=== PATIENT | female | born 1970 | race Caucasian/White ===

== ENCOUNTER 2020-11-02 14:36 | Emergency (ER) | payer OTHER, SELFPAY ==
[2020-11-02 15:18] VITALS: BP 138/83; PULSE 95; RESP 18; TEMP 37.1; O2SAT 95; BMI 40.3
[2020-11-02 15:44] LABS: Glucose Urine UA NEG (NEG); Leukocyte Esterase Urine NEG (NEG); Nitrite Urine NEG (NEG); Specific Gravity - Urine 1.025 (1.005-1.025); Urine Blood 3+ (NEG); Urine Ketones NEG (NEG); Urine Protein TRACE MG/DL (NEG-TRACE)
[2020-11-02 15:55] LABS: Appearance Urine HAZY; Color Urine YELLOW
[2020-11-02 16:14] LABS: MANUAL DIFF FLAG NO
[2020-11-02 16:19] LABS: Basophils Percent Auto 0.2 % (0-2); Eosinophils Absolute Auto 0.3 X10*3/uL (0.0-0.4); Hemoglobin 13.2 g/dl (12.0-16.0); Imm Gran Abs Auto 0.03 X10*3/uL (0.00-0.03); Imm Gran Pct Auto 0.3 % (0.0-0.4); Lymphocytes Absolute Auto 1.9 X10*3/uL (1.2-4.9); Lymphocytes Percent Auto 18.7 % (20-40); Mean Corpuscular HGB Conc 32.2 g/dl (31.0-35.0); Mean Corpuscular Hemoglobin 31.7 pg (27.0-33.0); Mean Corpuscular Volume 98.3 fL (80-98); Mean Platelet Volume 10.4 fL (9.4-12.3); Monocytes Absolute Auto 0.5 X10*3/uL (0.1-1.2); Monocytes Percent Auto 5.2 % (2-11); Neutrophils Absolute Auto 7.3 X10*3/uL (2.0-8.3); Neutrophils Percent Auto 72.6 % (45-73); Platelet Count 240 X10*3/uL (160-400); Red Blood Count 4.17 X10*6/uL (4.20-5.50); Red Cell Distribution Width 13.1 % (11.0-16.0)
[2020-11-02 16:40] LABS: Alanine Aminotransferase 18 U/L (0-31); Albumin Level 4.5 g/dL (3.5-5.0); Alkaline Phosphatase 91 U/L (39-117); Anion Gap 13 (12-20); Aspartate Amino Transferase 14 U/L (5-31); Bilirubin Total < 0.2 mg/dL (0.0-1.0); Blood Urea Nitrogen 15 mg/dL (9-16); Calcium 10.3 mg/dL (8.4-10.2); Carbon Dioxide 28 mmol/L (22-29); Chloride 105 mmol/L (96-108); Creatinine Clr Calc Pharmacy 132.6; Estimated Glomerular Filt Rate > 60; Glucose Random 98 mg/dL (60-115); Potassium 4.1 mmol/L (3.3-5.1); Sodium 142 mmol/L (135-145); Total Protein 7.5 g/dL (6.5-8.0)
[2020-11-02 16:51] LABS: Bacteria Urine 2+ /LPF; Squamous Epithelial Cell Urine 3+ /LPF; Uric Acid Crystals Urine 2+ /LPF
[2020-11-02 18:31] VITALS: BP 126/76; PULSE 92; RESP 17; TEMP 35.9; O2SAT 96
--- NOTE | 2020-11-02 19:03 | ED.FEMALEGU ---
HPI - Female Genitourinary General Chief complaint: Urogenital-Female Stated complaint: possible UTI Time Seen by Provider: 11/02/20 18:47 Source: patient Mode of arrival: ambulatory Limitations: no limitations History of Present Illness HPI Narrative: patient is a 50-year-old female with a past medical history of dm 2, endometrial cancer, kidney stones, multiple UTIs was presenting with mild low back pain and hematuria x2 days. She states she has had multiple urinary tract infections before and they feel exactly like this. She states she also has a history of kidney stones but this is not the same kind of pain, she also notes she typically would have fever nausea vomiting diarrhea with the and she does not have that right now. Related Data Previous Rx's Medication Instructions Recorded nitrofurantoin monohyd/m-cryst 100 mg PO Q12H 5 Days #10 cap 11/02/20 [Macrobid] Allergies Allergy/AdvReac Type Severity Reaction Status Date / Time No Known Allergies Allergy Verified 11/02/20 15:18 [facility] Past Medical History Medical History (Updated 11/02/20 @ 19:05 by Holli Zuluaga PA-C) Diabetes Endometrial cancer Liver function abnormality UTI (urinary tract infection) Surgical History (Updated 11/02/20 @ 15:22 by Yancy Funes RN) H/O: hysterectomy Social History Social History Advance Directives: No Advance Directives Information Provided: Yes Patient : No Physical Exam Vital Signs: Vital Signs: Last Vital Signs Temp 96.6 F L 11/02/20 18:31 Pulse 92 11/02/20 18:31 Resp 17 11/02/20 18:31 BP 126/76 11/02/20 18:31 Pulse Ox 96 11/02/20 18:31 Body Mass Index 40.3 MDM - Female Genitourinary Lab Data Result diagrams: 11/02/20 16:08 11/02/20 16:08 Labs: Lab Results 11/02/20 11/02/20 11/02/20 Range/Units 15:33 16:08 16:08 WBC 10.0 (4.8-10.8) X10*3/uL RBC 4.17 L (4.20-5.50) X10*6/uL Hgb 13.2 (12.0-16.0) g/dl Hct 41.0 (37-47) % MCV 98.3 H (80-98) fL MCH 31.7 (27.0-33.0) pg MCHC 32.2 (31.0-35.0) g/dl RDW 13.1 (11.0-16.0) % Plt Count 240 (160-400) X10*3/uL MPV 10.4 (9.4-12.3) fL Immature Gran % (Auto) 0.3 (0.0-0.4) % Neut % (Auto) 72.6 (45-73) % Lymph % (Auto) 18.7 L (20-40) % [place] % (Auto) 5.2 (2-11) % Eos % (Auto) 3.0 (0-4) % Baso % (Auto) 0.2 (0-2) % Lymph # (Auto) 1.9 (1.2-4.9) X10*3/uL [place] # (Auto) 0.5 (0.1-1.2) X10*3/uL Eos # (Auto) 0.3 (0.0-0.4) X10*3/uL Baso # (Auto) 0.0 (0.0-0.2) X10*3/uL Abs Immat Gran (auto) 0.03 (0.00-0.03) X10*3/uL Absolute Neuts (auto) 7.3 (2.0-8.3) X10*3/uL Absolute Nucleated RBC 0.000 (0.0-0.012) X10*3/uL Nucleated RBC % (auto) 0.0 (0.0-0.2) /100WBC Sodium 142 (135-145) mmol/L Potassium 4.1 (3.3-5.1) mmol/L Chloride 105 (96-108) mmol/L Carbon Dioxide 28 (22-29) mmol/L Anion Gap 13 (12-20) BUN 15 (9-16) mg/dL Creatinine 0.70 (0.5-1.4) mg/dL Estim Creat Clear Calc 132.6 Estimated GFR > 60 Random Glucose 98 (60-115) mg/dL Calcium 10.3 H (8.4-10.2) mg/dL Total Bilirubin < 0.2 (0.0-1.0) mg/dL AST 14 (5-31) U/L ALT 18 (0-31) U/L Alkaline Phosphatase 91 (39-117) U/L Total Protein 7.5 (6.5-8.0) g/dL Albumin 4.5 (3.5-5.0) g/dL Urine Color YELLOW Urine Appearance HAZY Urine pH 6.0 (5.0-8.0) Ur Specific [place] 1.025 (1.005-1.025) Urine Protein TRACE (NEG-TRACE) MG/DL Urine Glucose (UA) NEG (NEG) MG/DL Urine Ketones NEG (NEG) MG/DL Urine Blood 3+ H (NEG) Urine Nitrite NEG (NEG) Ur Leukocyte Esterase NEG (NEG) Urine RBC 15-29 H (0) /HPF Urine WBC 1-4 (0-4) /HPF Ur Squamous Epith Cells 3+ /LPF Uric Acid Crystals 2+ /LPF Urine Bacteria 2+ /LPF Discharge Plan Discharge Clinical Impression: Urinary tract infection Qualifiers: Urinary tract infection type: acute cystitis Hematuria presence: with hematuria Qualified Code(s): N30.01 - Acute cystitis with hematuria Patient Disposition: Home, Self-Care Instructions: Urinary Tract Infection in Women (ED) Additional Instructions: please be sure to drink lots of water, you may take ibuprofen for pain, I have given your 1st dose of your antibiotic tonight, you should fill the prescription 1st thing in the morning and start taking the medication then. If you develop a fever or worsening pain, please return to the emergency department as you will need to be ruled out for kidney stone. Prescriptions: New nitrofurantoin monohyd/m-cryst [Macrobid] 100 mg capsule 100 mg PO Q12H 5 Days Qty: 10 RF: 0
[2020-11-02] MEDS: Nitrofurantoin Monohyd/M-Cryst 100 MG CAPSULE PO (19:21)
== END 2020-11-02 19:27 | disposition home or self-care (01) ==
PROVIDERS: Emergency Provider Internal Medicine
DX: N30.01 Acute cystitis with hematuria (principal); E11.9 Type 2 diabetes mellitus without complications; Z87.440 Personal history of urinary (tract) infections
CPT/HCPCS: 36415; 80053; 81001; 85025; 99283; 99284

== ENCOUNTER 2020-12-11 18:33 | Emergency (ER) | payer OTHER, SELFPAY ==
--- NOTE | ~2020-12-11 | CT_ITS ---
EXAMINATION: CT ABDOMEN AND PELVIS WITHOUT CONTRAST CLINICAL INFORMATION: bilat flank pain, hematuria . COMPARISON: No pertinent prior studies are available for comparison. TECHNIQUE: Multidetector volumetric imaging was performed from the superior aspect of the liver through the pubic symphysis without contrast per renal stone protocol. Sagittal and coronal reformatted images were obtained on the technologist workstation. This CT examination was performed using dose optimization techniques as appropriate, variously including the following: *Automated exposure control *Adjustment of mA and/or kV according to patient size (this includes techniques or standardized protocols for targeted exams where dose is matched to indication/reason for exam; i.e. extremities or head) *Use of iterative reconstruction technique DLP: 1141 mGy-cm. FINDINGS: LUNG BASES: The visualized lung bases are unremarkable. LIVER, GALLBLADDER, BILIARY TREE: The non-contrast liver is normal in size, shape, and attenuation. No focal hepatic lesion or biliary ductal dilatation is present. The gallbladder is unremarkable with no evidence of radiopaque gallstones, gallbladder wall thickening, or obvious pericholecystic inflammatory changes. PANCREAS: Unremarkable. SPLEEN: Unremarkable. ADRENAL GLANDS: Unremarkable. KIDNEYS AND URETERS: The kidneys are normal in size, shape, and attenuation. No hydronephrosis, hydroureter, or perinephric stranding. Nonobstructing 5 mm calculi in the lower pole collecting system of the right kidney with additional tiny punctate calculi seen bilaterally. I do not appreciate any ureteric calculi although there are multiple phleboliths seen within the pelvis near the course the ureters BLADDER: Unremarkable. GASTROINTESTINAL TRACT: Scattered colonic diverticulosis but no evidence for diverticulitis. Normal-appearing appendix in the right lower quadrant. Visualized small bowel unremarkable. Stomach is decompressed and unremarkable. ABDOMINAL WALL: Tiny fat-containing periumbilical hernia LYMPHOVASCULAR STRUCTURES: Mild stranding to the mesenteric fat but no bulky mesenteric adenopathy. PELVIC VISCERA: Surgically absent OSSEUS STRUCTURES: Degenerative changes at L5/S1 CT/CT abdomen pelvis wo con IMPRESSION: Chronic appearing changes as described above. I do not appreciate any acute intra-abdominal process. Nonobstructing renal calculi noted.
[2020-12-11 20:56] VITALS: BP 158/86; PULSE 100; RESP 18; TEMP 37.2; O2SAT 95; BMI 40.3
[2020-12-11 21:41] LABS: Glucose Urine UA NEG (NEG); Leukocyte Esterase Urine NEG (NEG); Nitrite Urine NEG (NEG); Specific Gravity - Urine >= 1.030 (1.005-1.025); UACC Culture Trigger NO; Urine Blood 1+ (NEG); Urine Ketones NEG (NEG); Urine Protein NEG (NEG-TRACE)
[2020-12-11 21:42] LABS: Appearance Urine HAZY; Color Urine YELLOW
[2020-12-11 22:05] LABS: Bacteria Urine 1+ /LPF; Calcium Oxalate Crystals Urine TRACE /LPF; Mucus Urine 2+ /LPF; RBC Urine 0-2 /HPF (0); Squamous Epithelial Cell Urine 3+ /LPF; Uric Acid Crystals Urine 3+ /LPF; WBC Urine 0 /HPF (0-4)
--- NOTE | 2020-12-11 22:38 | ED_ITS ---
HPI - Female Genitourinary General Chief complaint: Urogenital-Female Stated complaint: possible bladder infection/uti Time Seen by Provider: 12/11/20 22:24 Source: patient Mode of arrival: ambulatory Limitations: no limitations History of Present Illness HPI Narrative: Patient comes emergency room complaining of multiple UTIs since October. Patient states that for last 3 days she has been having dysuria, hematuria, frequency. Patient states that initially she was treated for a UTI with nitrofurantoin, 2nd episode with Bactrim. Patient states that after the Bactrim she started feeling better, but her symptoms never quite resolved, and over last 2-3 days the symptoms worsen. Patient has mild bilateral back d iscomfort, no significant pain, no fever or chills. Patient concerned that she has been urinating more than usual especially at night. Related Data Previous Rx's Medication Instructions Recorded nitrofurantoin 100 mg PO Q12H 5 Days #10 cap 11/02/20 monohydrate/macrocrystals 100 mg capsule (Macrobid) phenazopyridine 100 mg tablet 100 mg PO TID #6 tab 12/12/20 Allergies Allergy/AdvReac Type Severity Reaction Status Date / Time No Known Allergies Allergy Verified 12/11/20 21:02 Review of Systems Review of Systems: Constitutional : No Weight loss, No Fever, No Chills, No Night Sweats, No Fatigue, No Malaise ENT/Mouth : No Hearing loss, No Ear Pain, No Nasal Congestion, No Sinus Pain, No Hoarseness, No sore throat, No Rhinorrhea, No Swallowing Difficulty Eyes: No Eye Pain, No Swelling, No Redness, No Foreign Body, No Discharge, No Vision Changes Cardiovascular : No Chest Pain, No SOB, No Dyspnea on Exertion, No Orthopnea, No Edema, No Palpitations Respiratory : No Cough, No Sputum, No Wheezing, No Smoke Exposure, No Dyspnea Gastrointestinal : No Nausea, No Vomiting, No Diarrhea, No Constipation, No abdominal Pain, No Hematochezia, No Melena Genitourinary : no irregular bleeding, complaining of dysuria, frequency, hematuria, no incontinence, complaining of increased frequency of urination especially at night Musculoskeletal : No joint pain, No Myalgias, No Joint Swelling Skin : No Skin Lesions, No rash Neuro : No Weakness, No Numbness, No Paresthesias, No Loss of Consciousness, No Dizziness, No Headache Psych : No Anxiety/Panic, No Depression, No SI/HI/AH/VH, No Social Issues, Heme/Lymph: No Bruising, No Bleeding,No Lymphadenopathy Endocrine : No Polyuria, No Polydipsia, No Temperature Intolerance [facility] Past Medical History Medical History Diabetes Endometrial cancer Liver function abnormality UTI (urinary tract infection) Surgical History H/O: hysterectomy Social History Social History Advance Directives: No Patient : No Physical Exam Vital Signs: Vital Signs: Last Vital Signs Temp 99.0 F 12/11/20 20:56 Pulse 100 12/11/20 20:56 Resp 18 12/11/20 20:56 BP 158/86 H 12/11/20 20:56 Pulse Ox 95 12/11/20 20:56 Body Mass Index 40.3 Const: Other: Appearance: Alert. Oriented X3. No acute distress. Eyes: Pupils equal, round and reactive to light. ENT: Pharynx normal. Neck: Normal inspection. Neck supple. No lymph nodes noted. No crepitus CVS: Normal heart rate and rhythm. Pulses normal. Normal S1 and S2 Respiratory: No respiratory distress. Breath sounds normal. No Wheezing. No rales Abdomen: Soft and nontender. No rigidity. No distention. Mild bilateral CVA tenderness Skin: Skin warm and dry. Normal skin color. Normal skin turgor. Extremities: No lower extremity edema. No Lacerations. No Rash Neuro: Oriented X 3. No motor deficit. No sensory deficit. Moving all extermities. No slurred speech. Course Course Course Narrative: I discussed the labs and CT with the patient, patient also states that she does not quite have dysuria, is mostly bladder spasms when she urinates. Patient CT scan does not show any ureterolithiasis, however there is trace calcium oxalate crystals in the urine, patient likely passed the stone. The urine is not infected. Patient will be going home with Pyridium, 1st dose given in the ER. Patient instructed to follow-up with PCP to get a urinalysis to be done early next week MDM - Female Genitourinary Lab Data Result diagrams: 12/11/20 23:20 12/11/20 23:20 Labs: Lab Results 12/11/20 12/11/20 12/11/20 Range/Units 21:11 23:20 23:20 WBC 9.9 (4.8-10.8) X10*3/uL RBC 4.19 L (4.20-5.50) X10*6/uL Hgb 13.4 (12.0-16.0) g/dl Hct 40.8 (37-47) % MCV 97.4 (80-98) fL MCH 32.0 (27.0-33.0) pg MCHC 32.8 (31.0-35.0) g/dl RDW 13.2 (11.0-16.0) % Plt Count 260 (160-400) X10*3/uL MPV 10.1 (9.4-12.3) fL Immature Gran % (Auto) 0.2 (0.0-0.4) % Neut % (Auto) 64.7 (45-73) % Lymph % (Auto) 26.6 (20-40) % [place] % (Auto) 5.4 (2-11) % Eos % (Auto) 2.9 (0-4) % Baso % (Auto) 0.2 (0-2) % Lymph # (Auto) 2.6 (1.2-4.9) X10*3/uL [place] # (Auto) 0.5 (0.1-1.2) X10*3/uL Eos # (Auto) 0.3 (0.0-0.4) X10*3/uL Baso # (Auto) 0.0 (0.0-0.2) X10*3/uL Abs Immat Gran (auto) 0.02 (0.00-0.03) X10*3/uL Absolute Neuts (auto) 6.4 (2.0-8.3) X10*3/uL Absolute Nucleated RBC 0.000 (0.0-0.012) X10*3/uL Nucleated RBC % (auto) 0.0 (0.0-0.2) /100WBC Sodium 142 (135-145) mmol/L Potassium 4.0 (3.3-5.1) mmol/L Chloride 107 (96-108) mmol/L Carbon Dioxide 23 (22-29) mmol/L Anion Gap 16 (12-20) BUN 15 (9-16) mg/dL Creatinine 0.77 (0.5-1.4) mg/dL Estim Creat Clear Calc 120.5 Estimated GFR > 60 Random Glucose 177 H D (60-115) mg/dL Calcium 9.8 (8.4-10.2) mg/dL Urine Color YELLOW Urine Appearance HAZY Urine pH 6.0 (5.0-8.0) Ur Specific [place] >= 1.030 H (1.005-1.025) Urine Protein NEG (NEG-TRACE) MG/DL Urine Glucose (UA) NEG (NEG) MG/DL Urine Ketones NEG (NEG) MG/DL Urine Blood 1+ H (NEG) Urine Nitrite NEG (NEG) Ur Leukocyte Esterase NEG (NEG) Urine RBC 0-2 (0) /HPF Urine WBC 0 (0-4) /HPF Ur Squamous Epith Cells 3+ /LPF Calcium Oxalate Crystal TRACE /LPF Uric Acid Crystals 3+ /LPF Urine Bacteria 1+ /LPF Urine Mucus 2+ /LPF Imaging Data CT scan - abdomen: Radiologist's impression: DLP: 1141 mGy-cm. FINDINGS: LUNG BASES: The visualized lung bases are unremarkable. LIVER, GALLBLADDER, BILIARY TREE: The non-contrast liver is normal in size, shape, and attenuation. No focal hepatic lesion or biliary ductal dilatation is present.? The gallbladder is unremarkable with no evidence of radiopaque gallstones, gallbladder wall thickening, or obvious pericholecystic inflammatory changes. PANCREAS: Unremarkable. SPLEEN: Unremarkable. ADRENAL GLANDS: Unremarkable. KIDNEYS AND URETERS: The kidneys are normal in size, shape, and attenuation. No hydronephrosis, hydroureter, or perinephric stranding. Nonobstructing 5 mm calculi in the lower pole collecting system of the right kidney with additional tiny punctate calculi seen bilaterally. I do not appreciate any ureteric calculi although there are multiple phleboliths seen within the pelvis near the course the ureters BLADDER: Unremarkable. GASTROINTESTINAL TRACT: Scattered colonic diverticulosis but no evidence for diverticulitis. Normal-appearing appendix in the right lower quadrant. Visualized small bowel unremarkable. Stomach is decompressed and unremarkable. ABDOMINAL WALL: Tiny fat-containing periumbilical hernia LYMPHOVASCULAR STRUCTURES: Mild stranding to the mesenteric fat but no bulky mesenteric adenopathy. PELVIC VISCERA: Surgically absent OSSEUS STRUCTURES: Degenerative changes at L5/S1 CT/CT abdomen pelvis wo con IMPRESSION: Chronic appearing changes as described above. I do not appreciate any acute intra-abdominal process. Nonobstructing renal calculi noted. Discharge Plan Discharge Clinical Impression: UTI symptoms Patient Disposition: Home, Self-Care Instructions: Kidney Stones (ED) Additional Instructions: Please follow-up with your primary care physician tomorrow. If you have any worsening or new symptoms, please return to the emergency room or call 911 Prescriptions: New phenazopyridine 100 mg tablet 100 mg PO TID Qty: 6 RF: 0 No Action nitrofurantoin monohyd/m-cryst [Macrobid] 100 mg capsule 100 mg PO Q12H 5 Days Qty: 10 RF: 0
[2020-12-11 23:25] LABS: Basophils Percent Auto 0.2 % (0-2); Eosinophils Absolute Auto 0.3 X10*3/uL (0.0-0.4); Eosinophils Percent Auto 2.9 % (0-4); Hematocrit 40.8 % (37-47); Hemoglobin 13.4 g/dl (12.0-16.0); Imm Gran Abs Auto 0.02 X10*3/uL (0.00-0.03); Imm Gran Pct Auto 0.2 % (0.0-0.4); Lymphocytes Absolute Auto 2.6 X10*3/uL (1.2-4.9); Lymphocytes Percent Auto 26.6 % (20-40); MANUAL DIFF FLAG NO; Mean Corpuscular HGB Conc 32.8 g/dl (31.0-35.0); Mean Corpuscular Volume 97.4 fL (80-98); Mean Platelet Volume 10.1 fL (9.4-12.3); Monocytes Absolute Auto 0.5 X10*3/uL (0.1-1.2); Monocytes Percent Auto 5.4 % (2-11); Neutrophils Absolute Auto 6.4 X10*3/uL (2.0-8.3); Neutrophils Percent Auto 64.7 % (45-73); Platelet Count 260 X10*3/uL (160-400); Red Blood Count 4.19 X10*6/uL (4.20-5.50); Red Cell Distribution Width 13.2 % (11.0-16.0); White Blood Count 9.9 X10*3/uL (4.8-10.8)
[2020-12-11 23:53] LABS: Anion Gap 16 (12-20); Blood Urea Nitrogen 15 mg/dL (9-16); Calcium 9.8 mg/dL (8.4-10.2); Carbon Dioxide 23 mmol/L (22-29); Chloride 107 mmol/L (96-108); Creatinine Clr Calc Pharmacy 120.5; Estimated Glomerular Filt Rate > 60; Glucose Random 177 mg/dL (60-115); Sodium 142 mmol/L (135-145)
[2020-12-12] VITALS: BP 155/95; PULSE 100; RESP 16; TEMP 36.7; O2SAT 98
== END 2020-12-12 00:32 | disposition home or self-care (01) ==
PROVIDERS: Emergency Provider Emergency Medicine
DX: R30.0 Dysuria (principal); R31.9 Hematuria, unspecified; R35.0 Frequency of micturition; Z87.440 Personal history of urinary (tract) infections
CPT/HCPCS: 36415; 74176; 80048; 81001; 85025; 99283; 99284

== ENCOUNTER 2020-12-30 15:11 | Outpatient (REF) | payer OTHER, SELFPAY ==
[2020-12-30 15:50] LABS: COVID-19 Test Negative (Negative); IDNOW Serial# 08D9AD1C
== END 2020-12-30 15:12 | disposition home or self-care (01) ==
LOC: HO.LAB 15:11
PROVIDERS: Visit Provider Internal Medicine
DX: Z20.822 Contact with and (suspected) exposure to COVID-19 (principal)
CPT/HCPCS: 36415; 87635; C9803

== ENCOUNTER 2021-05-20 11:33 | Outpatient (REF) | payer MEDICAID, SELFPAY ==
[2021-05-20 14:06] LABS: COVID-19 Test Positive (Negative); IDNOW Serial# 16C4AD1C
== END 2021-05-20 11:34 | disposition home or self-care (01) ==
LOC: HO.LAB 11:33
PROVIDERS: Visit Provider Internal Medicine
DX: Z20.822 Contact with and (suspected) exposure to COVID-19 (principal)
CPT/HCPCS: 87635; C9803

== ENCOUNTER 2021-06-24 12:38 | Outpatient (REF) | payer MEDICAID, SELFPAY ==
--- NOTE | ~2021-06-24 | MM_ITS ---
EXAMINATION: MM SCREENING DIGITAL BREAST TOMOSYNTHESIS, BILATERAL CLINICAL INFORMATION: Screening. Asymptomatic. Age 50. Prior history breast cancer, sister. The lifetime risk of breast cancer based on the Tyrer-Cuzick Model is 19%. COMPARISON: None. TECHNIQUE: Digital breast tomosynthesis is performed in both the craniocaudal and mediolateral oblique views along with computer-aided detection (CAD). Synthesized 2D images are generated from the tomosynthesis. FINDINGS: The breasts are almost entirely fatty (ACR BI-RADS breast composition Category a). There are no significant masses, abnormal calcifications, or other abnormalities. There are scattered bilateral benign small or large round and rim calcifications involving the anterior breasts. The axilla and skin contours are unremarkable. MM/MM tomosynthesis screening BI IMPRESSION: No mammographic evidence of malignancy. ASSESSMENT: BI-RADS 2: Benign RECOMMENDATION: Routine annual mammography screening. This patient's information was entered into a reminder system with a target due date for their next mammogram.
== END 2021-06-24 12:39 | disposition home or self-care (01) ==
LOC: HO.MAMMO 12:38
PROVIDERS: Visit Provider Nurse Practitioner Family
DX: Z12.31 Encounter for screening mammogram for malignant neoplasm of breast (principal)
CPT/HCPCS: 77063; 77067

== ENCOUNTER 2021-11-29 14:19 | Outpatient (REF) | payer MEDICAID, SELFPAY ==
--- NOTE | ~2021-11-29 | US_ITS ---
EXAMINATION: US RETROPERITONEAL LIMITED (RENAL ONLY) CLINICAL INFORMATION: Abdominal pain. History of urinary calculi. COMPARISON: CT abdomen and pelvis 12/11/2020. TECHNIQUE: Real-time imaging of the kidneys. FINDINGS: RIGHT KIDNEY: 11.4 x 5.1 x 6.0 cm (SAG x AP x TRV). The kidney is normal in size, contour, and echogenicity. Renal cortical thickness is normal. No calculi or focal parenchymal lesions. No hydronephrosis. LEFT KIDNEY: 12.2 x 6.3 x 5.1 cm (SAG x AP x TRV). The kidney is normal in size, contour, and echogenicity. Renal cortical thickness is normal. No focal parenchymal lesions or cysts. There are 2 echogenic stones measuring 0.7 x 0.5 to 0.6 cm in the lower pole and 0.6 x 0.3 x 0.3 cm in midpole. There is mild pelvic fullness but no focal caliectasis or hydronephrosis. US/US renal BI IMPRESSION: Nonobstructive echogenic 2 renal calculi in the left kidney. No caliectasis or hydronephrosis; however, there is mild pelvic fullness. The right kidney is unremarkable.
== END 2021-11-29 14:20 | disposition home or self-care (01) ==
LOC: HO.US 14:19
PROVIDERS: Visit Provider Emergency Medicine
DX: R10.9 Unspecified abdominal pain (principal)
CPT/HCPCS: 76775

== ENCOUNTER 2021-12-21 12:32 | Outpatient (REF) | payer MEDICAID, SELFPAY ==
--- NOTE | ~2021-12-21 | XR_ITS ---
EXAMINATION: XR HIP, RIGHT CLINICAL INFORMATION: Right hip pain. COMPARISON: CT pelvis 12/11/2020. TECHNIQUE: 2 views of the right hip. FINDINGS: No fracture, dislocation, destructive process. There is borderline narrowing superior medial hip joint. No subchondral sclerosis or erosive change or visible chondrocalcinosis. There is mild spurring at the superior lateral acetabulum. Soft tissue planes appear normal. Normal bony mineralization. There is mild osteitis pubis. Numerous calcified phleboliths pelvis. XR/XR hip RT min 2V IMPRESSION: - Borderline narrowing superior medial hip joint. - Osteitis pubis.
--- NOTE | ~2021-12-21 | XR_ITS ---
EXAMINATION: XR CHEST CLINICAL INFORMATION: Wheezing. COMPARISON: None TECHNIQUE: 2 views of the chest were obtained. FINDINGS: No hyperinflation, airspace consolidation, ground-glass opacity, or effusion. The costophrenic sulci are clear. Heart size normal. Vascularity normal. No bronchiectasis. Hilar and mediastinal contours normal. No visible acute bony abnormality. XR/XR chest 2V IMPRESSION: Unremarkable examination.
== END 2021-12-21 12:33 | disposition home or self-care (01) ==
LOC: HO.XRAY 12:32
PROVIDERS: PCP Nurse Practitioner Family; Visit Provider Nurse Practitioner Family
DX: R06.2 Wheezing (principal); M25.551 Pain in right hip
CPT/HCPCS: 71046; 73502

== ENCOUNTER 2022-02-01 10:32 | Outpatient (REF) | payer MEDICAID, SELFPAY ==
--- NOTE | ~2022-02-01 | US_ITS ---
EXAMINATION: US ABDOMEN COMPLETE CLINICAL INFORMATION: Hepatitis B. Hyperlipidemia renal ultrasound 11/29/2021. CT abdomen and pelvis 12/11/2020. COMPARISON: None TECHNIQUE: Real-time imaging of the abdominal viscera. FINDINGS: PANCREAS: The pancreatic head and body are unremarkable. The tail is obscured by gas. ABDOMINAL AORTA: The proximal, mid, and distal segments are normal in caliber. INFERIOR VENA CAVA: Visualized portions are normal. LIVER: The liver contour is normal. There is diffuse increased liver parenchymal echogenicity, consistent with hepatic steatosis. Borderline enlarged liver measuring 18.9 cm CC. No focal hepatic lesion. There is no intrahepatic biliary duct dilatation seen. GALLBLADDER: Normal. The gallbladder is physiologically distended without evidence of stones, sludge, polyps, wall thickening or pericholecystic fluid. COMMON BILE DUCT: Normal in caliber measuring 0.3 cm in diameter. RIGHT KIDNEY: Midpole 0.8 cm calculus. No hydronephrosis or focal parenchymal lesions. The kidney measures 12.7 cm in maximum dimension. LEFT KIDNEY: Mid pole 1.1 cm calculus . Upper pole 0.3 cm calculus. No hydronephrosis or focal parenchymal lesions. The kidney measures 11.4 cm in maximum dimension. SPLEEN: Normal. The spleen measures 11.0 cm in maximum dimension. FREE FLUID: None. US/US abdomen complete IMPRESSION: Nonobstructing bilateral renal calculi. Hepatic steatosis. No focal liver lesion.
== END 2022-02-01 10:33 | disposition home or self-care (01) ==
LOC: HO.US 10:32
PROVIDERS: Visit Provider Nurse Practitioner Family
DX: R79.89 Other specified abnormal findings of blood chemistry (principal); E78.5 Hyperlipidemia, unspecified; R76.8 Other specified abnormal immunological findings in serum
CPT/HCPCS: 76700

== ENCOUNTER → 2022-03-03 15:09 | Outpatient (BNVA) | payer MEDICAID, SELFPAY | PROVIDERS: PCP Nurse Practitioner Family; Visit Provider Urology | DX: N20.0 Calculus of kidney (principal); R10.9 Unspecified abdominal pain | CPT/HCPCS: 99202 ==

== ENCOUNTER 2022-03-15 14:36 | Outpatient (REF) | payer MEDICAID, SELFPAY ==
--- NOTE | ~2022-03-15 | CT_ITS ---
EXAMINATION: CT ABDOMEN AND PELVIS WITHOUT CONTRAST CLINICAL INFORMATION: Calculus of kidney. COMPARISON: Ultrasound abdomen 02/01/2022 TECHNIQUE: Multidetector volumetric imaging was performed from the superior aspect of the liver through the pubic symphysis. Sagittal and coronal reformatted images were obtained on the technologist's workstation. This CT examination was performed using dose optimization techniques as appropriate, variously including the following: *Automated exposure control *Adjustment of mA and/or kV according to patient size (this includes techniques or standardized protocols for targeted exams where dose is matched to indication/reason for exam; i.e. extremities or head) *Use of iterative reconstruction technique DLP: 1224 mGy-cm FINDINGS: LUNG BASES: The lung bases are clear. Heart size is normal. LIVER, GALLBLADDER, AND BILIARY TREE: The liver is normal in size, shape, and attenuation. No focal hepatic lesion or biliary ductal dilatation is present. The gallbladder is unremarkable with no evidence of radiopaque gallstones, gallbladder wall thickening, or obvious pericholecystic inflammatory changes. PANCREAS: Unremarkable. SPLEEN: Unremarkable. ADRENAL GLANDS: Unremarkable. KIDNEYS AND URETERS: The kidneys are normal in size, shape, and attenuation. No perinephric stranding. There is a 1.4 cm obstructive left pelvic/UPJ calculus with mild hydronephrosis. No additional radiopaque calculi are seen. There is no right-sided hydronephrosis. BLADDER: Unremarkable. GASTROINTESTINAL TRACT: There is scattered stool and gas seen throughout the colon without distention. There is nonspecific fat deposition in a short segment of the hepatic flexure on axial image 37/3, nonspecific. The appendix, ileocecal junction and small bowel loops are normal caliber. ABDOMINAL WALL: There is a small umbilical hernia containing intraperitoneal fat. LYMPH NODES: Normal. VASCULAR: Unremarkable. PELVIC VISCERA: Unremarkable. OSSEOUS STRUCTURES: There are degenerative disc changes with vacuum disc phenomenon at the L5-S1 disc level with ventral and posterior spondylosis. CT/CT abdomen pelvis wo IV con IMPRESSION: 1.4 cm partially obstructive stone at the left UPJ. A 1.1 cm calculus was seen in the midpole left kidney on recent ultrasound 02/03/2022. These calculi in the left kidney has increased in size since previous CT exam 12/11/2020. Degenerative disc changes at the L5-S1 disc level with ventral spondylosis. Fleischner guidelines were followed.
== END 2022-03-15 14:37 | disposition home or self-care (01) ==
LOC: HO.CT 14:36
PROVIDERS: Visit Provider Urology
DX: N20.0 Calculus of kidney (principal)
CPT/HCPCS: 74176

== ENCOUNTER → 2022-03-17 14:56 | Outpatient (BNVA) | payer MEDICAID, SELFPAY | PROVIDERS: PCP Nurse Practitioner Family; Visit Provider Urology | DX: N20.0 Calculus of kidney (principal); R10.9 Unspecified abdominal pain | CPT/HCPCS: 99212 ==

== ENCOUNTER 2022-03-23 08:20 | Day surgery (SDC) | payer MEDICAID, SELFPAY ==
--- NOTE | 2022-03-22 12:44 | P.CONAN_ITS ---
Documented by User: Jessie Saunders NP 03/22/22 12:44 HPI - Anesthesia Eval Consult details Narrative: 51yo F for Left ESWL PMFSH Active Problems Active Problems: All Active Problems (Updated 03/17/22 @ 15:35 by Maureen Watson MD) Kidney stone on left side (Acute) Flank pain (Acute) Bilateral kidney stones (Acute) Past Medical History Medical History CPAP (continuous positive airway pressure) dependence Diabetes Endometrial cancer Liver function abnormality UTI (urinary tract infection) Surgical History Surgical History H/O: hysterectomy Tubal ligation status Social History Social History Patient Tobacco Use Status: Current everyday Tobacco user Tobacco use type: Cigarette Cigarettes Per Day: 20 Years Smoked: 18 Smoked in Last 30 Days: Yes Use of substances other than those prescribed or required for medical reasons: No Are you DNR?: No Advance Directives: No Advance Directives Information Provided: Yes Meds Allergies Allergy/AdvReac Type Severity Reaction Status Date / Time No Known Allergies Allergy Verified 03/23/22 08:56 Home Medications Medication Instructions Recorded Confirmed Last Taken Type albuterol sulfate 90 mcg/actuation 2 puff inhalation Q4-6H PRN 03/23/22 03/23/22 Unknown History aerosol inhaler (ProAir HFA) wheezing atorvastatin 40 mg tablet 1 tab PO DAILY 03/23/22 03/23/22 Unknown History dulaglutide 0.75 mg/0.5 mL 0.75 mg subcut QWEEK 03/23/22 03/23/22 03/16/22 History subcutaneous pen injector (Trulicity) metformin 1,000 mg tablet 1 tab PO BID 03/23/22 03/23/22 03/22/22 10:00 History sertraline 100 mg tablet 0.5 tab PO DAILY 03/23/22 03/23/22 Unknown History Exam Exam Date and Time: March 22, 2022 1244 Assessment and Plan Assessment Anesthesia Assessment: Chart Reviewed Documented by User: Michael Forrest MD 03/23/22 09:23 [facility] [place] Past Medical History Medical History CPAP (continuous positive airway pressure) dependence Diabetes Endometrial cancer Liver function abnormality UTI (urinary tract infection) Family History Family history of problems with anesthesia: No Surgical History Surgical History H/O: hysterectomy Tubal ligation status History of Problems with Anesthesia: No Social History Social History (Reviewed 03/23/22 @ 09: by Michael Forrest MD) Patient Tobacco Use Status: Current everyday Tobacco user Tobacco use type: Cigarette Cigarettes Per Day: 20 Years Smoked: 18 Smoked in Last 30 Days: Yes Use of substances other than those prescribed or required for medical reasons: No Are you DNR?: No Advance Directives: No Advance Directives Information Provided: Yes Meds Allergies Allergy/AdvReac Type Severity Reaction Status Date / Time No Known Allergies Allergy Verified 03/23/22 08:56 Home Medications Medication Instructions Recorded Confirmed Last Taken Type albuterol sulfate 90 mcg/actuation 2 puff inhalation Q4-6H PRN 03/23/22 03/23/22 Unknown History aerosol inhaler (ProAir HFA) wheezing atorvastatin 40 mg tablet 1 tab PO DAILY 03/23/22 03/23/22 Unknown History dulaglutide 0.75 mg/0.5 mL 0.75 mg subcut QWEEK 03/23/22 03/23/22 03/16/22 History subcutaneous pen injector (Trulicity) metformin 1,000 mg tablet 1 tab PO BID 03/23/22 03/23/22 03/22/22 10:00 History sertraline 100 mg tablet 0.5 tab PO DAILY 03/23/22 03/23/22 Unknown History Exam Airway Mallampati Class: III TM Dist: >3cm Neck ROM: Full Loose/Missing/Broken Teeth: Yes (Very poor dentition, lower front tooth missing) Heart: [id number] Lungs: cta b/l Assessment and Plan Assessment Anesthesia Assessment: Anesthesia Plan Discussed Final Anesthetic Review Family History of Problems with Anesthesia: No History of Problems with Anesthesia: No NPO: Yes ASA Class: III Final Preanesthetic Review: No Changes in Pt Med Stat, Meds/Allgs Chart Reviewed, Consent Obtained/Reviewed and Anes Risks/Benef Reviewed Patient Risk: Intermediate Procedure Risk: Intermediate Assessment/Block/Sedation in SS: Assess/Block/Sedation-SS Anesthetic Plan Anesthetic Plan: MAC: and Agree w/ Assess. and Plan Disposition: Standard PACU
--- NOTE | ~2022-03-23 | XR_ITS ---
EXAMINATION: XR ABDOMEN KUB CLINICAL INDICATION: Pre-ESWL. COMPARISON: CT abdomen and pelvis dated 03/15/2022; abdominal ultrasound dated 02/01/2022. TECHNIQUE: 2 AP views of the abdomen and pelvis are submitted. FINDINGS: The bowel gas pattern is normal, with no evidence of ileus or obstruction. No unusual soft tissue calcifications are noted. There are multiple small pelvic phleboliths. The bones are unremarkable. XR/XR KUB IMPRESSION: Unremarkable examination.
[2022-03-23 09:06] VITALS: BMI 39.0
[2022-03-23 09:14] VITALS: BP 134/78; PULSE 82; RESP 16; TEMP 36.3; O2SAT 95
[2022-03-23 09:20] LABS: Glucose, Whole Blood 171 mg/dL (60-115)
[2022-03-23] MEDS: Lactated Ringers 1,000 ML 100 ML IVCONT (09:32)
--- NOTE | 2022-03-23 10:01 | MHC.SHP ---
Pre-Procedural Eval Section A Date of Service: 03/23/22 The patient is an INPATIENT: No Section B Chief Complaint: Calculus of kidney Allergies: Allergies Allergy/AdvReac Type Severity Reaction Status Date / Time No Known Allergies Allergy Verified 03/23/22 08:56 Plan Diagnosis/Plan: Unchanged I have reviewed the history and physical and performed a pertinent physical examination on my patient. No changes have occurred unless specified. Left ESWL. Discussed risks to include but not limited to, blood in the urine, bruising to the skin, kidney hematoma, possible need for another procedure if a stone fragment obstructs the ureter while passing, possible need to repeat procedure if stone is not completely fragmented.
--- NOTE | 2022-03-23 10:04 | W.PM.OPN ---
Operative Note Operative Note Date of Service: 03/23/22 Narrative: PreOperative Diagnosis:? ? Left Renal stone Post Operative Diagnosis:?Left? Renal stone Procedure:?Left? ESWL Surgeon:?Dr Maureen Watson Anesthesia:? MAC Indications for procedure: Grace is a 51 year old female with an 14 mm left renal pelvis stone. The patient understands ESWL may be a staged procedure and subsequent intervention may be required based on imaging after ESWL.? They also understand? there is a risk of bleeding to the kidney, infection, damage to adjacent organs, and stone migration following the procedure. Procedure: After informed consent was verified the patient was brought to the operating room and placed in a supine position.? Anesthesia was performed per protocol. Safety pause time-out was performed. Ancef 2 gm IV. Imaging was displayed in the room and laterality confirmed. ESWL was performed.?The stone was visualized with fluoroscopy.? Shockwave lithotripsy was performed, the first 300 shocks at 60 hertz.? A pause for 3 minutes.? A total of 2000 shocks to a maximum of power of 20 with a maximum rate of 120 hertz.? Some fragmentation of the stone was appreciated. The patient tolerated the procedure well and was transferred to the recovery area upon completion. Complications: None
[2022-03-23 10:45] VITALS: BP 124/85; PULSE 84; RESP 16; TEMP 36.6; O2SAT 95
[2022-03-23 11:00] VITALS: BP 108/62; PULSE 73; RESP 18; TEMP 36.4; O2SAT 96
== END 2022-03-23 11:57 ==
LOC: HO.SSS 08:20
PROVIDERS: Visit Provider Urology
PROC: (CPT 50590; principal; 2022-03-23 10:00)
DX: N20.0 Calculus of kidney (principal); Z87.440 Personal history of urinary (tract) infections; Z85.42 Personal history of malignant neoplasm of other parts of uterus; Z90.710 Acquired absence of both cervix and uterus; E11.9 Type 2 diabetes mellitus without complications; R94.5 Abnormal results of liver function studies; Z79.1 Long term (current) use of non-steroidal anti-inflammatories (NSAID); Z79.84 Long term (current) use of oral hypoglycemic drugs; Z79.899 Other long term (current) drug therapy; Z99.89 Dependence on other enabling machines and devices; F17.210 Nicotine dependence, cigarettes, uncomplicated
CPT/HCPCS: 50590; 74018; 82947; J0690; J2250; J3010

== ENCOUNTER → 2022-08-25 15:48 | Outpatient (BNVA) | payer MEDICAID, SELFPAY | PROVIDERS: PCP Registered Nurse; Visit Provider Urology ==

== ENCOUNTER 2022-09-28 12:35 | Outpatient (REF) | payer MEDICAID, SELFPAY ==
--- NOTE | ~2022-09-28 | US_ITS ---
EXAMINATION: US RETROPERITONEAL LIMITED (RENAL ONLY) CLINICAL INFORMATION: Left ureteral stone. COMPARISON: Previous CT and KUB March 2022 TECHNIQUE: Grayscale and color imaging of the kidneys FINDINGS: RIGHT KIDNEY: 10 x 5 x 5.7 cm (SAG x AP x TRV). The kidney is normal in size, contour, and echogenicity. Renal cortical thickness is normal. No calculi or focal parenchymal lesions. No hydronephrosis. LEFT KIDNEY: 12.6 x 5.7 x 6.4 cm (SAG x AP x TRV). The kidney is normal in size, contour, and echogenicity. Renal cortical thickness is normal. Moderate left hydronephrosis from a 1.7 x 1 x 1 cm UPJ stone. US/US renal BI IMPRESSION: Moderate left hydronephrosis from a 1.7 x 1 x 1 cm left UPJ stone.
== END 2022-09-28 12:36 | disposition home or self-care (01) ==
LOC: HO.US 12:35
PROVIDERS: PCP Registered Nurse; Visit Provider Urology
DX: N20.0 Calculus of kidney (principal); R10.9 Unspecified abdominal pain
CPT/HCPCS: 76775

== ENCOUNTER 2022-10-05 14:39 | Outpatient (REF) | payer MEDICAID, SELFPAY ==
--- NOTE | ~2022-10-05 | US_ITS ---
EXAMINATION: US PELVIS LIMITED (BLADDER) CLINICAL INFORMATION: Unspecified abdominal pain. COMPARISON: Ultrasound retroperitoneal limited (renal only) 09/28/2022. X-ray abdomen KUB 03/23/2022. CT abdomen and pelvis without contrast 03/15/2022. Ultrasound abdomen complete 02/01/2022. TECHNIQUE: Real-time imaging of the bladder. FINDINGS: BLADDER: Well distended and normal. Bilateral ureteral jets are demonstrated. Prevoid bladder volume is 259 mL. Postvoid bladder volume is 0.9 mL. US/US bladder IMPRESSION: Negative exam.
== END 2022-10-05 14:40 | disposition home or self-care (01) ==
LOC: HO.US 14:39
PROVIDERS: PCP Registered Nurse; Visit Provider Urology
DX: N20.0 Calculus of kidney (principal); R10.9 Unspecified abdominal pain
CPT/HCPCS: 76857

== ENCOUNTER 2023-01-13 14:20 | Emergency (ER) | payer MEDICAID, SELFPAY ==
[2023-01-13 14:32] VITALS: BP 138/92; PULSE 104; O2SAT 97
[2023-01-13 15:44] VITALS: BP 136/78; PULSE 111; RESP 20; TEMP 37.7; O2SAT 97; BMI 39.5
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
== END 2023-01-13 16:05 | disposition home or self-care (01) ==
LOC: HO.ED 15:59
PROVIDERS: Emergency Provider Emergency Medicine
DX: Z04.1 Encounter for examination and observation following transport accident (principal)
CPT/HCPCS: 99282

== ENCOUNTER 2023-05-24 09:45 | Outpatient (REF) | payer MEDICAID, SELFPAY ==
[2023-05-24 11:26] LABS: MANUAL DIFF FLAG NO
[2023-05-24 11:31] LABS: Basophils Percent Auto 0.3 % (0-2); Eosinophils Absolute Auto 0.3 X10*3/uL (0.0-0.4); Eosinophils Percent Auto 5.1 % (0-4); Hematocrit 40.1 % (37.0-47.0); Hemoglobin 12.9 g/dl (12.0-16.0); Imm Gran Abs Auto 0.02 X10*3/uL (0.00-0.03); Imm Gran Pct Auto 0.3 % (0.0-0.4); Lymphocytes Absolute Auto 1.4 X10*3/uL (1.2-4.9); Lymphocytes Percent Auto 22.2 % (20-40); Mean Corpuscular HGB Conc 32.2 g/dl (31.0-35.0); Mean Corpuscular Hemoglobin 32.3 pg (27.0-33.0); Mean Corpuscular Volume 100.3 fL (80.0-98.0); Monocytes Absolute Auto 0.4 X10*3/uL (0.1-1.2); Monocytes Percent Auto 6.6 % (2-11); Neutrophils Absolute Auto 4.1 x10*3/uL (2.0-8.3); Neutrophils Percent Auto 65.5 % (45-73); Platelet Count 221 X10*3/uL (160-400); Red Cell Distribution Width 12.6 % (11.0-16.0); White Blood Count 6.2 X10*3/uL (4.8-10.8)
[2023-05-24 11:35] LABS: Estimated Average Glucose 148 mg/dL; Hemoglobin A1c % 6.8 % (<6.0)
[2023-05-24 12:07] LABS: Alanine Aminotransferase 30 U/L (0-31); Albumin Level 4.2 g/dL (3.5-5.0); Alkaline Phosphatase 94 U/L (39-117); Anion Gap 13 (12-20); Aspartate Amino Transferase 20 U/L (5-31); Bilirubin Total 0.2 mg/dL (0.0-1.0); Blood Urea Nitrogen 10 mg/dL (9-16); Calcium 9.6 mg/dL (8.4-10.2); Carbon Dioxide 25 mmol/L (22-29); Chloride 105 mmol/L (96-108); Cholesterol 147 mg/dL (<200); Estimated Glomerular Filt Rate > 60; Glucose Random 172 mg/dL (60-115); HBS Num1 0.48 mIU/mL (0-7.99); HBc Num1 3.79 S/CO (0.00-0.79); HBsAGNum1 0.32 S/CO (0.00-0.99); HDL Cholesterol 28 mg/dL (>40); Hepatitis B Surface Antigen Negative (Negative); Iron 62 mcg/dL (30-160); LDL Cholesterol Calculated 81 mg/dL (<100); Percent Iron Saturation 22 % (15-50); Potassium 4.2 mmol/L (3.3-5.1); Sodium 139 mmol/L (135-145); Total Iron Binding Capacity 280 mcg/dL (228-428); Total Protein 7.5 g/dL (6.5-8.0); Triglycerides 190 mg/dL (<150); Unsaturated Iron Binding 218 ug/dL; ~Hepatitis B Surface Antibody NONREACTIVE (Nonreactive)
[2023-05-24 12:11] LABS: Ferritin 48 ng/mL (10-250); TSH reflex Free T4 2.07 uIU/mL (0.32-4.0)
[2023-05-24 12:14] LABS: Folate 9.5 ng/mL (> or = 4.0); Vitamin B12 321 pg/mL (200-900)
[2023-05-24 12:20] LABS: Creatinine Urine 180.32 mg/dL; Microalbum/Creatinine Ratio Ur 29.3 ug/mg cr (<30)
[2023-05-24 13:45] LABS: HBc Num2 3.86 S/CO; HBc Num3 3.89 S/CO; Hepatitis B Core Antibody Reactive (Nonreactive)
[2023-05-25 09:09] LABS: Hepatitis B Core Antibody IgM NON-REACTIVE (NON-REACTIVE)
[2023-05-25 13:13] LABS: Alpha Fetoprotein 1.9 ng/mL
== END 2023-05-24 09:46 | disposition home or self-care (01) ==
LOC: HO.HHCL 09:45
PROVIDERS: Visit Provider Registered Nurse
DX: Z00.00 Encounter for general adult medical examination without abnormal findings (principal); R53.83 Other fatigue; D50.9 Iron deficiency anemia, unspecified; E11.9 Type 2 diabetes mellitus without complications; B18.0 Chronic viral hepatitis B with delta-agent
CPT/HCPCS: 36415; 80053; 80061; 82043; 82105; 82306; 82570; 82607; 82728; 82746; 83036; 83540; 83735; 84443; 85025; 86704; 86705; 86706; 87340

== ENCOUNTER 2023-06-13 09:28 | Outpatient (REF) | payer MEDICAID, SELFPAY ==
--- NOTE | ~2023-06-13 | US_ITS ---
EXAMINATION: US ABDOMEN LIMITED CLINICAL INFORMATION: Chronic hepatitis B. COMPARISON: Renal ultrasound 09/28/2022. X-ray abdomen KUB 03/23/2022. CT abdomen and pelvis 03/15/2022. Ultrasound abdomen complete 02/01/2022. TECHNIQUE: Real-time imaging of the right upper quadrant abdominal viscera. FINDINGS: PANCREAS: Normal. LIVER: There is hepatomegaly, with a longitudinal span of 21.2 cm. The liver contour is normal. There is diffuse increased liver parenchymal echogenicity common with pericholecystic sparing. No focal hepatic lesion. There is no intrahepatic biliary duct dilatation seen. GALLBLADDER: Normal. The gallbladder is physiologically distended without evidence of stones, sludge, polyps, wall thickening or pericholecystic fluid. COMMON BILE DUCT: Normal in caliber measuring 0.5 cm in diameter. RIGHT KIDNEY: Normal. No hydronephrosis. No renal calculi or focal parenchymal lesions. The kidney measures 12.2 cm in maximum dimension. FREE FLUID: None. US/US abdomen limited IMPRESSION: 1. There is hepatomegaly. 2. There is generalized increase in hepatic echotexture, consistent with fatty infiltration or hepatocellular disease. Please correlate clinically. No focal hepatic mass or intrahepatic biliary dilatation is seen.
== END 2023-06-13 09:29 | disposition home or self-care (01) ==
LOC: HO.US 09:28
PROVIDERS: PCP Registered Nurse; Visit Provider Registered Nurse
DX: B18.0 Chronic viral hepatitis B with delta-agent (principal)
CPT/HCPCS: 76705

== ENCOUNTER → 2023-07-14 19:00 | Outpatient (BNV) | payer MEDICAID, SELFPAY | PROVIDERS: PCP Registered Nurse; Visit Provider Psychiatry & Neurology Neurology | DX: G47.33 Obstructive sleep apnea (adult) (pediatric) (principal) | CPT/HCPCS: 95810 ==

== ENCOUNTER → 2023-07-14 20:30 | Outpatient (REF) | payer MEDICAID, SELFPAY | LOC: HO.SL 20:30 | PROVIDERS: PCP Registered Nurse; Visit Provider Registered Nurse | DX: G47.33 Obstructive sleep apnea (adult) (pediatric) (principal); R53.83 Other fatigue | CPT/HCPCS: 95810 ==

== ENCOUNTER 2024-03-27 09:29 | Outpatient (REF) | payer MEDICAID, SELFPAY ==
--- NOTE | ~2024-03-27 | XR_ITS ---
EXAMINATION: XR HIP, RIGHT XR HIP, LEFT CLINICAL INFORMATION: Bilateral hip and groin pain. COMPARISON: CT abdomen/pelvis dated 03/15/2022. TECHNIQUE: AP and frog-leg lateral views of the right and left hip. FINDINGS: Right hip: No acute fracture or dislocation. Mild right hip joint space narrowing with small marginal osteophytes. No osseous erosion. No evidence of femoral head avascular necrosis. Phleboliths within the pelvis. Left hip: No acute fracture or dislocation. Mild left hip joint space narrowing with small marginal osteophytes. No osseous erosion. No evidence of femoral head avascular necrosis. Phleboliths within the pelvis. XR/XR hip LT min 2V IMPRESSION: RIGHT HIP: Mild osteoarthritis. LEFT HIP: Mild osteoarthritis. Electronically signed by: Neel Cantu MD 03/27/2024 11:22 AM [facility]
--- NOTE | ~2024-03-27 | XR_ITS ---
EXAMINATION: XR HIP, RIGHT XR HIP, LEFT CLINICAL INFORMATION: Bilateral hip and groin pain. COMPARISON: CT abdomen/pelvis dated 03/15/2022. TECHNIQUE: AP and frog-leg lateral views of the right and left hip. FINDINGS: Right hip: No acute fracture or dislocation. Mild right hip joint space narrowing with small marginal osteophytes. No osseous erosion. No evidence of femoral head avascular necrosis. Phleboliths within the pelvis. Left hip: No acute fracture or dislocation. Mild left hip joint space narrowing with small marginal osteophytes. No osseous erosion. No evidence of femoral head avascular necrosis. Phleboliths within the pelvis. XR/XR hip RT min 2V IMPRESSION: RIGHT HIP: Mild osteoarthritis. LEFT HIP: Mild osteoarthritis. Electronically signed by: Neel Cantu MD 03/27/2024 11:22 AM [facility]
[2024-03-27 11:58] LABS: Alanine Aminotransferase 29 U/L (0-31); Albumin Level 4.4 g/dL (3.5-5.0); Alkaline Phosphatase 91 U/L (39-117); Aspartate Amino Transferase 22 U/L (5-31); Bilirubin Direct 0.1 mg/dL (0.0-0.5); Bilirubin Total 0.3 mg/dL (0.0-1.0); Total Protein 7.5 g/dL (6.5-8.0)
== END 2024-03-27 09:30 | disposition home or self-care (01) ==
LOC: HO.HHCL 09:29
PROVIDERS: Visit Provider Registered Nurse
DX: M25.551 Pain in right hip (principal); M25.552 Pain in left hip; K76.0 Fatty (change of) liver, not elsewhere classified
CPT/HCPCS: 36415; 73502; 80076

== ENCOUNTER 2024-04-19 13:42 | Outpatient (REF) | payer MEDICAID, SELFPAY | END 2024-04-19 13:43 | disposition home or self-care (01) | LOC: HO.HOSX 13:42 | PROVIDERS: PCP Registered Nurse; Visit Provider Physician Assistant | DX: M25.569 Pain in unspecified knee (principal) | CPT/HCPCS: 72170; 99212 ==

== ENCOUNTER 2024-04-19 13:42 | Outpatient (AMB) | payer MEDICAID, SELFPAY ==
--- NOTE | 2024-04-19 13:54 | A.OFFVIS_ITS ---
Intake Visit Reasons: New Pt - B/L hip pain Intake Note: Grace is a 53 year old female who presents today as a new patient for a evaluation of her bilateral hip pain. Pt denies any previous surgeries,injections, or treatment to her hips. Patient reports ongoing pain since 2017 but has gotten worse within the past 6 months. She mentions that both hips hurt just as much. Patient states that her pain radiates from her hips to her groin. Allergies No Known Allergies Allergy (Verified 04/19/24 13:55) HPI HPI New Pt - B/L hip pain: Details: 53-year-old female who presents in the office today, as a new patient, for an evaluation of bilateral hip pain. The patient was seen by DEIDRA Badillo, on 02/28/24 for acute on chronic bilateral hip pain radiating to the groin. She has pain more significant on the right side than the left; however, her left side is also bothersome. The patient worsens with change in positions. She was recommended to continue symptomatic management. X-rays of the bilateral hips were ordered. She was referred to our [facility] for further evaluation and treatment. While in the office today, the patient reports persistent bilateral hip pain since 2017. The pain has been getting worse for the past 6 months. The pain radiates from her hips to her groin area. She mentions similar pain in both the hips. The patient has a medical history of diabetes mellitus. [facility] Medical History CPAP (continuous positive airway pressure) dependence Diabetes Endometrial cancer Liver function abnormality UTI (urinary tract infection) Surgical History H/O: hysterectomy Tubal ligation status Social History Patient Tobacco Use Status: Current everyday Tobacco user Tobacco use type: Cigarette Cigarettes Per Day: 20 Years Smoked: 18 Review of Systems Const All systems reviewed & are unremarkable except as noted in HPI and below Physical Exam Const General: cooperative and no acute distress Orientation/consciousness: patient oriented x3 Resp Effort & Inspection: normal respiratory effort and able to speak in complete sentences Cardio Peripheral pulses: Peripheral pulses 2+ throughout Skin General skin exam: no rashes or lesions noted Neuro General: patient oriented x3 Extrem Other: Left hip: Normal to inspection. No ecchymosis, erythema, or edema. Full hip ROM in all planes. No pain with internal and external rotation. No tenderness to palpation over the greater trochanteric bursa. 4/5 strength with resisted hip flexion, knee extension, abduction, and abduction. Able to perform straight leg raise. NVI. Right hip: Normal to inspection. No ecchymosis, erythema, or edema. Full hip ROM in all planes. No pain with internal and external rotation. No tenderness to palpation over the greater trochanteric bursa. 4/5 strength with resisted hip flexion, knee extension, abduction, and abduction. Positive straight leg raise with pain from the low back radiating to the lateral aspect of the hip. NVI. Assessment & Plan Assessment & Plan (1) Lumbar radiculopathy: Code(s): M54.16 - Radiculopathy, lumbar region Category: Medical (2) Bilateral primary osteoarthritis of hip: Code(s): M16.0 - Bilateral primary osteoarthritis of hip Category: Medical Plan Ms. Willoughby is a 53-year-old female who presents in the office today, as a new patient, for an evaluation of bilateral hip pain. The patient was seen by DEIDRA Badillo, on 02/28/24 for acute on chronic bilateral hip pain radiating to the groin. She has pain more significant on the right side than the left; however, her left side is also bothersome. The patient worsens with change in positions. She was recommended to continue symptomatic management. X-rays of the bilateral hips were ordered. She was referred to our [facility] for further evaluation and treatment. While in the office today, the patient reports persistent bilateral hip pain since 2017. The pain has been getting worse for the past 6 months. The pain radiates from her hips to her groin area. She mentions similar pain in both the hips. The patient has a medical history of diabetes mellitus. We briefly discuss the role of cortisone injection into the bilateral hips. However, I am concerned that there could be some overlying lower back pathology. She is in agreement and would like to have a lower back work up before proceeding with any cortisone injection in the bilateral hips. Shoulder her lower back work up be negative, then I am happy to order the bilateral hip cortisone injection. She will make an appointment with Dr. Meza for further evaluation and treatment at this time. Follow-up will be pending her lower back exam findings, or sooner if needed. X-rays of the bilateral hips, which were obtained while in the office today and were reviewed by me, Jaqueline Krishnamurthy PA-C, revealed: Mild osteoarthritis. X-rays of the bilateral hip, obtained on 03/27/24, revealed: Mild osteoarthritis. Orders: Orders XR pelvis 1-2V 04/19/24 M25.559 - Pain in unspecified hip Patient Instructions: Scribed by Briana Kim, hospitalist medical director, for Jaqueline Krishnamurthy PA-C on 04/19/24 at 2:20 pm EST. Coding Level of Care Code New Pt Level 4 (15258) Diagnoses Lumbar radiculopathy M54.16 Bilateral primary osteoarthritis of hip M16.0
== END 2024-04-19 14:16 | disposition home or self-care (01) ==
PROVIDERS: PCP Registered Nurse; Visit Provider Physician Assistant
DX: M54.16 Radiculopathy, lumbar region (principal); M16.0 Bilateral primary osteoarthritis of hip
CPT/HCPCS: 99204

== ENCOUNTER 2024-06-14 09:40 | Outpatient (AMB) | payer MEDICAID, SELFPAY ==
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
--- OUTSIDE RECORDS SUMMARY | 2024-06-14 10:27 | XMS_ITS | Clinical Summary ---
Author Organization [employer] Address [address] [place] [address] [address] [place] [address] Care Team Providers Care Sound Effects Technician Name Role Phone Beverly Valerio DEIDRA Primary Care Provider [phone] Allergies No known active allergies Medications acetaminophen (Tylenol 8 Hour) 650 MG ER tablet PLEASE SEE ATTACHED FOR DETAILED DIRECTIONS 2 Active ProAir HFA 108 (90 Base) MCG/ACT inhaler TAKE 2 PUFFS BY MOUTH EVERY 4 TO 6 HOURS NEEDED 2 Active D3-1000 25 MCG (1000 UT) capsule Take 50 mcg by mouth in the morning. 2 Active ibuprofen 600 MG tablet Take 1 tablet by mouth every 8 (eight) hours if needed. 2 Active FREESTYLE LITE test stripIndication s:Type 2 diabetes mellitus without complication, without long-term current use of insulin ([facility]) Use to test blood sugar 1-2 times daily 100 each 12 4 07/12/19 25 Active Alcohol Swabs 70 % padsIndications :Type 2 diabetes mellitus without complication, without long-term current use of insulin ([facility]) Use to test blood sugar 1-2 times daily 100 each 4 Active FreeStyle lancets 1 each by Other route 2 times daily. Use to test blood sugar 1-2 times daily 100 each 11 4 Active atorvastatin (Lipitor) 40 MG tablet TAKE 1 TABLET BY MOUTH EVERY DAY AT BEDTIME FOR CHOLESTEROL 90 tablet 3 4 Active metFORMIN (Glucophage) 1000 MG tablet TAKE 1 TABLET BY MOUTH TWICE A DAY WITH BREAKFAST AND DINNER 180 tablet 3 4 Active dulaglutide (Trulicity) 0.75 MG/0.5ML solution pen-injectorInd ications:Type 2 diabetes mellitus without complication, without long-term current use of insulin (CMS/HCC) Inject 0.75 mg under the skin 1 (one) time per week. 2 mL 11 4 Active Active Problems Problem Noted Date Diagnosed Date Dental calculus 07/18/2023 Periodontal disease 07/18/2023 Bleeding gums 07/18/2023 Localized gingival recession, minimal 07/18/2023 NAFLD (nonalcoholic fatty liver disease) 024 Overview (03/07/2024): Abd US completed Jun 2023 c/w fatty liver History of Hep B core antibody positive Reviewed lifestyle interventions including routine physical activity, diet rich in fruits, vegetables, and healthy fats. Limited/no alcohol use. Plan to repeat labs/US Q6 months Lab Results Component Value Date AST 20 05/24/2023 ALT 30 05/24/2023 TOTPROTEIN 7.5 05/24/2023 ALB 4.2 05/24/2023 ALP 94 05/24/2023 TOTALBILIRUB 0.2 05/24/2023 Menopause 08/12/2022 Assessment & Plan (08/12/2022 6:23 PM EDT): -Secondary to hysterectomy for endometrial cancer -Currently using lifestyle interventions, interested in speaking with CNM about additional options (possibly more natural options) -Cautious to consider use of HRT given hx endometrial CA Malignant neoplasm of endometrium 08/09/2022 Overview (08/09/2022): Low Risk Stage 1A, grade 1 or 2 endometriod treated with hysterectomy Jun 2018 established with [facility] obstetrics gynecology physician/onc 2020 Recommendation for screening was q 6 months for 1st year, then yearly, can be montored by shade hanger or obstetrics gynecology physician onc beginning at 24 months pap test not indicated insufficient data to support Ca125, radiographic imaging CT or PET +/- Ca125 if recurrence expected Assessment & Plan (08/12/2022 6:32 PM EDT): Olegario Willoughby to call [facility] MAT MACHINE OPERATOR/Onc to see appt date for next follow up Routine health maintenance 08/09/2022 Overview (03/07/2024): Colonoscopy: referred to GI 08/09/22, repeat referral 02/28/24 Mammogram: 06/29 BIRADS-2 repeat yearly Pap: not indicated, monitored by oncologist at [facility] for endometrial cancer surveillance Dental: [facility] Dental S/P laparotomy 06/18/2018 History of hepatitis B 02/28/2017 Overview (07/12/2023): 02/2017 she started Hep B series 07/2020: Hepatitis Delta AB positive with elevated haptoglobin without fibrosis; referred to ID August 2020: ID consult by Dr. Cleveland. Hx abnormal Hep B/D serology. Plan for repeat lab work including Hep B Surface Ag, Ab, Hepatitis BE Ag and Ab, Hep B core Ab, Hep B & D quantitative PCR test. Recommendation for [id number] liver ultrasound screening for HCC. Labs from [facility] 10/21/21: Hep B core ab (+), Hep B surface Ab (-), Hep B virus (-), Hep D ab (-) Per ID: Rec Abd u/s screen Q6m for HCC (last completed Jun 2023) May 2023: Hep B core ab (+), Hep B surface Ab (-), Hep B virus antigen (-) Assessment & Plan (08/12/2022 6:31 PM EDT): Last abdominal ultrasound Jan 2022 IMPRESSION: Nonobstructing bilateral renal calculi. Hepatic steatosis. No focal liver lesion. Defer imaging today, order at follow up appt Agoraphobia with panic disorder 05/13/2016 Overview (08/09/2022): May 2016 Pt wojciech at [facility] Clinician Kelly Sheridan [phone] Last Assessment & Plan: Followed by provider. Overview: May 2016 Pt narcisod at [facility] Clinician Kelly Sheridan [phone] Last Assessment & Plan: Followed by provider. Class 3 severe obesity due t o excess calories without serious comorbidity with body mass index (BMI) of 45.0 to 49.9 in adult 06/14/2015 Overview (08/09/2022): 07/03/2018: Starting to work on weight loss--spotting resolved and feels well enough to start exercising. Thinks she can do it on her own and is motivated enough to and will defer bariatric surgery for now. 06/06/18: Initiated discussion on bariatric surgery post-op to decrease risk of recurrence. Strongly encouraged consideration of bariatric procedure once healed from [facility]. 04/17/2018: Class 3 obesity patient's strongest risk factor for new diagnosis of endometrial cancer. Will need to be counseled at next visit (deferred due to discussion of new diagnosis of cancer) that weight loss will greatly decrease her surgical risk (although anticipate limited weight loss over next 1-2 months prior to surgery) as well as risk of progression/recurrence of cancer. Would strongly recommend consideration of bariatric surgery. Last Assessment & Plan: Wt Readings from Last 5 Encounters: 04/24/18 281 lb (127.5 kg) 04/16/18 277 lb (125.6 kg) 04/06/18 279 lb (126.6 kg) 02/06/18 278 lb (126.1 kg) 01/23/18 285 lb (129.3 kg) Last BMI 04/24/2018 04/16/2018 04/06/2018 BODY MASS INDEX 46.76 kg/m2 46.1 kg/m2 46.43 kg/m2 Some recent data might be hidden Continuing with weight loss efforts Low carb dieting and walking as tolerated Will consider making appt for consultation with Dr. Silvana Cuellar for weight management. Overview: 06/06/18: Initiated discussion on bariatric surgery post-op to decrease risk of recurrence. Strongly encouraged consideration of bariatric procedure once healed from [facility]. 04/17/2018: Class 3 obesity patient's strongest risk factor for new diagnosis of endometrial cancer. Will need to be counseled at next visit (deferred due to discussion of new diagnosis of cancer) that weight loss will greatly decrease her surgical risk (although anticipate limited weight loss over next 1-2 months prior to surgery) as well as risk of progression/recurrence of cancer. Would strongly recommend consideration of bariatric surgery. Last Assessment & Plan: Formatting of this note may be different from the original. Wt Readings from Last 5 Encounters: 04/24/18 281 lb (127.5 kg) 04/16/18 277 lb (125.6 kg) 04/06/18 279 lb (126.6 kg) 02/06/18 278 lb (126.1 kg) 01/23/18 285 lb (129.3 kg) Last BMI 04/24/2018 04/16/2018 04/06/2018 BODY MASS INDEX 46.76 kg/m2 46.1 kg/m2 46.43 kg/m2 Some recent data might be hidden Continuing with weight loss efforts Low carb dieting and walking as tolerated Will consider making appt for consultation with Dr. Silvana Cuellar for weight management. Tobacco use 12/07/2014 Overview (06/07/2023): -Decreased from 1pack/day to 0.5 pack/day as of 06/07/23 -Continues w/o smoking cessation pharmacotherapy per pt choice Assessment & Plan (05/18/2023 8:47 AM EST): -Currently smoking 20 cigg/day. Hx of quitting in past. Declines interest in pharmacotherapy, will decrease on own -Challenges: continues to smoke cigg Anemia, iron deficiency 11/30/2014 Overview (05/18/2023): -Hx iron infusion in 2019, Hx of heavy menses -Previous referrals to GI -Per previous records: 04/16/2018: Seen in MAT MACHINE OPERATOR office for new diagnosis of FIGO G1 endometrial CA. Patient with severe anemia, last Hct 29 on 01/23/18. Has two appointments for iron infusions at [facility] for 05/15/18 and 05/25/18. + [facility] referred to GI 07/2015 Assessment & Plan (05/18/2023 8:52 AM EST): Check labs, no current pica or pallor. Encourage to establish with GI. ED/urgent care precautions Type 2 diabetes mellitus wit hout complication, without long-term current use of insulin 08/13/2013 Overview (03/07/2024): -Continues with metformin 1000mg BID -Continue Trulicity 0.75mg subcutaneous weekly -Continue with lifestyle interventions Lab Results Component Value Date HGBA1C 7.9 (A) 02/28/2024 -A1c goal < 7%, above goal -Monofilament wnl: 12/06/21 -Referred to [facility] Eye care 08/09/22 for TY Assessment & Plan (03/07/2024 5:10 PM EDT): -Plan to focus on nutrition and physical activity. If not sufficient, plan for med adjustment if needed. Herpes simplex virus (HSV) infection 08/13/2013 Mixed hyperlipidemia 08/13/2013 Overview (08/09/2022): 12/2013 LDL<100 Lab Results Component Value Date TRIGLYC 149 12/28/2015 CHOL 183 12/28/2015 HDL 41 12/28/2015 LDL 112 12/28/2015 NONHDL 142.0 12/28/2015 the 10 year ASCVD risk is 6.2% while on simva 10 Started simva 20 02/25/16 Lab Results Component Value Date TRIGLYC 143 02/27/2017 CHOL 165 02/27/2017 HDL 36 (L) 02/27/2017 LDL 100 02/27/2017 NONHDL 129 02/27/2017 oon marc 20 10 year risk is 7.4% Last Assessment & Plan: The 10-year ASCVD risk score (Ellysatish DILLON Jr., et al., 2013) is: 6.2% Continue with weight loss efforts Will recheck in 3-6 mo Overview: Formatting of this note may be different from the original. 12/2013 LDL<100 Lab Results Component Value Date TRIGLYC 149 12/28/2015 CHOL 183 12/28/2015 HDL 41 12/28/2015 LDL 112 12/28/2015 NONHDL 142.0 12/28/2015 the 10 year ASCVD risk is 6.2% while on simva 10 Started simva 20 02/25/16 Lab Results Component Value Date TRIGLYC 143 02/27/2017 CHOL 165 02/27/2017 HDL 36 (L) 02/27/2017 LDL 100 02/27/2017 NONHDL 129 02/27/2017 oon marc 20 10 year risk is 7.4% Last Assessment & Plan: The 10-year ASCVD risk score (Elly DILLON Jr., et al., 2013) is: 6.2% Continue with weight loss efforts Will recheck in 3-6 mo PTSD (post-traumatic stress disorder) 08/16/2012 Overview (08/09/2022): Overview: Bipolar II disorder Last Assessment & Plan: Followed by provider. Bipolar II disorder Last Assessment & Plan: Followed by provider. Obstructive sleep apnea of adult 02/23/2007 Overview (03/10/2024): Continues on CPAP nightly July 2023: sleep titration report. Severe sleep apnea. AHI 35/hr and oxygen horacio was 82%. Recommend CPAP 9 cm water with Medium N20 mask. Assessment & Plan (02/28/2024 7:32 AM EDT): -Reports has been using > 10 years, but no titration study within the last 5 years. Referral for sleep titration 05/18/23 given increased daytime drowsiness. Reports scheduled Jun 2023. F/up after study to review results. Assessment & Plan (06/07/2023 6:11 PM EST): -Reports has been using > 10 years, but no titration study within the last 5 years. Referral for sleep titration 05/18/23 given increased daytime drowsiness. Reports scheduled Jun 2023. F/up after study to review results. Assessment & Plan (05/18/2023 8:45 AM EST): -Reports has bene using > 10 years, but no titration study within the last 5 years. Referral for sleep titration 05/18/23 given increased daytime drowsiness Resolved Problems Problem Noted Date Diagnosed Date Resolved Date Adenocarcinoma of endometrium 02/06/2018 08/09/2022 Overview (08/09/2022): 08/01/2018: Cuff check great. Moving to [place] tomorrow, will do some research and contact patient with my recommendation for a MAT MACHINE OPERATOR ONC. Reviewed Dr. Hadley's recs with patient and CT. 07/03/2018: Doing excellently at post-op visit. Tolerating regular diet, normal bowel movements, voiding freely, pain well-controlled. Saw Dr. Hadley and myranda removed--is scheduled for CT scan on 07/09/18 with further plan poss RT, however patient is likely deciding against RT--was counseled RT will decrease risk of recurrence from 7% to 4% and 7% is an acceptable risk to her. Otherwise, has not smoked since surgery and is starting to work on weight loss--spotting resolved and feels well enough to start exercising. Thinks she can do it on her own and is motivated enough to and will defer bariatric surgery for now. 06/18/18: Dx-LSC converted to ex-lap/CASH/BSO for R uterine vessel hemorrhage--QBL 2300 cc, received 2u PRBCs intra-op. Excellent post-op course, d/c'ed home POD#2 with no issues. 06/11/18: S/p IV iron. 06/08/18: Hct 25 06/07/2018: Patient counseled on ERAS and handout given and reviewed with patient. Discussed what to expect post-operatively in terms of healing and expectation that she should be able to go home the day of surgery but may stay one night in case of complications or sub-optimal pain control (counseled that she will not remain pain-free, but we will do our best to control her pain with the ERAS protocol). Counseled on what to expect with sexual function and activity both short and long-term postoperatively. Discussed possible need for adjuvant therapy (usually radiation, rarely chemo but still possible) depending on pathology findings post-op. Patient planning to move to [place], [place] in the spring and counseled if needs adjuvant therapy prior to her move will need to go to [place] for that and see a MAT MACHINE OPERATOR oncologist--if no need for adjuvant therapy I can continue to monitor her here and she can take her records with her to [place]. Initiated discussion on bariatric surgery post-op to decrease risk of recurrence. Has decreased smoking but unable to quit as she has been going through a legal mccauley with a new landlord and her and roommate are still smoking. All questions answered. Patient expresses understanding. 04/17/2018: Patient seen for new diagnosis of FIGO G1 endometrial adenoCA. Diagnosis given to patient and patient counseled extensively--emotional support and reassurance provided. Patient counseled that primary therapy is TLH/BSO/sential LN biopsy/cysto--plan for OR on 06/18/17 with MAT MACHINE OPERATOR ONC Christen Hadley from [facility] at . Patient counseled on natural history of G1 endometrial CA, if surgical specimen with no invasion, will not need chemoRT post-op, however will have to await final surgical staging to understand prognosis and need for adjuvant therapy. Patient reassured that G1 has a high chance of not being metastatic upon diagnosis and being cured with surgery only. All questions answered. Patient expresses understanding. Surgical consents signed and packet done. Did not address weight loss and obesity at this visit due to sensitive nature of new diagnosis and my first time meeting patient, but will strongly primary counselor patient at next visit about her biggest risk factor for endometrial CA (obesity) and offer referral for bariatric surgery. US results reviewed--c/w known endometrial CA. 04/11/2018: EMB result shows Endometrial adenocarcinoma endometriod type, FIGO grade 1/3 04/06/18: Pt reports menses for 7-14 days every month and extremely heavy w/ large clots and soaking 8 12 hour pads per day and soaking clothes. High risk of endometrial cancer due to weight and h/o years w/o menses>Endometrial biopsy done and repeat US ordered. To see COUNTER CUTTER in 1 month for f/u and discuss options including ablation and hysterectomy. Pt declined a Mirena IUD today, though may be open to it next time. Last Assessment & Plan: S/p hysterecomty 06/18/18 Healing well feeling great states some tenderness to mons pubis area however other than that feeling well Energy and mood much improved. States has one f/u janett w/ Dr. Hyde prior to moving to [place] where she will transfer care Overview: [ ] to OR on 06/18/18. 06/11/18: S/p IV iron. 06/08/18: Hct 25 06/07/2018: Patient counseled on ERAS and handout given and reviewed with patient. Discussed what to expect post-operatively in terms of healing and expectation that she should be able to go home the day of surgery but may stay one night in case of complications or sub-optimal pain control (counseled that she will not remain pain-free, but we will do our best to control her pain with the ERAS protocol). Counseled on what to expect with sexual function and activity both short and long-term postoperatively. Discussed possible need for adjuvant therapy (usually radiation, rarely chemo but still possible) depending on pathology findings post-op. Patient planning to move to [place], [place] in the spring and counseled if needs adjuvant therapy prior to her move will need to go to [place] for that and see a MAT MACHINE OPERATOR oncologist--if no need for adjuvant therapy I can continue to monitor her here and she can take her records with her to [place]. Initiated discussion on bariatric surgery post-op to decrease risk of recurrence. Has decreased smoking but unable to quit as she has been going through a legal mccauley with a new landlord and her and roommate are still smoking. All questions answered. Patient expresses understanding. 04/17/2018: Patient seen for new diagnosis of FIGO G1 endometrial adenoCA. Diagnosis given to patient and patient counseled extensively--emotional support and reassurance provided. Patient counseled that primary therapy is TLH/BSO/sential LN biopsy/cysto--plan for OR on 06/18/17 with MAT MACHINE OPERATOR ONC Christen Hadley from [facility] at . Patient counseled on natural history of G1 endometrial CA, if surgical specimen with no invasion, will not need chemoRT post-op, however will have to await final surgical staging to understand prognosis and need for adjuvant therapy. Patient reassured that G1 has a high chance of not being metastatic upon diagnosis and being cured with surgery only. All questions answered. Patient expresses understanding. Surgical consents signed and packet done. Did not address weight loss and obesity at this visit due to sensitive nature of new diagnosis and my first time meeting patient, but will strongly primary counselor patient at next visit about her biggest risk factor for endometrial CA (obesity) and offer referral for bariatric surgery. US results reviewed--c/w known endometrial CA. 04/11/2018: EMB result shows Endometrial adenocarcinoma endometriod type, FIGO grade 1/3 04/06/18: Pt reports menses for 7-14 days every month and extremely heavy w/ large clots and soaking 8 12 hour pads per day and soaking clothes. High risk of endometrial cancer due to weight and h/o years w/o menses>Endometrial biopsy done and repeat US ordered. To see COUNTER CUTTER in 1 month for f/u and discuss options including ablation and hysterectomy. Pt declined a Mirena IUD today, though may be open to it next time. Last Assessment & Plan: Sx set for June Will continue with weight loss efforts and quitting smoking Had long discussion with her about complications associated with this States she has already started back on her regimen and quitting smoking as well Encounters Date Type Department Care Team Description 04/19/2024 Orders Only [facility] External Provider, [facility] 04/10/2024 Telephone [facility] [employer] [address] [place] [id number] Beverly Valerio FNP from Last 3 Months Immunizations Name Administration Dates Next Due Hep B, adult 01/23/2018,09/29/2017,03/01/2017 Influenza, IIV3, injectable 03/01/2017, 4 Pneumococcal Polysaccharide PPSV23 03/01/2017 Tdap 07/23/2012 Family History Medical History Relation Name Comments Diabetes Brother Diabetes Father Diabetes Mother Graves' disease Sister Relation Name Status Comments Brother Father Mother Sister Social History Tobacco Use Types Packs/Day Years Used Date Smoking Tobacco: Every Day Cigarettes Smokeless Tobacco: Never Tobacco Cessation:Ready to Q uit: Not Asked; Counseling Given: Not Answered Alcohol Use Standard Drinks/Week Comments Never 0 (1 standard drink = 0.6 oz pur e alcohol) Depression Answer Date Recorded Patient Health Questionnaire-9 Score 3 06/07/2023 Patient Health Questionnaire-9 Score 3 06/07/2023 Last PHQ-9: Questionnaire Data Not on file 0 06/07/2023 Housing Stability Answer Date Recorded What is your housing situation today? I have brenda orozco 02/28/[address] you li ve. Do you have problems with any of the following? None of the above 02/28/2024 Food Insecurity Answer Date Recorded Within the past 12 months, y ou worried that your food would run out before you got money to buy more: Never True 02/28/2024 Within the past 12 months,th e food you bought just didn't last and you didn't have enough money to get more: Never True Transportation Answer Date Recorded In the past 12 months, has l ack of transportation kept you from medical appts, meetings, work or from getting things needed for daily living? Yes, it has kept me from medical appointments or getting medications.;Yes, it has kept me from non-medical meetings, work, or getting things that I need 02/28/2024 Utilities Answer Date Recorded In the past 12 months, has t he electric, gas, oil or water company threatened to shut off services in your home? No 02/28/2024 Depression Answer Date Recorded Patient Health Questionnaire-2 Score 1 06/07/2023 Internet Access Answer Date Recorded Internet Access Q1 Yes 02/28/2024 Internet Access Q2 Not on file 02/28/2024 Comments Unknown Sex and Gender Information Value Date Recorded Sex Assigned at Female 03/07/2022 10:39 AM EDT Legal Sex Female 10:39 AM EDT Gender Identity Female 03/07/2022 10:39 AM EDT Sexual Orientation Choose not to disclose 2021 10:39 AM EDT Last Filed Vital Signs Vital Sign Reading Time Taken Comments Blood Pressure 129/80 02/28/2024 12:19 PM EDT Pulse 80 02/28/2024 12:19 PM EDT Temperature 37.2 ??C (98.9 ??F) 02/28/2024 12:19 PM E DT Respiratory Rate 22 02/28/2024 12:19 PM EDT Oxygen Saturation 97% 02/28/2024 12:19 PM EDT Inhaled Oxygen Concentration - - Weight 119 kg (262 lb 2 oz) 02/28/2024 12:19 PM EDT Height 172.7 cm (5' 8 ) 02/28/2024 12:19 PM EDT Body Mass Index 39.86 02/28/2024 12:19 PM EDT Plan of Treatment Health Maintenance Due Date Last Done Comments CT Colonography 1971 Colonoscopy 1971 Colorectal Cancer Screening 1971 FIT DNA/Cologuard 1971 FIT 1971 FOBT 1971 Sigmoidoscopy 1971 Diabetes: Foot Exam 11/02/1981 Alcohol/Substance Use Screening 1983 Family Planning (PISQ) 11/02/1986 Hepatitis A Vaccines (1 of 2 - Risk 2-dose series) 11/02/1990 Pneumococcal Vaccine: 50+ Years (2 of 2 - PCV) 03/01/2018 03/01/2017 Zoster Vaccines (1 of 2) 11/02/2021 DTaP/Tdap/Td Vaccines (2 - Td or Tdap) 07/23/2022 07/23/2012 Mammogram 06/24/2023 06/24/2021, 05/16/2018 Dental Oral Exam 12/05/2023 06/05/2023 Dental Prophylaxis 01/19/2024 07/18/2023 Diabetes: Urine Protein Screening 05/24/2024 05/24/2023, 04/05/2021 Lipid Panel 05/24/2024 05/24/2023, 0810/2021, 03/31/2021 Diabetes: Hemoglobin A1C 05/30/2024 024, 05/24/2023, 05/17/2023, Additional history exists Dental X-Ray: Bitewings 06/06/2024 06/05/2023 Depression Screening 06/07/2024 06/07/2023, 06/07/19 24 Influenza Vaccine (#1) 2024 03/01/2017, 2013 Postponed from 01/07/2024 (Patient Refused) Eye Exam 01/03/2025 01/03/2023, 12/07, 01/03/2023, Additional history exists SDOH Screening 02/27/2025 02/28/2024 Tobacco Screening 02/27/2025 02/28/2024 COVID-19 Vaccine ( season) 2025 Postponed from 01/07/2024 (Patient Refused) Dental X-Ray: Full Mouth 06/06/2026 06/05/2023 RSV Patients and Patients Aged 60 years or older (1 - 1-dose 75+ series) 11/02/2046 Hepatitis B Vaccines Completed 01/23/2018, 09/29/2017, 03/01/2017 HIV Screening Completed 03/31/2021 Hepatitis C Screening Completed 03/31/2021 HIB Vaccines Aged Out No longer eligi ble based on patient's age to complete this topic HPV Vaccines Aged Out No longer eligi ble based on patient's age to complete this topic IPV Vaccines Aged Out No longer eligi ble based on patient's age to complete this topic Meningococcal Vaccine Aged Out No lan yuan eligible based on patient's age to complete this topic RSV under 20 months Aged Out No longe r eligible based on patient's age to complete this topic Rotavirus Vaccines Aged Out No longer eligible based on patient's age to complete this topic Procedures Procedure Name Priority Date/Time Associated Diagnosis Comments XR PELVIS 1-2 VIEWS Routine 04/19/2024 1 :47 PM EST XR HIP 2 OR 3 VIEWS LEFT Routine 03/27/2024 9:41 AM EST Bilateral hip pain XR HIP 2 OR 3 VIEWS RIGHT Routine 03/27/2024 9:41 AM EST Bilateral hip pain HEPATIC FUNCTION PANEL Routine 9:30 AM EST Type 2 diabetes mellitus without complication, without long-term current use of insulin ([facility]/HCC) POCT GLYCATED HEMOGLOBIN, TOTAL Routine 02/28/2024 12:50 PM EDT Type 2 diabetes mellitus without complication, without long-term current use of insulin ([facility]/HCC) PROPHYLAXIS - ADULT Routine 07/18/2023 1 1:00 AM EDT Dental calculus Periodontal disease Bleeding gums DIAGNOSTIC - DIAGNOSTIC IMAGING - INTRAORAL - COMPREHENSIVE SERIES OF RADIOGRAPHIC IMAGES Routine 06/05/2023 2:30 PM EST COMPREHENSIVE ORAL EVALUATION - NEW OR ESTABLISHED PATIENT Routine 06/05/2023 2:30 PM EST ALBUMIN, RANDOM URINE W/CREATININE Routine 05/24/2023 9:53 AM EST Controlled type 2 diabetes mellitus without complication, without long-term current use of insulin (CMS/HCC) Healthcare maintenance LIPID PANEL, STANDARD Routine 05/24/2023 9:49 AM EST Healthcare maintenance MAMMOGRAM GENERIC Routine 06/24/2021 1:1 5 PM EST ZZZ HISTORICAL HEPATITIS C AB W/REFL TO HCV RNA, QN, PCR Routine 03/31/2021 10:03 AM EST HIV 1/2 ANTIGEN/ANTIBODY, FOURTH GENERATION W/RFL Routine 03/31/2021 10:03 AM EST from Last 3 Months or Most Recently Relevant to Health Maintenance Results * XR Pelvis 1-2 Views (04/19/2024 1:47 PM EST) Anatomical Region Laterality Modality Body, Pelvis Radiographic Brittaney ging 04/19/2024 1:47 PM EST Narrative 06/06/2024 9:12 AM EST ? [facility] ? [address] ?[place] [address] ?XRay Report ? Signed ? Patient: Grace Willoughby ?MR#: [id number] ? : 1970 ?Acct:[id number] ? Age/Sex: 53 / F ?ADM Date: 04/19/24 ? Loc: HO.HOSX ? Attending Dr: Jaqueline Krishnamurthy PA-C ? Ordering Physician: Jaqueline Krishnamurthy PA-C ?? Date of Service: 04/19/24 ?? Procedure(s): XR pelvis 1-2V ?? Accession Number(s): [id number] ? cc: Jaqueline Krishnamurthy PA-C; Phalen,Beverly MANAGER OF PROGRAM ? EXAMINATION: ?? XR PELVIS ? CLINICAL INFORMATION: ?? Pain in unspecified hip M25.559. ? COMPARISON: ?? Right and left hip radiographs dated 03/27/2024. ? TECHNIQUE: ?? AP view of the pelvis. ? FINDINGS: ?? No acute fracture or dislocation. Mild bilateral hip joint space ?? narrowing with small marginal osteophytes, unchanged. Mild degenerative ?? change at the symphysis pubis. No concerning lytic or blastic osseous ?? lesion. No evidence of femoral head avascular necrosis. Phleboliths ?? within the pelvis. ? XR/XR pelvis 1-2V ?? IMPRESSION: ?? Mild bilateral hip osteoarthritis, unchanged. ? Electronically signed by: ??Neel Cantu MD ??06/06/2024 09:09 AM EST ?? RP ? Dictated By: ?Neel Cantu MD ? Signed By: ?<Electronically signed by Neel Cantu MD in OV> ?06/06/24 0909 ? DD/ 1347 ? TD/TT: 04/19/24 1350 ? Barrel Washer: SR ? Procedure Note Maurizio, Image - 06/06/2024 [facility] [address] [place] [address] Drive [address] [place] [address] XRay Report Signed Patient: Grace WilloughbyMR#: [id number] : 1970Acct:[id number] Age/Sex: 53 / FADM Date: 04/19/24 Loc: HO.HOSX Attending Dr: Jaqueline Krishnamurthy PA-C Ordering Physician: Jaqueline Krishnamurthy PA-C Date of Service: 04/19/24 Procedure(s): XR pelvis 1-2V Accession Number(s): [id number] cc: Jaqueline Krishnamurthy PA-C; Beverly Valerio EXAMINATION: XR PELVIS CLINICAL INFORMATION: Pain in unspecified hip M25.559. COMPARISON: Right and left hip radiographs dated 03/27/2024. TECHNIQUE: AP view of the pelvis. FINDINGS: No acute fracture or dislocation. Mild bilateral hip joint space narrowing with small marginal osteophytes, unchanged. Mild degenerative change at the symphysis pubis. No concerning lytic or blastic osseous lesion. No evidence of femoral head avascular necrosis. Phleboliths within the pelvis. XR/XR pelvis 1-2V IMPRESSION: Mild bilateral hip osteoarthritis, unchanged. Electronically signed by: Neel Cantu MD 06/06/2024 09:09 AM EST Dictated By: Neel Cantu MD Signed By: <Electronically signed by Neel Cantu MD in OV> 06/06/24 0909 DD/ 1347 TD/TT: 04/19/24 1350 Barrel Washer: [facility] External Provider IMG XR PROCEDURES Edited Result - Final * XR Hip 2 or 3 Views Right (03/27/2024 9:41 AM EST) Anatomical Region Laterality Modality Lower Extremities, Hip Right Radiograp hic Imaging 03/27/2024 9:41 AM EST Narrative 03/27/2024 11:25 AM EST ? [facility] ?[address] ?[place] [address] ?XRay Report ? Signed ? Patient: Willoughby,Grace ?MR#: [id number] ? : 1970 ?Acct:[id number] ? Age/Sex: 53 / F ?ADM Date: 03/27/24 ? Loc: HO.HHCL ? Attending Dr: Beverly GAY ? Ordering Physician: Beverly Valerio ?? Date of Service: 03/27/24 ?? Procedure(s): XR hip RT min 2V ?? Accession Number(s): [id number] ? cc: Beverly Valerio MANAGER OF PROGRAM ? EXAMINATION: ?? XR HIP, RIGHT ?? XR HIP, LEFT ? CLINICAL INFORMATION: ?? Bilateral hip and groin pain. ? COMPARISON: ?? CT abdomen/pelvis dated 03/15/2022. ? TECHNIQUE: ?? AP and frog-leg lateral views of the right and left hip. ? FINDINGS: ?? Right hip: No acute fracture or dislocation. Mild right hip joint space ?? narrowing with small marginal osteophytes. No osseous erosion. No ?? evidence of femoral head avascular necrosis. Phleboliths within the ?? pelvis. ? Left hip: No acute fracture or dislocation. Mild left hip joint space ?? narrowing with small marginal osteophytes. No osseous erosion. No ?? evidence of femoral head avascular necrosis. Phleboliths within the ?? pelvis. ? XR/XR hip RT min 2V ?? IMPRESSION: ?? RIGHT HIP: ?? Mild osteoarthritis. ? LEFT HIP: ?? Mild osteoarthritis. ? Electronically signed by: ??Neel Cantu MD ??03/27/2024 11:22 AM EST ?? RP ? Dictated By: ?Neel Cantu MD ? Signed By: ?<Electronically signed by Neel Cantu MD in OV> ?03/27/242 ? DD/ ? TD/TT: 03/27/24 0958 ? Barrel Washer: SR ? Procedure Note Donotlashandainterpreter, Image - 03/27/[address] [address] XRay Report Signed Patient: Grace WilloughbyMR#: [id number] : 1970Acct:[id number] Age/Sex: 53 / FADM Date: 03/27/24 Loc: HO[facility] Attending Dr: Beverly Valerio MANAGER OF PROGRAM Ordering Physician: Beverly Valerio Date of Service: 03/27/24 Procedure(s): XR hip RT min 2V Accession Number(s): [id number] cc: Beverly Valerio EXAMINATION: XR HIP, RIGHT XR HIP, LEFT CLINICAL INFORMATION: Bilateral hip and groin pain. COMPARISON: CT abdomen/pelvis dated 03/15/2022. TECHNIQUE: AP and frog-leg lateral views of the right and left hip. FINDINGS: Right hip: No acute fracture or dislocation. Mild right hip joint space narrowing with small marginal osteophytes. No osseous erosion. No evidence of femoral head avascular necrosis. Phleboliths within the pelvis. Left hip: No acute fracture or dislocation. Mild left hip joint space narrowing with small marginal osteophytes. No osseous erosion. No evidence of femoral head avascular necrosis. Phleboliths within the pelvis. XR/XR hip RT min 2V IMPRESSION: RIGHT HIP: Mild osteoarthritis. LEFT HIP: Mild osteoarthritis. Electronically signed by: Neel Cantu MD 03/27/2024 11:22 AM EST Dictated By: Neel Cantu MD Signed By: <Electronically signed by Neel Cantu MD in OV> 03/27/24 1122 DD/ 0 TD/TT: 03/27/2458 Barrel Washer: SR us Beverly Valerio MANAGER OF PROGRAM IMG XR PROCEDURES Final Result * XR Hip 2 or 3 Views Left (03/27/2024 9:41 AM EST) Anatomical Region Laterality Modality Lower Extremities, Hip Left Radiograp hic Imaging 03/27/2024 9:41 AM EST Narrative 03/27/2024 11:25 AM EST ? [facility] ?[address] ?[place], [place] [address] ?XRay Report ? Signed ? Patient: Grace Willoughby ?MR#: [id number] ? : 1970 ?Acct:[id number] ? Age/Sex: 53 / F ?ADM Date: 03/27/24 ? Loc: HO.HHCL ? Attending Dr: Beverly GAY ? Ordering Physician: Beverly Valerio ?? Date of Service: 03/27/24 ?? Procedure(s): XR hip LT min 2V ?? Accession Number(s): [id number] ? cc: Beverly Valerio ? EXAMINATION: ?? XR HIP, RIGHT ?? XR HIP, LEFT ? CLINICAL INFORMATION: ?? Bilateral hip and groin pain. ? COMPARISON: ?? CT abdomen/pelvis dated 03/15/2022. ? TECHNIQUE: ?? AP and frog-leg lateral views of the right and left hip. ? FINDINGS: ?? Right hip: No acute fracture or dislocation. Mild right hip joint space ?? narrowing with small marginal osteophytes. No osseous erosion. No ?? evidence of femoral head avascular necrosis. Phleboliths within the ?? pelvis. ? Left hip: No acute fracture or dislocation. Mild left hip joint space ?? narrowing with small marginal osteophytes. No osseous erosion. No ?? evidence of femoral head avascular necrosis. Phleboliths within the ?? pelvis. ? XR/XR hip LT min 2V ?? IMPRESSION: ?? RIGHT HIP: ?? Mild osteoarthritis. ? LEFT HIP: ?? Mild osteoarthritis. ? Electronically signed by: ??Neel Cantu MD ??03/27/2024 11:22 AM EST ?? RP ? Dictated By: ?Neel Cantu MD ? Signed By: ?<Electronically signed by Neel Cantu MD in OV> ?03/27/24 1122 ? DD/ 0941 ? TD/TT: 03/27/24 0958 ? Barrel Washer: SR ? Procedure Note Maurizio, Image - 03/27/[address] [address] XRay Report Signed Patient: Grace WilloughbyMR#: [id number] : 1970Acct:[id number] Age/Sex: 53 / FADM Date: 03/27/24 Loc: HO.HHCL Attending Dr: Beverly GAY Ordering Physician: Beverly Valerio Date of Service: 03/27/24 Procedure(s): XR hip LT min 2V Accession Number(s): [id number] cc: Beverly Valerio EXAMINATION: XR HIP, RIGHT XR HIP, LEFT CLINICAL INFORMATION: Bilateral hip and groin pain. COMPARISON: CT abdomen/pelvis dated 03/15/2022. TECHNIQUE: AP and frog-leg lateral views of the right and left hip. FINDINGS: Right hip: No acute fracture or dislocation. Mild right hip joint space narrowing with small marginal osteophytes. No osseous erosion. No evidence of femoral head avascular necrosis. Phleboliths within the pelvis. Left hip: No acute fracture or dislocation. Mild left hip joint space narrowing with small marginal osteophytes. No osseous erosion. No evidence of femoral head avascular necrosis. Phleboliths within the pelvis. XR/XR hip LT min 2V IMPRESSION: RIGHT HIP: Mild osteoarthritis. LEFT HIP: Mild osteoarthritis. Electronically signed by: Neel Cantu MD 03/27/2024 11:22 AM EST Dictated By: Neel Cantu MD Signed By: <Electronically signed by Neel Cantu MD in OV> 03/27/24 1122 DD/ TD/TT: 03/27/24957 Barrel Washer: Beverly GAY IMG XR PROCEDURES Final Result * Hepatic Function Panel (03/27/2024 9:30 AM EST) Bilirubin, Total 0.3 0.0 - 1.0 mg/dL [facility] Bilirubin, Direct 0.1 0.0 - 0.5 mg/dL [facility] Aspartate Amino Transferase 22 5 - 31 U/L [facility] Alanine Aminotransferase 29 0 - 31 U/L [facility] Total Protein 7.5 6.5 - 8.0 g/dL [facility] Albumin Level 4.4 3.5 - 5.0 g/dL [facility] Alkaline Phosphatase 91 39 - 117 U/L [facility] Blood Venous blood specimen / Unknown 03/27/2024 9:30 AM EST 03/27/2024 11:22 AM EST [facility] [employer] [facility] BLOOD ORDERABLES Final Res ult Performing Organization Address City/State/[facility] Co de Phone Number [facility] [address] [place] [phone] * (ABNORMAL) POCT HGB A1C (02/28/2024 12:50 PM EDT) Pathologist [facility] Hemoglobin A1C 7.9(A) 4.0 - 6.0 % QC Media Lot # [id number] Lot# Expiration Date [id number] Blood 02/28/2024 12:5 0 PM EDT [employer] [facility] POINT OF CARE TEST ENTER/EDIT ORDERABLES Final Result * (ABNORMAL) Albumin, Random Urine W/Creatinine (05/24/2023 9:53 AM EST) Pathologist [facility] Creatinine, Urine 180.32 mg/dL [facility] Microalbumin Urine 53.0 mg/L [facility] Microalbum Creatinine Ratio Ur 29.3(H) <30 ug/mg cr [facility] Comment:Albumin/Creatinine R atio Reference Ranges: Normal: < 30 ug/mg creatinine Microalbuminuria: 30 - 300 ug/mg creatinineClinical Albuminuria: > 300 ug/mg creatinine Urine 05/24/2023 9:53 AM EST 05/24/2023 11:25 AM EST Beverly Valerio [facility] URINE ORDERABLES Final Res ult Performing Organization Address [facility] Co de Phone Number [facility] [address] [place] [address] [phone] * (ABNORMAL) Lipid Panel, Standard (05/24/2023 9:49 AM EST) Triglycerides 190(H) <150 mg/dL [facility] Comment:Desirable Triglyceri de: less than 150 mg/dLBorderline High Triglyceride 150-199 mg/dLHigh Triglyceride: 200-499 mg/dLVery High Triglyceride: greater than or equal to 5OO mg/dL Cholesterol 147 <200 mg/dL [facility] Comment:Desirable Cholestero l: less than 200 mg/dLBorderline High Cholesterol: 200-239 mg/dLHigh Cholesterol: greater than 239 mg/dL LDL Cholesterol Calculated 81 <100 mg/dL [facility] Comment:Desirable LDL: less than 100 mg/dLNear Optimal/Above Optimal LDL: 110- 129 mg/dLBorderline High LDL: 130-159 mg/dLHigh LDL: 160-189 mg/dLVery High LDL: greater than or equal to 190 mg/dL HDL Cholesterol 28(L) >40 mg/dL [facility] Comment:Desirable HDL: great er than 40 mg/dL Note: This HDL assay may give artificially low results in patients with liver disease. Blood Venous blood specimen / Unknown 05/24/2023 9:49 AM EST 05/24/2023 11:20 AM EST Beverly Valerio MANAGER OF PROGRAM LAB BLOOD ORDERABLES Final Res ult Performing Organization Address [facility]/ZIP Co de Phone Number [facility] [address] [place] [address] [phone] * Mammography Report 1 (06/24/2021 1:15 PM EST) Anatomical Region Laterality Modality Breast Bilateral Mammography 06/24/2021 1:15 PM EST Narrative 06/25/2021 2:11 PM EST Refer to the Notes tab for result details [facility] Procedure: Mammography Report 1 Procedure Note Provider, MD Zhen - 07/31/2022 Refer to the Notes tab for result details [facility] Procedure: Mammography Report 1 Kim Phillipssch MANAGER OF PROGRAM IMG BI PROCEDURES Final Result * HEPATITIS C AB W/REFL TO HCV RNA, QN, PCR (03/31/2021 10:03 AM EST) HEPATITIS C ANTIBODY NON-REACT DAT NON-REACT DAT [facility] INDEX 0.01 <1.00 [facility] Comment: ?? HCV antibody was non-reactive. There is no laboratory ?? evidence of HCV infection. ?? In most cases, no further action is required. However, if recent HCV exposure is suspected, a test for HCV RNA (test code 85651) is suggested. ?? For additional information please refer to http://education.Impliant.Zarfo/faq/OST25w8 (This link is being provided for informational/ educational purposes only.) ?? 03/31/2021 10:0 3 AM EST Kim Shayan [facility] HISTORICAL/NON ORDERABLE LABS Final Result [facility] [address] * HIV 1/2 ANTIGEN/ANTIBODY,FOURTH GENERATION W/RFL (03/31/2021 10:03 AM EST) HIV-1/2 ANTIGEN AND ANTIBODIES, 4TH GENERATION W/ REFLEX NON-REACT DAT NON-REACT DAT [facility] Comment: HIV-1 antigen and HIV-1/HIV-2 antibodies were not detected. There is no laboratory evidence of HIV infection. ?? PLEASE NOTE: This information has been disclosed to you from records whose confidentiality may be protected by state law. ??If your state requires such protection, then the state law prohibits you from making any further disclosure of the information without the specific written consent of the person to whom it pertains, or as otherwise permitted by law. A general authorization for the release of medical or other information is NOT sufficient for this purpose. ? For additional information please refer to http://HydroBuilder.com.[employer]/faq/UTZ748 (This link is being provided for informational/ educational purposes only.) ? The performance of this assay has not been clinically validated in patients less than 2 years old. ?? 03/31/2021 10:0 3 AM EST us Kim Downey [facility] BLOOD ORDERABLES Final Res ult [facility] [address] from Last 3 Months or Most Recently Relevant to Health Maintenance Insurance [facility] C3 [facility]AL[facility] MEDICAID STAND ADULT * Guarantor: Grace Willoughby Account Type Relation to Patient Date of Phone Billing Address Personal/Family Self [address] [phone] Care Teams Sound Effects Technician Relationship Specialty Start Date End Date Beverly Valerio FNP [address] [place] [address] PCP - General Family Medicine 12/31/21
--- OUTSIDE RECORDS SUMMARY | 2024-06-14 10:27 | XMS_ITS | Clinical Summary ---
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 12/16/2018 Pap + HPV 12/16/2018 12/16/2013 Depression Monitoring 03/16/2019 12/14/2018 Tobacco Screening 12/15/2019 12/14/2018 Breast Cancer Screening (Mammogram) 05/23/2020 05/23/2018, 05/16/2018 Diabetes HbA1c 10/10/2020 07/10/2020, 12/06/2019, 02/15/2019, Additional history exists Annual Preventive Care Visit 07/09/2021 07/09/2020, 04/24/2018 Diabetes Foot Exam 07/09/2021 07/09/2020, 0 07/09/2020, 12/31/2015 Hypertension Screening (#1) 07/09/2021 Tobacco Cessation Counseling (#1) 07/09/2021 019 Lipid Screening 07/10/2021 07/10/2020, 01/06, 02/27/2017, Additional history exists Serum Creatinine 07/10/2021 07/10/2020, 06/2019, 10/29/2018, Additional history exists Imm-Zoster, Recombinant (1 of 2) 11/02/2021 Imm-DTaP/Tdap/Td (2 - Td or Tdap) 07/23/2022 013 Lbb-LOCGP-14 () 01/07/2024 Imm-Influenza (#1) 2024 03/01/2017, 02/03/2014 Alcohol and Drug Screen 05/08/2024 07/10/19, 12/14/2018, 05/30/2018, Additional history exists HIV Screening Completed 06/24/2009 Hepatitis C Screening Completed 07/10/2020 Cervical Ablation/Cold-Knife Conization Discontinued Cervical Cryotherapy Discontinued Colposcopy Discontinued Endometrial Biopsy Discontinued Excision/Leep Discontinued HPV Genotyping Discontinued Vaginal Pap Discontinued Vulvoscopy Discontinued Goals Goal Patient Goal Type Associated Problems Recent Progress Patient-Stated? Author Increased mood stabilization Diet PTSD (post-traumatic stress disorder) Not on track( 015 5:55 PM PDT) No Brigido Leyva [facility] Note: Pt will practice CBT daily Pt will exercise 3x/week Procedures Procedure Name Priority Date/Time Associated Diagnosis Comments COMPREHENSIVE METABOLIC PANEL Routine 07/10/2020 9:45 AM EST Controlled type 2 diabetes mellitus without complication, without long-term current use of insulin ([facility]) Encounter for general adult medical examination without abnormal findings HEPATITIS C ANTIBODY Routine 07/10/2020 9:45 AM EST Screening for viral disease LIPID PANEL Routine 07/10/2020 9:45 AM EST Controlled type 2 diabetes mellitus without complication, without long-term current use of insulin ([facility]) Class 3 severe obesity due to excess calories without serious comorbidity with body mass index (BMI) of 45.0 to 49.9 in adult ([facility]) Encounter for general adult medical examination without abnormal findings HEMOGLOBIN GLYCOSYLATED A1C Routine 07/10/2020 9:45 AM EST Controlled type 2 diabetes mellitus without complication, without long-term current use of insulin ([facility]) Class 3 severe obesity due to excess calories without serious comorbidity with body mass index (BMI) of 45.0 to 49.9 in adult ([facility]) Encounter for general adult medical examination without abnormal findings SCREENING MAMMOGRAPHY BI 2-VIEW BREAST INC CAD Routine 05/23/2018 11:33 AM EST Screening for malignant neoplasm of breast FECAL GLOBIN BY IMMUNOCHEMISTRY (FIT) Routine 06/29/2015 2:09 PM EST Diabetes mellitus type 2, controlled from Last 3 Months or Most Recently Relevant to Health Maintenance Results * HEPATITIS C ANTIBODY (07/10/2020 9:45 AM EST) Pathologist [facility] HEPATITIS C VIRUS SCREEN NEGATIVE NEGATIVE [facility] Blood Blood / Unknown 07/10/2020 9 :45 AM EST 07/10/2020 10:03 AM EST Narrative [facility] - 07/10/2020 12:55 PM EST [employer], [place] [address] Motivational Speaker - Esperanza Stauffer MD PT ID [id number] ORD# [id number] [facility] - [place] [address], * (ABNORMAL) HEMOGLOBIN, GLYCOSYLATED (A1C) (07/10/2020 9:45 AM EST) GLYCATED HEMOGLOBIN A1C 6.6(H) <6.5 % [facility] ESTIMATED AVERAGE GLUCOSE 143 mg/dL [facility] Blood Blood / Unknown 07/10/2020 9 :45 AM EST 07/10/2020 10:03 AM EST Narrative [facility] - 07/10/2020 2:09 PM EST Timothy Foley, a member of [address] [address] Motivational Speaker - Esperanza Stauffer MD PT ID [id number] ORD# [id number] [facility] - BLOOD DRAW Final Result Performing Organization Address City/[facility]/ZIP Co de Phone Number [address] [address], [place] [phone] * (ABNORMAL) LIPID PANEL (07/10/2020 9:45 AM EST) CHOLESTEROL 193 0 - 200 mg/dL [facility] TRIGLYCERIDES 322(H) 0 - 150 mg/dL [facility] HDL CHOLESTEROL 34(L) >40 mg/dL [facility] LDL CALCULATED 95 0 - 100 mg/dL [facility] TC-HDLC RATIO 5.7(H) 0 - 4.4 mg/dL [facility] Blood Blood / Unknown 07/10/2020 9 :45 AM EST 07/10/2020 10:03 AM EST Narrative [facility] - 07/10/2020 12:07 PM EST [employer], a member of [address] [address] Motivational Speaker - Esperanza Stauffer MD PT ID [id number] ORD# [id number] [facility] - BLOOD DRAW Edited Result - Final [address] [address], [place] [phone] * (ABNORMAL) COMPRE METAB PANEL (07/10/2020 9:45 AM EST) GLUCOSE 145(H) 70 - 100 mg/dL [facility] Comment:Reference range appl icable to fasting specimens only BUN 15 5 - 25 mg/dL [facility] CREAT 0.72 0.5 - 1.1 mg/dL [facility] GLOMERULAR FILTRATION RATE > 60 [facility] Comment: If patient is -Martiniquais, multiply result by 1.21 Chronic Kidney Disease: < 60 ml/min/1.73 square meters Kidney Failure: < 15 ml/min/1.73 square meters SODIUM 137 135 - 145 mEq/L [facility] POTASSIUM 4.2 3.5 - 5.5 mmol/L [facility] CHLORIDE 106 96 - 110 mmol/L [facility] CO2 25 21 - 32 mmol/L [facility] ANION GAP 6 3 - 11 [facility] CALCIUM 9.5 8.5 - 10.5 mg/dL [facility] TOTAL PROTEIN 7.9 6.0 - 8.0 G/dL [facility] ALBUMIN 4.1 3.2 - 5.0 G/dL [facility] BILI, TOTAL 0.3 0.0 - 1.4 mg/dL [facility] SGOT 10 10 - 42 U/L [facility] SGPT 26 10 - 60 U/L [facility] ALK PHOS 119 42 - 121 U/L [facility] Blood Blood / Unknown 07/10/2020 9 :45 AM EST 07/10/2020 10:03 AM EST Narrative [facility] - 07/10/2020 12:07 PM EST [employer], [place] [address] Motivational Speaker - Esperanza Stauffer MD PT ID [id number] ORD# [id number] [facility] - B[place] [address], * SCREENING MAMMOGRAPHY BI 2-VIEW BREAST INC CAD (05/23/2018 11:33 AM EST) Impressions Evelia Lowe - 05/23/2018 11:33 AM EST Mammogram Screening (Bilateral)05/17/2018 [facility] Result Impression No mammographic evidence of malignancy. Provided risk calculations demonstrate an elevated lifetime risk of breast cancer, therefore recommend considering MRI screening. BI-RADS CATEGORY:?2 - Benign finding. RECOMMENDATION:?Routine annual screening LETTER:?Normal A reminder letter will automatically be generated and sent to the patient with the target date for her next screening mammogram. BREAST CANCER RISK ASSESSMENT SUMMARY Risk Assessment results are provided by [employer]. Your patient completed a breast cancer risk assessment survey as part of her breast health screening.?Based on the information she provided, her calculated risk of developing breast cancer is at a higher than average lifetime risk and/or hereditary predisposition to cancer.? High risk patients, especially those with dense breasts, will benefit from additional clinical management and annual Breast MRI.? Estimated Breast Cancer Risk Calculations: Risk BRCA1/2 Mutation: 2.6% Lifetime Breast Cancer Risk: 20.1% *ACS Guidelines:?Patients at high risk will have a >= 10% risk of BRCA mutation and/or >= 20% lifetime risk of breast cancer *This analysis is only as accurate as the data entered or provided by the patient. Date of the Survey Calculations: May?2018 12:51PM Result Narrative REPORT:? SITE READ:?2 CLINICAL INDICATION: Screening . COMPARISON:?Prior imaging could not be obtained for direct comparison. TECHNIQUE: Digital craniocaudal and mediolateral oblique views were obtained of both breasts. Computer assisted detection was used in the interpretation of this examination. BREAST COMPOSITION: There are scattered fibroglandular densities. FINDINGS: There are no abnormal masses, suspicious microcalcifications or architectural distortion in either breast. There are benign calcifications bilaterally. There is no significant change compared to previous examinations. Other Result Information Interface, Rad Results In - 05/17/2018 11:53 AM EST REPORT: ? SITE READ: ??2 CLINICAL INDICATION: Screening . COMPARISON: ??Prior imaging could not be obtained for direct comparison. TECHNIQUE: Digital craniocaudal and mediolateral oblique views were obtained of both breasts. Computer assisted detection was used in the interpretation of this examination. BREAST COMPOSITION: There are scattered fibroglandular densities. FINDINGS: There are no abnormal masses, suspicious microcalcifications or architectural distortion in either breast. There are benign calcifications bilaterally. There is no significant change compared to previous examinations. IMPRESSION: No mammographic evidence of malignancy. Provided risk calculations demonstrate an elevated lifetime risk of breast cancer, therefore recommend considering MRI screening. BI-RADS CATEGORY: ??2 - Benign finding. RECOMMENDATION: ??Routine annual screening LETTER: ??Normal A reminder letter will automatically be generated and sent to the patient with the target date for her next screening mammogram. BREAST CANCER RISK ASSESSMENT SUMMARY Risk Assessment results are provided by [employer]. Your patient completed a breast cancer risk assessment survey as part of her breast health screening. ??Based on the information she provided, her calculated risk of developing breast cancer is at a higher than average lifetime risk and/or hereditary predisposition to cancer. ?? High risk patients, especially those with dense breasts, will benefit from additional clinical management and annual Breast MRI. ?? Estimated Breast Cancer Risk Calculations: Risk BRCA1/2 Mutation: 2.6% Lifetime Breast Cancer Risk: 20.1% *ACS Guidelines: ??Patients at high risk will have a >= 10% risk of BRCA mutation and/or >= 20% lifetime risk of breast cancer *This analysis is only as accurate as the data entered or provided by the patient. Date of the Survey Calculations: May ??2018 12:51PM Rah Jorgensen [facility] IM MAMMO Final Result * (ABNORMAL) FECAL GLOBIN BY IMMUNOCHEMISTRY (FIT) (06/29/2015 2:09 PM EST) FECAL HGB IMM 1 DATE - [facility] Comment: COLLECTION DATE NOT GIVEN. TEST RESULTS SHOULD BE INTERPRETED WITH CAUTION. LABELLED DAY 1 FECAL HGB IMM 1 RSLT POS(A) NEG [facility] FECAL HGB IMM 2 DATE - [facility] Comment: COLLECTION DATE NOT GIVEN. TEST RESULTS SHOULD BE INTERPRETED WITH CAUTION. LABELLED DAY 2 FECAL HGB IMM 2 RSLT NEG NEG [facility] FECAL HGB IMM 3 DATE - [facility] Comment: COLLECTION DATE NOT GIVEN. TEST RESULTS SHOULD BE INTERPRETED WITH CAUTION. LABELLED DAY 3 FECAL HBG IMM 3 RSLT NEG NEG [facility] Stool specimen (specimen) Stool specimen / Unknown 06/29/2015 2:09 PM EST us Serenity Monaco MD LAB - NO BLOOD DRAW Final Resu lt [facility] [address] [place] [address], [place] [phone] from Last 3 Months or Most Recently Relevant to Health Maintenance Insurance [place] MEDICAID DENTAL [facility] SAFETY NET DENTAL [facility] [employer] DENTAL [address] ACO
--- OUTSIDE RECORDS SUMMARY | 2024-06-14 10:27 | XMS_ITS | Encounter Summary ---
Author Organization [employer] Address [address] [facility] 7 [place] [address] Care Team Providers Care Supervisor Audit Clerks Name Role Phone Beverly Valerio Primary Care Provider [phone] Reason for Visit * Reason Onset Date Comments Med Refill 10/30/2023 Encounter Details Date Type Department Care Team ([facility] Contact Info) Description 10/30/2023 Telephone [facility] MED & PEDS [address] [place] [address] Beverly Valerio FNP [address] [place] [address] Med Refill Social History Tobacco Use Types Packs/Day Years Used Date Smoking Tobacco: Every Day Cigarettes Smokeless Tobacco: Never Alcohol Use Standard Drinks/Week Comments Never 0 (1 standard drink = 0.6 oz pur e alcohol) Depression Answer Date Recorded Patient Health Questionnaire-9 Score 3 06/07/2023 Patient Health Questionnaire-9 Score 3 06/07/2023 Last PHQ-9: Questionnaire Data Not on file 0 06/07/2023 Housing Stability Answer Date Recorded What is your housing situation today? I have brendasara orozco 02/28/[address] you li ve. Do you have problems with any of the following? None of the above 02/28/2023 Food Insecurity Answer Date Recorded Within the past 12 months, y ou worried that your food would run out before you got money to buy more: Never True 02/28/2023 Within the past 12 months,th e food you bought just didn't last and you didn't have enough money to get more: Never True Transportation Answer Date Recorded In the past 12 months, has l ack of transportation kept you from medical appts, meetings, work or from getting things needed for daily living? No 02/28/2023 Utilities Answer Date Recorded In the past 12 months, has t he electric, gas, oil or water company threatened to shut off services in your home? No 02/28/2023 Depression Answer Date Recorded Patient Health Questionnaire-2 Score 1 06/07/2023 Comments Unknown Sex and Gender Information Value Date Recorded Sex Assigned at Female 03/07/2022 10:39 AM EDT Legal Sex Female 10:39 AM EDT Gender Identity Female 03/07/2022 10:39 AM EDT Sexual Orientation Choose not to disclose 2021 10:39 AM EDT documented as of this encounter Miscellaneous Notes * Telephone Encounter - Rhina Heredia LPN - 10/30/2023 1:05 PM EDT Medication pended to PCP. * Telephone Encounter - Maria A Gamboa - 10/30/2023 12:17 PM EDT TC from pt requesting medication refill. Medications needing refill : metFORMIN (Glucophage) 1000 MG tablet To be sent to: [facility]/pharmacy #[id number] documented in this encounter Plan of Treatment Not on file documented as of this encounter Visit Diagnoses Not on filedocumented in this encounter Additional Health Concerns Assessment Noted Time PHQ-9 Depression Total Score: 3 06/07/19 24 6:20 PM EST documented as of this encounter Care Teams Supervisor Audit Clerks Relationship Specialty Start Date End Date Beverly Valerio FNP [address] [place] [address] PCP - General Family Medicine 12/31/21 documented as of this encounter
--- OUTSIDE RECORDS SUMMARY | 2024-06-14 10:27 | XMS_ITS | Encounter Summary ---
Author Organization [employer] Address [address] [facility] 7[address] [place] [address] Care Team Providers Care Evp Head Of [employer] Experience Strategy Name Role Phone Beverly Valerio DEIDRA Primary Care Provider Encounter Details Date Type Department Care Team ( st Contact Info) Description 04/19/2024 Orders Only [facility] External Provider, [facility] Social History Tobacco Use Types Packs/Day Years [...] housing situation today? I have brendasara orozco 02/28/[address] you [...] AM EDT documented as of this encounter Plan of Treatment Not on file documented as of this encounter Procedures Procedure Name Priority Date/Time Associated Diagnosis Comments XR PELVIS 1-2 VIEWS Routine 04/19/2024 1 :47 PM EST documented in this encounter Results * XR Pelvis 1-2 Views (04/19/2024 1:47 PM EST) Anatomical Region Laterality Modality Body, Pelvis Radiographic Brittaney ging 04/19/2024 1:4 7 PM EST Narrative 06/06/2024 9:12 AM EST ? [facility] ? [address] ?[place] [address] ?XRay Report ? Signed ? Patient: Willoughby,Grace ?MR#: [id number] ? : 1970 ?Acct:[id number] ? Age/Sex: 53 / F ?ADM Date: 04/19/24 ? Loc: HO.HOSX ? Attending Dr: Jaqueline Krishnamurthy PA-C ? Ordering Physician: Jaqueline Krishnamurthy PA-C ?? Date of Service: 04/19/24 ?? Procedure(s): XR pelvis 1-2V ?? Accession Number(s): [id number] ? cc: Jaqueline Krishnamurthy-C; Beverly Valerio CUSTOMER RETENTION REPRESENTATIVE ? EXAMINATION: ?? XR PELVIS ? CLINICAL [...] DD/ 1347 ? TD/TT: 04/19/24 1350 ? Director Of Respiratory Therapy: SR ? Procedure Note Donkevin, Image - 06/06/2024 [facility] [address] [place] [address] [address] [place] [address] XRay Report Signed Patient: Grace WilloughbyMR#: [id number] : 1970Acct:[id number] Age/Sex: 53 / FADM Date: 04/19/24 Loc: [facility] Attending Dr: Jaqueline Krishnamurthy PA-C Ordering Physician: Jaqueline Krishnamurthy PA-C Date of Service: 04/19/24 Procedure(s): XR pelvis 1-2V Accession Number(s): [id number] cc: Jaqueline Krishnamurthy PA-C; Beverly Valerio EXAMINATION: [...] 06/06/24 0909 DD/ 1347 TD/TT: 04/19/24 1350 Director Of Respiratory Therapy: SR [facility] External Provider IMG XR PROCEDURES Edited Result - Final documented in this encounter Visit Diagnoses Not on filedocumented in this encounter Additional Health Concerns Assessment Noted Time PHQ-9 Depression Total Score: 3 06/07/19 24 6:20 PM EST documented as of this encounter Care Teams Evp Head [employer] Experience Strategy Relationship Specialty Start Date End Date Beverly Valerio FNP [address] [place] [address] PCP - General Family Medicine 12/31/21 documented as of this encounter
--- OUTSIDE RECORDS SUMMARY | 2024-06-14 10:27 | XMS_ITS | Encounter Summary ---
Author Organization [employer] Address [address] [facility] 7 [place] [address] Care Team Providers Care Machine Maintenance Supervisor Name Role Phone Beverly Valerio Primary Care Provider [phone] Reason for Visit * Reason Onset Date Comments Med Refill 12/18/2023 Encounter Details Date Type Department Care Team ([facility] st Contact Info) Description 12/18/2023 Refill [facility] & PEDS [address] [place] [address] Beverly Valerio FNP [address] [place] [address] Social History Tobacco Use Types Packs/Day Years [...] housing situation today? I have brenda orozco 02/28/[address] you [...] documented as of this encounter Care Teams Machine Maintenance Supervisor Relationship Specialty Start Date End Date Beverly Valerio FNP [address] [place] [address] PCP - General Family Medicine 12/31/21 documented as of this encounter
== END 2024-06-14 10:58 | disposition home or self-care (01) ==
PROVIDERS: PCP Registered Nurse; Visit Provider Physical Medicine & Rehabilitation
DX: M54.50 Low back pain, unspecified (principal); M16.0 Bilateral primary osteoarthritis of hip; N21.1 Calculus in urethra; Z87.442 Personal history of urinary calculi
CPT/HCPCS: 99203

== ENCOUNTER 2024-06-14 09:40 | Outpatient (REF) | payer MEDICAID, SELFPAY ==
--- NOTE | ~2024-06-14 | XR_ITS ---
EXAMINATION: XR LUMBAR SPINE 2-3 VIEWS HISTORY: M54.9 - Dorsalgia, unspecified COMPARISON: There are no prior studies for comparison. FINDINGS: AP, lateral, and coned down views of the lumbar spine are submitted. Osseous mineralization is normal. Five nonrib-bearing lumbar vertebral bodies are identified, maintaining normal height without evidence of fracture or spondylolisthesis. There is mild leftward curvature. There is moderate degenerative disc disease at the L5-S1 level, with disc space narrowing and osteophyte formation. Milder changes are noted at the remaining levels. There is osteoarthritis of the lower lumbar facet joints. The visualized paraspinal soft tissues are unremarkable. XR/XR lumbar spine 2-3V IMPRESSION: Mild leftward curvature. Degenerative disc disease as described. Electronically signed by: Juan Monroe MD 06/14/2024 10:47 AM KELL
--- OUTSIDE RECORDS SUMMARY | 2024-06-14 10:54 | XMS_ITS | Encounter Summary ---
Author Organization [employer] Address [address] [place] [address] Care Team Providers Care Tooth Inspector Name Role Phone Beverly Valerio DEIDRA Primary Care Provider [phone] Encounter Details Date Type Department Care Team ( st Contact Info) Description 06/14/2024 Orders Only [facility] External Provider, [facility] Social History Tobacco Use Types Packs/Day Years [...] Name Priority Date/Time Associated Diagnosis Comments XR LUMBAR SPINE 2-3 VIEWS Routine 06/14/2024 10:10 AM EST documented in this encounter Results * XR Lumbar Spine 2-3 Views (06/14/2024 10:10 AM EST) Anatomical Region Laterality Modality Spine, L-spine Radiographic Brittaney ging 06/14/2024 10:1 0 AM EST Narrative 06/14/2024 10:50 AM EST ? [facility] ? [address] ?[place] [address] ?XRay Report ? Signed ? Patient: Willoughby,Grace ?MR#: [id number] ? : 1970 ?Acct:[id number] ? Age/Sex: 53 / F ?ADM Date: 06/14/24 ? Loc: HO.HOSX ? Attending : Madison Hernandez MD ? Ordering Physician: Madison Meza ?? Date of Service: 06/14/24 ?? Procedure(s): XR lumbar spine 2-3V ?? Accession Number(s): [id number] ? cc: Beverly Valerio; Madison Meza ? EXAMINATION: ??XR LUMBAR SPINE 2-3 VIEWS ? HISTORY: M54.9 - Dorsalgia, unspecified ? COMPARISON: There are no prior studies for comparison. ? FINDINGS: ??AP, lateral, and coned down views of the lumbar spine are ?? submitted. ??Osseous mineralization is normal. ??Five nonrib-bearing ?? lumbar vertebral bodies are identified, maintaining normal height ?? without evidence of fracture or spondylolisthesis. There is mild ?? leftward curvature. ??There is moderate degenerative disc disease at the ?? L5-S1 level, with disc space narrowing and osteophyte formation. Milder ?? changes are noted at the remaining levels. ??There is osteoarthritis of ?? the lower lumbar facet joints. ??The visualized paraspinal soft tissues ?? are unremarkable. ? XR/XR lumbar spine 2-3V ?? IMPRESSION: ?? Mild leftward curvature. Degenerative disc disease as described. ? Electronically signed by: ??Juan Monroe MD ??06/14/2024 10:47 AM EST ? Dictated By: ?Juan Monroe MD ? Signed By: ?<Electronically signed by Juan oMnroe MD in OV> ?06/14/247 ? DD/ 1010 ? TD/TT: 06/14/24 1015 ? Eyeletter: ? Procedure Note Aicha Steven - 06/14/2024 [facility] [address] [place] [address] [address] [place] [address] XRay Report Signed Patient: Preet Willoughby#: [id number] : 1970Acct:[id number] Age/Sex: 53 / FADM Date: 06/14/24 Loc: HO.HOSX Attending Dr: Madison Hernandez MD Ordering Physician: Madison Meza Date of Service: 06/14/24 Procedure(s): XR lumbar spine 2-3V Accession Number(s): [id number] cc: Beverly Valerio; Madison Meza EXAMINATION: XR LUMBAR SPINE 2-3 VIEWS HISTORY: M54.9 - Dorsalgia, unspecified COMPARISON: There are no prior studies for comparison. FINDINGS: AP, lateral, and coned down views of the lumbar spine are submitted. Osseous mineralization is normal. Five nonrib-bearing lumbar vertebral bodies are identified, maintaining normal height without evidence of fracture or spondylolisthesis. There is mild leftward curvature. There is moderate degenerative disc disease at the L5-S1 level, with disc space narrowing and osteophyte formation. Milder changes are noted at the remaining levels. There is osteoarthritis of the lower lumbar facet joints. The visualized paraspinal soft tissues are unremarkable. XR/XR lumbar spine 2-3V IMPRESSION: Mild leftward curvature. Degenerative disc disease as described. Electronically signed by: Juan Monroe MD 06/14/2024 10:47 AM EST RP Dictated By: Juan Monroe MD Signed By: <Electronically signed by Juan Monroe MD in OV> 06/14/24 1047 DD/ 1010 TD/TT: 06/14/24 1015 Eyeletter: [facility] External Provider IMG XR PROCEDURES Final Result documented in this encounter Visit Diagnoses Not on filedocumented in this encounter Additional Health Concerns Assessment Noted Time PHQ-9 Depression Total Score: 3 06/07/19 24 6:20 PM EST documented as of this encounter Care Teams Tooth Inspector Relationship Specialty Start Date End Date Beverly Valerio FNP [address] [place] [address] PCP - General Family Medicine 12/31/21 documented as of this encounter
--- OUTSIDE RECORDS SUMMARY | 2024-06-14 10:54 | XMS_ITS | Encounter Summary ---
Author Organization [employer] Address [address] [facility] 7 [place] [address] Care Team Providers Care Senior Partner Name Role Phone Beverly Valerio Primary Care Provider [phone] Reason for Visit * Reason Onset Date Comments Med Refill 12/18/2023 Encounter Details Date Type Department Care Team ([facility] st Contact Info) Description 12/18/[address] [facility] MED & PEDS [address] [place] [address] Beverly Valerio FNP [address] [place] [address] Social History Tobacco Use Types Packs/Day Years [...] documented as of this encounter Care Teams Senior Partner Relationship Specialty Start Date End Date Beverly Valerio FNP [address] [place] [address] PCP - General Family Medicine 12/31/21 documented as of this encounter
--- OUTSIDE RECORDS SUMMARY | 2024-06-14 10:54 | XMS_ITS | Encounter Summary ---
Author Organization [employer] Address [address] [facility] 7 [place] [address] Care Team Providers Care Hydrogenation Still Operator Name Role Phone Beverly Valerio Primary Care Provider [phone] Reason for Visit * Reason Onset Date Comments Med Refill 10/30/2023 Encounter Details Date Type Department Care Team ([facility] Contact Info) Description 10/30/2023 Telephone [facility] MED [facility] PED[facility] [address] [place] [address] Beverly Valerio FNP [address] [place] [address] Med Refill Social History Tobacco Use Types [...] 1000 MG tablet To be sent to: [facility]/pharmacy #[id number] documented in this encounter Plan of Treatment Not on file documented as of this encounter Visit Diagnoses Not on filedocumented in this encounter Additional Health Concerns Assessment Noted Time PHQ-9 Depression Total Score: 3 06/07/19 24 6:20 PM EST documented as of this encounter Care Teams Hydrogenation Still Operator Relationship Specialty Start Date End Date Beverly Valerio FNP [address] [place] [address] PCP - General Family Medicine 12/31/21 documented as of this encounter
--- OUTSIDE RECORDS SUMMARY | 2024-06-14 10:54 | XMS_ITS | Clinical Summary ---
Author Organization [facility] Address [address] [place] [address] Care Team Providers Care Senior Clinical Research Associate Name Role Phone Unavailable Primary Care Provider [...] complication, without long-term current use of insulin ([facility]) Use to clean skin BID PRN DXE11.9 100 Each 11 1 Active sertraline (ZOLOFT) 100 mg tablet Take 150 mg by mouth once daily 1 Active lancets (FREESTYLE LANCETS) 28 gaugeIndications:T ype 2 diabetes mellitus without complication, without long-term current use of insulin ([facility]) Use to check BG BID PRN DX E11.9 Freestyle Lite 100 Each 11 1 Active blood sugar diagnostic stripsIndications: Type 2 diabetes mellitus without complication, without long-term current use of insulin ([facility]) Use to check BG BID PRN DX [...] complication, without long-term current use of insulin ([facility]) TAKE 1 TABLET BY MOUTH TWICE A DAY WITH FOOD 180 Tablet 2 Active Active Problems Problem Noted Date Diagnosed Date Vitamin D deficiency 07/12/2020 H/O total hysterectomy 10/29/2018 Adenocarcinoma of endometrium ([facility]) 02/07/20 18 Overview (08/01/2018): 08/01/2018: Cuff check great. Moving to [place] tomorrow, will do some research and contact patient with my recommendation for a INBOUND SALES REPRESENTATIVE ONC. Reviewed Dr. Hadley's recs with patient [...] findings post-op. Patient planning to move to [place], [place] in the spring and counseled if needs adjuvant therapy prior to her move will need to go to [place] for that and see a INBOUND SALES REPRESENTATIVE oncologist--if no need for adjuvant therapy I can continue to monitor her here and she can take her records with her to [place]. Initiated discussion on bariatric surgery post-op to [...] LN biopsy/cysto--plan for OR on 06/18/17 with INBOUND SALES REPRESENTATIVE ONC Christen Hadley from [facility] at . Patient counseled on natural history [...] first time meeting patient, but will strongly chemical dependency counselor patient at next visit about her [...] done and repeat US ordered. To see PROCESS EXCELLENCE MANAGER in 1 month for f/u and discuss options including ablation and hysterectomy. Pt declined a Mirena IUD today, though may be open to it next time. Assessment & Plan (07/23/2018 7:34 PM EDT): S/p hysterecomty 06/18/18 Healing well feeling great states some tenderness to mons pubis area however other than that feeling well Energy and mood much improved. [facility] has one f/u janett w/ Dr. Hyde prior to moving to [place] where she will transfer care Assessment & [...] Overview (05/13/2016): May 2016 Pt wojciech at [facility] Clinician Kelly Sheridan [phone] Assessment & Plan (05/06/2018 8:28 PM EST): [...] (BMI) of 45.0 to 49.9 in adult ([facility]) 06/14/2015 Overview (07/03/2018): 07/03/2018: Starting to work on weight loss--spotting resolved and feels well enough to start exercising. Thinks she can do it on her own and is motivated enough to and will defer bariatric surgery for now. 06/06/18: Initiated discussion on bariatric surgery post-op to decrease risk of recurrence. Strongly encouraged consideration of bariatric procedure once healed from [facility]. 04/17/2018: Class 3 obesity patient's strongest [...] there is a complication. 04/16/2018: Seen in INBOUND SALES REPRESENTATIVE office for new diagnosis of FIGO G1 endometrial CA. Patient with severe anemia, last Hct 29 on 01/23/18. Has two appointments for iron infusions at [facility] for 05/15/18 and 05/25/18. Prefers in the [...] complication, without long-term current use of insulin ([facility]) 08/13/2013 Overview (07/03/2018): 07/03/2018: Taking metformin bid, unsure about dose as her most recent Rx states once/day--counseled that most recent telephone note from PCP states bid dosing and metformin is usually dosed bid--states will contact PCP via [email or web address] today to confirm. 06/07/2018: Saw PCP for [...] EDT): Labs pending ... Bipolar II disorder ([facility]) 04/29/2013 Overview (04/11/2018): Overview: Bipolar II disorder [...] episode of recurren t major depressive disorder ([facility]) 02/23/2007 Assessment & Plan (05/06/2018 8:27 PM [...] (2 - Td or Tdap) 07/23/2022 013 [id number] () 01/07/2024 Imm-Influenza (#1) 2024 03/01/2017, 02/03/2014 [...] 015 5:55 PM PDT) No Brigido Leyva [facility] Note: Pt will practice CBT daily Pt will exercise 3x/week Procedures Procedure Name Priority Date/Time Associated Diagnosis Comments COMPREHENSIVE METABOLIC PANEL Routine 07/10/2020 9:45 AM EST Controlled type 2 diabetes mellitus without complication, without long-term current use of insulin ([facility]) Encounter for general adult medical examination without abnormal findings HEPATITIS C ANTIBODY Routine 07/10/2020 9:45 AM EST Screening for viral disease LIPID PANEL Routine 07/10/2020 9:45 AM EST Controlled type 2 diabetes mellitus without complication, without long-term current use of insulin ([facility]) Class 3 severe obesity due to excess calories without serious comorbidity with body mass index (BMI) of 45.0 to 49.9 in adult ([facility]) Encounter for general adult medical examination without abnormal findings HEMOGLOBIN GLYCOSYLATED A1C Routine 07/10/2020 9:45 AM EST Controlled type 2 diabetes mellitus without complication, without long-term current use of insulin ([facility]) Class 3 severe obesity due to excess calories without serious comorbidity with body mass index (BMI) of 45.0 to 49.9 in adult ([facility]) Encounter for general adult medical examination without abnormal findings SCREENING MAMMOGRAPHY BI 2-VIEW BREAST INC CAD Routine 05/23/2018 11:33 AM EST Screening for malignant neoplasm of breast FECAL GLOBIN BY IMMUNOCHEMISTRY (FIT) Routine 06/29/2015 2:09 PM EST Diabetes mellitus type 2, controlled from Last 3 Months or Most Recently Relevant to Health Maintenance Results * HEPATITIS C ANTIBODY (07/10/2020 9:45 AM EST) Pathologist [facility] HEPATITIS C VIRUS SCREEN NEGATIVE NEGATIVE [facility] Blood Blood / Unknown 07/10/2020 9 :45 AM EST 07/10/2020 10:03 AM EST Narrative [facility] - 07/10/2020 12:55 PM EST [employer], [place] [address] Planogrammer - Esperanza Stauffer MD PT ID [id number] ORD# [id number] [facility] - BLOOD [place] [address], * (ABNORMAL) HEMOGLOBIN, GLYCOSYLATED (A1C) (07/10/2020 9:45 AM EST) GLYCATED HEMOGLOBIN A1C 6.6(H) <6.5 % [facility] ESTIMATED AVERAGE GLUCOSE 143 mg/dL [facility] Blood Blood / Unknown 07/10/2020 9 :45 AM EST 07/10/2020 10:03 AM EST Narrative [facility] - 07/10/2020 2:09 PM EST Timothy Foley, a member of [address] [address] Planogrammer - Esperanza Stauffer MD PT ID [id number] ORD# [id number] [facility] - BLOOD DRAW Final Result Performing Organization Address City/[facility]/ZIP Co de Phone Number [address] [address], [place] [phone] * (ABNORMAL) LIPID PANEL (07/10/2020 9:45 AM EST) CHOLESTEROL 193 0 - 200 mg/dL [facility] TRIGLYCERIDES 322(H) 0 - 150 mg/dL [facility] HDL CHOLESTEROL 34(L) >40 mg/dL [facility] LDL CALCULATED 95 0 - 100 mg/dL [facility] TC-HDLC RATIO 5.7(H) 0 - 4.4 mg/dL [facility] Blood Blood / Unknown 07/10/2020 9 :45 AM EST 07/10/2020 10:03 AM EST Narrative [facility] - 07/10/2020 12:07 PM EST [employer], a member of [address] [address] Planogrammer - Esperanza Stauffer MD PT ID [id number] ORD# [id number] [facility] - BLOOD DRAW Edited Result - Final [address] [address], [place] [phone] * (ABNORMAL) COMPRE METAB PANEL (07/10/2020 9:45 AM EST) GLUCOSE 145(H) 70 - 100 mg/dL [facility] Comment:Reference range appl icable to fasting specimens only BUN 15 5 - 25 mg/dL [facility] CREAT 0.72 0.5 - 1.1 mg/dL [facility] GLOMERULAR FILTRATION RATE > 60 [facility] Comment: If patient is -Tristanian, multiply result by 1.21 Chronic Kidney Disease: < 60 ml/min/1.73 square meters Kidney Failure: < 15 ml/min/1.73 square meters SODIUM 137 135 - 145 mEq/L [facility] POTASSIUM 4.2 3.5 - 5.5 mmol/L [facility] CHLORIDE 106 96 - 110 mmol/L [facility] CO2 25 21 - 32 mmol/L [facility] ANION GAP 6 3 - 11 [facility] CALCIUM 9.5 8.5 - 10.5 mg/dL [facility] TOTAL PROTEIN 7.9 6.0 - 8.0 G/dL [facility] ALBUMIN 4.1 3.2 - 5.0 G/dL [facility] BILI, TOTAL 0.3 0.0 - 1.4 mg/dL [facility] SGOT 10 10 - 42 U/L [facility] SGPT 26 10 - 60 U/L [facility] ALK PHOS 119 42 - 121 U/L [facility] Blood Blood / Unknown 07/10/2020 9 :45 AM EST 07/10/2020 10:03 AM EST Narrative [facility] - 07/10/2020 12:07 PM EST [employer] [address] Planogrammer - Esperanza Stauffer MD PT ID [id number] ORD# [id number] [facility] - BLOOD [place] [address], * SCREENING MAMMOGRAPHY BI 2-VIEW BREAST INC CAD (05/23/2018 11:33 AM EST) Impressions Evelia Lowe - 05/23/2018 11:33 AM EST Mammogram Screening (Bilateral)05/17/2018 [facility] Result Impression No mammographic evidence of malignancy. [...] SUMMARY Risk Assessment results are provided by [employer]. Your patient completed a breast cancer risk [...] SUMMARY Risk Assessment results are provided by [employer]. Your patient completed a breast cancer risk [...] Survey Calculations: May ??2018 12:51PM Rah Jorgensen [facility] IM MAMMO Final Result * (ABNORMAL) FECAL GLOBIN BY IMMUNOCHEMISTRY (FIT) (06/29/2015 2:09 PM EST) FECAL HGB IMM 1 DATE - [facility] Comment: COLLECTION DATE NOT GIVEN. TEST RESULTS SHOULD BE INTERPRETED WITH CAUTION. LABELLED DAY 1 FECAL HGB IMM 1 RSLT POS(A) NEG [facility] FECAL HGB IMM 2 DATE - [facility] Comment: COLLECTION DATE NOT GIVEN. TEST RESULTS SHOULD BE INTERPRETED WITH CAUTION. LABELLED DAY 2 FECAL HGB IMM 2 RSLT NEG NEG [facility] FECAL HGB IMM 3 DATE - [facility] Comment: COLLECTION DATE NOT GIVEN. TEST RESULTS SHOULD BE INTERPRETED WITH CAUTION. LABELLED DAY 3 FECAL HBG IMM 3 RSLT NEG NEG [facility] Stool specimen (specimen) Stool specimen / Unknown 06/29/2015 2:09 PM EST us Serenity Monaco MD LAB - NO BLOOD DRAW Final Resu lt [facility] [address] [place] [address], [place] [phone] from Last 3 Months or Most Recently Relevant to Health Maintenance Insurance [place] MEDICAID DENTAL [facility] SAFETY NET DENTAL [employer] [facility] DENTAL [address] ACO
--- OUTSIDE RECORDS SUMMARY | 2024-06-14 10:54 | XMS_ITS | Encounter Summary ---
Author Organization [employer] Address [address] [facility] [facility] [address] [place] [address] Care Team Providers Care Motor Vehicle Assembly Supervisor Name Role Phone Beverly Valerio DEIDRA Primary Care Provider [phone] Encounter Details Date Type Department Care Team ( st Contact Info) Description 04/19/2024 Orders Only [facility] External Provider, [facility] Social History Tobacco Use Types Packs/Day [...] [address] ?[place] [address] ?XRay Report ? Signed ? Patient: Willoughby,Grace ?MR#: [id number] ? : 1970 ?Acct:[id number] ? Age/Sex: 53 / F ?ADM Date: 04/19/24 ? Loc: HO.HOSX ? Attending Dr: Jaqueline Krishnamurthy PA-C ? Ordering Physician: Jaqueline Krishnamurthy PA-C ?? Date of Service: 04/19/24 ?? Procedure(s): XR pelvis 1-2V ?? Accession Number(s): [id number] ? cc: Jaqueline Krishnamurthy-C; Beverly Valerio SUPERVISOR [employer] ? EXAMINATION: ?? XR PELVIS ? CLINICAL [...] DD/ 1347 ? TD/TT: 04/19/24 1350 ? Coke Loader: SR ? Procedure Note Donkvein, Image - 06/06/2024 [facility] [address] [place] [address] [address] [place] [address] XRay Report Signed Patient: Grace WilloughbyMR#: [id number] : 1970Acct:[id number] Age/Sex: 53 / FADM Date: 04/19/24 Loc: [facility] Attending Dr: Jaqueline Krishnamurthy PA-C Ordering Physician: Jaqueline Krishnamurthy PA-C Date of Service: 04/19/24 Procedure(s): XR pelvis 1-2V Accession Number(s): [id number] cc: Jaqueline Krishnamurthy PA-C; eBverly Valerio EXAMINATION: XR PELVIS CLINICAL INFORMATION: Pain [...] 06/06/24 0909 DD/ 1347 TD/TT: 04/19/24 1350 Coke Loader: SR [facility] External Provider IMG XR PROCEDURES Edited Result - Final documented in this encounter Visit Diagnoses Not on filedocumented in this encounter Additional Health Concerns Assessment Noted Time PHQ-9 Depression Total Score: 3 06/07/19 24 6:20 PM EST documented as of this encounter Care Teams Motor Vehicle Assembly Supervisor Relationship Specialty Start Date End Date Beverly Valerio FNP [address] [place] [address] PCP - General Family Medicine 12/31/21 documented as of this encounter
--- OUTSIDE RECORDS SUMMARY | 2024-06-14 10:54 | XMS_ITS | Clinical Summary ---
Author Organization [employer] Address [address] [place] [address] 7[address] [place] [address] Care Team Providers Care Home Health Aide Caregiver Name Role Phone Beverly Valerio DEIDRA Primary Care Provider [phone] Allergies No known active allergies Medications acetaminophen [...] complication, without long-term current use of insulin ([facility]) Use to test blood sugar 1-2 times daily 100 each 12 4 07/12/19 25 Active Alcohol Swabs 70 % padsIndications :Type 2 diabetes mellitus without complication, without long-term current use of insulin ([facility]) Use to test blood sugar 1-2 times [...] with hysterectomy Jun 2018 established with [facility] antique collector/onc 2020 Recommendation for screening was q 6 months for 1st year, then yearly, can be montored by retail service representative or antique collector onc beginning at 24 months pap test not indicated insufficient data to support Ca125, radiographic imaging CT or PET +/- Ca125 if recurrence expected Assessment & Plan (08/12/2022 6:32 PM EDT): Olegario Willoughby to call [facility] UNDERWRITING MANAGER/Onc to see appt date for next follow up Routine health maintenance 08/09/2022 Overview (03/07/2024): Colonoscopy: referred to GI 08/09/22, repeat referral 02/28/24 Mammogram: 06/29 BIRADS-2 repeat yearly Pap: not indicated, monitored by oncologist at [facility] for endometrial cancer surveillance Dental: [facility] Dental S/P laparotomy 06/18/2018 History of [...] & D quantitative PCR test. Recommendation for R7otuei liver ultrasound screening for HCC. Labs from [facility] 10/21/21: Hep B core ab (+), [...] Overview (08/09/2022): May 2016 Pt wojciech at [facility] Clinician Kelly Sheridan [phone] Last Assessment & Plan: Followed by provider. Overview: May 2016 Pt narcisod at [facility] Clinician Kelly Sheridan [phone] Last Assessment & Plan: Followed by provider. [...] consideration of bariatric procedure once healed from [facility]. 04/17/2018: Class 3 obesity patient's strongest risk [...] consideration of bariatric procedure once healed from [facility]. 04/17/2018: Class 3 obesity patient's strongest risk [...] GI -Per previous records: 04/16/2018: Seen in UNDERWRITING MANAGER office for new diagnosis of FIGO G1 endometrial CA. Patient with severe anemia, last Hct 29 on 01/23/18. Has two appointments for iron infusions at [facility] for 05/15/18 and 05/25/18. + [facility] referred to GI 07/2015 Assessment & Plan [...] above goal -Monofilament wnl: 12/06/21 -Referred to [facility] Eye care 08/09/22 for TY Assessment [...] (08/09/2022): 08/01/2018: Cuff check great. Moving to [place] tomorrow, will do some research and contact patient with my recommendation for a UNDERWRITING MANAGER ONC. Reviewed Dr. Hadley's recs with patient [...] findings post-op. Patient planning to move to [place], [place] in the spring and counseled if needs adjuvant therapy prior to her move will need to go to [place] for that and see a UNDERWRITING MANAGER oncologist--if no need for adjuvant therapy I can continue to monitor her here and she can take her records with her to [place]. Initiated discussion on bariatric surgery post-op to [...] LN biopsy/cysto--plan for OR on 06/18/17 with UNDERWRITING MANAGER ONC Christen Hadley from [facility] at . Patient counseled [...] first time meeting patient, but will strongly family counselor patient at next visit about her [...] done and repeat US ordered. To see JIVE DEVELOPER in 1 month for f/u and discuss [...] w/ Dr. Hyde prior to moving to [place] where she will transfer care Overview: [ [...] findings post-op. Patient planning to move to [place], [place] in the spring and counseled if needs adjuvant therapy prior to her move will need to go to [place] for that and see a UNDERWRITING MANAGER oncologist--if no need for adjuvant therapy I can continue to monitor her here and she can take her records with her to [place]. Initiated discussion on bariatric surgery post-op to [...] LN biopsy/cysto--plan for OR on 06/18/17 with UNDERWRITING MANAGER ONC Christen Hadley from [facility] at . Patient counseled [...] first time meeting patient, but will strongly family counselor patient at next visit about her [...] done and repeat US ordered. To see JIVE DEVELOPER in 1 month for f/u and discuss [...] Encounters Date Type Department Care Team Description 06/14/2024 Orders Only [facility] External Provider, [facility] 04/19/2024 Orders Only [facility] External Provider, [facility] 04/10/2024 Telephone [place] [employer] [address] [place] [phone] Beverly Valerio FNP from Last 3 [...] 2-3 VIEWS Routine 06/14/2024 10:10 AM EST XR PELVIS 1-2 VIEWS Routine 04/19/2024 1 :47 PM EST XR HIP 2 OR 3 VIEWS LEFT Routine 03/27/2024 9:41 AM EST Bilateral hip pain XR HIP 2 OR 3 VIEWS RIGHT Routine 03/27/2024 9:41 AM EST Bilateral hip pain HEPATIC FUNCTION PANEL Routine 9:30 AM EST Type 2 diabetes mellitus without complication, without long-term current use of insulin (CMS/HCC) POCT GLYCATED HEMOGLOBIN, TOTAL Routine 02/28/2024 12:50 PM EDT Type 2 diabetes mellitus without complication, without long-term current use of insulin (CMS/HCC) PROPHYLAXIS - ADULT Routine 07/18/2023 1 1:00 [...] complication, without long-term current use of insulin ([facility]) Healthcare maintenance LIPID PANEL, STANDARD Routine 05/24/2023 9:49 AM EST Healthcare maintenance MAMMOGRAM GENERIC Routine 06/24/2021 1:1 5 PM EST ZZZ HISTORICAL HEPATITIS C AB W/REFL TO HCV RNA, QN, PCR Routine 03/31/2021 10:03 AM EST HIV 1/2 ANTIGEN/ANTIBODY, FOURTH GENERATION W/RFL Routine 03/31/2021 10:03 AM EST from Last 3 Months or Most Recently Relevant to Health Maintenance Results * XR Lumbar Spine 2-3 Views (06/14/2024 10:10 AM EST) Anatomical Region Laterality Modality Spine, L-spine Radiographic Brittaney ging 06/14/2024 10:1 0 AM EST Narrative 06/14/2024 10:50 AM EST ? [facility] ? [address] ?[place] [address] ?XRay Report ? Signed ? Patient: Willoughby,Grace ?MR#: [id number] ? : 1970 ?Acct:[id number] ? Age/Sex: 53 / F ?ADM Date: 06/14/24 ? Loc: HO.HOSX ? Attending Dr: Madison Hernandez MD ? Ordering Physician: Madison Meza ?? Date of Service: 06/14/24 ?? Procedure(s): XR lumbar spine 2-3V ?? Accession Number(s): [id number] ? cc: Beverly Valerio; Madison Meza ? [...] ? Signed By: ?<Electronically signed by Juan Monroe MD in OV> ?06/14/24 1047 ? DD/ 1010 ? TD/TT: 06/14/24 1015 ? Size Worker: ? Procedure Note Maurizio, Aicha - 06/14/2024 [facility] [address] [place] [address] [address] [place] [address] XRay Report Signed Patient: Preet Willoughby#: [id number] : 1970Acct:[id number] Age/Sex: 53 / FADM Date: 06/14/24 Loc: HO.HOSX Attending Dr: Madison Hernandez MD Ordering Physician: Madison Meza Date of Service: 06/14/24 Procedure(s): XR lumbar spine 2-3V Accession Number(s): [id number] cc: Beverly Valerio; Madison Meza EXAMINATION: XR [...] 06/14/24 1047 DD/ 1010 TD/TT: 06/14/24 1015 Size Worker: [facility] External Provider IMG XR PROCEDURES Final Result * XR Pelvis 1-2 Views (04/19/2024 1:47 PM EST) Anatomical Region Laterality Modality Body, Pelvis Radiographic Brittaney ging 04/19/2024 1:47 PM EST Narrative 06/06/2024 9:12 AM EST ? [facility] ? [address] ?[place] [address] ?XRay Report ? Signed ? Patient: Grace Willoughby ?MR#: [id number] ? : 1970 ?Acct:[id number] ? Age/Sex: 53 / F ?ADM Date: 04/19/24 ? Loc: HO.HOSX ? Attending Dr: Jaqueline Krishnamurthy PA-C ? Ordering Physician: Jaqueline Krishnamurthy PA-C ?? Date of Service: 04/19/24 ?? Procedure(s): XR pelvis 1-2V ?? Accession Number(s): [id number] ? cc: Jaqueline Krishnamurthy PA-C; Beverly Valerio ? EXAMINATION: ?? XR PELVIS ? CLINICAL [...] DD/ 1347 ? TD/TT: 04/19/24 1350 ? Size Worker: SR ? Procedure Note Donpraveenter, Image - 06/06/2024 [facility] [address] [place] [address] [address] [place] [address] XRay Report Signed Patient: Grace WilloughbyMR#: [id number] : 1970Acct:[id number] Age/Sex: 53 / FADM Date: 04/19/24 Loc: HO.HOSX Attending Dr: Jaqueline Krishnamurthy PA-C Ordering Physician: Jaqueline Krishnamurthy PA-C Date of Service: 04/19/24 Procedure(s): XR pelvis 1-2V Accession Number(s): [id number] cc: Jaqueline Krishnamurthy PA-C; Beverly Valerio PBX SUPERVISOR EXAMINATION: XR PELVIS CLINICAL INFORMATION: Pain in [...] 06/06/24 0909 DD/ 1347 TD/TT: 04/19/24 1350 Size Worker: [facility] External Provider IMG XR PROCEDURES Edited Result - Final * XR Hip 2 or 3 Views Right (03/27/2024 9:41 AM EST) Anatomical Region Laterality Modality Lower Extremities, Hip Right Radiograp hic Imaging 03/27/2024 9:41 AM EST Narrative 03/27/2024 11:25 AM EST ? [facility] ?[address] ?[place] [address] ?XRay Report ? Signed ? Patient: Willoughby,Grace ?MR#: [id number] ? : 1970 ?Acct:[id number] ? Age/Sex: 53 / F ?ADM Date: 03/27/24 ? Loc: HO.HHCL ? Attending Dr: Beverly GAY ? Ordering Physician: Beverly Valerio ?? Date of Service: 03/27/24 ?? Procedure(s): XR hip RT min 2V ?? Accession Number(s): [id number] ? cc: Beverly Valerio ? EXAMINATION: ?? [...] DD/ 0941 ? TD/TT: 03/27/24 0958 ? Size Worker: SR ? Procedure Note Donotuseinterpreter, Image - 03/27/[address] [address] XRay Report Signed Patient: Grace WilloughbyMR#: [id number] : 1970Acct:[id number] Age/Sex: 53 / FADM Date: 03/27/24 Loc: HO.HHCL Attending Dr: Beverly GAY Ordering Physician: Beverly Valerio Date of Service: 03/27/24 Procedure(s): XR hip RT min 2V Accession Number(s): [id number] cc: Beverly Valerio EXAMINATION: XR HIP, RIGHT [...] Cantu MD in OV> 03/27/24 1122 DD/ 0941 TD/TT: 03/27/24 0958 Size Worker: SR us Beverly Valerio PBX SUPERVISOR IMG XR PROCEDURES Final Result * XR Hip 2 or 3 Views Left (03/27/2024 9:41 AM EST) Anatomical Region Laterality Modality Lower Extremities, Hip Left Radiograp hic Imaging 03/27/2024 9:41 AM EST Narrative 03/27/2024 11:25 AM EST ? [facility] ?[address] ?[place] [address] ?XRay Report ? Signed ? Patient: Fartun,Grace ?MR#: [id number] ? : 1970 ?Acct:[id number] ? Age/Sex: 53 / F ?ADM Date: 03/27/24 ? Loc: HO.HHCL ? Attending Dr: Beverly GAY ? Ordering Physician: Beverly Valerio ?? Date of Service: 03/27/24 ?? Procedure(s): XR hip LT min 2V ?? Accession Number(s): [id number] ? cc: Beverly Valerio ? EXAMINATION: ?? [...] DD/ 0941 ? TD/TT: 03/27/24 0958 ? Size Worker: SR ? Procedure Note Maurizio, Image - 03/27/[address] [address] XRay Report Signed Patient: Grace WilloughbyMR#: [id number] : 1970Acct:[id number] Age/Sex: 53 / FADM Date: 03/27/24 Loc: HO.HHCL Attending Dr: Beverly GAY Ordering Physician: Beverly Valerio Date of Service: 03/27/24 Procedure(s): XR hip LT min 2V Accession Number(s): [id number] cc: Beverly Valerio EXAMINATION: XR HIP, RIGHT [...] in OV> 03/27/24 1122 DD/ TD/TT: 03/27/24957 Size Worker: Beverly GAY IMG XR PROCEDURES Final Result * Hepatic Function Panel (03/27/2024 9:30 AM EST) Bilirubin, Total 0.3 0.0 - 1.0 mg/dL [facility] Bilirubin, Direct 0.1 0.0 - 0.5 mg/dL [facility] Aspartate Amino Transferase 22 5 - 31 U/L [facility] Alanine Aminotransferase 29 0 - 31 U/L [facility] Total Protein 7.5 6.5 - 8.0 g/dL [facility] Albumin Level 4.4 3.5 - 5.0 g/dL [facility] Alkaline Phosphatase 91 39 - 117 U/L [facility] Blood Venous blood specimen / Unknown 03/27/2024 9:30 AM EST 03/27/2024 11:22 AM EST Beverly Snoobegenny [facility] BLOOD ORDERABLES Final Res ult Performing Organization Address City/State/[facility] Co de Phone Number [facility] [address] [place] [phone] * (ABNORMAL) POCT HGB A1C (02/28/2024 12:50 PM EDT) Pathologist [facility] Hemoglobin A1C 7.9(A) 4.0 - 6.0 % QC Media Lot # [id number] Lot# Expiration Date ,645,175 Blood 02/28/2024 12:5 0 PM EDT [facility] POINT OF CARE TEST ENTER/EDIT ORDERABLES Final Result * (ABNORMAL) Albumin, Random Urine W/Creatinine (05/24/2023 9:53 AM EST) Creatinine, Urine 180.32 mg/dL [facility] Microalbumin Urine 53.0 mg/L [facility] Microalbum Creatinine Ratio Ur 29.3(H) <30 ug/mg cr [facility] Comment:Albumin/Creatinine R atio Reference Ranges: Normal: < 30 ug/mg creatinine Microalbuminuria: 30 - 300 ug/mg creatinineClinical Albuminuria: > 300 ug/mg creatinine Urine 05/24/2023 9:53 AM EST 05/24/2023 11:25 AM EST Beverly Valerio [facility] URINE ORDERABLES Final Res ult Performing Organization Address [facility] de Phone Number [facility] [address] [place] [address] [phone] * (ABNORMAL) Lipid Panel, Standard (05/24/2023 9:49 AM EST) Triglycerides 190(H) <150 mg/dL [facility] Comment:Desirable Triglyceri de: less than 150 mg/dLBorderline High Triglyceride 150-199 mg/dLHigh Triglyceride: 200-499 mg/dLVery High Triglyceride: greater than or equal to 5OO mg/dL Cholesterol 147 <200 mg/dL [facility] Comment:Desirable Cholestero l: less than 200 mg/dLBorderline High Cholesterol: 200-239 mg/dLHigh Cholesterol: greater than 239 mg/dL LDL Cholesterol Calculated 81 <100 mg/dL [facility] Comment:Desirable LDL: less than 100 mg/dLNear Optimal/Above Optimal LDL: 110- 129 mg/dLBorderline High LDL: 130-159 mg/dLHigh LDL: 160-189 mg/dLVery High LDL: greater than or equal to 190 mg/dL HDL Cholesterol 28(L) >40 mg/dL [facility] Comment:Desirable HDL: great er than 40 mg/dL Note: This HDL assay may give artificially low results in patients with liver disease. Blood Venous blood specimen / Unknown 05/24/2023 9:49 AM EST 05/24/2023 11:20 AM EST Beverly Valerio [facility] BLOOD ORDERABLES Final Res ult Performing Organization Address [facility] Co de Phone Number [facility] [address] [place] [address] [phone] * Mammography Report 1 (06/24/2021 1:15 PM EST) Anatomical Region Laterality Modality Breast Bilateral Mammography 06/24/2021 1:15 PM EST Narrative 06/25/2021 2:11 PM EST Refer to the Notes tab for result details [facility] Procedure: Mammography Report 1 Procedure Note ProviderZhen MD - 07/31/2022 Refer to the Notes tab for result details [facility] Procedure: Mammography Report 1 Kim Phillipssch PBX SUPERVISOR IMG BI PROCEDURES Final Result * HEPATITIS C AB W/REFL TO HCV RNA, QN, PCR (03/31/2021 10:03 AM EST) HEPATITIS C ANTIBODY NON-REACT DAT NON-REACT DAT [facility] INDEX 0.01 <1.00 [facility] Comment: ?? HCV antibody was non-reactive. There is no laboratory ?? evidence of HCV infection. ?? In most cases, no further action is required. However, if recent HCV exposure is suspected, a test for HCV RNA (test code 35044) is suggested. ?? For additional information please refer to http://education.[employer]/faq/NWH74j4 (This link is being provided for informational/ educational purposes only.) ?? 03/31/2021 10:0 3 AM EST Kim MANCERAP HISTORICAL/NON ORDERABLE LABS Final Result Performing Organization Address City/State/[facility] Co de Phone Number [facility] [address] * HIV 1/2 ANTIGEN/ANTIBODY,FOURTH GENERATION W/RFL (03/31/2021 10:03 AM EST) HIV-1/2 ANTIGEN AND ANTIBODIES, 4TH GENERATION W/ REFLEX NON-REACT DAT NON-REACT DAT [facility] Comment: HIV-1 antigen and HIV-1/HIV-2 [...] ? For additional information please refer to http://education.[employer]/faq/IUN058 (This link is being provided for informational/ educational purposes only.) ? The performance of this assay has not been clinically validated in patients less than 2 years old. ?? 03/31/2021 10:0 3 AM EST us Kim Downey [facility] BLOOD ORDERABLES Final Res ult [facility] [place] [address], from Last 3 Months or Most Recently Relevant to Health Maintenance Insurance [facility] C3 DENTAL-[facility] MEDICAID STAND ADULT Care Teams Home Health Aide Caregiver Relationship Specialty Start Date End Date Beverly Valerio FNP [address] [place] [address] PCP - General Family Medicine 12/31/21
== END 2024-06-14 09:41 | disposition home or self-care (01) ==
LOC: HO.HOSX 09:40
PROVIDERS: PCP Registered Nurse; Visit Provider Physical Medicine & Rehabilitation
DX: M54.50 Low back pain, unspecified (principal); M16.0 Bilateral primary osteoarthritis of hip; Z87.442 Personal history of urinary calculi
CPT/HCPCS: 72100; 99202

== ENCOUNTER 2024-10-09 14:07 | Outpatient (AMB) | payer MEDICAID, SELFPAY ==
--- OUTSIDE RECORDS SUMMARY | 2024-10-09 14:09 | XMS_ITS | Clinical Summary ---
Author Organization [facility] Address [address] [place] [address] Care Team Providers Care Bakery Demonstrator Name Role Phone Unavailable Primary Care Provider [...] complication, without long-term current use of insulin ([facility]) Use to clean skin BID PRN DXE11.9 100 Each 11 1 Active sertraline (ZOLOFT) 100 mg tablet Take 150 mg by mouth once daily 1 Active lancets (FREESTYLE LANCETS) 28 gaugeIndications:T ype 2 diabetes mellitus without complication, without long-term current use of insulin ([facility]) Use to check BG BID PRN DX E11.9 Freestyle Lite 100 Each 11 1 Active blood sugar diagnostic stripsIndications: Type 2 diabetes mellitus without complication, without long-term current use of insulin ([facility]) Use to check BG BID PRN [...] (08/01/2018): 08/01/2018: Cuff check great. Moving to [place] tomorrow, will do some research and contact patient with my recommendation for a RFID ANALYST ONC. Reviewed Dr. Hadley's recs with patient [...] findings post-op. Patient planning to move to [place], [place] in the spring and counseled if needs adjuvant therapy prior to her move will need to go to [place] for that and see a RFID ANALYST oncologist--if no need for adjuvant therapy I can continue to monitor her here and she can take her records with her to [place]. Initiated discussion on bariatric surgery post-op to [...] LN biopsy/cysto--plan for OR on 06/18/17 with RFID ANALYST ONC Christen Hadley from [facility] at . Patient counseled on natural history [...] first time meeting patient, but will strongly personal counselor patient at next visit about her [...] done and repeat US ordered. To see INNOVATION ANALYST in 1 month for f/u and discuss options including ablation and hysterectomy. Pt declined a Mirena IUD today, though may be open to it next time. Assessment & Plan (07/23/2018 7:34 PM EDT): S/p hysterecomty 06/18/18 Healing well feeling great states some tenderness to mons pubis area however other than that feeling well Energy and mood much improved. [facility] has one f/u janett w/ Dr. Hyde prior to moving to [place] where she will transfer care Assessment & [...] Overview (05/13/2016): May 2016 Pt wojciech at [facility] Clinician Kelly Sheridan [phone] Assessment & Plan (05/06/2018 8:28 PM EST): [...] 45.0 to 49.9 in adult 06/14/2015 Overview (07/03/2018): 07/03/2018: Starting to work on weight loss--spotting resolved and feels well enough to start exercising. Thinks she can do it on her own and is motivated enough to and will defer bariatric surgery for now. 06/06/18: Initiated discussion on bariatric surgery post-op to decrease risk of recurrence. Strongly encouraged consideration of bariatric procedure once healed from [facility]. 04/17/2018: Class 3 obesity [...] there is a complication. 04/16/2018: Seen in RFID ANALYST office for new diagnosis of FIGO G1 endometrial CA. Patient with severe anemia, last Hct 29 on 01/23/18. Has two appointments for iron infusions at [facility] for 05/15/18 and 05/25/18. Prefers in the [...] complication, without long-term current use of insulin ([facility]) 08/13/2013 Overview (07/03/2018): 07/03/2018: Taking metformin bid, unsure about dose as her most recent Rx states once/day--counseled that most recent telephone note from PCP states bid dosing and metformin is usually dosed bid--states will contact PCP via [employer] today to confirm. 06/07/2018: Saw PCP for [...] EDT): Labs pending ... Bipolar II disorder ([facility]) 04/29/2013 Overview (04/11/2018): Overview: Bipolar II [...] major depressive disorder ([facility]) 02/23/2007 Assessment & Plan (05/06/2018 8:27 [...] control and has less sleep issues Immunizations Immunization Administration Dates Next Due Hep B, Adult/Adol (ENERGIX/RECOMBIVAX) 8,09/29/2017,03/01/2017 INFLUENZA, SEASONAL, INJECTABLE 03/01/2017,02/03 PNEUMOCOCCAL POLYSACCHARIDE PPV23 (Pneumovax 23) 03/01/2017 TDAP 07/23/2012 Family History Medical History Relation Name Comments Cancer Mother Cancer -cervica l?Relationship: Mother- in her 80s form old age Cancer Sister Cancer -breast?Relationship: Sister- in her 60s from sepsis, comploicate diabetes Relation Name Status Comments Father Mother Sister Social History Tobacco Use Types Packs/Day Years Used Date Smoking Tobacco: Every Day Cigarettes 0.5 22.4 Started: 2002 Smokeless Tobacco: Never Tobacco Cessation:Ready [...] Health Maintenance Due Date Last Done Comments Anxiety Screening 1971 Dental Examination 1971 HPV Screening 1971 Imm-Hepatitis A (1 of 2 - Ri sk 2-dose series) 11/02/1990 Pap Smear 11/02/1992 CT Colonography 11/02/2016 Colonoscopy 11/02/2016 Colorectal Cancer Screening 11/02/2016 FIT/gFOBT 11/02/2016 06/29/2015 Fecal DNA 11/02/2016 Flexible Sigmoidoscopy 11/02/2016 Imm-Pneumococcal (2 of 2 - PCV) 03/01/2018 7 Retinopathy Screening 06/08/2018 06/08/2017 Urine Albumin Creatinine Rat io Screening 09/29/2018 09/29/2017, 08/01/2016, 04/09/2015, Additional history exists Cervical Cancer Screening 12/16/2018 Pap + HPV 12/16/2018 12/16/2013 Depression Monitoring 03/16/2019 12/14/2018 Tobacco Screening 12/15/2019 12/14/2018 Breast Cancer Screening (Mammogram) 05/23/2020 05/23/2018, 05/16/2018 Diabetes HbA1c 10/10/2020 07/10/2020, 12/0 06/2019, 02/15/2019, Additional history exists Annual Wellness (Adult): Indicated (All Coverage) 07/09/2021 07/09/2020, 04/24/2018 Diabetes Foot Exam 07/09/2021 07/09/2020, 0 07/09/2020, 12/31/2015 Hypertension Screening (#1) 07/09/2021 Tobacco Cessation Counseling (#1) 07/09/2021 019 Lipid Screening 07/10/2021 07/10/2020, 01/06, 02/27/2017, Additional history exists Serum Creatinine 07/10/2021 07/10/2020, 06/2019, 10/29/2018, Additional history exists Imm-Zoster, Recombinant (1 of 2) 11/02/2021 Imm-DTaP/Tdap/Td (2 - Td or Tdap) 07/23/2022 013 [id number] ( season) 2024 Alcohol and Drug Screen 05/08/2024 07/10/19, 12/14/2018, 05/30/2018, Additional history exists Imm-Influenza (Season Ended) 2025 03/01/2017, 02/03/2014 HIV Screening Completed 06/24/2009 Hepatitis C Screening Completed 07/10/2020 Cervical Ablation/Cold-Knife Conization Discontinued Cervical Cryotherapy Discontinued Colposcopy Discontinued Endometrial Biopsy Discontinued Excision/Leep Discontinued HPV Genotyping Discontinued Vaginal Pap Discontinued Vulvoscopy Discontinued Goals Goal Patient Goal Type Associated Problems Recent Progress Patient-Stated? Author Increased mood stabilization Diet PTSD (post-traumatic stress disorder) Not on track( 015 5:55 PM PDT) No Brigido Leyva [facility] Note: Pt will practice CBT daily Pt will exercise 3x/week Procedures Procedure Name Priority Date/Time Associated Diagnosis Comments COMPREHENSIVE METABOLIC PANEL Routine 07/10/2020 9:45 AM EST Controlled type 2 diabetes mellitus without complication, without long-term current use of insulin ([facility]) Encounter for general adult medical examination without abnormal findings HEPATITIS C ANTIBODY Routine 07/10/2020 9:45 AM EST Screening for viral disease LIPID PANEL Routine 07/10/2020 9:45 AM EST Controlled type 2 diabetes mellitus without complication, without long-term current use of insulin ([facility]) Class 3 severe obesity due to excess calories without serious comorbidity with body mass index (BMI) of 45.0 to 49.9 in adult ([facility]) Encounter for general adult medical examination without abnormal findings HEMOGLOBIN GLYCOSYLATED A1C Routine 07/10/2020 9:45 AM EST Controlled type 2 diabetes mellitus without complication, without long-term current use of insulin ([facility]) Class 3 severe obesity due to excess calories without serious comorbidity with body mass index (BMI) of 45.0 to 49.9 in adult ([facility]) Encounter for general adult medical examination [...] Department HEPATITIS C VIRUS SCREEN NEGATIVE NEGATIVE [facility] Blood Blood / Unknown 07/10/2020 9 :45 AM EST 07/10/2020 10:03 AM EST Narrative [facility] - 07/10/2020 12:55 PM EST Apprion, a member of [address] [address] Manager Fraud - Esperanza Stauffer MD PT ID [id number] ORD# [id number] Dona [facility] - BLOOD DRAW Final Result [address] [address], * (ABNORMAL) HEMOGLOBIN, GLYCOSYLATED (A1C) (07/10/2020 9:45 AM EST) GLYCATED HEMOGLOBIN A1C 6.6(H) <6.5 % [facility] EST[facility] AVERAGE GLUCOSE 143 mg/dL [facility] Blood Blood / Unknown 07/10/2020 9 :45 AM EST 07/10/2020 10:03 AM EST Narrative [facility] - 07/10/2020 2:09 PM EST Apprion, a member of [address] [address] Manager Fraud - Esperanza Stauffer MD PT ID [id number] ORD# [id number] Dona GAY [facility] - BLOOD DRAW Final Result Performing Organization Address City/[facility]/ZIP Co de Phone Number [address] [address], [place] [phone] * (ABNORMAL) LIPID PANEL (07/10/2020 9:45 AM EST) CHOLESTEROL 193 0 - 200 mg/dL [facility] TRIGLYCERIDES 322(H) 0 - 150 mg/dL [facility] HDL CHOLESTEROL 34(L) >40 mg/dL [facility] LDL CALCULATED 95 0 - 100 mg/dL [facility] TC-HDLC RATIO 5.7(H) 0 - 4.4 mg/dL [facility] Blood Blood / Unknown 07/10/2020 9 :45 AM EST 07/10/2020 10:03 AM EST Narrative [facility] - 07/10/2020 12:07 PM EST Apprion, a member of [address] [address] Manager Fraud - Esperanza Stauffer MD PT ID [id number] ORD# [id number] Dona GAY [facility] - BLOOD DRAW Edited Result - Final [address] [address], [place] [phone] * (ABNORMAL) COMPRE METAB PANEL (07/10/2020 9:45 AM EST) GLUCOSE 145(H) 70 - 100 mg/dL [facility] Comment:Reference range appl icable to fasting specimens only BUN 15 5 - 25 mg/dL [facility] CREAT 0.72 0.5 - 1.1 mg/dL [facility] GLOMERULAR FILTRATION RATE > 60 [facility] Comment: If patient is -[place], multiply result by 1.21 Chronic Kidney Disease: < 60 ml/min/1.73 square meters Kidney Failure: < 15 ml/min/1.73 square meters SODIUM 137 135 - 145 mEq/L [facility] POTASSIUM 4.2 3.5 - 5.5 mmol/L [facility] CHLORIDE 106 96 - 110 mmol/L [facility] CO2 25 21 - 32 mmol/L [facility] ANION GAP 6 3 - 11 [facility] CALCIUM 9.5 8.5 - 10.5 mg/dL [facility] TOTAL PROTEIN 7.9 6.0 - 8.0 G/dL [facility] ALBUMIN 4.1 3.2 - 5.0 G/dL [facility] BILI, TOTAL 0.3 0.0 - 1.4 mg/dL [facility] SGOT 10 10 - 42 U/L [facility] SGPT 26 10 - 60 U/L [facility] ALK PHOS 119 42 - 121 U/L [facility] Blood Blood / Unknown 07/10/2020 9 :45 AM EST 07/10/2020 10:03 AM EST Narrative [facility] - 07/10/2020 12:07 PM EST Apprion, [place] [address] Manager Fraud - Esperanza Stauffer MD PT ID [id number] ORD# [id number] Dona GAY [facility] - BLOOD DRAW Final Result [address] [place] [address], * Mammogram Screening (05/23/2018 11:33 AM EST) Impressions Evelia Lowe - 05/23/2018 11:33 AM EST Mammogram Screening (Bilateral)05/17/2018 Critical access hospital Result Impression No mammographic evidence of malignancy. [...] SUMMARY Risk Assessment results are provided by [employer]. Your patient completed a breast cancer risk [...] SUMMARY Risk Assessment results are provided by [employer]. Your patient completed a breast cancer risk [...] the Survey Calculations: May ??2018 12:51PM [facility] Final Result * (ABNORMAL) FECAL GLOBIN BY IMMUNOCHEMISTRY (FIT) (06/29/2015 2:09 PM EST) FECAL HGB IMM 1 DATE - [facility] Comment: COLLECTION DATE NOT GIVEN. TEST RESULTS SHOULD BE INTERPRETED WITH CAUTION. LABELLED DAY 1 FECAL HGB IMM 1 RSLT POS(A) NEG [facility] FECAL HGB IMM 2 DATE - [facility] Comment: COLLECTION DATE NOT GIVEN. TEST RESULTS SHOULD BE INTERPRETED WITH CAUTION. LABELLED DAY 2 FECAL HGB IMM 2 RSLT NEG NEG [facility] FECAL HGB IMM 3 DATE - [facility] Comment: COLLECTION DATE NOT GIVEN. TEST RESULTS SHOULD BE INTERPRETED WITH CAUTION. LABELLED DAY 3 FECAL HBG IMM 3 RSLT NEG NEG [facility] Stool specimen (specimen) Stool specimen / Unknown 06/29/2015 2:09 PM EST Serenity Monaco MD LAB BODY FLUIDS AND STOOLS AMB ULATORY Final Result Performing Organization Address City/State/[facility] Co de Phone Number [facility] [address] [place] [address], from Last 3 Months or Most Recently Relevant to Health Maintenance Insurance [place] MEDICA[place] DENTAL [facility] SAFETY NET DENTAL [facility] [employer] DENTAL [address] ACO
--- NOTE | 2024-10-09 14:52 | A.OFFVIS_ITS ---
Intake Visit Reasons: history of kidney stones Intake Note: Patient presents today for kidney stones * has not been seen since 2022, Renal US 09-28-22 Urology medications: none Blood thinners: none Film Crew Member Required: No Accompanied by: Unknown Allergies No Known Allergies Allergy (Verified 10/09/24 14:56) Medication List - Last Reconciled 10/09/24 by Maureen Watson MD atorvastatin 1 tab PO DAILY dulaglutide (Trulicity) 0.75 mg subcut QWEEK ibuprofen 600 mg PO Q8H PRN metformin 1 tab PO BID sertraline 0.5 tabs PO DAILY HPI Comments Details: 10/09/24-- 08/25/2022-- Grace is a 51-year-old female who presents to the office post op left ESWL. The patient underwent left ESWL on 03/23/22 for left renal stone. States having intermittent left sided flank pain. Denies gross hematuria. Denies dysuria. Denies fever. It was discussed with the patient that post the procedure there might be residual stone fragments. CTAP results--03/15/22--Suggestive of 1.4 cm partially obstructive stone at the left UPJ. A 1.1 cm calculus was seen in the midpole left kidney on recent ultrasound 02/03/2022 these calculi in the left kidney has increased in size since previous CT exam 12/11/2020. Plan: Renal US was ordered. Follow-up in 2 weeks. [facility] Medical History CPAP (continuous positive airway pressure) dependence Liver function abnormality Endometrial cancer UTI (urinary tract infection) Diabetes Surgical History Tubal ligation status H/O: hysterectomy Social History Patient Tobacco Use Status: Current everyday Tobacco user Tobacco use type: Cigarette Cigarettes Per Day: 20 Years Smoked: 18 Review of Systems Const All systems reviewed & are unremarkable except as noted in HPI and below Reports no additional complaints Eyes Reports no additional complaints ENT Reports no additional complaints Card Reports no additional complaints Resp Reports no additional complaints GI Reports no additional complaints Reports as per HPI Musc Reports no additional complaints Skin/Breast Reports system reviewed and no additional complaints, except as documented Neuro Reports no additional complaints Psych Reports no additional complaints Endo Reports no additional complaints Stef/Lymph Reports no additional complaints Aller/Immun Reports no additional complaints Results AMB Urinalysis, Automated UA Leukoctes 0 Shilpa/uL Last Edit by Claudio Mayen, [facility] on 10/09/24 16:37 UA Nitrite Last Edit by Claudio Mayen, [facility] on 10/09/24 16:37 UA Urobilinogen 3.5 mg/dL Last Edit by Claudio Mayen, [facility] on 10/09/24 16:37 UA Protein 1.0 mg/dL Last Edit by Claudio Mayen, [facility] on 10/09/24 16:37 UA pH 6.0 Last Edit by Claudio Mayen, [facility] on 10/09/24 16:37 UA Blood 200 Ramon/uL Last Edit by Claudio Mayen, [facility] on 10/09/24 16:37 UA Specific [place] 1.015 Last Edit by Claudio Mayen, [facility] on 10/09/24 16:37 UA Ketone Last Edit by Claudio Mayen, [facility] on 10/09/24 16:37 UA Bilirubin 0 mg/dL Last Edit by Claudio Mayen, [facility] on 10/09/24 16:37 UA Glucose 0 mg/dL Last Edit by Claudio Mayen, [facility] on 10/09/24 16:37 Results Reviewed Results Reviewed: Date of Service: 03/15/22 EXAMINATION: CT ABDOMEN AND PELVIS WITHOUT CONTRAST? CLINICAL INFORMATION: Calculus of kidney.? COMPARISON: Ultrasound abdomen 02/01/2022 TECHNIQUE: Multidetector volumetric imaging was performed from the superior aspect of the liver through the pubic symphysis. Sagittal and coronal reformatted images were obtained on the technologist's workstation.? This CT examination was performed using dose optimization techniques as appropriate, variously including the following: *Automated exposure control *Adjustment of mA and/or kV according to patient size (this includes techniques or standardized protocols for targeted exams where dose is matched to indication/reason for exam; i.e. extremities or head) *Use of iterative reconstruction technique DLP: 1224 mGy-cm FINDINGS: LUNG BASES: The lung bases are clear. Heart size is normal.? LIVER, GALLBLADDER, AND BILIARY TREE: The liver is normal in size, shape, and attenuation. No focal hepatic lesion or biliary ductal dilatation is present. The gallbladder is unremarkable with no evidence of radiopaque gallstones, gallbladder wall thickening, or obvious pericholecystic inflammatory changes.? PANCREAS: Unremarkable.? SPLEEN: Unremarkable.? ADRENAL GLANDS: Unremarkable.? KIDNEYS AND URETERS: The kidneys are normal in size, shape, and attenuation. No perinephric stranding. There is a 1.4 cm obstructive left pelvic/UPJ calculus with mild hydronephrosis. No additional radiopaque calculi are seen. There is no right-sided hydronephrosis. BLADDER: Unremarkable.? GASTROINTESTINAL TRACT: There is scattered stool and gas seen throughout the colon without distention. There is nonspecific fat deposition in a short segment of the hepatic flexure on axial image 37/3, nonspecific. The appendix, ileocecal junction and small bowel loops are normal caliber.? ABDOMINAL WALL: There is a small umbilical hernia containing intraperitoneal fat.? LYMPH NODES: Normal. VASCULAR: Unremarkable. PELVIC VISCERA: Unremarkable. OSSEOUS STRUCTURES: There are degenerative disc changes with vacuum disc phenomenon at the L5-S1 disc level with ventral and posterior spondylosis.? IMPRESSION: 1.4 cm partially obstructive stone at the left UPJ. A 1.1 cm calculus was seen in the midpole left kidney on recent ultrasound 02/03/2022. These calculi in the left kidney has increased in size since previous CT exam 12/11/2020. ? Degenerative disc changes at the L5-S1 disc level with ventral spondylosis. ? Assessment & Plan Assessment & Plan Orders: Orders AMB Urinalysis Automated Today Z13.9 - Encounter for screening, unspecified Urine Cytology Today R10.9 - Unspecified abdominal pain Coding
== END 2024-10-09 15:47 | disposition home or self-care (01) ==
LOC: HO.HUSH 14:07
PROVIDERS: PCP Registered Nurse; Visit Provider Urology
DX: Z13.9 Encounter for screening, unspecified (principal)

== ENCOUNTER 2024-10-09 14:07 | Outpatient (REF) | payer MEDICAID, SELFPAY ==
[2024-10-09 16:49] LABS: Urine Cytology See Pathology rpt
== END 2024-10-09 14:08 | disposition home or self-care (01) ==
LOC: HO.LNP 14:07
PROVIDERS: PCP Registered Nurse; Visit Provider Urology
DX: R10.9 Unspecified abdominal pain (principal)
CPT/HCPCS: 81003; 88112

== ENCOUNTER 2024-11-15 12:45 | Outpatient (REF) | payer MEDICAID, SELFPAY ==
--- NOTE | ~2024-11-15 | US_ITS ---
CLINICAL HISTORY: N20.0 - Calculus of kidney US retroperitoneum with color Doppler Comparison: US/SR - US ABDOMEN LIMITED - 06/13/23 09:44 EST US/ID/SR - US BLADDER - 10/05/22 14:42 EDT US/ID/SR - US RENAL BI - 09/28/22 12:46 EDT Findings: Right kidney normal size and echotexture, 12.3 cm length. No hydronephrosis. Normal color flow. No nephrolithiasis. No renal masses. Left kidney normal size and echotexture, 14.1 cm in length. Moderate hydronephrosis. Normal color flow. A total of 3 calculi in the left renal pelvis measuring 9 x 6 x 10 mm, 12 x 7 x 10 mm and 15 x 11 x 11 mm largest near the left UPJ. Urinary bladder is unremarkable. Prevoid volume 171.3 mL. Postvoid volume 8.7 mL. Ureteral jets are visualized bilaterally Impression: 1. Moderate hydronephrosis on the left with 3 calculi in the left renal pelvis largest near the left UPJ. There has been progression of disease when compared to 09/28/2022 ultrasound 2. Bilateral ureteral jets were visualized in the urinary bladder which excludes complete obstructive uropathy This document has been electronically signed by: Evans Tipton MD on 11/16/2024 15:35:51
--- OUTSIDE RECORDS SUMMARY | 2024-11-15 12:48 | XMS_ITS | Clinical Summary ---
Author Organization [facility] Address [address] [place] [address] Care Team Providers Care Financial Project Manager Name Role Phone Unavailable Primary Care Provider [...] complication, without long-term current use of insulin ([facility]) Use to clean skin BID PRN DXE11.9 100 Each 11 1 Active sertraline (ZOLOFT) 100 mg tablet Take 150 mg by mouth once daily 1 Active lancets (FREESTYLE LANCETS) 28 gaugeIndications:T ype 2 diabetes mellitus without complication, without long-term current use of insulin ([facility]) Use to check BG BID PRN DX E11.9 Freestyle Lite 100 Each 11 1 Active blood sugar diagnostic stripsIndications: Type 2 diabetes mellitus without complication, without long-term current use of insulin ([facility]) Use to check BG BID PRN DX [...] complication, without long-term current use of insulin ([facility]) Take 1 Tablet by mouth once daily dxe11.9 90 Tablet 1 Active metFORMIN (GLUCOPHAGE) 1,000 mg tabletIndications: Type 2 diabetes mellitus without complication, without long-term current use of insulin ([facility]) TAKE 1 TABLET BY MOUTH TWICE A DAY WITH FOOD 180 Tablet 2 Active Active Problems Problem Noted Date Diagnosed Date Vitamin D deficiency 07/12/2020 H/O total hysterectomy 10/29/2018 Adenocarcinoma of endometrium ([facility]) Overview (08/01/2018): 08/01/2018: Cuff check great. Moving to [place] tomorrow, will do some research and contact patient with my recommendation for a HARM REDUCTION WORKER ONC. Reviewed Dr. Hadley's recs with patient [...] findings post-op. Patient planning to move to [place], [place] in the spring and counseled if needs adjuvant therapy prior to her move will need to go to [place] for that and see a HARM REDUCTION WORKER oncologist--if no need for adjuvant therapy I can continue to monitor her here and she can take her records with her to [place]. Initiated discussion on bariatric surgery post-op to [...] LN biopsy/cysto--plan for OR on 06/18/17 with HARM REDUCTION WORKER ONC Christen Hadley from [facility] at . Patient counseled on natural history [...] first time meeting patient, but will strongly securities counselor patient at next visit about her [...] done and repeat US ordered. To see ACCOUNTING MACHINE OPERATOR in 1 month for f/u and discuss options including ablation and hysterectomy. Pt declined a Mirena IUD today, though may be open to it next time. Assessment & Plan (07/23/2018 7:34 PM EDT): S/p hysterecomty 06/18/18 Healing well feeling great states some tenderness to mons pubis area however other than that feeling well Energy and mood much improved. [facility] has one f/u janett w/ Dr. Hyde prior to moving to [place] where she will transfer care Assessment & [...] Overview (05/13/2016): May 2016 Pt wojciech at [facility] Clinician Kelly Sheridan [phone] Assessment & Plan (05/06/2018 8:28 PM EST): [...] (BMI) of 45.0 to 49.9 in adult (CMS & HHS-HCC) 06/14/2015 Overview (07/03/2018): 07/03/2018: Starting to work on weight loss--spotting resolved and feels well enough to start exercising. Thinks she can do it on her own and is motivated enough to and will defer bariatric surgery for now. 06/06/18: Initiated discussion on bariatric surgery post-op to decrease risk of recurrence. Strongly encouraged consideration of bariatric procedure once healed from [facility]. 04/17/2018: Class 3 obesity patient's strongest risk [...] there is a complication. 04/16/2018: Seen in HARM REDUCTION WORKER office for new diagnosis of FIGO G1 endometrial CA. Patient with severe anemia, last Hct 29 on 01/23/18. Has two appointments for iron infusions at [facility] for 05/15/18 and 05/25/18. Prefers in [...] complication, without long-term current use of insulin ([facility]) 08/13/2013 Overview (07/03/2018): 07/03/2018: Taking metformin bid, unsure about dose as her most recent Rx states once/day--counseled that most recent telephone note from PCP states bid dosing and metformin is usually dosed bid--states will contact PCP via [employer] today to confirm. 06/07/2018: Saw PCP for [...] Has not yet made appointment appt with ophnorio. She is afraid of dilation. Plans to [...] to improve. Body mass index is 46.93 kg/m . Wt Readings from Last 5 Encounters: 07/23/18 [...] DM Follow-up Body mass index is 46.76 kg/m . Wt Readings from Last 5 Encounters: 04/24/18 [...] DM Follow-up Body mass index is 47.43 kg/m . Wt Readings from Last 5 Encounters: 01/23/18 [...] EDT): Labs pending ... Bipolar II disorder ([facility]) 04/29/2013 Overview (04/11/2018): Overview: Bipolar II disorder [...] episode of recurren t major depressive disorder ([facility]) 02/23/2007 Assessment & Plan (05/06/2018 8:27 PM [...] Administration Dates Next Due Hep B, Adult/Adol ([id number]/RECOMBIVAX-ADULT) 01/23/2018,09/29/2017,03/01/2017 INFLUENZA, SEASONAL, INJECTABLE 03/01/2017,02/03 PNEUMOCOCCAL POLYSACCHARIDE PPV23 (Pneumovax 23) 03/01/2017 TDAP 07/23/2012 Family History Medical History Relation Name Comments Cancer Mother Cancer -cervica l Relationship: Mother- in her 80s form old age Cancer Sister Cancer -breast Relationship: Sister- in her 60s from sepsis, comploicate diabetes Relation Name Status Comments Father Mother Sister Social History Tobacco Use Types Packs/Day Years Used Date Smoking Tobacco: Every Day Cigarettes 0.5 22.5 Started: 2002 Smokeless Tobacco: Never Tobacco Cessation:Ready [...] 84 07/09/2020 2:22 PM EST Temperature 37.1 C (98.7 F) 07/09/2020 2:22 PM EST Respiratory Rate 16 07/09/2020 2:22 PM EST [...] Fecal DNA 11/02/2016 Flexible Sigmoidoscopy 11/02/2016 Imm-Pneumococcal 50+ (2 of 2 - PCV) 03/01/2018 03/01/2017 Retinopathy Screening 06/08/2018 06/08/2017 Urine Albumin Creatinine Rat io Screening 09/29/2018 09/29/2017, 08/01/2016, 04/09/2015, Additional history exists Cervical Cancer Screening 12/16/2018 Pap + HPV 12/16/2018 12/16/2013 Depression Monitoring 03/16/2019 12/14/2018 Tobacco Screening 12/15/2019 12/14/2018 Breast Cancer Screening (Mammogram) 05/23/2020 05/23/2018, 05/16/2018 Hemoglobin A1c 10/10/2020 07/10/2020, 12/0 06/2019, 02/15/2019, Additional history [...] (2 - Td or Tdap) 07/23/2022 013 [id number] ( season) 2024 Alcohol and Drug Screen 05/08/2024 07/10/19, 12/14/2018, 05/30/2018, Additional history exists Imm-Influenza (#1) 2025 03/01/2017, 02/03/2014 HIV Screening Completed 06/24/2009 Hepatitis C Screening Completed 07/10/2020 Cervical Ablation/Cold-Knife Conization Discontinued Cervical Cryotherapy Discontinued Colposcopy Discontinued Endometrial Biopsy Discontinued Excision/Leep Discontinued HPV Genotyping Discontinued Vaginal Pap Discontinued Vulvoscopy Discontinued Goals Goal Patient Goal Type Associated Problems Recent Progress Patient-Stated? Author Increased mood stabilization Diet PTSD (post-traumatic stress disorder) Not on track( 015 5:55 PM PDT) Brigido Burns LM Note: Pt will practice CBT daily Pt will exercise 3x/week Procedures Procedure Name Priority Date/Time Associated Diagnosis Comments COMPREHENSIVE METABOLIC PANEL Routine 07/10/2020 9:45 AM EST Controlled type 2 diabetes mellitus without complication, without long-term current use of insulin ([facility]) Encounter for general adult medical examination without abnormal findings HEPATITIS C ANTIBODY Routine 07/10/2020 9:45 AM EST Screening for viral disease LIPID PANEL Routine 07/10/2020 9:45 AM EST Controlled type 2 diabetes mellitus without complication, without long-term current use of insulin ([facility]) Class 3 severe obesity due to excess calories without serious comorbidity with body mass index (BMI) of 45.0 to 49.9 in adult ([facility]) Encounter for general adult medical examination without abnormal findings HEMOGLOBIN GLYCOSYLATED A1C Routine 07/10/2020 9:45 AM EST Controlled type 2 diabetes mellitus without complication, without long-term current use of insulin ([facility]) Class 3 severe obesity due to excess calories without serious comorbidity with body mass index (BMI) of 45.0 to 49.9 in adult ([facility]) Encounter for general adult medical examination [...] C ANTIBODY (07/10/2020 9:45 AM EST) Pathologist [facility] HEPATITIS C VIRUS SCREEN NEGATIVE NEGATIVE [facility] Blood Blood / Unknown 07/10/2020 9 :45 AM EST 07/10/2020 10:03 AM EST Narrative [facility] - 07/10/2020 12:55 PM EST [place] [address] Ed Case Manager - Esperanza Stauffer MD PT ID [id number] ORD# [id number] Dona [facility] - BLOOD DRAW Final Result [address] [address], * (ABNORMAL) HEMOGLOBIN, GLYCOSYLATED (A1C) (07/10/2020 9:45 AM EST) GLYCATED HEMOGLOBIN A1C 6.6(H) <6.5 % [facility] ESTIMATED AVERAGE GLUCOSE 143 mg/dL [facility] Blood Blood / Unknown 07/10/2020 9 :45 AM EST 07/10/2020 10:03 AM EST Kalee [facility] - 07/10/2020 2:09 PM EST PWA, a member of [address] [address] Ed Case Manager - Esperanza Stauffer MD PT ID [id number] ORD# [id number] Dona [facility] - BLOOD DRAW Final Result Performing Organization Address City/[facility]/ZIP Co de Phone Number [address] [address], [place] [phone] * (ABNORMAL) LIPID PANEL (07/10/2020 9:45 AM EST) CHOLESTEROL 193 0 - 200 mg/dL [facility] TRIGLYCERIDES 322(H) 0 - 150 mg/dL [facility] HDL CHOLESTEROL 34(L) >40 mg/dL [facility] LDL CALCULATED 95 0 - 100 mg/dL [facility] TC-HDLC RATIO 5.7(H) 0 - 4.4 mg/dL [facility] Blood Blood / Unknown 07/10/2020 9 :45 AM EST 07/10/2020 10:03 AM EST Narrative [facility] - 07/10/2020 12:07 PM EST PWA, a member of [address] [address] Ed Case Manager - Esperanza Stauffer MD PT ID [id number] ORD# [id number] [facility] - BLOOD DRAW Edited Result - Final [address] [address], [place] [phone] * (ABNORMAL) COMPRE METAB PANEL (07/10/2020 9:45 AM EST) GLUCOSE 145(H) 70 - 100 mg/dL [facility] Comment:Reference range appl icable to fasting specimens only BUN 15 5 - 25 mg/dL [facility] CREAT 0.72 0.5 - 1.1 mg/dL [facility] GLOMERULAR FILTRATION RATE > 60 [facility] Comment: If patient is -[place], multiply result by 1.21 Chronic Kidney Disease: < 60 ml/min/1.73 square meters Kidney Failure: < 15 ml/min/1.73 square meters SODIUM 137 135 - 145 mEq/L [facility] POTASSIUM 4.2 3.5 - 5.5 mmol/L [facility] CHLORIDE 106 96 - 110 mmol/L [facility] CO2 25 21 - 32 mmol/L [facility] ANION GAP 6 3 - 11 [facility] CALCIUM 9.5 8.5 - 10.5 mg/dL [facility] TOTAL PROTEIN 7.9 6.0 - 8.0 G/dL [facility] ALBUMIN 4.1 3.2 - 5.0 G/dL [facility] BILI, TOTAL 0.3 0.0 - 1.4 mg/dL [facility] SGOT 10 10 - 42 U/L [facility] SGPT 26 10 - 60 U/L [facility] ALK PHOS 119 42 - 121 U/L [facility] Blood Blood / Unknown 07/10/2020 9 :45 AM EST 07/10/2020 10:03 AM EST Narrative [facility] - 07/10/2020 12:07 PM EST [place] [address] Ed Case Manager - Esperanza Stauffer MD PT ID [id number] ORD# [id number] [facility] - BLOOD DRAW Final Result [facility] [address] [address], * Mammogram Screening (05/23/2018 11:33 AM EST) Impressions Evelia Lowe - 05/23/2018 11:33 AM EST Mammogram Screening (Bilateral)05/17/2018 [facility] Result Impression No mammographic evidence of malignancy. Provided risk calculations demonstrate an elevated lifetime risk of breast cancer, therefore recommend considering MRI screening. BI-RADS CATEGORY: 2 - Benign finding. RECOMMENDATION: Routine annual screening LETTER: Normal A reminder letter will automatically be generated and sent to the patient with the target date for her next screening mammogram. BREAST CANCER RISK ASSESSMENT SUMMARY Risk Assessment results are provided by [facility]. Your patient completed a breast cancer risk assessment survey as part of her breast health screening. Based on the information she provided, her calculated risk of developing breast cancer is at a higher than average lifetime risk and/or hereditary predisposition to cancer. High risk patients, especially those with dense breasts, will benefit from additional clinical management and annual Breast MRI. Estimated Breast Cancer Risk Calculations: Risk BRCA1/2 Mutation: 2.6% Lifetime Breast Cancer Risk: 20.1% *ACS Guidelines: Patients at high risk will have a >= 10% risk of BRCA mutation and/or >= 20% lifetime risk of breast cancer *This analysis is only as accurate as the data entered or provided by the patient. Date of the Survey Calculations: May 16 2018 12:51PM Result Narrative REPORT: SITE READ: 2 CLINICAL INDICATION: Screening . COMPARISON: Prior imaging could not be obtained for direct [...] In - 05/17/2018 11:53 AM EST REPORT: SITE READ: 2 CLINICAL INDICATION: Screening . COMPARISON: Prior imaging could not be obtained for direct [...] therefore recommend considering MRI screening. BI-RADS CATEGORY: 2 - Benign finding. RECOMMENDATION: Routine annual screening LETTER: Normal A reminder letter will automatically be generated and sent to the patient with the target date for her next screening mammogram. BREAST CANCER RISK ASSESSMENT SUMMARY Risk Assessment results are provided by [facility]. Your patient completed a breast cancer risk assessment survey as part of her breast health screening. Based on the information she provided, her calculated risk of developing breast cancer is at a higher than average lifetime risk and/or hereditary predisposition to cancer. High risk patients, especially those with dense breasts, will benefit from additional clinical management and annual Breast MRI. Estimated Breast Cancer Risk Calculations: Risk BRCA1/2 Mutation: 2.6% Lifetime Breast Cancer Risk: 20.1% *ACS Guidelines: Patients at high risk will have a >= 10% risk of BRCA mutation and/or >= 20% lifetime risk of breast cancer *This analysis is only as accurate as the data entered or provided by the patient. Date of the Survey Calculations: May 16 2018 12:51PM Rah Jorgensen [facility] MAMMO Final Result * (ABNORMAL) FECAL GLOBIN BY IMMUNOCHEMISTRY (FIT) (06/29/2015 2:09 PM EST) FECAL HGB IMM 1 DATE - [facility] Comment: COLLECTION DATE NOT GIVEN. TEST RESULTS SHOULD BE INTERPRETED WITH CAUTION. LABELLED DAY 1 FECAL HGB IMM 1 RSLT POS(A) NEG [facility] FECAL HGB IMM 2 [facility] Comment: COLLECTION DATE NOT GIVEN. TEST RESULTS SHOULD BE INTERPRETED WITH CAUTION. LABELLED DAY 2 FECAL HGB IMM 2 RSLT NEG NEG [facility] FECAL HGB IMM 3 DATE [facility] Comment: COLLECTION DATE NOT GIVEN. TEST RESULTS SHOULD BE INTERPRETED WITH CAUTION. LABELLED DAY 3 FECAL HBG IMM 3 RSLT NEG NEG [facility] Stool specimen (specimen) Stool specimen / Unknown 06/29/2015 2:09 PM EST us Serenity Monaco MD LAB BODY FLUIDS AND STOOLS AMB ULATORY Final Result [facility] [address] [place] [address], from Last 3 Months or Most Recently Relevant to Health Maintenance [place] DENT[place] [facility] SAFETY NET DENTAL [facility] [address] ACO
--- OUTSIDE RECORDS SUMMARY | 2024-11-15 12:48 | XMS_ITS | Encounter Summary ---
Author Organization [employer] Address [address] [place] [address] [address] [place] [address] Care Team Providers Care House Wirer Helper Name Role Phone Beverly Valerio Primary Care Provider [phone] Reason for Visit * Reason Onset Date Comments Med Refill 12/18/2023 Encounter Details Date Type Department Care Team ([facility] st Contact Info) Description 12/18/2023 Refill [facility] [address] [place] [address] Beverly Valerio FNP [address] [place] [address] Social History Tobacco Use Types Packs/Day Years [...] documented as of this encounter Care Teams House Wirer Helper Relationship Specialty Start Date End Date Beverly Valerio FNP [address] [place] [id number] PCP - General Family Medicine 12/31/21 documented as of this encounter
== END 2024-11-15 12:46 | disposition home or self-care (01) ==
LOC: HO.US 12:45
PROVIDERS: PCP Registered Nurse; Visit Provider Urology
DX: N20.0 Calculus of kidney (principal)
CPT/HCPCS: 76770

== ENCOUNTER → 2024-11-15 12:47 | Outpatient (BNV) | payer MEDICAID, SELFPAY | PROVIDERS: PCP Registered Nurse; Visit Provider Radiology Diagnostic Radiology | DX: N13.2 Hydronephrosis with renal and ureteral calculous obstruction (principal) | CPT/HCPCS: 76770 ==

== ENCOUNTER 2024-11-22 07:34 | Outpatient (AMB) | payer MEDICAID, SELFPAY ==
--- NOTE | 2024-11-22 07:34 | A.OFFVIS_ITS ---
Intake Visit Reasons: review results Intake Note: Patient presents today for telehealth for results Urology medications: none Blood thinners: none President And Ceo Required: No Accompanied by: Self / Same As Patient Allergies No Known Allergies Allergy (Verified 11/22/24 07:35) Medication List - Last Reconciled 11/22/24 by Maureen Watson MD atorvastatin 1 tab PO DAILY dulaglutide (Trulicity) 0.75 mg subcut QWEEK ibuprofen 600 mg PO Q8H PRN metformin 1 tab PO BID sertraline 0.5 tabs PO DAILY HPI Comments Details: 11/22/24 History of Present Illness - The patient is a 54-year-old female presenting with nephrolithiasis in the left kidney. Telehealth visit. - Left flank pain is intermittent - The renal ultrasound 11/16/2024 revealed multiple stones in the left kidney, with one stone at the UPJ causing hydronephrosis. There is bilateral ureteral jets seen which is consistent with not a complete obstruction. - The patient has a history of shockwave lithotripsy for stone management. Results: Moderate hydronephrosis. Normal color flow. A total of 3 calculi in the left renal pelvis measuring 9 x 6 x 10 mm, 12 x 7 x 10 mm and 15 x 11 x 11 mm largest near the left UPJ. Bilateral ureteral jets were visualized in the urinary bladder which excludes complete obstructive uropathy Plan-cystoscopy left ureteroscopy laser lithotripsy left ureteral stent 10/09/24--The patient is a 53-year-old female presenting with nephrolithiasis. She has a confirmed history of kidney stones treated previously with extracorporeal shock wave lithotripsy. Recent imaging has indicated the recurrence of kidney stones prompting further medical evaluation. The patient?s current urine test revealed significant hematuria and proteinuria. Her medical history includes type 2 diabetes mellitus managed with Trulicity and metformin. The patient has concern about the potential role of metformin in contributing to her kidney stone development. In response to dietary recommendations, the patient has started increasing her intake of citrate by consuming lemon water to inhibit further stone formation. The patient does not report new or additional urinary symptoms aside from those associated with her kidney stones. Diagnostic measures planned include a 24-hour urine collection and an ultrasound to assess current kidney function and to evaluate for any stone-related complications. 08/25/2022-- Grace is a 51-year-old female who presents to the office post op left ESWL. The patient underwent left ESWL on 03/23/22 for left renal stone. States having intermittent left sided flank pain. Denies gross hematuria. Denies dysuria. Denies fever. It was discussed with the patient that post the procedure there might be residual stone fragments. CTAP results--03/15/22--Suggestive of 1.4 cm partially obstructive stone at the left UPJ. A 1.1 cm calculus was seen in the midpole left kidney on recent ultrasound 02/03/2022 these calculi in the left kidney has increased in size since previous CT exam 12/11/2020. Plan: Renal US was ordered. Follow-up in 2 weeks. [facility] Medical History CPAP (continuous positive airway pressure) dependence Liver function abnormality Endometrial cancer UTI (urinary tract infection) Diabetes Surgical History Tubal ligation status H/O: hysterectomy Social History Patient Tobacco Use Status: Current everyday Tobacco user Tobacco use type: Cigarette Cigarettes Per Day: 20 Years Smoked: 18 Review of Systems Const All systems reviewed & are unremarkable except as noted in HPI and below Reports no additional complaints Eyes Reports no additional complaints ENT Reports no additional complaints Card Reports no additional complaints Resp Reports no additional complaints GI Reports no additional complaints Reports as per HPI Musc Reports no additional complaints Skin/Breast Reports system reviewed and no additional complaints, except as documented Neuro Reports no additional complaints Psych Reports no additional complaints Endo Reports no additional complaints Stef/Lymph Reports no additional complaints Aller/Immun Reports no additional complaints Telehealth Telehealth Telehealth Platform: [facility] Location of provider rendering services: practice address Location of patient: address on file Patient Identification confirmed using: Name, : Yes Telehealth method: video Patient verbally consented to treatment: Yes Patient verbally consented to billing insurance company: Yes Patient informed of any privacy concerns related to visit: Yes Results Reviewed Results Reviewed: D/TT: 11/16/2405/01/1551 CLINICAL HISTORY: N20.0 - Calculus of kidney US retroperitoneum with color Doppler Comparison: US/SR - US ABDOMEN LIMITED - 2/6/24 09:44 EST US/VT/SR - US BLADDER - 10/05/22 14:42 EDT US/VT/SR - US RENAL BI - 09/28/22 12:46 EDT Findings: Right kidney normal size and echotexture, 12.3 cm length. No hydronephrosis. Normal color flow. No nephrolithiasis. No renal masses. Left kidney normal size and echotexture, 14.1 cm in length. Moderate hydronephrosis. Normal color flow. A total of 3 calculi in the left renal pelvis measuring 9 x 6 x 10 mm, 12 x 7 x 10 mm and 15 x 11 x 11 mm largest near the left UPJ. Urinary bladder is unremarkable. Prevoid volume 171.3 mL. Postvoid volume 8.7 mL. Ureteral jets are visualized bilaterally Impression: 1. Moderate hydronephrosis on the left with 3 calculi in the left renal pelvis largest near the left UPJ. There has been progression of disease when compared to 09/28/2022 ultrasound 2. Bilateral ureteral jets were visualized in the urinary bladder which excludes complete obstructive uropathy Date of Service: 03/15/22 EXAMINATION: CT ABDOMEN AND PELVIS WITHOUT CONTRAST? CLINICAL INFORMATION: Calculus of kidney.? COMPARISON: Ultrasound abdomen 02/01/2022 TECHNIQUE: Multidetector volumetric imaging was performed from the superior aspect of the liver through the pubic symphysis. Sagittal and coronal reformatted images were obtained on the technologist's workstation.? This CT examination was performed using dose optimization techniques as appropriate, variously including the following: *Automated exposure control *Adjustment of mA and/or kV according to patient size (this includes techniques or standardized protocols for targeted exams where dose is matched to indication/reason for exam; i.e. extremities or head) *Use of iterative reconstruction technique DLP: 1224 mGy-cm FINDINGS: LUNG BASES: The lung bases are clear. Heart size is normal.? LIVER, GALLBLADDER, AND BILIARY TREE: The liver is normal in size, shape, and attenuation. No focal hepatic lesion or biliary ductal dilatation is present. The gallbladder is unremarkable with no evidence of radiopaque gallstones, gallbladder wall thickening, or obvious pericholecystic inflammatory changes.? PANCREAS: Unremarkable.? SPLEEN: Unremarkable.? ADRENAL GLANDS: Unremarkable.? KIDNEYS AND URETERS: The kidneys are normal in size, shape, and attenuation. No perinephric stranding. There is a 1.4 cm obstructive left pelvic/UPJ calculus with mild hydronephrosis. No additional radiopaque calculi are seen. There is no right-sided hydronephrosis. BLADDER: Unremarkable.? GASTROINTESTINAL TRACT: There is scattered stool and gas seen throughout the colon without distention. There is nonspecific fat deposition in a short segment of the hepatic flexure on axial image 37/3, nonspecific. The appendix, ileocecal junction and small bowel loops are normal caliber.? ABDOMINAL WALL: There is a small umbilical hernia containing intraperitoneal fat.? LYMPH NODES: Normal. VASCULAR: Unremarkable. PELVIC VISCERA: Unremarkable. OSSEOUS STRUCTURES: There are degenerative disc changes with vacuum disc phenomenon at the L5-S1 disc level with ventral and posterior spondylosis.? IMPRESSION: 1.4 cm partially obstructive stone at the left UPJ. A 1.1 cm calculus was seen in the midpole left kidney on recent ultrasound 02/03/2022. These calculi in the left kidney has increased in size since previous CT exam 12/11/2020. ? Degenerative disc changes at the L5-S1 disc level with ventral spondylosis. ? Assessment & Plan Assessment & Plan (1) Kidney stone on left side: Code(s): N20.0 - Calculus of kidney Category: Medical (2) Left flank pain: Code(s): R10.9 - Unspecified abdominal pain Category: Medical (3) Hydronephrosis: Code(s): N13.30 - Unspecified hydronephrosis Category: Medical Plan Plan-cystoscopy left ureteroscopy laser lithotripsy left ureteral stent Scribe Plan - Not visible on output: Patient was informed and verbally consented to the use of an ambient scribe for clinic note documentation during this visit. Coding Level of Care Code Tele Est Pt Level 4 (65720) Complex EM visit Add On G2211 Diagnoses Kidney stone on left side N20.0 Left flank pain R10.9 Hydronephrosis N13.30
--- OUTSIDE RECORDS SUMMARY | 2024-11-22 07:35 | XMS_ITS | Clinical Summary ---
Author Organization [facility] Address [address] [place] [address] Care Team Providers Care Quality Control Head Name Role Phone Unavailable Primary Care Provider [...] complication, without long-term current use of insulin ([facility]) Use to clean skin BID PRN DXE11.9 100 Each 11 1 Active sertraline (ZOLOFT) 100 mg tablet Take 150 mg by mouth once daily 1 Active lancets (FREESTYLE LANCETS) 28 gaugeIndications:T ype 2 diabetes mellitus without complication, without long-term current use of insulin ([facility]) Use to check BG BID PRN DX E11.9 Freestyle Lite 100 Each 11 1 Active blood sugar diagnostic stripsIndications: Type 2 diabetes mellitus without complication, without long-term current use of insulin ([facility]) Use to check BG BID PRN [...] complication, without long-term current use of insulin ([facility]) Take 1 Tablet by mouth once daily dxe11.9 90 Tablet 1 Active metFORMIN (GLUCOPHAGE) 1,000 mg tabletIndications: Type 2 diabetes mellitus without complication, without long-term current use of insulin ([facility]) TAKE 1 TABLET BY MOUTH TWICE A DAY WITH FOOD 180 Tablet 2 Active Active Problems Problem Noted Date Diagnosed Date Vitamin D deficiency 07/12/2020 H/O total hysterectomy 10/29/2018 Adenocarcinoma of endometrium ([facility]) Overview (08/01/2018): 08/01/2018: Cuff check great. Moving to [place] tomorrow, will do some research and contact patient with my recommendation for a INCIN[employer]ATOR [employer] GENERAL SUPERVISOR ONC. Reviewed Dr. Hadley's recs with patient [...] findings post-op. Patient planning to move to [place], [place] in the spring and counseled if needs adjuvant therapy prior to her move will need to go to [place] for that and see a INCINERATOR PLANT GENERAL SUPERVISOR oncologist--if no need for adjuvant therapy I can continue to monitor her here and she can take her records with her to [place]. Initiated discussion on bariatric surgery post-op to [...] LN biopsy/cysto--plan for OR on 06/18/17 with INC[employer]ATOR [employer] GENER[employer] SUPERVISOR ONC Christen Hadley from [facility] at . Patient counseled on natural history [...] first time meeting patient, but will strongly counselor at law patient at next visit about her biggest [...] done and repeat US ordered. To see CUFFING MACHINE OPERATOR in 1 month for f/u and discuss options including ablation and hysterectomy. Pt declined a Mirena IUD today, though may be open to it next time. Assessment & Plan (07/23/2018 7:34 PM EDT): S/p hysterecomty 06/18/18 Healing well feeling great states some tenderness to mons pubis area however other than that feeling well Energy and mood much improved. [facility] has one f/u janett w/ Dr. Hyde prior to moving to [place] where she will transfer care Assessment & [...] Overview (05/13/2016): May 2016 Pt wojciech at [facility] Clinician Kelly Sheridan [phone] Assessment & Plan (05/06/2018 8:28 PM EST): [...] consideration of bariatric procedure once healed from [facility]. 04/17/2018: Class 3 obesity patient's strongest [...] there is a complication. 04/16/2018: Seen in INC[employer]ATOR [employer] GENERAL SUPERVISOR office for new diagnosis of FIGO G1 endometrial CA. Patient with severe anemia, last Hct 29 on 01/23/18. Has two appointments for iron infusions at [facility] for 05/15/18 and 05/25/18. Prefers [...] complication, without long-term current use of insulin ([facility]) 08/13/2013 Overview (07/03/2018): 07/03/2018: Taking metformin bid, unsure about dose as her most recent Rx states once/day--counseled that most recent telephone note from PCP states bid dosing and metformin is usually dosed bid--states will contact PCP via [employer] today to confirm. 06/07/2018: Saw PCP for [...] EDT): Labs pending ... Bipolar II disorder ([facility]) 04/29/2013 Overview (04/11/2018): Overview: Bipolar II [...] episode of recurren t major depressive disorder ([facility]) 02/23/2007 Assessment & Plan (05/06/2018 8:27 PM [...] Administration Dates Next Due Hep B, Adult/Adol (RPAVYOO-O-VLIJC/RECOMBIVAX-ADULT) 01/23/2018,09/29/2017,03/01/2017 INFLUENZA, SEASONAL, INJECTABLE 03/01/2017,02/03 PNEUMOCOCCAL POLYSACCHARIDE [...] (2 - Td or Tdap) 07/23/2022 013 [id number] ( season) 2024 Alcohol and Drug Screen [...] complication, without long-term current use of insulin ([facility]) Encounter for general adult medical examination without abnormal findings HEPATITIS C ANTIBODY Routine 07/10/2020 9:45 AM EST Screening for viral disease LIPID PANEL Routine 07/10/2020 9:45 AM EST Controlled type 2 diabetes mellitus without complication, without long-term current use of insulin ([facility]) Class 3 severe obesity due to excess calories without serious comorbidity with body mass index (BMI) of 45.0 to 49.9 in adult ([facility]) Encounter for general adult medical examination without abnormal findings HEMOGLOBIN GLYCOSYLATED A1C Routine 07/10/2020 9:45 AM EST Controlled type 2 diabetes mellitus without complication, without long-term current use of insulin ([facility]) Class 3 severe obesity due to excess calories without serious comorbidity with body mass index (BMI) of 45.0 to 49.9 in adult ([facility]) Encounter for general adult medical examination without abnormal findings SCREENING MAMMOGRAPHY BI 2-VIEW BREAST INC CAD Routine 05/23/2018 11:33 AM EST Screening for malignant neoplasm of breast FECAL GLOBIN BY IMMUNOCHEMISTRY (FIT) Routine 06/29/2015 2:09 PM EST Diabetes mellitus type 2, controlled from Last 3 Months or Most Recently Relevant to Health Maintenance Results * HEPATITIS C ANTIBODY (07/10/2020 9:45 AM EST) Pathologist [facility] HEPATITIS C VIRUS SCREEN NEGATIVE NEGATIVE [facility] Blood Blood / Unknown 07/10/2020 9 :45 AM EST 07/10/2020 10:03 AM EST [facility]ative [facility] - 07/10/2020 12:55 PM EST [employer] [place] [address] Nailing Machine Operator Automatic - Esperanza Stauffer MD PT ID [id number] ORD# [id number] [facility] - BLOOD DRAW Final Result [address] [address], * (ABNORMAL) HEMOGLOBIN, GLYCOSYLATED (A1C) (07/10/2020 9:45 AM EST) GLYCATED HEMOGLOBIN A1C 6.6(H) <6.5 % [facility] ESTIMATED AVERAGE GLUCOSE 143 mg/dL [facility] Blood Blood / Unknown 07/10/2020 9 :45 AM EST 07/10/2020 10:03 AM EST Kalee [facility] - 07/10/2020 2:09 PM EST [employer] a member of [address] [address] Nailing Machine Operator Automatic - Esperanza Stauffer MD PT ID [id number] ORD# [id number] [facility] - BLOOD DRAW Final Result Performing Organization Address City/[facility]/ZIP Co de Phone Number [address] [address], [place] [phone] * (ABNORMAL) LIPID PANEL (07/10/2020 9:45 AM EST) CHOLESTEROL 193 0 - 200 mg/dL [facility] TRIGLYCERIDES 322(H) 0 - 150 mg/dL [facility] HDL CHOLESTEROL 34(L) >40 mg/dL [facility] LDL CALCULATED 95 0 - 100 mg/dL [facility] TC-HDLC RATIO 5.7(H) 0 - 4.4 mg/dL [facility] Blood Blood / Unknown 07/10/2020 9 :45 AM EST 07/10/2020 10:03 AM EST Narrative [facility] - 07/10/2020 12:07 PM EST [employer] a member of [address] [address] Nailing Machine Operator Automatic - Esperanza Stauffer MD PT ID [id number] ORD# [id number] [facility] - BLOOD DRAW Edited Result - Final [address] [address], [place] [phone] * (ABNORMAL) COMPRE METAB PANEL (07/10/2020 9:45 AM EST) GLUCOSE 145(H) 70 - 100 mg/dL [facility] Comment:Reference range appl icable to fasting specimens only BUN 15 5 - 25 mg/dL [facility] CREAT 0.72 0.5 - 1.1 mg/dL [facility] GLOMERULAR FILTRATION RATE > [address] [facility] Comment: If patient is -Tuval[place], multiply result by 1.21 Chronic Kidney Disease: < 60 ml/min/1.73 square meters Kidney Failure: < 15 ml/min/1.73 square meters SODIUM 137 135 - 145 mEq/L [facility] POTASSIUM 4.2 3.5 - 5.5 mmol/L [facility] CHLORIDE 106 96 - 110 mmol/L [facility] CO2 25 21 - 32 mmol/L [facility] ANION GAP 6 3 - [address] [facility] CALCIUM 9.5 8.5 - 10.5 mg/dL [facility] TOTAL PROTEIN 7.9 6.0 - 8.0 G/dL [facility] ALBUMIN 4.1 3.2 - 5.0 G/dL [facility] BILI, TOTAL 0.3 0.0 - 1.4 mg/dL [facility] SGOT 10 10 - 42 U/L [facility] SGPT 26 10 - 60 U/L [facility] ALK PHOS 119 42 - 121 U/L [facility] Blood Blood / Unknown 07/10/2020 9 :45 AM EST 07/10/2020 10:03 AM EST Narrative [facility] - 07/10/2020 12:07 PM EST [employer] [place] [address] Nailing Machine Operator Automatic - Esperanza Stauffer MD PT ID [id number] ORD# [id number] Don[facility] - BLOOD DRAW Final Result [facility] [address] [address], * Mammogram Screening (05/23/2018 11:33 AM EST) Impressions Evelia Lowe - 05/23/2018 11:33 AM EST Mammogram Screening (Bilateral)05/17/2018 [facility] Result Impression No mammographic [...] SUMMARY Risk Assessment results are provided by [facility]. Your patient completed a breast cancer risk [...] SUMMARY Risk Assessment results are provided by [facility]. Your patient completed a breast cancer risk [...] Calculations: May 16 2018 12:51PM Rah Jorgensen [facility] MAMMO Final Result * (ABNORMAL) FECAL GLOBIN BY IMMUNOCHEMISTRY (FIT) (06/29/2015 2:09 PM EST) FECAL HGB IMM 1 DATE - [facility] Comment: COLLECTION DATE NOT GIVEN. TEST RESULTS SHOULD BE INTERPRETED WITH CAUTION. LABELLED DAY 1 FECAL HGB IMM 1 RSLT POS(A) NEG [facility] FECAL HGB IMM 2 [facility] Comment: COLLECTION DATE NOT GIVEN. TEST RESULTS SHOULD BE INTERPRETED WITH CAUTION. LABELLED DAY 2 FECAL HGB IMM 2 RSLT NEG NEG [facility] FECAL HGB IMM 3 DATE [facility] Comment: COLLECTION DATE NOT GIVEN. TEST RESULTS SHOULD BE INTERPRETED WITH CAUTION. LABELLED DAY 3 FECAL HBG IMM 3 RSLT NEG NEG [facility] Stool specimen (specimen) Stool specimen / Unknown 06/29/2015 2:09 PM EST us Serenity Monaco MD LAB BODY FLUIDS AND STOOLS AMB ULATORY Final Result [facility] [address] [place] [address], from Last 3 Months or Most Recently Relevant to Health Maintenance Insurance [place] MEDICAID DENTAL [facility] SAFETY NET DENTAL [facility] [address] ACO
== END 2024-11-22 09:42 | disposition home or self-care (01) ==
PROVIDERS: PCP Registered Nurse; Visit Provider Urology
DX: N20.0 Calculus of kidney (principal); R10.9 Unspecified abdominal pain; N13.30 Unspecified hydronephrosis
CPT/HCPCS: 99214

== ENCOUNTER 2024-12-04 14:18 | Outpatient (REF) | payer MEDICAID, SELFPAY ==
--- NOTE | 2024-12-04 14:26 | ECG_ITS ---
Test Reason : pre op Blood Pressure : */* mmHG Vent. Rate : 104 BPM Atrial Rate : 104 BPM P-R Int : 154 ms QRS Dur : 80 ms QT Int : 324 ms P-R-T Axes : 58 45 59 degrees QTcB Int : 426 ms Sinus tachycardia Nonspecific ST and T wave abnormality Abnormal ECG No previous ECGs available Referred By: Maureen Watson Electronically Signed By: TOYA IRAHETA MD
[2024-12-04 15:03] LABS: Hematocrit 39.8 % (37.0-47.0); Hemoglobin 13.2 g/dl (12.0-16.0); Mean Corpuscular HGB Conc 33.2 g/dl (31.0-35.0); Mean Corpuscular Hemoglobin 32.0 pg (27.0-33.0); Mean Corpuscular Volume 96.4 fL (80.0-98.0); NRBC Abs Auto 0.000 X10*3/uL (0.0-0.012); NRBC Pct Auto 0.0 /100WBC (0.0-0.2); Platelet Count 238 X10*3/uL (160-400); Red Blood Count 4.13 X10*6/uL (4.20-5.50); White Blood Count 8.6 X10*3/uL (4.8-10.8)
--- OUTSIDE RECORDS SUMMARY | 2024-12-04 15:04 | XMS_ITS | Encounter Summary ---
Author Organization [employer] Address [address] [place] [address] [address] [place] [address] Care Team Providers Care Enterprise Integration Architect Name Role Phone Beverly Valerio Primary Care Provider [phone] Reason for Visit * Reason Onset Date Comments Med Refill 12/18/2023 Encounter Details Date Type Department Care Team ([facility] st Contact Info) Description 12/18/2023 Refill [facility] [address] [place] [address] Beverly Valerio FNP [address] [place] [address] Social History Tobacco Use Types Packs/Day Years [...] documented as of this encounter Care Teams Enterprise Integration Architect Relationship Specialty Start Date End Date Beverly Valerio FNP [address] [place] [id number] PCP - General Family Medicine 12/31/21 documented as of this encounter
--- OUTSIDE RECORDS SUMMARY | 2024-12-04 15:04 | XMS_ITS | Clinical Summary ---
Author Organization [facility] Address [address] [place] [address] Care Team Providers Care Supervisor [employer] Name Role Phone Unavailable Primary Care Provider [...] complication, without long-term current use of insulin ([facility]) Use to clean skin BID PRN DXE11.9 100 Each 11 1 Active sertraline (ZOLOFT) 100 mg tablet Take 150 mg by mouth once daily 1 Active lancets (FREESTYLE LANCETS) 28 gaugeIndications:T ype 2 diabetes mellitus without complication, without long-term current use of insulin ([facility]) Use to check BG BID PRN DX E11.9 Freestyle Lite 100 Each 11 1 Active blood sugar diagnostic stripsIndications: Type 2 diabetes mellitus without complication, without long-term current use of insulin ([facility]) Use to check BG BID PRN DX [...] complication, without long-term current use of insulin ([facility]) Take 1 Tablet by mouth once daily dxe11.9 90 Tablet 1 Active metFORMIN (GLUCOPHAGE) 1,000 mg tabletIndications: Type 2 diabetes mellitus without complication, without long-term current use of insulin ([facility]) TAKE 1 TABLET BY MOUTH TWICE A DAY WITH FOOD 180 Tablet 2 Active Active Problems Problem Noted Date Diagnosed Date Vitamin D deficiency 07/12/2020 H/O total hysterectomy 10/29/2018 Adenocarcinoma of endometrium ([facility]) Overview (08/01/2018): 08/01/2018: Cuff check great. Moving to [place] tomorrow, will do some research and contact patient with my recommendation for a [facility]NAGER [facility]ITICAL CARE ONC. Reviewed Dr. Hadley's recs with patient [...] findings post-op. Patient planning to move to [place], [place] in the spring and counseled if needs adjuvant therapy prior to her move will need to go to [place] for that and see a MANAGER CRITICAL CARE oncologist--if no need for adjuvant therapy I can continue to monitor her here and she can take her records with her to [place]. Initiated discussion on bariatric surgery post-op to [...] LN biopsy/cysto--plan for OR on 06/18/17 with MANAGER CRITICAL CARE ONC Christen Hadley from [facility] at . Patient counseled on natural history [...] first time meeting patient, but will strongly associate professor of counseling patient at next visit about her biggest [...] done and repeat US ordered. To see CLOTHES MODEL in 1 month for f/u and discuss options including ablation and hysterectomy. Pt declined a Mirena IUD today, though may be open to it next time. Assessment & Plan (07/23/2018 7:34 PM EDT): S/p hysterecomty 06/18/18 Healing well feeling great states some tenderness to mons pubis area however other than that feeling well Energy and mood much improved. [facility] has one f/u janett w/ Dr. Hyde prior to moving to [place] where she will transfer care Assessment & [...] Overview (05/13/2016): May [address] [facility] Clinician Kelly Sheridan [phone] Assessment & Plan (05/06/2018 8:28 PM EST): [...] consideration of bariatric procedure once healed from [facility]. 04/17/2018: Class 3 obesity patient's [...] there is a complication. 04/16/2018: Seen in [facility] office for new diagnosis of FIGO G1 endometrial CA. Patient with severe anemia, last Hct 29 on 01/23/18. Has two appointments for iron infusions at [facility] for 05/15/18 and 05/25/18. Prefers [...] complication, without long-term current use of insulin ([facility]) 08/13/2013 Overview (07/03/2018): 07/03/2018: Taking metformin bid, unsure about dose as her most recent Rx states once/day--counseled that most recent telephone note from PCP states bid dosing and metformin is usually dosed bid--states will contact PCP via [employer] today to confirm. 06/07/2018: Saw PCP for [...] EDT): Labs pending ... Bipolar II disorder ([facility]) 04/29/2013 Overview (04/11/2018): Overview: Bipolar II disorder [...] episode of recurren t major depressive disorder ([facility]) 02/23/2007 Assessment & Plan (05/06/2018 8:27 [...] Administration Dates Next Due Hep B, Adult/Adol (YSWNIOE-X-ZSJGG/RECOMBIVAX-ADULT) 01/23/2018,09/29/2017,03/01/2017 INFLUENZA, SEASONAL, INJECTABLE 03/01/2017,02/03 PNEUMOCOCCAL POLYSACCHARIDE [...] Date Smoking Tobacco: Every Day Cigarettes 0.5 22.6 Started: 2002 Smokeless Tobacco: Never Tobacco Cessation:Ready [...] 0 12/27/2018 Safety and Environment Answer Date Azk rded Safety 0 07/09/2020 Utilities Answer Date [...] (2 - Td or Tdap) 07/23/2022 013 [id number] ( season) 2024 Alcohol and Drug Screen [...] complication, without long-term current use of insulin ([facility]) Encounter for general adult medical examination without abnormal findings HEPATITIS C ANTIBODY Routine 07/10/2020 9:45 AM EST Screening for viral disease LIPID PANEL Routine 07/10/2020 9:45 AM EST Controlled type 2 diabetes mellitus without complication, without long-term current use of insulin ([facility]) Class 3 severe obesity due to excess calories without serious comorbidity with body mass index (BMI) of 45.0 to 49.9 in adult ([facility]) Encounter for general adult medical examination without abnormal findings HEMOGLOBIN GLYCOSYLATED A1C Routine 07/10/2020 9:45 AM EST Controlled type 2 diabetes mellitus without complication, without long-term current use of insulin ([facility]) Class 3 severe obesity due to excess calories without serious comorbidity with body mass index (BMI) of 45.0 to 49.9 in adult ([facility]) Encounter for general adult medical examination [...] [place] HEPATITIS C VIRUS SCREEN NEGATIVE NEGATIVE [facility] Blood Blood / Unknown 07/10/2020 9 :45 AM EST 07/10/2020 10:03 AM EST N[facility]ative [facility] 07[facility]10/2020 12:55 PM EST [employer], [place] [address] Roller Die Cutting Machine Operator - Esperanza Stauffer MD PT ID [id number] ORD# [id number] Dona [facility] - BLOOD DRAW Final Result [address] [address], * (ABNORMAL) HEMOGLOBIN, GLYCOSYLATED (A1C) (07/10/2020 9:45 AM EST) GLYCATED HEMOGLOBIN A1C 6.6(H) <6.5 % [facility] ESTIMATED AVERAGE GLUCOSE 143 mg/dL [facility] Blood Blood / Unknown 07/10/2020 9 :45 AM EST 07/10/2020 10:03 AM EST Kalee [facility] - 07/10/2020 2:09 PM EST [employer], a member of [address] [address] Roller Die Cutting Machine Operator - Esperanza Stauffer MD PT ID [id number] ORD# [id number] Dona [facility] - BLOOD DRAW Final Result Performing Organization Address City/[facility]/ZIP Co de Phone Number [address] [address], [place] [phone] * (ABNORMAL) LIPID PANEL (07/10/2020 9:45 AM EST) CHOLESTEROL 193 0 - 200 mg/dL [facility] TRIGLYCERIDES 322(H) 0 - 150 mg/dL [facility] HDL CHOLESTEROL 34(L) >40 mg/dL [facility] LDL CALCULATED 95 0 - 100 mg/dL [facility] TC-HDLC RATIO 5.7(H) 0 - 4.4 mg/dL [facility] Blood Blood / Unknown 07/10/2020 9 :45 AM EST 07/10/2020 10:03 AM EST Narrative [facility] - 07/10/2020 12:07 PM EST [employer], a member of [address] [address] Roller Die Cutting Machine Operator - Esperanza Stauffer MD PT ID [id number] ORD# [id number] [facility] - BLOOD DRAW Edited Result - Final [address] [address], [place] [phone] * (ABNORMAL) COMPRE METAB PANEL (07/10/2020 9:45 AM EST) GLUCOSE 145(H) 70 - 100 mg/dL [facility] Comment:Reference range appl icable to fasting specimens only BUN 15 5 - 25 mg/dL [facility] CREAT 0.72 0.5 - 1.1 mg/dL [facility] GLOMERULAR FILTRATION RATE > 60 [facility] Comment: If patient is -Austrian, multiply result by 1.21 Chronic Kidney Disease: < 60 ml/min/1.73 square meters Kidney Failure: < 15 ml/min/1.73 square meters SODIUM 137 135 - 145 mEq/L [facility] POTASSIUM 4.2 3.5 - 5.5 mmol/L [facility] CHLORIDE 106 96 - 110 mmol/L [facility] CO2 25 21 - 32 mmol/L [facility] ANION GAP 6 3 - 11 [facility] CALCIUM 9.5 8.5 - 10.5 mg/dL [facility] TOTAL PROTEIN 7.9 6.0 - 8.0 G/dL [facility] ALBUMIN 4.1 3.2 - 5.0 G/dL [facility] BILI, TOTAL 0.3 0.0 - 1.4 mg/dL [facility] SGOT 10 10 - 42 U/L [facility] SGPT 26 10 - 60 U/L [facility] ALK PHOS 119 42 - 121 U/L [facility] Blood Blood / Unknown 07/10/2020 9 :45 AM EST 07/10/2020 10:03 AM EST Narrative [facility] - 07/10/2020 12:07 PM EST [employer], [place] [address] Roller Die Cutting Machine Operator - Esperanza Stauffer MD PT ID [id number] ORD# [id number] Dona [facility] - BLOOD DRAW Final Result [facility] [address] [address], * Mammogram Screening (05/23/2018 11:33 AM EST) Impressions Evelia Lowe - 05/23/2018 11:33 AM EST Mammogram Screening (Bilateral)05/17/2018 [facility] Result Impression No mammographic evidence of malignancy. [...] SUMMARY Risk Assessment results are provided by [facility]. Your patient completed a breast cancer risk [...] SUMMARY Risk Assessment results are provided by [facility]. Your patient completed a breast cancer risk [...] Calculations: May 16 2018 12:51PM Rah Jorgensen [facility] MAMMO Final Result * (ABNORMAL) FECAL GLOBIN BY IMMUNOCHEMISTRY (FIT) (06/29/2015 2:09 PM EST) FECAL HGB IMM 1 DATE - [facility] Comment: COLLECTION DATE NOT GIVEN. TEST RESULTS SHOULD BE INTERPRETED WITH CAUTION. LABELLED DAY 1 FECAL HGB IMM 1 RSLT POS(A) NEG [facility] FECAL HGB IMM 2 [facility] Comment: COLLECTION DATE NOT GIVEN. TEST RESULTS SHOULD BE INTERPRETED WITH CAUTION. LABELLED DAY 2 FECAL HGB IMM 2 RSLT NEG NEG [facility] FECAL HGB IMM 3 DATE [facility] Comment: COLLECTION DATE NOT GIVEN. TEST RESULTS SHOULD BE INTERPRETED WITH CAUTION. LABELLED DAY 3 FECAL HBG IMM 3 RSLT NEG NEG [facility] Stool specimen (specimen) Stool specimen / Unknown 06/29/2015 2:09 PM EST us Serenity Monaco MD LAB BODY FLUIDS AND STOOLS AMB ULATORY Final Result [facility] [address] [place] [address], from Last 3 Months or Most Recently Relevant to Health Maintenance Insurance [place] MEDICAID D[facility] S[facility]ETY NET [facility] D[facility] [address] ACO
[2024-12-04 15:08] LABS: Hemoglobin A1C 164.5354 umol/L; Total Hemoglobin (HGBA1C) 3445.1139 umol/L
[2024-12-04 15:50] LABS: Anion Gap 16 (12-20); Blood Urea Nitrogen 25 mg/dL (9-16); Calcium 9.8 mg/dL (8.4-10.2); Carbon Dioxide 25 mmol/L (22-29); Chloride 108 mmol/L (96-108); Estimated Glomerular Filt Rate 56; Potassium 4.1 mmol/L (3.3-5.1); Sodium 145 mmol/L (135-145)
[2024-12-04 17:25] LABS: Alanine Aminotransferase 24 U/L (0-31); Albumin Level 4.9 g/dL (3.5-5.0); Alkaline Phosphatase 91 U/L (39-117); Aspartate Amino Transferase 19 U/L (5-31); Total Protein 7.9 g/dL (6.5-8.0)
== END 2024-12-04 14:19 | disposition home or self-care (01) ==
LOC: HO.LAB 14:18
PROVIDERS: Absent Provider Urology; PCP Registered Nurse; Referring Provider Nurse Practitioner Family; Visit Provider Registered Nurse
DX: Z12.11 Encounter for screening for malignant neoplasm of colon (principal); N13.2 Hydronephrosis with renal and ureteral calculous obstruction; E11.9 Type 2 diabetes mellitus without complications; K59.1 Functional diarrhea; R10.13 Epigastric pain
CPT/HCPCS: 36415; 80048; 80076; 83036; 85027; 86140; 86364; 93005; 99212

== ENCOUNTER → 2024-12-04 14:26 | Outpatient (BNV) | payer MEDICAID, SELFPAY | PROVIDERS: Absent Provider Urology; PCP Registered Nurse; Visit Provider Internal Medicine Cardiovascular Disease | DX: R00.0 Tachycardia, unspecified (principal) | CPT/HCPCS: 93010 ==

== ENCOUNTER 2024-12-04 15:33 | Outpatient (AMB) | payer MEDICAID, SELFPAY ==
--- NOTE | 2024-12-04 15:47 | MHC.OFFVIS ---
Vital Signs 12/04/24 15:51 Height 5 ft 8 in Weight 245 lb BMI 37.2 BP 127/69 Blood Pressure Location Lt brachial Position Sitting Pulse 104 H Pulse Oximetry (%) 97 Oxygen Delivery Method Room Air Intake Visit Reasons: colo screening Intake Note: Patient new consult for 1st pre Colonoscopy screening. Patient cc: dialy diarrhea and denies any other GI issues. Antisubmarine Weapons Officer Required: No Accompanied by: Self / Same As Patient Allergies No Known Allergies Allergy (Verified 12/04/24 15:47) HPI HPI colo screening: Details: Patient is a 54-year-old female with PMH of diabetes, kidney stones, multiple UTIs and history of endometrial cancer. Referred by PCP for pre colonoscopy screening. She reports chronic diarrhea persisting since mid-2018. Stools are frequently watery, occasionally resembling squiggles , without visible blood. Symptoms are episodic and unprovoked, sometimes occurring suddenly with an urgency to defecate. Associated bloating is intermittent, and lower abdominal pain occurs pre-defecation, followed by relief. The patient denies nausea, vomiting, GERD symptoms, or unintentional weight loss. The patient has not undergone extensive prior evaluations for diarrhea except for a stool test several years ago. The patient expresses reluctance to start treatment until further investigation excludes other etiologies. Gastrointestinal symptoms are not currently life-altering. Additionally, the patient reports an intermittent sensation of difficulty swallowing or food getting stuck . Family history reveals siblings with irritable bowel syndrome (IBS) and a niece with Crohn's disease. She attributes weight loss from 260 lbs (2022) to 245 lbs to dietary changes and an adjustment in Trulicity dosage. History includes previously treated cancer, ongoing evaluation for kidney stones with a planned lithotripsy, and reported epigastric discomfort. - family hx as documented [facility] Medical History (Updated 12/04/24 @ 16:31 by Nolvia Harris CNP) Epigastric pain Diarrhea Colon cancer screening CPAP (continuous positive airway pressure) dependence Liver function abnormality Endometrial cancer UTI (urinary tract infection) Diabetes Surgical History Tubal ligation status H/O: hysterectomy Social History Patient Tobacco Use Status: Current everyday Tobacco user Tobacco use type: Cigarette Cigarettes Per Day: 20 Years Smoked: 18 Review of Systems Const Reports as per HPI ENT Reports as per HPI Card Reports as per HPI Resp Reports as per HPI GI Reports as per [facility] Reports as per HPI Physical Exam Vital Signs: Last Vital Signs Pulse 104 H 12/04/24 15:51 BP 127/69 12/04/24 15:51 Pulse Ox 97 12/04/24 15:51 Oxygen Delivery Method Room Air 12/04/24 15:51 BMI result Body Mass Index 37.2 Const General: healthy appearing, no acute distress and well developed Nutritional Appearance: average body habitus Orientation/consciousness: patient oriented x3 HEENT Head: Yes normal to inspection, Yes normocephalic and Yes atraumatic Face and sinus: Yes normal facial exam Eyes General: appearance normal, both eyes and all related structures Neck Neck: Yes normal visual inspection Resp Effort & Inspection: normal respiratory effort, able to speak in complete sentences, no tracheal deviation and symmetric chest movement Auscultation: clear to auscultation bilaterally Cardio Jugular venous distension: no JVD Rate: regular rate Rhythm: regular rhythm Heart sounds: S1 normal heart sound present, S2 normal heart sound present, no gallops and no murmurs GI Inspection: Yes normal to inspection, No distended, Yes obesity and Yes striae Palpation (GI): Soft to palpation, not firm, nontender and No hepatosplenomegaly present Auscultation: normal bowel sounds Neuro General: patient oriented x3 Gait exam (Neuro): Normal gait present Psych Appearance: grossly normal Mental Status: mental status grossly normal Speech and movement: Normal speech and movement present Affect: normal affect Attitude: cooperative Thought process: Normal thought process present Thought content: Normal thought content present Insight: Good insight present (Psych) Judgement: Good judgement present (Psych) Assessment & Plan Assessment & Plan (1) Colon cancer screening: Code(s): Z12.11 - Encounter for screening for malignant neoplasm of colon Category: Medical Plan: Due for index screening colonoscopy. Symptomatic with chronic diarrhea Medications: -prescriptions for laxative tablets and MiraLax sent to pharmacy; instructions for Gatorade purchase and clear liquid diet given. - understands diabetes medications will need to be held days prior to procedure. Nurse to review med holds per protocol.. Patient educated on scheduling process, procedure preparation, including avoiding certain foods and ensuring clear liquid intake Advised on necessity for ride post-procedure due to sedation. Advised encouraged (2) Diarrhea: Code(s): R19.7 - Diarrhea, unspecified Category: Medical Qualifiers: Diarrhea type: functional diarrhea Qualified Code(s): K59.1 - Functional diarrhea Plan: Persistent diarrhea since 2019 with urgent bowel movements, watery stools, and relevant family history. Differential includes IBS-D, celiac disease, inflammatory bowel disease (IBD), microscopic colitis, and/or other malabsorptive etiologies. Additional Testing: -Stool studies for inflammatory markers -Celiac disease screening (tTG-IgA,). -Inflammatory markers (CRP). -Thyroid-stimulating hormone (TSH) rechecked in routine labs due to chronic diarrhea association with thyroid disorders. Medication Management: consider Imodium PRN and probiotics per patient?s preference. Lifestyle Recommendations: Maintain hydration (e.g., water, oral rehydration solutions) and a high-fiber diet. Continue to avoid introducing new treatments until diagnostic workup is complete. Follow-Up: patient opted to reassess after colonoscopy unless earlier follow-up required for significant findings. (3) Epigastric pain: Code(s): R10.13 - Epigastric pain Category: Medical Plan: Recurrent sensation of food sticking and epigastric pain. Differential includes GERD, structural abnormalities (hiatal hernia), motility disorders, or gallbladder pathology. Additional Testing: -Abdominal ultrasound for gallbladder evaluation. -Upper endoscopy (EGD) scheduled concurrently with the colonoscopy. -consider barium swallow study if initial workup unyielding Education on GERD prevention : -Advised against heavy meals; encouraged small, frequent meals instead of large ones. - Instructed to remain upright for 2?3 hours after eating. - Advised to avoid late-night meals, spicy foods, caffeine, alcohol, known dietary triggers, and tight-fitting clothing. - Emphasis placed on gradual implementation of lifestyle changes to improve adherence and symptom control. Plan Follow-up after endoscopy or sooner as needed Time: I spent a total of 30 minutes on the date of encounter which includes: Preparing to see the patient (reviewed previous documentation, test results and medical history) Performing a medically appropriate exam and/or evaluation Ordering medications, tests, and procedures Documenting clinical information in the health record Orders: Orders Calprotectin, Fecal 12/04/24 R19.7 - Diarrhea, unspecified Transglutaminase IgA 12/04/24 R19.7 - Diarrhea, unspecified Fecal Fat Qualitative 12/04/24 R19.7 - Diarrhea, unspecified Liver Panel 12/04/24 R10.13 - Epigastric pain US abdomen complete 12/04/24 R10.13 - Epigastric pain C Reactive Protein 12/04/24 R19.7 - Diarrhea, unspecified Medications: New bisacodyl (Dulcolax (bisacodyl)) Take four tablets pre colonoscopy instructions 20 mg (4 x 5 mg) PO ONCE 4 tabs 0RF 1 day polyethylene glycol 3350 (Miralax) per colonoscopy prep instructions 238 grams PO ONCE 238 grams 0RF Coding Level of Care Code New Pt New Pt Level 3 (21094) Patient Type New Diagnoses Colon cancer screening Z12.11 Functional diarrhea K59.1 Diarrhea type: functional diarrhea Epigastric pain R10.13
[2024-12-04 15:51] VITALS: BP 127/69; PULSE 104; O2SAT 97; BMI 37.2
== END 2024-12-04 16:34 | disposition home or self-care (01) ==
LOC: HO.HGI 15:34
PROVIDERS: PCP Registered Nurse; Visit Provider Nurse Practitioner Family
DX: Z01.818 Encounter for other preprocedural examination (principal); Z12.11 Encounter for screening for malignant neoplasm of colon; K59.1 Functional diarrhea; R10.13 Epigastric pain
CPT/HCPCS: 99203

== ENCOUNTER 2024-12-11 15:20 | Outpatient (AMB) | payer MEDICAID, SELFPAY ==
--- NOTE | 2024-12-11 15:26 | HO.NEPHOV ---
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 On Trulicity and metformin left ureteral stone: planned for lithotripsy yesterday but had to reschedule it due to social issues. she has renal stones for the 3 years Did a litholink last week, results pending. [facility] Medical History (Updated 12/06/24 @ 12:36 by Kendra Coyle RN) Epigastric pain Diarrhea Colon cancer screening CPAP (continuous positive airway pressure) dependence Liver function abnormality Endometrial cancer UTI (urinary tract infection) Diabetes Surgical History Hx of lithotripsy Tubal ligation status H/O: hysterectomy Social History Patient Tobacco Use Status: Current everyday Tobacco user Tobacco use type: Cigarette Cigarettes Per Day: 20 Years Smoked: 18 Review of Systems Const Details: Const : no body aches, no chills, no excessive sweating and no fatigue Eyes: no blurry vision and no change in vision ENT: no bleeding gums and no change in voice, no dizziness Card: no chest pain, no shortness of breath, no orthopnea Resp: no cough, no excessive phlegm production, no SOB GI: no abdominal pain and no nausea, no vomiting : no hematuria, no flank pain, urinary frequency Musc: no abnormal gait, no bone pain Neuro: no abnormal movements, no weakness, no dizziness, no abnormal gait and no behavioral changes Psych: no behavioral changes and no change in appetite Endo: no change in body appearance, no cold intolerance, no excessive sweating and no fatigue Physical Exam General: pleasant lady, comfortable, sitting on the chair Nutritional Appearance: well nourished and overweight Eyes: normal position, no icterus Neck: No lymphadenopathy, no thyromegaly Resp: bilateral air entry equal, no added sounds present Cardio: normal S1, S2 heard, no murmur heard, no edema GI: soft, nontender, no guarding, no hepatosplenomegaly : bladder normal to inspection, bladder normal to palpation, no renal angle tenderness Skin: no rashes or lesions noted and elasticity normal Neuro: oriented to person, oriented to place, oriented to time and moves all extremities Results Reviewed Nephrology Results: Hgb, (12.0-16.0) 13.2 g/dl 12/04/24 WBC, (4.8-10.8) 8.6 X10*3/uL 12/04/24 Plt Count, (160-400) 238 X10*3/uL 12/04/24 Sodium, (135-145) 145 mmol/L 12/04/24 Potassium, (3.3-5.1) 4.1 mmol/L 12/04/24 Chloride, (96-108) 108 mmol/L 12/04/24 Carbon Dioxide, (22-29) 25 mmol/L 12/04/24 BUN, (9-16) 25 mg/dL H 12/04/24 Creatinine, (0.5-1.4) 1.03 mg/dL 12/04/24 Calcium, (8.4-10.2) 9.8 mg/dL 12/04/24 Renal US 09/28/22 Assessment & Plan Assessment & Plan (1) Kidney stone on left side: Code(s): N20.0 - Calculus of kidney Category: Medical (2) Lower back pain: Code(s): M54.50 - Low back pain, unspecified Category: Medical (3) Hydronephrosis: Code(s): N13.30 - Unspecified hydronephrosis Category: Medical Plan Kidney stones: - not sure stone type, pending Litholink results which was done last week - will get urine pH, serum calcium, urine calcium - will get PTH Vitamin-D level: - will review the results to see if she needs to be on any medications. - advised the patient for fluid intake at least 3 L per day, more so in summer - low-sodium diet, increased dairy products with the meals, increased mcgrath and citrous intake (without added sugar) - decrease animal protein, avoid sugar sweetened sodas, fruit punch, grapefruit and large volume cranberry juice Acute kidney injury: - possibly secondary to renal calculi, ultrasound of the kidneys on 11/16/2024 showed moderate left hydronephrosis with 3 calculi, has bilateral jets in the bladder no obstructive uropathy. Also might be possibly secondary to NSAIDs use - no family history of CKD, no history of renal stones in the past, NSAID use. - creatinine 1.03 , GFR 56 - urine microalbumin creatinine ratio: 29.3 in May 2023. - Renal ultrasound showed right kidney 12.1 left kidney 14.3cms. - avoid nephrotoxic medications not limited to NSAIDs, contrast etc. - advised her to lose weight, she said she did loose some weight she is on Trulicity; her is on Maunjaro and has lost significant weight. They both are working towards a healthy diet cut down on red meat and eating more vegetables now. She stopped eating chips and is working on cutting down sodas. This note is constructed using voice recognition software. While every effort has been made to ensure accuracy architect errors may have been included. Total time spent in the clinic is about 40 minutes, 10 minutes on chart review, review of data, 20 minutes on encounter, physical examination, counseling, answering all the questions, 10 minutes on documentation. Orders: Orders Vitamin D 25-OH Total Today M54.50 - Low back pain, unspecified, N13.30 - Unspecified hydronephrosis, N20.0 - Calculus of kidney Uric Acid Today M54.50 - Low back pain, unspecified, N13.30 - Unspecified hydronephrosis, N20.0 - Calculus of kidney Vitamin D 25-OH (D2 and D3) Today M54.50 - Low back pain, unspecified, N13.30 - Unspecified hydronephrosis, N20.0 - Calculus of kidney Basic Metabolic Panel Today M54.50 - Low back pain, unspecified, N13.30 - Unspecified hydronephrosis, N20.0 - Calculus of kidney UA and rflx microscopic Today M54.50 - Low back pain, unspecified, N13.30 - Unspecified hydronephrosis, N20.0 - Calculus of kidney Microalbumin, Random (w Creat) Today M54.50 - Low back pain, unspecified, N13.30 - Unspecified hydronephrosis, N20.0 - Calculus of kidney Total Protein Urine Random Today M54.50 - Low back pain, unspecified, N13.30 - Unspecified hydronephrosis, N20.0 - Calculus of kidney Parathyroid Hormone Intact Today M54.50 - Low back pain, unspecified, N13.30 - Unspecified hydronephrosis, N20.0 - Calculus of kidney Phosphorus Today M54.50 - Low back pain, unspecified, N13.30 - Unspecified hydronephrosis, N20.0 - Calculus of kidney Coding Level of Care Code New Pt Level 5 (48407) Diagnoses Kidney stone on left side N20.0 Lower back pain M54.50 Hydronephrosis N13.30
[2024-12-11 15:27] VITALS: BP 112/70; PULSE 86; O2SAT 96; BMI 37.5
--- OUTSIDE RECORDS SUMMARY | 2024-12-11 15:50 | XMS_ITS | Encounter Summary ---
Author Organization [employer] Address [address] [place] [address] [address] [place] [address] Care Team Providers Care Marketing Communications Coordinator Name Role Phone Beverly Valerio Primary Care Provider [phone] Reason for Visit * Reason Onset Date Comments Med Refill 12/18/2023 Encounter Details Date Type Department Care Team ([facility] st Contact Info) Description 12/18/2023 Refill [facility] [address] [place] [address] Beverly Valerio FNP [address] [place] [address] Social History Tobacco Use Types Packs/Day Years [...] documented as of this encounter Care Teams Marketing Communications Coordinator Relationship Specialty Start Date End Date Beverly Valerio FNP [address] [place] [id number] PCP - General Family Medicine 12/31/21 documented as of this encounter
--- OUTSIDE RECORDS SUMMARY | 2024-12-11 15:50 | XMS_ITS | Clinical Summary ---
Author Organization [facility] Address [address] [place] [address] Care Team Providers Care Log Loader Name Role Phone Unavailable Primary Care Provider [...] complication, without long-term current use of insulin ([facility]) Use to clean skin BID PRN DXE11.9 100 Each 11 1 Active sertraline (ZOLOFT) 100 mg tablet Take 150 mg by mouth once daily 1 Active lancets (FREESTYLE LANCETS) 28 gaugeIndications:T ype 2 diabetes mellitus without complication, without long-term current use of insulin ([facility]) Use to check BG BID PRN DX E11.9 Freestyle Lite 100 Each 11 1 Active blood sugar diagnostic stripsIndications: Type 2 diabetes mellitus without complication, without long-term current use of insulin ([facility]) Use to check BG BID PRN DX [...] complication, without long-term current use of insulin ([facility]) Take 1 Tablet by mouth once daily dxe11.9 90 Tablet 1 Active metFORMIN (GLUCOPHAGE) 1,000 mg tabletIndications: Type 2 diabetes mellitus without complication, without long-term current use of insulin ([facility]) TAKE 1 TABLET BY MOUTH TWICE A DAY WITH FOOD 180 Tablet 2 Active Active Problems Problem Noted Date Diagnosed Date Vitamin D deficiency 07/12/2020 H/O total hysterectomy 10/29/2018 Adenocarcinoma of endometrium ([facility]) Overview (08/01/2018): 08/01/2018: Cuff check great. Moving to [place] tomorrow, will do some research and contact patient with my recommendation for a NETWORK CONTROL SUPERVISOR ONC. Reviewed Dr. Hadley's recs with [...] findings post-op. Patient planning to move to [place], [place] in the spring and counseled if needs adjuvant therapy prior to her move will need to go to [place] for that and see a NETWORK CONTROL SUPERVISOR oncologist--if no need for adjuvant therapy I can continue to monitor her here and she can take her records with her to [place]. Initiated discussion on bariatric surgery post-op to [...] LN biopsy/cysto--plan for OR on 06/18/17 with NETWORK CONTROL SUPERVISOR ONC Christen Hadley from [facility] at . Patient [...] first time meeting patient, but will strongly student support counselor patient at next visit about her [...] done and repeat US ordered. To see DIRECTOR OF AGRICULTURE in 1 month for f/u and discuss options including ablation and hysterectomy. Pt declined a Mirena IUD today, though may be open to it next time. Assessment & Plan (07/23/2018 7:34 PM EDT): S/p hysterecomty 06/18/18 Healing well feeling great states some tenderness to mons pubis area however other than that feeling well Energy and mood much improved. [facility] has one f/u janett w/ Dr. Hyde prior to moving to [place] where she will transfer care Assessment & [...] Overview (05/13/2016): May 2016 Pt wojciech at [facility] Clinician Kelly Sheridan [phone] Assessment & Plan (05/06/2018 8:28 PM EST): [...] consideration of bariatric procedure once healed from [facility]. 04/17/2018: Class 3 obesity patient's strongest [...] there is a complication. 04/16/2018: Seen in NETWORK CONTROL SUPERVISOR office for new diagnosis of FIGO G1 endometrial CA. Patient with severe anemia, last Hct 29 on 01/23/18. Has two appointments for iron infusions at [facility] for 05/15/18 and 05/25/18. Prefers [...] complication, without long-term current use of insulin ([facility]) 08/13/2013 Overview (07/03/2018): 07/03/2018: Taking metformin bid, unsure about dose as her most recent Rx states once/day--counseled that most recent telephone note from PCP states bid dosing and metformin is usually dosed bid--states will contact PCP via [employer] today to confirm. 06/07/2018: Saw PCP for [...] EDT): Labs pending ... Bipolar II disorder ([facility]) 04/29/2013 Overview (04/11/2018): Overview: Bipolar II disorder [...] episode of recurren t major depressive disorder ([facility]) 02/23/2007 Assessment & Plan (05/06/2018 8:27 [...] Administration Dates Next Due Hep B, Adult/Adol ([facility]) 01/23/2018,09/29/2017,03/01/2017 INFLUENZA, SEASONAL, INJECTABLE 03/01/2017,02/03 PNEUMOCOCCAL POLYSACCHARIDE [...] (2 - Td or Tdap) 07/23/2022 013 [id number] ( season) 2024 Alcohol and Drug Screen [...] complication, without long-term current use of insulin ([facility]) Encounter for general adult medical examination without abnormal findings HEPATITIS C ANTIBODY Routine 07/10/2020 9:45 AM EST Screening for viral disease LIPID PANEL Routine 07/10/2020 9:45 AM EST Controlled type 2 diabetes mellitus without complication, without long-term current use of insulin ([facility]) Class 3 severe obesity due to excess calories without serious comorbidity with body mass index (BMI) of 45.0 to 49.9 in adult ([facility]) Encounter for general adult medical examination without abnormal findings HEMOGLOBIN GLYCOSYLATED A1C Routine 07/10/2020 9:45 AM EST Controlled type 2 diabetes mellitus without complication, without long-term current use of insulin ([facility]) Class 3 severe obesity due to excess calories without serious comorbidity with body mass index (BMI) of 45.0 to 49.9 in adult ([facility]) Encounter for general adult medical [...] Foundation HEPATITIS C VIRUS SCREEN NEGATIVE NEGATIVE [facility] Blood Blood / Unknown 07/10/2020 9 :45 AM EST 07/10/2020 10:03 AM EST Narrative [facility] - 07/10/2020 12:55 PM EST [employer], [place] [address] Livery Car Driver - Esperanza Stauffer MD PT ID [id number] ORD# [id number] Dona [facility] - BLOOD DRAW Final Result [address] [address], * (ABNORMAL) HEMOGLOBIN, GLYCOSYLATED (A1C) (07/10/2020 9:45 AM EST) GLYCATED HEMOGLOBIN A1C 6.6(H) <6.5 % [facility] ESTIMATED AVERAGE GLUCOSE 143 mg/dL [facility] Blood Blood / Unknown 07/10/2020 9 :45 AM EST 07/10/2020 10:03 AM EST Kalee [facility] - 07/10/2020 2:09 PM EST [employer], a member of [address] [address] Livery Car Driver - Esperanza Stauffer MD PT ID [id number] ORD# [id number] Dona [facility] - BLOOD DRAW Final Result Performing Organization Address City/[facility]/ZIP Co de Phone Number [address] [address], [place] [phone] * (ABNORMAL) LIPID PANEL (07/10/2020 9:45 AM EST) CHOLESTEROL 193 0 - 200 mg/dL [facility] TRIGLYCERIDES 322(H) 0 - 150 mg/dL [facility] HDL CHOLESTEROL 34(L) >40 mg/dL [facility] LDL CALCULATED 95 0 - 100 mg/dL [facility] TC-HDLC RATIO 5.7(H) 0 - 4.4 mg/dL [facility] Blood Blood / Unknown 07/10/2020 9 :45 AM EST 07/10/2020 10:03 AM EST Narrative [facility] - 07/10/2020 12:07 PM EST [employer], a member of [address] [address] Livery Car Driver - Esperanza Stauffer MD PT ID [id number] ORD# [id number] Don[facility] - BLOOD DRAW Edited Result - Final [address] [address], [place] [phone] * (ABNORMAL) COMPRE METAB PANEL (07/10/2020 9:45 AM EST) GLUCOSE 145(H) 70 - 100 mg/dL [facility] Comment:Reference range appl icable to fasting specimens only BUN 15 5 - 25 mg/dL [facility] CREAT 0.72 0.5 - 1.1 mg/dL [facility] GLOMERULAR FILTRATION RATE > 60 [facility] Comment: If patient is -Latvian, multiply result by 1.21 Chronic Kidney Disease: < 60 ml/min/1.73 square meters Kidney Failure: < 15 ml/min/1.73 square meters SODIUM 137 135 - 145 mEq/L [facility] POTASSIUM 4.2 3.5 - 5.5 mmol/L [facility] CHLORIDE 106 96 - 110 mmol/L [facility] CO2 25 21 - 32 mmol/L [facility] ANION GAP 6 3 - 11 [facility] CALCIUM 9.5 8.5 - 10.5 mg/dL [facility] TOTAL PROTEIN 7.9 6.0 - 8.0 G/dL [facility] ALBUMIN 4.1 3.2 - 5.0 G/dL [facility] BILI, TOTAL 0.3 0.0 - 1.4 mg/dL [facility] SGOT 10 10 - 42 U/L [facility] SGPT 26 10 - 60 U/L [facility] ALK PHOS 119 42 - 121 U/L [facility] Blood Blood / Unknown 07/10/2020 9 :45 AM EST 07/10/2020 10:03 AM EST Narrative [facility] - 07/10/2020 12:07 PM EST [employer] [address] Livery Car Driver - Esperanza Stauffer MD PT ID [id number] ORD# [id number] Don[facility] - BLOOD DRAW Final Result [facility] [address] [address], * Mammogram Screening (05/23/2018 11:33 AM EST) Impressions Evelia Lowe - 05/23/2018 11:33 AM EST Mammogram Screening (Bilateral)05/17/2018 [facility] Result Impression No mammographic evidence of malignancy. [...] SUMMARY Risk Assessment results are provided by [employer]. Your patient completed a breast cancer risk [...] SUMMARY Risk Assessment results are provided by [employer]. Your patient completed a breast cancer risk [...] Calculations: May 16 2018 12:51PM Rah Jorgensen [facility] MAMMO Final Result * (ABNORMAL) FECAL GLOBIN BY IMMUNOCHEMISTRY (FIT) (06/29/2015 2:09 PM EST) FECAL HGB IMM 1 DATE - [facility] Comment: COLLECTION DATE NOT GIVEN. TEST RESULTS SHOULD BE INTERPRETED WITH CAUTION. LABELLED DAY 1 FECAL HGB IMM 1 RSLT POS(A) NEG [facility] FECAL HGB IMM 2 [facility] Comment: COLLECTION DATE NOT GIVEN. TEST RESULTS SHOULD BE INTERPRETED WITH CAUTION. LABELLED DAY 2 FECAL HGB IMM 2 RSLT NEG NEG [facility] FECAL HGB IMM 3 DATE [facility] Comment: COLLECTION DATE NOT GIVEN. TEST RESULTS SHOULD BE INTERPRETED WITH CAUTION. LABELLED DAY 3 FECAL HBG IMM 3 RSLT NEG NEG [facility] Stool specimen (specimen) Stool specimen / Unknown 06/29/2015 2:09 PM EST us Serenity Monaco MD LAB BODY FLUIDS AND STOOLS AMB ULATORY Final Result [facility] [address] [place] [address], from Last 3 Months or Most Recently Relevant to Health Maintenance Insurance [place] MEDICAID DENTAL [facility] SAFETY NET DENTAL [facility] [address] ACO
== END 2024-12-11 15:55 | disposition home or self-care (01) ==
LOC: HO.HKA 15:21
PROVIDERS: PCP Registered Nurse; Referring Provider Urology; Visit Provider Internal Medicine Critical Care Medicine
DX: N20.0 Calculus of kidney (principal); M54.50 Low back pain, unspecified; N13.30 Unspecified hydronephrosis
CPT/HCPCS: 99205

== ENCOUNTER 2024-12-11 15:20 | Outpatient (REF) | payer MEDICAID, SELFPAY ==
[2024-12-11 17:44] LABS: Appearance Urine Clear; Glucose Urine UA Negative (Negative); PH 5.5 (5.0-9.0); Specific Gravity - Urine 1.020 (1.005-1.025); UMIC TRIGGER UA YES
[2024-12-11 17:52] LABS: Parathyroid Hormone Intact 59.1 pg/mL (8.7-77.1)
[2024-12-11 18:00] LABS: Anion Gap 15 (12-20); Blood Urea Nitrogen 22 mg/dL (9-16); Calcium 9.8 mg/dL (8.4-10.2); Carbon Dioxide 26 mmol/L (22-29); Chloride 107 mmol/L (96-108); Estimated Glomerular Filt Rate > 60; Potassium 3.9 mmol/L (3.3-5.1); Sodium 144 mmol/L (135-145)
[2024-12-11 18:21] LABS: Uric Acid 6.6 mg/dL (2.4-5.7)
[2024-12-11 18:58] LABS: Microalbum/Creatinine Ratio Ur 177.6 ug/mg cr (<30); Total Protein Urine Random 39 mg/dL (<12)
[2024-12-11 20:27] LABS: Other Crystals Urine Present
[2024-12-15 13:19] LABS: Vitamin D 25-OH, D2 <4 ng/mL; Vitamin D 25-OH, D3 21 ng/mL; Vitamin D 25-OH, Total 21 ng/mL (30-100)
== END 2024-12-11 15:21 | disposition home or self-care (01) ==
LOC: HO.LAB 15:20
PROVIDERS: PCP Registered Nurse; Referring Provider Urology; Visit Provider Internal Medicine Critical Care Medicine
DX: N20.0 Calculus of kidney (principal); M54.50 Low back pain, unspecified; N13.30 Unspecified hydronephrosis
CPT/HCPCS: 36415; 80048; 81001; 82043; 82306; 82570; 83970; 84100; 84156; 84550; 99202

== ENCOUNTER 2025-01-07 10:03 | Day surgery (SDC) | payer MEDICAID, SELFPAY ==
[2024-12-06 12:35] VITALS: BMI 37.2
--- NOTE | 2024-12-09 09:33 | HO.ANESPROP2 ---
Documented by User: Jessie Saunders NP 12/20/24 12:17 HPI - Anesthesia Eval Consult details Narrative: 54yo F for Cystoscopy, Ureteroroscopy, Retro, Laser with stent placement, 01/07/25 Anesthesia Pre-Procedure Meds Is the patient on any of the following meds?: GLP1/DPP4 PMFSH Active Problems Active Problems: All Active Problems Hydronephrosis (Acute) Degenerative joint disease of both hips (Acute) Lower back pain (Acute) History of kidney stones (Acute) Urethral stone (Acute) Bilateral primary osteoarthritis of hip (Acute) Lumbar radiculopathy (Acute) Left flank pain (Acute) Kidney stone on left side (Acute) Flank pain (Acute) Bilateral kidney stones (Acute) Epigastric pain (Acute) Diarrhea (Acute) Colon cancer screening (Acute) Past Medical History Medical History (Updated 12/06/24 @ 12:36 by Kendra Coyle RN) Epigastric pain Diarrhea Colon cancer screening CPAP (continuous positive airway pressure) dependence Liver function abnormality Endometrial cancer UTI (urinary tract infection) Diabetes Family History Family history of problems with anesthesia: No Surgical History Surgical History Hx of lithotripsy Tubal ligation status H/O: hysterectomy History of Problems with Anesthesia: No Social History Social History Patient Tobacco Use Status: Current everyday Tobacco user Tobacco use type: Cigarette Cigarettes Per Day: 20 Years Smoked: 18 Meds Allergies Allergy/AdvReac Type Severity Reaction Status Date / Time No Known Allergies Allergy Verified 12/11/24 15:27 Home Medications ?Medication ?Instructions ?Recorded ?Confirmed ?Last Taken ?Type atorvastatin 40 mg tablet 1 tab PO DAILY 03/23/22 12/06/24 Unknown History metformin 1,000 mg tablet 1 tab PO BID 03/23/22 12/06/24 03/22/22 10:00 History sertraline 100 mg tablet 0.5 tab PO DAILY 03/23/22 12/06/24 Unknown History dulaglutide 1.5 mg/0.5 mL 1.5 mg subcut QWEEK 12/11/24 01/07/25 12/20/24 [facility] Exam Height,Weight and Vital Signs: Height 5 ft 8 in Weight 111.13 kg Pertinent Lab Results Pertinent Lab Results: Laboratory Tests 12/04/24 14:32 WBC 8.6 Hgb 13.2 Hct 39.8 Plt Count 238 Sodium 145 Potassium 4.1 Chloride 108 Carbon Dioxide 25 BUN 25 H Creatinine 1.03 Assessment and Plan Assessment Anesthesia Assessment: Chart Reviewed Final Anesthetic Review Family History of Problems with Anesthesia: No History of Problems with Anesthesia: No Documented by User: Tyrone Agudelo MD 01/07/25 15:54 [facility] Past Medical History Medical History (Updated 12/06/24 @ 12:36 by Kendra Coyle RN) Epigastric pain Diarrhea Colon cancer screening CPAP (continuous positive airway pressure) dependence Liver function abnormality Endometrial cancer UTI (urinary tract infection) Diabetes Surgical History Surgical History Hx of lithotripsy Tubal ligation status H/O: hysterectomy Social History Social History Patient Tobacco Use Status: Current everyday Tobacco user Tobacco use type: Cigarette Cigarettes Per Day: 20 Years Smoked: 18 Meds Allergies Allergy/AdvReac Type Severity Reaction Status Date / Time No Known Allergies Allergy Verified 12/11/24 15:27 Home Medications ?Medication ?Instructions ?Recorded ?Confirmed ?Last Taken ?Type atorvastatin 40 mg tablet 1 tab PO DAILY 03/23/22 12/06/24 Unknown History metformin 1,000 mg tablet 1 tab PO BID 03/23/22 12/06/24 03/22/22 10:00 History sertraline 100 mg tablet 0.5 tab PO DAILY 03/23/22 12/06/24 Unknown History dulaglutide 1.5 mg/0.5 mL 1.5 mg subcut QWEEK 12/11/24 01/07/25 12/20/24 History subcutaneous pen injector (Trulicity) Exam Airway Mallampati Class: II TM Dist: >3cm Neck ROM: Full Assessment and Plan Assessment Anesthesia Assessment: Anesthesia Plan Discussed Final Anesthetic Review NPO: Yes ASA Class: III Final Preanesthetic Review: No Changes in Pt Med Stat, Meds/Allgs Chart Reviewed, Consent Obtained/Reviewed and Anes Risks/Benef Reviewed Patient Risk: Intermediate Procedure Risk: Low Anesthetic Plan Anesthetic Plan: GA Disposition: Standard PACU
[2025-01-07] VITALS (7 sets, daily range): BP systolic 114–145; BP diastolic 65–86; PULSE 61–87; RESP 16–18; TEMP 36.1–36.2; O2SAT 94–96; BMI 36.8
--- NOTE | ~2025-01-07 | FL_ITS ---
EXAMINATION: XR FLUOROSCOPY WITH IMAGES CLINICAL INFORMATION: Left retrograde ureteroscopy with stent placement. COMPARISON: None available. TECHNIQUE: Fluoroscopy provided to: Dr. Odin Palacio Fluoroscopy time: 20.9 seconds Dose: 8.98 mGy Images: 5 FINDINGS: 5 fluoroscopic spot images taken during retrograde left ureteroscopy and stent placement. Please refer to the full operative report for details. FL/FL guidance in OR IMPRESSION: Fluoroscopic guidance. Electronically signed by: Matti Bradford MD 01/08/2025 08:17 AM EDT
[2025-01-07] MEDS: Lactated Ringers 1,000 ML 100 ML IVCONT (10:26)
[2025-01-07 10:31] LABS: Glucose, Whole Blood 156 mg/dL (60-115)
--- NOTE | 2025-01-07 10:48 | MHC.SHP ---
Pre-Procedural Eval Section A - 24 Hr Update-Section A only Date of Service: 01/07/25 The patient is an INPATIENT: No The patient has been examined within 24 hours of the surgical procedure. The History & Physical has been completed within 30 days and I have reviewed it.: Yes Section B - Complete if H&P > 30 days Chief Complaint: Calculus of kidney,Unspecified hydronephrosis Allergies: Allergies Allergy/AdvReac Type Severity Reaction Status Date / Time No Known Allergies Allergy Verified 12/11/24 15:27 Plan Diagnosis/Plan: Unchanged I have reviewed the history and physical and performed a pertinent physical examination on my patient. No changes have occurred unless specified. Plan for Cystoscopy, left ureteroscopy, laser lithotripsy, ureteral stent. Risks discussed included but not limited to, possible need to repeat procedure if stone is not completely fragmented, Irritative voiding symptoms, bladder spasms, urgency, blood in urine. Time Spent With Patient Time: Total time managing care of this patient today ____ minutes.
--- NOTE | 2025-01-07 10:48 | W.PM.OPN ---
Operative Note Operative Note Date of Service: 01/07/25 Narrative: PreOperative Diagnosis:?? Left hydronephrosis, left UPJ stone, renal calculi Post Operative Diagnosis:?? Left hydronephrosis, left UPJ stone Procedure: - Cystoscopy, left retrograde, left ureteroscopy stent insertion, 6 Italian by 22-32 cm Surgeon:?Dr Maureen Watson Anesthesia:? General Disposable flexible ureteroscope used. Procedure: After informed consent was verified the patient was brought to the operating placed on the OR table in supine position.? General Anesthesia was administered per protocol.? The patient was placed in lithotomy position, prepped and draped in the usual sterile fashion.? Safety pause time-out and side of surgery confirmed.? Antibiotics confirmed. 2% lidocaine jelly 10 mL was passed transurethrally. A 22 Italian cystoscope was inserted transurethrally, both ureteric orifices were in normal position. An open-ended ureteral catheter was passed into the ureteral orifice and a retrograde examination was performed. There was dilatation of the renal pelvis and calices. A guidewire was passed through the ureteral catheter into the kidney. The balloon dilator size 12 fr x 4 cm was passed over the guide-wire the balloon was inflated to 8 mmHg and the intramural ureter was dilated for 40 seconds. The balloon was deflated and removed. After removing the balloon dilator a 2nd guidewire was then passed into the kidney to use as a safety. The cystoscope was removed, leaving both guidewires in place. One guidewire was used as the safety and was attached to the draping. The semi rigid ureteroscope was passed over one of the guidewires to the level of the proximal ureter. The stone was not visualized, thus the flexible, disposable ureteroscope was used, placed over one guidewire. There was a large stone abutting the UPJ and renal pelvis, angling of the laser was not able to effectively fragment the stone. The ureteroscope was removed and a ureteral stent was placed. A?6 Italian by 22-32 cm stent was placed into the ureter and renal pelvis under a combination of fluoroscopy and direct visualization. The bladder was emptied.? The rigid cystoscope was removed. ? The patient tolerated the procedure well and was brought to the recovery room in stable condition. The patient will require another procedure for stone fragmentation. Complications: None Drains: Ureteral stent as dictated above
== END 2025-01-07 13:11 | disposition home or self-care (01) ==
PROVIDERS: PCP Registered Nurse; Visit Provider Urology
PROC: (CPT 52351; principal; 2025-01-07 15:00)
DX: N13.2 Hydronephrosis with renal and ureteral calculous obstruction (principal); E11.9 Type 2 diabetes mellitus without complications; G47.33 Obstructive sleep apnea (adult) (pediatric); Z79.85 Long-term (current) use of injectable non-insulin antidiabetic drugs; Z79.1 Long term (current) use of non-steroidal anti-inflammatories (NSAID); Z79.84 Long term (current) use of oral hypoglycemic drugs; Z79.899 Other long term (current) drug therapy; Z99.89 Dependence on other enabling machines and devices; Z98.890 Other specified postprocedural states; F17.210 Nicotine dependence, cigarettes, uncomplicated
CPT/HCPCS: 52351; 52332; 82947; 87086; C1726; C1758; C1769; C2617; J0690; J1885; J2003; J2405; J2704; J3010; Q9967

== ENCOUNTER → 2025-01-07 10:03 | Outpatient (BNV) | payer MEDICAID, SELFPAY | PROVIDERS: PCP Registered Nurse; Visit Provider Urology | DX: N20.0 Calculus of kidney (principal) | CPT/HCPCS: 52332; 74420 ==

== ENCOUNTER 2025-01-08 08:38 | Day surgery (SDC) | payer MEDICAID, SELFPAY ==
--- OUTSIDE RECORDS SUMMARY | 2025-01-07 15:33 | XMS_ITS | Clinical Summary ---
Author Organization [facility] Address [address] [place] [address] Care Team Providers Care Brim Presser Name Role Phone Unavailable Primary Care Provider [...] complication, without long-term current use of insulin ([facility]) Use to clean skin BID PRN DXE11.9 100 Each 11 1 Active sertraline (ZOLOFT) 100 mg tablet Take 150 mg by mouth once daily 1 Active lancets (FREESTYLE LANCETS) 28 gaugeIndications:T ype 2 diabetes mellitus without complication, without long-term current use of insulin ([facility]) Use to check BG BID PRN DX E11.9 Freestyle Lite 100 Each 11 1 Active blood sugar diagnostic stripsIndications: Type 2 diabetes mellitus without complication, without long-term current use of insulin ([facility]) Use to check BG BID PRN [...] complication, without long-term current use of insulin ([facility]) Take 1 Tablet by mouth once daily dxe11.9 90 Tablet 1 Active metFORMIN (GLUCOPHAGE) 1,000 mg tabletIndications: Type 2 diabetes mellitus without complication, without long-term current use of insulin ([facility]) TAKE 1 TABLET BY MOUTH TWICE A DAY WITH FOOD 180 Tablet 2 Active Active Problems Problem Noted Date Diagnosed Date Vitamin D deficiency 07/12/2020 H/O total hysterectomy 10/29/2018 Adenocarcinoma of endometrium ([facility]) Overview (08/01/2018): 08/01/2018: Cuff check great. Moving to [place] tomorrow, will do some research and contact patient with my recommendation for a [facility] ON[facility]. Reviewed Dr. Hadley's recs with patient [...] findings post-op. Patient planning to move to [place], [place] in the spring and counseled if needs adjuvant therapy prior to her move will need to go to [place] for that and see a [facility] oncologist--if no need for adjuvant therapy I can continue to monitor her here and she can take her records with her to [place]. Initiated discussion on bariatric surgery post-op to [...] LN biopsy/cysto--plan for OR on 06/18/17 with [facility] Christen Hadley from [facility] at . Patient [...] first time meeting patient, but will strongly cancer genetic counselor patient at next visit about her [...] done and repeat US ordered. To see [employer] in 1 month for f/u and discuss options including ablation and hysterectomy. Pt declined a Mirena IUD today, though may be open to it next time. Assessment & Plan (07/23/2018 7:34 PM EDT): S/p hysterecomty 06/18/18 Healing well feeling great states some tenderness to mons pubis area however other than that feeling well Energy and mood much improved. [facility] has one f/u janett w/ Dr. Hyde prior to moving to [place] where she will transfer care Assessment & [...] Overview (05/13/2016): May 2016 Pt wojciech at [facility] Clinician Kelly Sheridan [phone] Assessment & Plan (05/06/2018 8:28 PM EST): [...] consideration of bariatric procedure once healed from [facility]. 04/17/2018: Class 3 obesity patient's strongest [...] there is a complication. 04/16/2018: Seen in [facility] office for new diagnosis of FIGO G1 endometrial CA. Patient with severe anemia, last Hct 29 on 01/23/18. Has two appointments for iron infusions at [facility] for 05/15/18 and 05/25/18. Prefers in [...] complication, without long-term current use of insulin ([facility]) 08/13/2013 Overview (07/03/2018): 07/03/2018: Taking metformin bid, unsure about dose as her most recent Rx states once/day--counseled that most recent telephone note from PCP states bid dosing and metformin is usually dosed bid--states will contact PCP via [employer] today to confirm. 06/07/2018: Saw PCP for [...] EDT): Labs pending ... Bipolar II disorder ([facility]) 04/29/2013 Overview (04/11/2018): Overview: Bipolar II [...] episode of recurren t major depressive disorder ([facility]) 02/23/2007 Assessment & Plan (05/06/2018 8:27 PM [...] Administration Dates Next Due Hep B, Adult/Adol ([id number]/RECOMBIVAX-ADULT) 01/23/2018,09/29/2017,03/01/2017 INFLUENZA, SEASONAL, INJECTABLE 03/01/2017,02/03 PNEUMOCOCCAL POLYSACCHARIDE [...] Date Smoking Tobacco: Every Day Cigarettes 0.5 22.7 Started: 2002 Smokeless Tobacco: Never Tobacco Cessation:Ready [...] (2 - Td or Tdap) 07/23/2022 013 [id number] ( season) 2024 Alcohol and Drug Screen [...] complication, without long-term current use of insulin ([facility]) Encounter for general adult medical examination without abnormal findings HEPATITIS C ANTIBODY Routine 07/10/2020 9:45 AM EST Screening for viral disease LIPID PANEL Routine 07/10/2020 9:45 AM EST Controlled type 2 diabetes mellitus without complication, without long-term current use of insulin ([facility]) Class 3 severe obesity due to excess calories without serious comorbidity with body mass index (BMI) of 45.0 to 49.9 in adult ([facility]) Encounter for general adult medical examination without abnormal findings HEMOGLOBIN GLYCOSYLATED A1C Routine 07/10/2020 9:45 AM EST Controlled type 2 diabetes mellitus without complication, without long-term current use of insulin ([facility]) Class 3 severe obesity due to excess calories without serious comorbidity with body mass index (BMI) of 45.0 to 49.9 in adult ([facility]) Encounter for general adult medical [...] C ANTIBODY (07/10/2020 9:45 AM EST) Pathologist [facility] HEPATITIS C VIRUS SCREEN NEGATIVE NEGATIVE [facility] Blood Blood / Unknown 07/10/2020 9 :45 AM EST 07/10/2020 10:03 AM EST Narrative [facility] 07/10/2020 12:55 PM EST [facility], [place] [address] [employer] Records Clerk - Esperanza Stauffer MD PT ID [id number] ORD# [id number] Dona [facility] - BLOOD DRAW Final Result [address] [address], * (ABNORMAL) HEMOGLOBIN, GLYCOSYLATED (A1C) (07/10/2020 9:45 AM EST) GLYCATED HEMOGLOBIN A1C 6.6(H) <6.5 % [facility] ESTIMATED AVERAGE GLUCOSE 143 mg/dL [facility] Blood Blood / Unknown 07/10/2020 9 :45 AM EST 07/10/2020 10:03 AM EST [facility] - 07/10/2020 2:09 PM EST [facility], a member of [address] [address] [employer] Records Clerk - Esperanza Stauffer MD PT ID [id number] ORD# [id number] Dona GAY [facility] - BLOOD DRAW Final Result Performing Organization Address City/[facility]/ZIP Co de Phone Number [address] [address], [place] [phone] * (ABNORMAL) LIPID PANEL (07/10/2020 9:45 AM EST) CHOLESTEROL 193 0 - 200 mg/dL [facility] TRIGLYCERIDES 322(H) 0 - 150 mg/dL [facility] HDL CHOLESTEROL 34(L) >40 mg/dL [facility] LDL CALCULATED 95 0 - 100 mg/dL [facility] TC-HDLC RATIO 5.7(H) 0 - 4.4 mg/dL [facility] Blood Blood / Unknown 07/10/2020 9 :45 AM EST 07/10/2020 10:03 AM EST Narrative [facility] - 07/10/2020 12:07 PM EST [facility], a member of [address] [address] [employer] Records Clerk - Esperanza Stauffer MD PT ID [id number] ORD# [id number] Dona [facility] - BLOOD DRAW Edited Result - Final [address] [address], [place] [phone] * (ABNORMAL) COMPRE METAB PANEL (07/10/2020 9:45 AM EST) GLUCOSE 145(H) 70 - 100 mg/dL [facility] Comment:Reference range appl icable to fasting specimens only BUN 15 5 - 25 mg/dL [facility] CREAT 0.72 0.5 - 1.1 mg/dL [facility] GLOMERULAR FILTRATION RATE > 60 [facility] Comment: If patient is -Berm[place], multiply result by 1.21 Chronic Kidney Disease: < 60 ml/min/1.73 square meters Kidney Failure: < 15 ml/min/1.73 square meters SODIUM 137 135 - 145 mEq/L [facility] POTASSIUM 4.2 3.5 - 5.5 mmol/L [facility] CHLORIDE 106 96 - 110 mmol/L [facility] CO2 25 21 - 32 mmol/L [facility] ANION GAP 6 3 - 11 [facility] CALCIUM 9.5 8.5 - 10.5 mg/dL [facility] TOTAL PROTEIN 7.9 6.0 - 8.0 G/dL [facility] ALBUMIN 4.1 3.2 - 5.0 G/dL [facility] BILI, TOTAL 0.3 0.0 - 1.4 mg/dL [facility] SGOT 10 10 - 42 U/L [facility] SGPT 26 10 - 60 U/L [facility] ALK PHOS 119 42 - 121 U/L [facility] Blood Blood / Unknown 07/10/2020 9 :45 AM EST 07/10/2020 10:03 AM EST Narrative [facility] - 07/10/2020 12:07 PM EST [facility], [place] [address] [employer] Records Clerk - Esperanza Stauffer MD PT ID [id number] ORD# [id number] Dona [facility] - BLOOD DRAW Final Result [facility] [address] [address], * Mammogram Screening (05/23/2018 11:33 AM EST) Impressions Evelia Lowe - 05/23/2018 11:33 AM EST Mammogram Screening (Bilateral)05/17/2018 [facility] Result Impression No mammographic evidence of malignancy. [...] SUMMARY Risk Assessment results are provided by [facility]. Your patient completed a breast cancer risk [...] SUMMARY Risk Assessment results are provided by [facility]. Your patient completed a breast cancer risk [...] May 16 2018 12:51PM Rah Jorgensen [facility] MAMMO Final Result * (ABNORMAL) FECAL GLOBIN BY IMMUNOCHEMISTRY (FIT) (06/29/2015 2:09 PM EST) FECAL HGB IMM 1 DATE - [facility] Comment: COLLECTION DATE NOT GIVEN. TEST RESULTS SHOULD BE INTERPRETED WITH CAUTION. LABELLED DAY 1 FECAL HGB IMM 1 RSLT POS(A) NEG [facility] FECAL HGB IMM 2 [facility] Comment: COLLECTION DATE NOT GIVEN. TEST RESULTS SHOULD BE INTERPRETED WITH CAUTION. LABELLED DAY 2 FECAL HGB IMM 2 RSLT NEG NEG [facility] FECAL HGB IMM 3 DATE [facility] Comment: COLLECTION DATE NOT GIVEN. TEST RESULTS SHOULD BE INTERPRETED WITH CAUTION. LABELLED DAY 3 FECAL HBG IMM 3 RSLT NEG NEG [facility] Stool specimen (specimen) Stool specimen / Unknown 06/29/2015 2:09 PM EST us Serenity Monaco MD LAB BODY FLUIDS AND STOOLS AMB ULATORY Final Result [facility] [address] [place] [address], from Last 3 Months or Most Recently Relevant to Health Maintenance Insurance [place] MEDICAID DENTAL [facility] SAFETY NET DENTAL [facility] [address] ACO
[2025-01-07 15:49] VITALS: BMI 37.7
--- NOTE | ~2025-01-08 | XR_ITS ---
EXAMINATION: XR ABDOMEN KUB CLINICAL INDICATION: left renal stone possible stent removal COMPARISON: January 07, 2025 and March 23, 2022 TECHNIQUE: AP view of the abdomen. FINDINGS: Double-J catheter is present in the left side extending from the region of the kidney to the bladder. No definite stone is seen. Multiple calcifications in the pelvis are consistent with phleboliths. Bowel gas pattern is within normal limits. XR/XR KUB IMPRESSION: Left-sided double-J catheter extending between the kidney and bladder. Electronically signed by: Alfredo Ho MD 01/08/2025 09:50 AM EDT
[2025-01-08 08:54] VITALS: BP 122/81; PULSE 82; RESP 20; TEMP 36.9; O2SAT 95; BMI 37.2
[2025-01-08 09:13] LABS: Glucose, Whole Blood 162 mg/dL (60-115)
[2025-01-08] MEDS: Lactated Ringers 500 ML 999 ML IV (09:29)
--- NOTE | 2025-01-08 10:27 | PC.NURSE ---
pt receievd one liter fluid in preop
--- NOTE | 2025-01-08 10:50 | HO.ANESPROP2 ---
HPI - Anesthesia Eval Anesthesia Pre-Procedure Meds If yes to any meds - educate patient: Pt education - increased risk of aspiration and/or euvolemic DKA (stopped trulicity 2 weeks ago) [facility] Active Problems Active Problems: All Active Problems (Updated 12/06/24 @ 12:36 by Kendra Coyle RN) Hydronephrosis (Acute) Degenerative joint disease of both hips (Acute) Lower back pain (Acute) History of kidney stones (Acute) Urethral stone (Acute) Bilateral primary osteoarthritis of hip (Acute) Lumbar radiculopathy (Acute) Left flank pain (Acute) Kidney stone on left side (Acute) Flank pain (Acute) Bilateral kidney stones (Acute) Epigastric pain (Acute) Diarrhea (Acute) Colon cancer screening (Acute) Past Medical History Medical History Epigastric pain Diarrhea Colon cancer screening CPAP (continuous positive airway pressure) dependence Liver function abnormality Endometrial cancer UTI (urinary tract infection) Diabetes Functional capacity: independent ambulation Family History Family history of problems with anesthesia: No Surgical History Surgical History Hx of lithotripsy Tubal ligation status H/O: hysterectomy History of Problems with Anesthesia: Yes Social History Social History Patient Tobacco Use Status: Current everyday Tobacco user Tobacco use type: Cigarette Cigarettes Per Day: 20 Years Smoked: 18 Have you been hit, kicked, punched, or otherwise hurt by someone within the past year? If so, by whom?: No Are you DNR?: No Advance Directives: No Advance Directives Information Provided: Yes Meds Allergies Allergy/AdvReac Type Severity Reaction Status Date / Time No Known Allergies Allergy Verified 12/11/24 15:27 Home Medications ?Medication ?Instructions ?Recorded ?Confirmed ?Last Taken ?Type atorvastatin 40 mg tablet 1 tab PO DAILY 03/23/22 01/08/25 Unknown History metformin 1,000 mg tablet 1 tab PO BID 03/23/22 01/08/25 03/22/22 10:00 History sertraline 100 mg tablet 0.5 tab PO DAILY 03/23/22 01/08/25 Unknown History dulaglutide 1.5 mg/0.5 mL 1.5 mg subcut QWEEK 12/11/24 01/08/25 12/25/24 History subcutaneous pen injector (Trulicity) Exam Exam Date and Time: 01/08/2025 Height,Weight and Vital Signs: Height 5 ft 8 in Weight 110.9 kg Last Vital Signs Temp 98.5 F 01/08/25 08:54 Pulse 82 01/08/25 08:54 Resp 20 01/08/25 08:54 BP 122/81 01/08/25 08:54 Pulse Ox 95 01/08/25 08:54 O2 Del Method Room Air 01/08/25 08:54 Pertinent Lab Results Pertinent Lab Results: Laboratory Tests 01/08/25 09:09 POC Glucose 162 H Airway Mallampati Class: II TM Dist: >3cm Neck ROM: Full Loose/Missing/Broken Teeth: Yes (some missing teeth lower incissors) Heart: rrr Lungs: cta Other: normal Assessment and Plan Assessment Anesthesia Assessment: Anesthesia Plan Discussed and Chart Reviewed Final Anesthetic Review Family History of Problems with Anesthesia: No History of Problems with Anesthesia: Yes NPO: Yes ASA Class: II Final Preanesthetic Review: No Changes in Pt Med Stat, Meds/Allgs Chart Reviewed, Consent Obtained/Reviewed and Anes Risks/Benef Reviewed Patient Risk: Low Procedure Risk: Low Anesthetic Plan Anesthetic Plan: MAC: Disposition: Standard PACU and Inp. Admit - IMC
--- NOTE | 2025-01-08 10:52 | P.HPSUR_ITS ---
Pre-Procedural Eval Section A - 24 Hr Update-Section A only Date of Service: 01/08/25 The patient is an INPATIENT: No The patient has been examined within 24 hours of the surgical procedure. The History & Physical has been completed within 30 days and I have reviewed it.: Yes Section B - Complete if H&P > 30 days Chief Complaint: Calculus of kidney, Left, s/p ureteral stent Allergies: Allergies Allergy/AdvReac Type Severity Reaction Status Date / Time No Known Allergies Allergy Verified 12/11/24 15:27 Plan Diagnosis/Plan: Unchanged I have reviewed the history and physical and performed a pertinent physical examination on my patient. No changes have occurred unless specified. Left ESWL. Discussed risks to include but not limited to, blood in the urine, bruising to the skin, kidney hematoma, possible need for another procedure if a stone fragment obstructs the ureter while passing, possible need to repeat p rocedure if stone is not completely fragmented. Time Spent With Patient Time: Total time managing care of this patient today ____ minutes.
--- NOTE | 2025-01-08 11:09 | P.OP_ITS ---
Operative Note Operative Note Date of Service: 01/07/25 Narrative: PreOperative Diagnosis:?? Left Hydronephrosis, Left Ureteral stone, obstructive uropathy Post Operative Diagnosis:?? Left Hydronephrosis, Left UPJ stone, obstructive uropathy Procedure: - Cystoscopy, left retrograde, ureteroscopy stent insertion Surgeon:?Dr Maureen Watson Anesthesia:? General Procedure: After informed consent was verified the patient was brought to the operating placed on the OR table in supine position.? General Anesthesia was administered per protocol.? The patient was placed in lithotomy position, prepped and draped in the usual sterile fashion.? Safety pause time-out and side of surgery confirmed.? Antibiotics confirmed. 2% lidocaine jelly 10 mL was passed transurethrally. A 22 Macedonian cystoscope was inserted transurethrally. The bladder was visualized.? Both ureteric orifices were in normal position. An open-ended ureteral catheter was passed into the left ureteral orifice and a retrograde examination was performed. There was a filling defect in the UPJ and dilatation of the renal pelvis and calices. A guidewire was passed through the ureteral catheter into the kidney. The balloon dilator size 12 fr x 4 cm was passed over the guide-wire the balloon was inflated to 8 mmHg and the intramural ureter was dilated for 40 seconds. The balloon was deflated and removed. After removing the balloon dilator a 2nd guidewire was then passed into the kidney to use as a safety. The cystoscope was removed, leaving both guidewires in place. One guidewire was used as the safety and was attached to the draping. The ureteroscope was passed over one of the guidewires to the level of the UPJ, and due to the positioning of the stone, decision to place a stent to relieve the hydronephrosis. The ureteroscope was removed. The cystoscope was passed over the safety guidewire. The?ureteral stent was placed into the ureter and renal pelvis under a combination of fluoroscopy and direct visualization. The bladder was emptied.? The rigid cystoscope was removed. ? The patient tolerated the procedure well and was brought to the recovery room in stable condition. Complications: None Drains: Left Ureteral stent
[2025-01-08 11:40] VITALS: BP 101/65; PULSE 66; RESP 19; TEMP 36.3; O2SAT 93
[2025-01-08 11:55] VITALS: BP 111/57; PULSE 70; RESP 19; TEMP 36.1; O2SAT 96
== END 2025-01-08 12:21 | disposition home or self-care (01) ==
PROVIDERS: PCP Registered Nurse; Visit Provider Urology
PROC: (CPT 50590; principal; 2025-01-08 11:30)
DX: N13.2 Hydronephrosis with renal and ureteral calculous obstruction (principal); Z96.0 Presence of urogenital implants; R10.13 Epigastric pain; Z87.442 Personal history of urinary calculi; Z87.440 Personal history of urinary (tract) infections; E11.9 Type 2 diabetes mellitus without complications; R94.5 Abnormal results of liver function studies; G47.33 Obstructive sleep apnea (adult) (pediatric); Z79.84 Long term (current) use of oral hypoglycemic drugs; Z79.85 Long-term (current) use of injectable non-insulin antidiabetic drugs; Z79.899 Other long term (current) drug therapy; Z99.89 Dependence on other enabling machines and devices; Z85.42 Personal history of malignant neoplasm of other parts of uterus; Z90.710 Acquired absence of both cervix and uterus; F17.210 Nicotine dependence, cigarettes, uncomplicated
CPT/HCPCS: 52332; 74018; 82947; J0131; J0690; J1100; J1938; J2250; J2405; J2704; J3010

== ENCOUNTER → 2025-01-08 08:38 | Outpatient (BNV) | payer MEDICAID, SELFPAY | PROVIDERS: PCP Registered Nurse; Visit Provider Urology | DX: N13.0 Hydronephrosis with ureteropelvic junction obstruction (principal) | CPT/HCPCS: 52332; 74420 ==

== ENCOUNTER → 2025-01-08 09:45 | Outpatient (BNV) | payer MEDICAID, SELFPAY | PROVIDERS: PCP Registered Nurse; Visit Provider Radiology Diagnostic Radiology | DX: N20.0 Calculus of kidney (principal); Z96.0 Presence of urogenital implants | CPT/HCPCS: 74018 ==

== ENCOUNTER 2025-01-31 09:14 | Outpatient (AMB) | payer MEDICAID, SELFPAY ==
--- NOTE | 2025-01-31 09:34 | A.OFFVIS_ITS ---
Intake Visit Reasons: Stent removal Intake Note: Patient presents today for a follow up-no stent removal Urology medications: none Blood thinners: none Insecticide Sprayer Required: No Accompanied by: Self / Same As Patient Allergies No Known Allergies Allergy (Verified 01/31/25 09:35) HPI Comments Details: 01/31/2025--Grace is status post left ureteroscopy left ureteral stent placement on 01/07/2025 with follow-up left ESWL on 01/08/2025. The patient is here for follow-up. She states she has been doing well she denies any significant burning with urination. I have discussed that we need to get a KUB prior to stent removal and I will send her urine for surveillance urine culture. Follow- up for cysto stent removal next week pending KUB results. [facility] Medical History Epigastric pain Diarrhea Colon cancer screening CPAP (continuous positive airway pressure) dependence Liver function abnormality Endometrial cancer UTI (urinary tract infection) Diabetes Surgical History Hx of lithotripsy Tubal ligation status H/O: hysterectomy Social History Patient Tobacco Use Status: Current everyday Tobacco user Tobacco use type: Cigarette Cigarettes Per Day: 20 Years Smoked: 18 Review of Systems Const All systems reviewed & are unremarkable except as noted in HPI and below Reports no additional complaints Eyes Reports no additional complaints ENT Reports no additional complaints Card Reports no additional complaints Resp Reports no additional complaints GI Reports no additional complaints Reports as per HPI Musc Reports no additional complaints Skin/Breast Reports system reviewed and no additional complaints, except as documented Neuro Reports no additional complaints Psych Reports no additional complaints Endo Reports no additional complaints Stef/Lymph Reports no additional complaints Aller/Immun Reports no additional complaints Results Reviewed Results Reviewed: D/TT: 11/16/2405/01/1551 CLINICAL HISTORY: N20.0 - Calculus of kidney US retroperitoneum with color Doppler Comparison: US/SR - US ABDOMEN LIMITED - 06/13/23 09:44 EST US/HI/SR - US BLADDER - 10/05/22 14:42 EDT US/HI/SR - US RENAL BI - 09/28/22 12:46 EDT Findings: Right kidney normal size and echotexture, 12.3 cm length. No hydronephrosis. Normal color flow. No nephrolithiasis. No renal masses. Left kidney normal size and echotexture, 14.1 cm in length. Moderate hydronephrosis. Normal color flow. A total of 3 calculi in the left renal pelvis measuring 9 x 6 x 10 mm, 12 x 7 x 10 mm and 15 x 11 x 11 mm largest near the left UPJ. Urinary bladder is unremarkable. Prevoid volume 171.3 mL. Postvoid volume 8.7 mL. Ureteral jets are visualized bilaterally Impression: 1. Moderate hydronephrosis on the left with 3 calculi in the left renal pelvis largest near the left UPJ. There has been progression of disease when compared to 09/28/2022 ultrasound 2. Bilateral ureteral jets were visualized in the urinary bladder which excludes complete obstructive uropathy Date of Service: 03/15/22 EXAMINATION: CT ABDOMEN AND PELVIS WITHOUT CONTRAST? CLINICAL INFORMATION: Calculus of kidney.? COMPARISON: Ultrasound abdomen 02/01/2022 TECHNIQUE: Multidetector volumetric imaging was performed from the superior aspect of the liver through the pubic symphysis. Sagittal and coronal reformatted images were obtained on the technologist's workstation.? This CT examination was performed using dose optimization techniques as appropriate, variously including the following: *Automated exposure control *Adjustment of mA and/or kV according to patient size (this includes techniques or standardized protocols for targeted exams where dose is matched to indication/reason for exam; i.e. extremities or head) *Use of iterative reconstruction technique DLP: 1224 mGy-cm FINDINGS: LUNG BASES: The lung bases are clear. Heart size is normal.? LIVER, GALLBLADDER, AND BILIARY TREE: The liver is normal in size, shape, and attenuation. No focal hepatic lesion or biliary ductal dilatation is present. The gallbladder is unremarkable with no evidence of radiopaque gallstones, gallbladder wall thickening, or obvious pericholecystic inflammatory changes.? PANCREAS: Unremarkable.? SPLEEN: Unremarkable.? ADRENAL GLANDS: Unremarkable.? KIDNEYS AND URETERS: The kidneys are normal in size, shape, and attenuation. No perinephric stranding. There is a 1.4 cm obstructive left pelvic/UPJ calculus with mild hydronephrosis. No additional radiopaque calculi are seen. There is no right-sided hydronephrosis. BLADDER: Unremarkable.? GASTROINTESTINAL TRACT: There is scattered stool and gas seen throughout the colon without distention. There is nonspecific fat deposition in a short segment of the hepatic flexure on axial image 37/3, nonspecific. The appendix, ileocecal junction and small bowel loops are normal caliber.? ABDOMINAL WALL: There is a small umbilical hernia containing intraperitoneal fat.? LYMPH NODES: Normal. VASCULAR: Unremarkable. PELVIC VISCERA: Unremarkable. OSSEOUS STRUCTURES: There are degenerative disc changes with vacuum disc phenomenon at the L5-S1 disc level with ventral and posterior spondylosis.? IMPRESSION: 1.4 cm partially obstructive stone at the left UPJ. A 1.1 cm calculus was seen in the midpole left kidney on recent ultrasound 02/03/2022. These calculi in the left kidney has increased in size since previous CT exam 12/11/2020. ? Degenerative disc changes at the L5-S1 disc level with ventral spondylosis. ? Assessment & Plan Assessment & Plan (1) Kidney stone on left side: Code(s): N20.0 - Calculus of kidney Category: Medical (2) Ureteral stent present: Code(s): Z96.0 - Presence of urogenital implants Category: Medical Plan I will send her urine for surveillance urine culture. Follow-up for cysto stent removal next week pending KUB results. Orders: Orders XR KUB Today N20.0 - Calculus of kidney, Z96.0 - Presence of urogenital implants Patient Instructions: The patient had an opportunity to ask questions regarding treatment plan. The patient expressed understanding and agreement with the above treatment plan. The patient is aware they should contact our office by phone for worsening of their current condition or the appearance of new symptoms. Compliance is encouraged with any medications and followup testing that is ordered. It is a privilege to be allowed the opportunity to participate in the urologic care of your patient. If you have any questions or concerns regarding treatment for the above conditions please do not hesitate to contact me. The office telephone contact is [phone]. This note is constructed in part using voice recognition software. While every effort has been made to ensure accuracy photograph retoucher errors may have been included. Yours sincerely, Maureen Watson MD Coding Level of Care Code Global (50574) Diagnoses Kidney stone on left side N20.0 Ureteral stent present Z96.0
--- OUTSIDE RECORDS SUMMARY | 2025-01-31 10:01 | XMS_ITS | Clinical Summary ---
Author Organization [facility] Address [address] [place] [address] Care Team Providers Care Senior Test Analyst Name Role Phone Unavailable Primary Care Provider [...] complication, without long-term current use of insulin ([facility]) Use to clean skin BID PRN DXE11.9 100 Each 11 1 Active sertraline (ZOLOFT) 100 mg tablet Take 150 mg by mouth once daily 1 Active lancets (FREESTYLE LANCETS) 28 gaugeIndications:T ype 2 diabetes mellitus without complication, without long-term current use of insulin ([facility]) Use to check BG BID PRN DX E11.9 Freestyle Lite 100 Each 11 1 Active blood sugar diagnostic stripsIndications: Type 2 diabetes mellitus without complication, without long-term current use of insulin ([facility]) Use to check BG BID [...] complication, without long-term current use of insulin ([facility]) Take 1 Tablet by mouth once daily dxe11.9 90 Tablet 1 Active metFORMIN (GLUCOPHAGE) 1,000 mg tabletIndications: Type 2 diabetes mellitus without complication, without long-term current use of insulin ([facility]) TAKE 1 TABLET BY MOUTH TWICE A DAY WITH FOOD 180 Tablet 2 Active Active Problems Problem Noted Date Diagnosed Date Vitamin D deficiency 07/12/2020 H/O total hysterectomy 10/29/2018 Adenocarcinoma of endometrium ([facility]) Overview (08/01/2018): 08/01/2018: Cuff check great. Moving to [place] tomorrow, will do some research and contact patient with my recommendation for a TEMPORARY HELP AGENCY REFERRAL CLERK ONC. Reviewed Dr. Hadley's recs with patient [...] findings post-op. Patient planning to move to [place], [place] in the spring and counseled if needs adjuvant therapy prior to her move will need to go to [place] for that and see a TEMPORARY HELP AGENCY REFERRAL CLERK oncologist--if no need for adjuvant therapy I can continue to monitor her here and she can take her records with her to [place]. Initiated discussion on bariatric surgery post-op to [...] LN biopsy/cysto--plan for OR on 06/18/17 with TEMPORARY HELP AGENCY REFERRAL CLERK ONC Christen Hadley from [facility] [...] first time meeting patient, but will strongly recreation counselor patient at next visit about her [...] done and repeat US ordered. To see RODDING MACHINE TENDER in 1 month for f/u and discuss options including ablation and hysterectomy. Pt declined a Mirena IUD today, though may be open to it next time. Assessment & Plan (07/23/2018 7:34 PM EDT): S/p hysterecomty 06/18/18 Healing well feeling great states some tenderness to mons pubis area however other than that feeling well Energy and mood much improved. [facility] has one f/u janett w/ Dr. Hyde prior to moving to [place] where she will transfer care Assessment & [...] Overview (05/13/2016): May 2016 Pt wojciech at [facility] Clinician Kelly Sheridan [phone] Assessment & Plan (05/06/2018 8:28 PM EST): [...] consideration of bariatric procedure once healed from [facility]. 04/17/2018: Class 3 obesity patient's strongest risk [...] there is a complication. 04/16/2018: Seen in TEMPORARY HELP AGENCY REFERRAL CLERK office for new diagnosis of FIGO G1 endometrial CA. Patient with severe anemia, last Hct 29 on 01/23/18. Has two appointments for iron infusions at [facility] for 05/15/18 and 05/25/18. Prefers in the [...] complication, without long-term current use of insulin ([facility]) 08/13/2013 Overview (07/03/2018): 07/03/2018: Taking metformin bid, unsure about dose as her most recent Rx states once/day--counseled that most recent telephone note from PCP states bid dosing and metformin is usually dosed bid--states will contact PCP via [employer] today to confirm. 06/07/2018: Saw PCP for [...] EDT): Labs pending ... Bipolar II disorder ([facility]) 04/29/2013 Overview (04/11/2018): Overview: Bipolar [...] episode of recurren t major depressive disorder ([facility]) 02/23/2007 Assessment & Plan (05/06/2018 8:27 [...] Administration Dates Next Due Hep B, Adult/Adol (HBVBASF-B-SNZOG/RECOMBIVAX-ADULT) 01/23/2018,09/29/2017,03/01/2017 INFLUENZA, SEASONAL, INJECTABLE 03/01/2017,02/03 PNEUMOCOCCAL POLYSACCHARIDE [...] (2 - Td or Tdap) 07/23/2022 013 Alcohol and Drug Screen 05/08/2024 07/10/19, 12/14/2018, 05/30/2018, Additional history exists [id number] () 01/06/2025 Imm-Influenza (#1) 2025 03/01/2017, 02/03/2014 HIV Screening [...] 015 5:55 PM PDT) No Brigido Leyva LM Note: Pt will practice CBT daily Pt will exercise 3x/week Procedures Procedure Name Priority Date/Time Associated Diagnosis Comments COMPREHENSIVE METABOLIC PANEL Routine 07/10/2020 9:45 AM EST Controlled type 2 diabetes mellitus without complication, without long-term current use of insulin ([facility]) Encounter for general adult medical examination without abnormal findings HEPATITIS C ANTIBODY Routine 07/10/2020 9:45 AM EST Screening for viral disease LIPID PANEL Routine 07/10/2020 9:45 AM EST Controlled type 2 diabetes mellitus without complication, without long-term current use of insulin ([facility]) Class 3 severe obesity due to excess calories without serious comorbidity with body mass index (BMI) of 45.0 to 49.9 in adult ([facility]) Encounter for general adult medical examination without abnormal findings HEMOGLOBIN GLYCOSYLATED A1C Routine 07/10/2020 9:45 AM EST Controlled type 2 diabetes mellitus without complication, without long-term current use of insulin ([facility]) Class 3 severe obesity due to excess calories without serious comorbidity with body mass index (BMI) of 45.0 to 49.9 in adult ([facility]) Encounter for general adult medical examination [...] C ANTIBODY (07/10/2020 9:45 AM EST) Pathologist [facility] HEPATITIS C VIRUS SCREEN NEGATIVE NEGATIVE [facility] Blood Blood / Unknown 07/10/2020 9 :45 AM EST 07/10/2020 10:03 AM EST [facility] 07/10/2020 12:55 PM EST [employer], [place] [address] Plastics And Composites Inspector - Esperanza Stauffer MD PT ID [id number] ORD# [id number] Dona [facility] - BLOOD DRAW Final Result [address] [address], * (ABNORMAL) HEMOGLOBIN, GLYCOSYLATED (A1C) (07/10/2020 9:45 AM EST) GLYCATED HEMOGLOBIN A1C 6.6(H) <6.5 % [facility] ESTIMATED AVERAGE GLUCOSE 143 mg/dL [facility] Blood Blood / Unknown 07/10/2020 9 :45 AM EST 07/10/2020 10:03 AM EST Kalee [facility] - 07/10/2020 2:09 PM EST [employer], a member of [address] [address] Plastics And Composites Inspector - Esperanaz Stauffer MD PT ID [id number] ORD# [id number] Dona [facility] - BLOOD DRAW Final Result Performing Organization Address City/[facility]/ZIP Co de Phone Number [address] [address], [place] [phone] * (ABNORMAL) LIPID PANEL (07/10/2020 9:45 AM [...] AM EST 07/10/2020 10:03 AM EST Narrative [facility] - 07/10/2020 12:07 PM EST [employer], a member of [address] [address] [employer] And Com[employer] Inspector - Esperanza Stauffer MD PT ID [id number] ORD# [id number] Don[facility] - BLOOD DRAW Edited Result - Final [address] [address], [place] [phone] * (ABNORMAL) COMPRE METAB PANEL (07/10/2020 9:45 AM EST) GLUCOSE 145(H) 70 - 100 mg/dL [facility] Comment:Reference range appl icable to fasting specimens only BUN 15 5 - 25 mg/dL [facility] CREAT 0.72 0.5 - 1.1 mg/dL [facility] GLOMERULAR FILTRATION RATE > 60 [facility] Comment: If patient is -[place], multiply result by 1.21 Chronic Kidney Disease: < 60 ml/min/1.73 square meters Kidney Failure: < 15 ml/min/1.73 square meters SODIUM 137 135 - 145 mEq/L [facility] POTASSIUM 4.2 3.5 - 5.5 mmol/L [facility] CHLORIDE 106 96 - 110 mmol/L [facility] CO2 25 21 - 32 mmol/L [facility] ANION GAP 6 3 - 11 [facility] CALCIUM 9.5 8.5 - 10.5 mg/dL [facility] TOTAL PROTEIN 7.9 6.0 - 8.0 G/dL [facility] ALBUMIN 4.1 3.2 - 5.0 G/dL [facility] BILI, TOTAL 0.3 0.0 - 1.4 mg/dL [facility] SGOT 10 10 - 42 U/L [facility] SGPT 26 10 - 60 U/L [facility] ALK PHOS 119 42 - 121 U/L [facility] Blood Blood / Unknown 07/10/2020 9 :45 AM EST 07/10/2020 10:03 AM EST Narrative [facility] - 07/10/2020 12:07 PM EST [employer], [place] [address] Plastics And Composites Inspector - Esperanza Stauffer MD PT ID [id number] ORD# [id number] Don[facility] - BLOOD DRAW Final Result [facility] [address] [address], * Mammogram Screening (05/23/2018 11:33 AM EST) Impressions Evelia Lowe - 05/23/2018 11:33 AM EST Mammogram Screening (Bilateral)05/17/2018 [facility] Result Impression No mammographic evidence of malignancy. [...] SUMMARY Risk Assessment results are provided by Treater. Your patient completed a breast cancer risk [...] SUMMARY Risk Assessment results are provided by Treater. Your patient completed a breast cancer risk [...] Calculations: May 16 2018 12:51PM Rah Jorgensen [facility] MAMMO Final Result * (ABNORMAL) FECAL GLOBIN BY IMMUNOCHEMISTRY (FIT) (06/29/2015 2:09 PM EST) FECAL HGB IMM 1 DATE - [facility] Comment: COLLECTION DATE NOT GIVEN. TEST RESULTS SHOULD BE INTERPRETED WITH CAUTION. LABELLED DAY 1 FECAL HGB IMM 1 RSLT POS(A) NEG [facility] FECAL HGB IMM [address] [facility] Comment: COLLECTION DATE NOT GIVEN. TEST RESULTS SHOULD BE INTERPRETED WITH CAUTION. LABELLED DAY 2 FECAL HGB IMM 2 RSLT NEG NEG [facility] FECAL HGB IMM 3 DATE [facility] Comment: COLLECTION DATE NOT GIVEN. TEST RESULTS SHOULD BE INTERPRETED WITH CAUTION. LABELLED DAY 3 FECAL HBG IMM 3 RSLT NEG NEG [facility] Stool specimen (specimen) Stool specimen / Unknown 06/29/2015 2:09 PM EST us Serenity Monaco MD LAB BODY FLUIDS AND STOOLS AMB ULATORY Final Result [facility] [address] [place] [address], from Last 3 Months or Most Recently Relevant to Health Maintenance Insurance [place]ICA[place] D[facility]AL [facility]Y NET DENTAL [facility] [address] A[place]
== END 2025-01-31 09:53 | disposition home or self-care (01) ==
LOC: HO.HUSH 09:15
PROVIDERS: PCP Registered Nurse; Visit Provider Urology
DX: N20.0 Calculus of kidney (principal); Z96.0 Presence of urogenital implants
CPT/HCPCS: 99024

== ENCOUNTER 2025-01-31 09:14 | Outpatient (REF) | payer MEDICAID, SELFPAY ==
--- OUTSIDE RECORDS SUMMARY | 2025-01-31 13:52 | XMS_ITS | Encounter Summary ---
Author Organization [employer] Address [address] [place] [address] Care Team Providers Care Stopper Maker Helper Name Role Phone Beverly Valerio Primary Care Provider [phone] Encounter Details Date Type Department Care Team ([facility] Contact Info) Description 12/11/2024 Results Follow-Up [facility]S [address] [place], [place] [id number] Beverly Valerio FNP [address] [place] [address] Hemoglobin A1c Social History Tobacco Use Types Packs/Day Years [...] documented as of this encounter Care Teams Stopper Maker Helper Relationship Specialty Start Date End Date Beverly Valerio FNP [address] [place] [address] PCP - General Family Medicine 12/31/21 documented as of this encounter
--- OUTSIDE RECORDS SUMMARY | 2025-01-31 13:52 | XMS_ITS | Encounter Summary ---
Author Organization [employer] Address [address] [place] [address] [address] [place] [address] Care Team Providers Care Emergency Detail Driver Name Role Phone Beverly Valerio Primary Care Provider [phone] Reason for Visit * Reason Onset Date Comments Med Refill 10/30/2023 Encounter Details Date Type Department Care Team ([facility] Contact Info) Description 10/30/2023 Telephone [facility] MED & PEDS [address] [place] [address] Beverly Valerio FNP [address] [place] [address] Med Refill Social History Tobacco Use Types [...] enough money to get more: Never True 10/ Transportation Answer Date Recorded In the past [...] 1000 MG tablet To be sent to: [facility]/pharmacy #[id number] documented in this encounter Plan of Treatment Not on file documented as of this encounter Visit Diagnoses Not on filedocumented in this encounter Additional Health Concerns Assessment Noted Time PHQ-9 Depression Total Score: 3 06/07/19 24 6:20 PM EST documented as of this encounter Care Teams Emergency Detail Driver Relationship Specialty Start Date End Date Beverly Valerio FNP [address] [place] [address] PCP - General Family Medicine 12/31/21 documented as of this encounter
--- OUTSIDE RECORDS SUMMARY | 2025-01-31 13:52 | XMS_ITS | Clinical Summary ---
Author Organization [facility] [employer] Address [address] [place] [address] 7[address] [place] [address] Care Team Providers Care Baggage And Mail Agent Name Role Phone Beverly Valerio DEIDRA Primary Care Provider [phone] Allergies No known active allergies Medications acetaminophen (Tylenol 8 Hour) 650 MG ER tablet PLEASE SEE ATTACHED FOR DETAILED DIRECTIONS 12/07/19 22 Active ProAir HFA 108 (90 Base) MCG/ACT inhaler TAKE 2 PUFFS BY MOUTH EVERY 4 TO 6 HOURS NEEDED 12/07/19 22 Active D3-1000 25 MCG (1000 UT) capsule Take 50 mcg by mouth in the morning. 10/24/19 22 Active ibuprofen 600 MG tablet Take 1 tablet by mouth every 8 (eight) hours if needed. 03/03/20 22 Active atorvastatin (Lipitor) 40 MG tablet TAKE 1 TABLET BY MOUTH EVERY DAY AT BEDTIME FOR CHOLESTEROL 90 tablet 3 07/27/19 25 Active Alcohol Swabs 70 % padsIndicatio ns:Type 2 diabetes mellitus without complication, without long-term current use of insulin (CMS/[facility]) Use to test blood sugar 1-2 times daily 100 each 10/08/19 25 Active FreeStyle lancetsIndica tions:Type 2 diabetes mellitus without complication, without long-term current use of insulin (CMS/HCC) 1 each by Other route 2 times daily. Use to test blood sugar 1-2 times daily 100 each 10/08/19 25 Active FREESTYLE LITE test stripIndicati ons:Type 2 diabetes mellitus without complication, without long-term current use of insulin (CMS/HCC) Use to test blood sugar 2 times daily 100 each 10/08/19 25 2025 Active Blood Glucose Monitoring Suppl (FreeStyle [place] Lite) w/Device kitIndication s:Type 2 diabetes mellitus without complication, without long-term current use of insulin (CMS/HCC) Use to test blood sugar 2 times daily 1 kit 1 10/08/19 25 Active metFORMIN (Glucophage) 1000 MG tablet TAKE 1 TABLET BY MOUTH TWICE A DAY WITH BREAKFAST AND DINNER 180 tablet 3 10/29/19 25 Active Trulicity 1.5 MG/0.5ML solution auto-injector Indications:T ype 2 diabetes mellitus without complication, without long-term current use of insulin (CMS/HCC) INJECT 1 PEN SUBCUTANEOUSLY ONCE A WEEK 2 mL 2 01/16/20 25 Active Dulaglutide (Trulicity) 1.5 MG/0.5ML solution auto-injector Indications:T ype 2 diabetes mellitus without complication, without long-term current use of insulin (CMS/HCC) Inject 1.5 mg under the skin 1 (one) time per week. 2 mL 2 10/08/19 25 2024 Discontinued Active Problems Problem Noted Date Diagnosed Date Osteoarthritis of both hips 10/08/2024 Overview (10/08/2024): - March 2024: X-rays demonstrate bilateral mild hip osteoarthritis -Evaluated by [facility] Ortho April 2024. Plan for eval of hip OA versus low back pain Assessment & Plan (10/08/2024 5:20 PM EDT): - Encouraged to contact office regarding reestablishing with PT and possible transportation assistance. May request PT 1 through our office. Dental calculus 07/18/2023 Periodontal disease 07/18/2023 Bleeding gums 07/18/2023 Localized gingival recession, minimal 07/18/2023 NAFLD (nonalcoholic fatty liver disease) 024 Overview (10/07/2024): Salvador SUN completed Jun 2023 c/w fatty liver History of Hep B core antibody positive Reviewed lifestyle interventions including routine physical activity, diet rich in fruits, vegetables, and healthy fats. Limited/no alcohol use. Plan to repeat labs/US Q6 months Lab Results Component Value Date AST 22 03/27/2024 ALT 29 03/27/2024 TOTPROTEIN 7.5 03/27/2024 ALB 4.4 03/27/2024 ALP 91 03/27/2024 TOTALBILIRUB 0.3 03/27/2024 Menopause 08/12/2022 Assessment & Plan (08/12/2022 6:23 [...] treated with hysterectomy Jun 2018 established with [facility] community resource consultant/onc 2019 Recommendation for screening was q 6 months for 1st year, then yearly, can be montored by control clerk subassembly or community resource consultant onc beginning at 24 months pap test not indicated insufficient data to support Ca125, radiographic imaging CT or PET +/- Ca125 if recurrence expected Assessment & Plan (08/12/2022 6:32 PM EDT): Ms. Willoughby to call [facility] UNIVERSITY RELATIONS RECRUITER/Onc to see appt date for next follow up Routine health maintenance 08/09/2022 Overview (03/07/2024): Colonoscopy: referred to GI 08/09/22, repeat referral 02/28/24 Mammogram: 06/29 BIRADS-2 repeat yearly Pap: not indicated, monitored by oncologist at [facility] for endometrial cancer surveillance Dental: [facility] Dental S/P laparotomy 06/18/2018 History of hepatitis [...] & D quantitative PCR test. Recommendation for [id number] liver ultrasound screening for HCC. Labs from [facility] 10/21/21: Hep B core ab (+), Hep [...] disorder 05/13/2016 Overview (08/09/2022): May 2016 Pt [place] at [facility] Clinician Kelly Sheridan [phone] Last Assessment & Plan: Followed by provider. Overview: May 2016 Pt maryluwed at [facility] Clinician Kelly Sheridan [phone] Last Assessment & Plan: Followed by provider. [...] consideration of bariatric procedure once healed from [facility]. 04/17/2018: Class 3 obesity patient's [...] consideration of bariatric procedure once healed from [facility]. 04/17/2018: Class 3 obesity patient's strongest risk [...] GI -Per previous records: 04/16/2018: Seen in UNIVERSITY RELATIONS RECRUITER office for new diagnosis of FIGO G1 endometrial CA. Patient with severe anemia, last Hct 29 on 01/23/18. Has two appointments for iron infusions at [facility] for 05/15/18 and 05/25/18. + [facility] referred to GI 07/2015 Assessment & Plan (05/18/2023 8:52 AM EST): Check labs, no current pica or pallor. Encourage to establish with GI. ED/urgent care precautions Type 2 diabetes mellitus wit hout complication, without long-term current use of insulin 08/13/2013 Overview (10/08/2024): -Continues with metformin 1000mg BID - Increase to Trulicity 1.5mg subcutaneous weekly -Continue with lifestyle interventions Lab Results Component Value Date HGBA1C 7.9 (A) 02/28/2024 -A1c goal < 7%, above goal -Monofilament wnl: 12/06/21 -Referred to [facility] Eye care 08/09/22 for TY Assessment & [...] Obstructive sleep apnea of adult 02/23/2007 Overview (10/08/2024): Continues on CPAP nightly July 2023: sleep titration report. Severe sleep apnea. AHI 35/hr and oxygen horacio was 82%. Recommend CPAP 9 cm water with Medium N20 mask. Referral to sleep medicine for further evaluation and management 10/08/24 Assessment & Plan (02/28/2024 7:32 AM EDT): [...] (08/09/2022): 08/01/2018: Cuff check great. Moving to [place] tomorrow, will do some research and contact patient with my recommendation for a UNIVERSITY RELATIONS RECRUITER ONC. Reviewed Dr. Hadley's recs with patient [...] findings post-op. Patient planning to move to [place], [place] in the spring and counseled if needs adjuvant therapy prior to her move will need to go to [place] for that and see a UNIVERSITY RELATIONS RECRUITER oncologist--if no need for adjuvant therapy I can continue to monitor her here and she can take her records with her to [place]. Initiated discussion on bariatric surgery post-op to [...] LN biopsy/cysto--plan for OR on 06/18/17 with UNIVERSITY RELATIONS RECRUITER ONC Christen Hadley from [facility] at . Patient counseled [...] first time meeting patient, but will strongly travel counselor patient at next visit about her [...] done and repeat US ordered. To see DRAWING HAND in 1 month for f/u and discuss [...] w/ Dr. Hyde prior to moving to [place] where she will transfer care Overview: [ [...] findings post-op. Patient planning to move to [place], [place] in the spring and counseled if needs adjuvant therapy prior to her move will need to go to [place] for that and see a UNIVERSITY RELATIONS RECRUITER oncologist--if no need for adjuvant therapy I can continue to monitor her here and she can take her records with her to [place]. Initiated discussion on bariatric surgery post-op to [...] LN biopsy/cysto--plan for OR on 06/18/17 with UNIVERSITY RELATIONS RECRUITER ONC Christen Hadley from [facility] at . Patient counseled [...] first time meeting patient, but will strongly travel counselor patient at next visit about her [...] done and repeat US ordered. To see DRAWING HAND in 1 month for f/u and discuss [...] Encounters Date Type Department Care Team Description 01/14/2025 Refill [facility] [address] [place] [address] Beverly Valerio FNP Type 2 diabetes mellitus without complication, without long-term current use of insulin ([facility]) 01/08/2025 Orders Only GENERIC EXTERNAL DATA DEPARTMENT Provider, Generic External Data 01/07/2025 Orders Only GENERIC EXTERNAL DATA DEPARTMENT Provider, Generic External Data 12/18/2024 Telephone [facility] [address] [place] [address] Beverly Valerio FNP recall 12/18/2024 Telephone [facility] [address] [place] [address] Beverly Valerio FNP 12/11/2024 Orders Only GENERIC EXTERNAL DATA DEPARTMENT Provider, Generic External Data 12/11/2024 Results Follow-Up [facility] [address] [place] [address] Beverly Valerio FNP Hemoglobin A1c 12/04/2024 Orders Only GENERIC EXTERNAL DATA DEPARTMENT Provider, Generic External Data 11/15/2024 Orders Only [facility] External Provider, [facility] from Last 3 Months Immunizations Immunization Administration Dates Next Due Hep B, adult [...] 80 02/28/2024 12:19 PM EDT Temperature 37.2 C (98.9 F) 02/28/2024 12:19 PM EDT Respiratory Rate 22 02/28/2024 12:19 PM EDT Oxygen Saturation 97% 02/28/2024 12:19 PM EDT Inhaled Oxygen Concentration - - Weight 119 kg (262 lb 2 oz) 02/28/2024 12:19 PM EDT Height 172.7 cm (5' 8 ) 02/28/2024 12:19 PM EDT Body Mass Index 39.86 02/28/2024 12:19 PM EDT Plan of Treatment Health Maintenance Due Date Last Done Comments CT Colonography 1971 Colonoscopy 1971 FIT DNA/Cologuard 1971 FOBT 1971 Sigmoidoscopy 1971 Disability Screening 1971 Diabetes: Foot Exam 11/02/1981 Alcohol/Substance Use Screening 1983 Hepatitis A Vaccines (1 of 2 - Risk 2-dose series) 11/02/1990 Colorectal Cancer Screening 06/29/2016 FIT 06/29/2016 06/29/2015 Pneumococcal Vaccine: 50+ Years (2 of 2 - PCV) 03/01/2018 03/01/2017 Zoster Vaccines (1 of 2) 11/02/2021 DTaP/Tdap/Td Vaccines (2 - Td or Tdap) 07/23/2022 07/23/2012 Mammogram 06/24/2023 06/24/2021, 01/2019, 05/16/2018 Dental Oral Exam 12/05/2023 06/05/2023 Dental Prophylaxis 01/19/2024 07/18/2023 Lipid Panel 05/24/2024 05/24/2023, 08/1 10/2021, 03/31/2021 Dental X-Ray: Bitewings 06/06/2024 06/05/2023 Depression Screening 06/07/2024 06/07/2023, 06/07/19 24 Eye Exam 01/03/2025 01/03/2023, 082 01/2023, 01/03/2023, Additional history exists COVID-19 Vaccine ( season) 2025 Influenza Vaccine (#1) 2025 03/01/2017, 2013 SDOH Screening 02/27/2025 02/28/2024 Diabetes: Hemoglobin A1C 06/06/2025 025, 02/28/2024, 05/24/2023, Additional history exists Tobacco Screening 10/07/2025 10/07/2024 Diabetes: Urine Protein Screening 12/11/2025 12/11/2024, 05/24/2023, 04/05/2021 Dental X-Ray: Full Mouth 06/06/2026 06/05/2023 RSV [...] patient's age to complete this topic Meningococcal B Vaccine Aged Out No l onger eligible based on patient's age to complete [...] Procedure Name Priority Date/Time Associated Diagnosis Comments GLUCOSE, WHOLE BLOOD Routine 01/08/2025 9:09 AM EDT XR KUB AND UPRIGHT 2 VIEWS Routine 01/08/2025 8:45 AM EDT CULTURE, URINE, ROUTINE Routine 01/08/20 11:15 AM EDT FL GUIDANCE IN OR Routine 01/07/2025 10: 50 AM EDT GLUCOSE, WHOLE BLOOD Routine 01/07/2025 10:20 AM EDT URINE PROTEIN, TOTAL, RANDOM (W/O CREATININE) Routine 12/11/2024 4:10 PM EDT ALBUMIN, RANDOM URINE W/CREATININE Routine 12/11/2024 4:10 PM EDT URINALYSIS, COMPLETE Routine 12/11/2024 4:10 PM EDT VITAMIN D 25-OH (D2 AND D3) Routine 12/11/2024 3:16 PM EDT URIC ACID Routine 12/11/2024 3:16 PM EDT PHOSPHATE ( PHOSPHORUS) Routine 12/11/2024 3:16 PM EDT BASIC METABOLIC PANEL Routine 12/11/2024 3:16 PM EDT PTH, INTACT WITHOUT CALCIUM Routine 12/11/2024 3:16 PM EDT TISSUE TRANSGLUTAMINASE AB, IGA Routine 12/04/2024 4:49 PM EDT C-REACTIVE PROTEIN Routine 12/04/2024 4: 49 PM EDT HEPATIC FUNCTION PANEL Routine 4:49 PM EDT BASIC METABOLIC PANEL Routine 12/04/2024 2:32 PM EDT CBC Routine 12/04/2024 2:32 PM EDT HEMOGLOBIN A1C Routine 12/04/2024 2:32 PM EDT Type 2 diabetes mellitus without complication, without long-term current use of insulin ([facility]) US RETROPERITONEAL COMPLETE Routine 11/16/2024 3:35 PM EDT PROPHYLAXIS - ADULT Routine 07/18/2023 1 1:00 AM EDT Dental calculus Periodontal disease Bleeding gums INTRAORAL - COMPLETE SERIES OF RADIOGRAPHIC IMAGES Routine 06/05/2023 2:30 PM EST COMPREHENSIVE ORAL EVALUATION - NEW OR ESTABLISHED PATIENT Routine 06/05/2023 2:30 PM EST LIPID PANEL, STANDARD Routine 05/24/2023 9:49 AM EST Healthcare maintenance MAMMOGRAM GENERIC Routine 06/24/2021 1:1 5 PM EST ZZZ HISTORICAL HEPATITIS C AB W/REFL TO HCV RNA, QN, PCR Routine 03/31/2021 10:03 AM EST HIV 1/2 ANTIGEN/ANTIBODY, FOURTH GENERATION W/RFL Routine 03/31/2021 10:03 AM EST from Last 3 Months or Most Recently Relevant to Health Maintenance Results * (ABNORMAL) Glucose, Whole Blood (01/08/2025 9:09 AM EDT) Only the most recent of2 resultswithin the time period is included. Glucose, Whole Blood 162(H) 60 - 115 mg/dL [facility] Comment:METER #: [id number] 01/08/2025 9:09 AM EDT 01/08/2025 9:12 AM EDT us Generic External Data Provider LAB BLOOD ORDERAB LES Final Result Performing Organization Address City/State/[facility] Co de Phone Number [facility] [address] [place] [phone] * XR KUB and Upright 2 Views (01/08/2025 8:45 AM EDT) Anatomical Region Laterality Modality Radiographic Brittaney ging 01/08/2025 8:45 AM EDT Narrative 01/08/2025 9:53 AM EDT [address] [address] XRay Report Signed Patient: Grace Willoughby MR#: [id number] : 1970 Acct:[id number] Age/Sex: 54 / F ADM Date: 01/08/25 Loc: HO.[facility] Attending Dr: Maureen Watson MD Ordering Physician: Maureen Watson MD Date of Service: 01/08/25 Procedure(s): XR KUB Accession Number(s): [id number] cc: Maureen Watson MD; Beverly Valerio Reason for Exam: left renal stone possible stent removal EXAMINATION: XR ABDOMEN KUB CLINICAL INDICATION: left renal stone possible stent removal COMPARISON: January 07, 2025 and March 23, 2022 TECHNIQUE: AP view of the abdomen. FINDINGS: Double-J catheter is present in the left side extending from the region of the kidney to the bladder. No definite stone is seen. Multiple calcifications in the pelvis are consistent with phleboliths. Bowel gas pattern is within normal limits. XR/XR KUB IMPRESSION: Left-sided double-J catheter extending between the kidney and bladder. Electronically signed by: Alfredo Ho MD 01/08/2025 09:50 AM EDT RP Dictated By: Alfredo Ho MD Signed By: <Electronically signed by Alfredo Ho MD in OV> 01/08/2550 DD/ 0845 TD/TT: 01/08/25 0850 Coal Pipeline Operator: Procedure Note Donotuseinterpreter, Image - 01/08/[address] [address] XRay Report Signed Patient: Grace WilloughbyMR#: [id number] : 1970Acct:[id number] Age/Sex: 54 / FADM Date: 01/08/25 Loc: .[facility] Attending Dr: Maureen Watson MD Ordering Physician: Maureen Watson MD Date of Service: 01/08/25 Procedure(s): XR KUB Accession Number(s): [id number] cc: Maureen Watson MD; Beverly Valerio Reason for Exam: left renal stone possible stent removal EXAMINATION: XR ABDOMEN KUB CLINICAL INDICATION: left renal stone possible stent removal COMPARISON: January 07, 2025 and March 23, 2022 TECHNIQUE: AP view of the abdomen. FINDINGS: Double-J catheter is present in the left side extending from the region of the kidney to the bladder. No definite stone is seen. Multiple calcifications in the pelvis are consistent with phleboliths. Bowel gas pattern is within normal limits. XR/XR KUB IMPRESSION: Left-sided double-J catheter extending between the kidney and bladder. Electronically signed by: Alfredo Ho MD 01/08/2025 09:50 AM EDT RP Dictated By: Alfredo Ho MD Signed By: <Electronically signed by Alfredo Ho MD in OV> 01/08/2550 DD/ 0845 TD/TT: 01/08/25 0850 Coal Pipeline Operator: [facility] External Provider IMG XR PROCEDURES Final Result * Culture, Urine, Routine (01/07/2025 11:15 AM EDT) Urine Urine specimen from urinary conduit / Unknown 01/07/2025 11:15 AM EDT 01/07/2025 11:25 AM EDT Comment:Urine Cath Narrative [facility] - 01/09/2025 10:37 AM EDT Urine Culture No growth. Specimen Source: Urine Catheterized Generic External Data Provider LAB MICROBIOLOGY - GENERAL ORDERABLES Final Result Performing Organization Address City/State/[facility] Co de Phone Number [facility] [address] [place] [phone] * FL Guidance in OR (01/07/2025 10:50 AM EDT) Anatomical Region Laterality Modality X-Ray Angiograph y 01/07/2025 10:5 0 AM EDT Narrative 01/08/2025 8:20 AM EDT [address] [address] Fluoroscopy Report Signed Patient: Grace Willoughby MR#: [id number] : 1970 Acct:[id number] Age/Sex: 54 / F ADM Date: 01/07/25 Loc: HO.[facility] Attending Dr: Maureen Watson MD Ordering Physician: Maureen Watson MD Date of Service: 01/07/25 Procedure(s): FL guidance in OR Accession Number(s): [id number] cc: Maureen Watson MD; Beverly Valerio Reason for Exam: cystoscopy, ureteroscopy, retro, laser, stent plac EXAMINATION: XR FLUOROSCOPY WITH IMAGES CLINICAL INFORMATION: Left retrograde ureteroscopy with stent placement. COMPARISON: None available. TECHNIQUE: Fluoroscopy provided to: Dr. Odin Palacio Fluoroscopy time: 20.9 seconds Dose: 8.98 mGy Images: 5 FINDINGS: 5 fluoroscopic spot images taken during retrograde left ureteroscopy and stent placement. Please refer to the full operative report for details. FL/FL guidance in OR IMPRESSION: Fluoroscopic guidance. Electronically signed by: Matti Bradford MD 01/08/2025 08:17 AM EDT RP Dictated By: Matti Bradford MD Signed By: <Electronically signed by Matti Bradford MD in OV> 01/08/25 0817 DD/ 1050 TD/TT: 01/07/25 1205 Coal Pipeline Operator: Procedure Note Donotuseinterpreter, Image - 01/08/2025 [place] [address] Fluoroscopy Report Signed Patient: Grace WilloughbyMR#: [id number] : 1970Acct:[id number] Age/Sex: 54 / FADM Date: 01/07/25 Loc: .[facility] Attending Dr: Maureen Watson MD Ordering Physician: Maureen Watson MD Date of Service: 01/07/25 Procedure(s): FL guidance in OR Accession Number(s): [id number] cc: Maureen Watson MD; Beverly Valerio Reason for Exam: cystoscopy, ureteroscopy, retro, laser, stent plac EXAMINATION: XR FLUOROSCOPY WITH IMAGES CLINICAL INFORMATION: Left retrograde ureteroscopy with stent placement. COMPARISON: None available. TECHNIQUE: Fluoroscopy provided to: Dr. Odin Palacio Fluoroscopy time: 20.9 seconds Dose: 8.98 mGy Images: 5 FINDINGS: 5 fluoroscopic spot images taken during retrograde left ureteroscopy and stent placement. Please refer to the full operative report for details. FL/FL guidance in OR IMPRESSION: Fluoroscopic guidance. Electronically signed by: Matti Bradford MD 01/08/2025 08:17 AM EDT RP Dictated By: Matti Bradford MD Signed By: <Electronically signed by Matti Bradford MD in OV> 01/08/25 0817 DD/ 1050 TD/TT: 01/07/25 1205 Coal Pipeline Operator: [facility] External Provider IMG IR PROCEDURES Final Result * (ABNORMAL) Albumin, Random Urine W/Creatinine (12/11/2024 4:10 PM EDT) Creatinine, Urine 128.91 mg/dL [facility] Microalbumin Urine 229.0 mg/L [facility] Microalbum Creatinine Ratio Ur 177.6(H) <30 ug/mg cr [facility] Comment:Albumin/Creatinine R atio Reference Ranges: Normal: < 30 ug/mg creatinine Microalbuminuria: 30 - 300 ug/mg creatinineClinical Albuminuria: > 300 ug/mg creatinine 12/11/2024 4:10 PM EDT 12/11/2024 5:22 PM EDT Generic External Data Provider LAB URINE ORDERAB LES Final Result Performing Organization Address City/[facility] Co de Phone Number [facility] [address] [place] [phone] * (ABNORMAL) Urine Protein, Total, Random without Creatinine (12/11/2024 4:10 PM EDT) Protein, Total, Random Urine 39(H) <12 mg/dL [facility] 12/11/2024 4:10 PM EDT 12/11/2024 5:22 PM EDT Generic External Data Provider LAB URINE ORDERAB LES Final Result Performing Organization Address City/[facility]/ZIP Co de Phone Number [facility] [address] [place] [phone] * (ABNORMAL) Urinalysis Complete (12/11/2024 4:10 PM EDT) Color Urine Yellow [facility] Appearance Urine Clear [facility] PH 5.5 5.0 - 9.0 [facility] Glucose Urine UA Negative Negative mg/dL [facility] Urine Blood Moderate (2+)(A) Negative [facility] Specific [place] - Urine 1.020 1.005 - 1.025 [facility] Urine Protein 30 (1+)(A) Neg-Trace mg/dL [facility] Urine Ketones Negative Negative mg/dL [facility] Nitrite Urine Negative Negative [facility] Leukocyte Esterase Urine Trace(A) Negative [facility] RBC Urine 6-10(A) 0 - 2 /HPF [facility] Urine WBC 6-10(A) 0 - 5 /HPF [facility] Urine Squamous Epithelial Cell 3-5 0 - 2 /HPF [facility] Other Crystals Urine Present [facility] Urine Bacteria Trace None Seen [facility] Hyaline Casts, Urine 3-5 0 - 2 /LPF [facility] 12/11/2024 4:10 PM EDT 12/11/2024 5:22 PM EDT us Generic External Data Provider LAB URINE ORDERAB LES Final Result [facility] [address] [place] [phone] * (ABNORMAL) VITAMIN D 25-OH (D2 AND D3) (12/11/2024 3:16 PM EDT) Vitamin D, 25-OH, D2 <4 ng/mL [facility] Comment:This test was develo ped and its analytical performancecharacteristics have been determined by [employer] [place], [place]. It hasnot been cleared or approved by the U.S. Food and DrugAdministration. This assay has been validated pursuantto the CLIA regulations and is used for clinicalpurposes.THIS TEST WAS PERFORMED AT:[employer]/[id number] [place] [id number] W. MASON,MD,PHD Vitamin D, 25-OH, D3 21 ng/mL [facility] Comment:This test was bev puente and its analytical performancecharacteristics have been determined by [employer] [place], [place]. It hasnot been cleared or approved by the U.S. Food and DrugAdministration. This assay has been validated pursuantto the CLIA regulations and is used for clinicalpurposes. Vitamin D, 25-OH, Total 21(A) 30 - 100 ng/mL [facility] Comment:Vitamin D, 25-Hydrox y reports concentrations of twocommon forms, 25-OHD2 and 25-OHD3. 25-OHD3 indicatesboth endogenous production and supplementation.25-OHD2 is an indicator of exogenous sources such asdiet or supplementation. Therapy is based onmeasurement of Total 25-OHD, with levels <20 ng/mLindicative of Vitamin D deficiency, while levelsbetween 20 ng/mL and 30 ng/mL suggest insufficiency.Optimal levels are > or = 30 ng/mL.For additional information, please refer [email or web address].[employer]™/faq/BSX748(This link is being provided for informational/educational purposes only.) 12/11/2024 3:16 PM EDT 12/11/2024 4:15 PM EDT us Generic External Data Provider LAB BLOOD ORDERAB LES Final Result Performing Organization Address City/[facility] Co de Phone Number [facility] [address] [place] [phone] * (ABNORMAL) Uric acid (12/11/2024 3:16 PM EDT) Uric Acid 6.6(H) 2.4 - 5.7 mg/dL [facility] [facility] 12/11/2024 3:16 PM EDT 12/11/2024 4:15 PM EDT Generic External Data Provider LAB BLOOD ORDERAB LES Final Result Performing Organization Address City/[facility]/ZIP Co de Phone Number [facility] [address] [place] [phone] * Phosphate (As Phosphorus) (12/11/2024 3:16 PM EDT) Phosphorus 3.2 2.7 - 4.5 mg/dL [facility] 12/11/2024 3:16 PM EDT 12/11/2024 4:15 PM EDT Generic External Data Provider LAB BLOOD ORDERAB LES Final Result Performing Organization Address [facility] Co de Phone Number [facility] [address] [place] [phone] * PTH, Intact Without Calcium (12/11/2024 3:16 PM EDT) Parathyroid Hormone, Intact 59.1 8.7 - 77.1 pg/mL [facility] 12/11/2024 3:16 PM EDT 12/11/2024 4:15 PM EDT Generic External Data Provider LAB BLOOD ORDERAB LES Final Result Performing Organization Address [facility] Co de Phone Number [facility] [address] [place] [address] [phone] * (ABNORMAL) Basic Metabolic Panel (12/11/2024 3:16 PM EDT) Only the most recent of2 resultswithin the time period is included. Sodium 144 135 - 145 mmol/L [facility] Potassium 3.9 3.3 - 5.1 mmol/L [facility] Chloride 107 96 - 108 mmol/L [facility] Carbon Dioxide 26 22 - 29 mmol/L [facility] Anion Gap 15 12 - 20 [facility] Urea Nitrogen (BUN) 22(H) 9 - 16 mg/dL [facility] Creatinine, Serum 0.79 0.5 - 1.4 mg/dL [facility] Estimated Glomerular Filt Rate >60 [facility] Comment:Chronic Kidney Disea se: Estimated GFR < 60 mL/min/1.27d8Pvdxhb Kidney Disease: Estimated GFR < 15 mL/min/1.73m2 Glucose 119(H) 60 - 115 mg/dL [facility] Calcium 9.8 8.4 - 10.2 mg/dL [facility] 12/11/2024 3:16 PM EDT 12/11/2024 4:15 PM EDT Generic External Data Provider LAB BLOOD ORDERAB LES Final Result Performing Organization Address [facility] de Phone Number [facility] [address] [place] [phone] * Tissue Transglutaminase Antibody, IgA (12/04/2024 4:49 PM EDT) Transglutaminase IgA <1.0 U/mL [facility] Comment:Value Interpretation ----- <15.0 Antibody not detected> or = 15.0 Antibody detectedTHIS TEST WAS PERFORMED AT:[employer] [place] [phone] THOMPSON MD 12/04/2024 4:49 PM EDT 12/04/2024 4:49 PM EDT Generic External Data Provider LAB BLOOD ORDERAB LES Final Result Performing Organization Address [facility] Co de Phone Number [facility] [address] [place] [phone] * (ABNORMAL) C-reactive Protein (12/04/2024 4:49 PM EDT) C Reactive Protein 0.81(H) < or = 0.50 mg/dL [facility] 12/04/2024 4:49 PM EDT 12/04/2024 4:49 PM EDT us Generic External Data Provider LAB BLOOD ORDERAB LES Final Result Performing Organization Address [facility] Co de Phone Number [facility] [address] [place] [address] [phone] * Hepatic Function Panel (12/04/2024 4:49 PM EDT) [facility] Bilirubin, Total 0.3 0.0 - 1.0 mg/dL [facility] Bilirubin, Direct 0.1 0.0 - 0.5 mg/dL [facility] Aspartate Amino Transferase 19 5 - 31 U/L [facility] Alanine Aminotransferase 24 0 - 31 U/L [facility] Total Protein 7.9 6.5 - 8.0 g/dL [facility] Albumin Level 4.9 3.5 - 5.0 g/dL [facility] Alkaline Phosphatase 91 39 - 117 U/L [facility] 12/04/2024 4:49 PM EDT 12/04/2024 4:49 PM EDT Generic External Data Provider LAB BLOOD ORDERAB LES Final Result Performing Organization Address [facility] de Phone Number [facility] [address] [place] [address] [phone] * (ABNORMAL) CBC (12/04/2024 2:32 PM EDT) [facility] White Blood Count 8.6 4.8 - 10.8 X10*3/uL [facility] Red Blood Count 4.13(L) 4.20 - 5.50 X10*6/uL [facility] Hemoglobin 13.2 12.0 - 16.0 g/dl [facility] Hematocrit 39.8 37.0 - 47.0 % [facility] Mean Corpuscular Volume 96.4 80.0 - 98.0 fL [facility] Mean Corpuscular Hemoglobin 32.0 27.0 - 33.0 pg [facility] Mean Corpuscular HGB Conc 33.2 31.0 - 35.0 g/dl [facility] Red Cell Distribution Width 12.9 11.0 - 16.0 % [facility] Platelet Count 238 160 - 400 X10*3/uL [facility] Mean Platelet Volume 10.7 9.4 - 12.3 fL [facility] NRBC Pct Auto 0.0 0.0 - 0.2 /100WBC [facility] NRBC Abs Auto 0.000 0.0 - 0.012 X10*3/uL [facility] 12/04/2024 2:32 PM EDT 12/04/2024 2:32 PM EDT us Generic External Data Provider LAB BLOOD ORDERAB LES Final Result Performing Organization Address [facility]/ZIP Co de Phone Number [facility] [address] [place] [phone] * (ABNORMAL) Hemoglobin A1c (12/04/2024 2:32 PM EDT) Hemoglobin A1c 6.5(H) <6.0 % [facility] Comment:Hemoglobin A1C Refer ence Range Adults: 4.8 - 6.0 % Non diabetic: < 6.0 % Goal: < 7.0 %Additional Action Suggested: > 8.0 %Note: Hemoglobin A1c results are invalid for patients with abnormal amounts of HbF. Blood transfusions may impact the HbA1c concentration in the patient sample. Estimated Average Glucose 140 mg/dL [facility] Comment:eAG = Estimated ave rage glucose which is %A1C expressed asaverage glucose, using the formula of the L3X-WmrbmhoYxoqorb Glucose study (ADAG), Diabetes Care, Vol.31,#8,Dec. 2007 Blood Venous blood specimen / Unknown 12/04/2024 2:32 PM EDT 12/04/2024 2:32 PM EDT us Beverly Valerio DROP SHIPMENT CLERK LAB BLOOD ORDERABLES Final Res ult [facility] [address] [place] [address] [phone] * US Retroperitoneal Complete (11/16/2024 3:35 PM EDT) Anatomical Region Laterality Modality Ultrasound 11/16/2024 3:35 PM EDT Narrative 11/16/2024 3:37 PM EDT [address] [address] Ultrasound Report Signed with Addenda Patient: Grace Willoughby MR#: [id number] : 1970 Acct:[id number] Age/Sex: 54 / F ADM Date: 11/15/24 Loc: HO.US Attending Dr: Maureen Watson MD Ordering Physician: Maureen Watson MD Date of Service: 11/15/24 Procedure(s): US retroperitoneal comp Accession Number(s): [id number] cc: Maureen Watson MD; Beverly Valerio ADDENDUM This document has been electronically signed by: Evans Tipton MD on 11/16/2024 15:35:51 ADDENDUM: Receipt of this report by the clinical staff was confirmed with Leslye Waters RDMS on Nov 16, 2024 15:51:00 EDT. This document has been electronically signed by: Darlene Reddy on 11/16/2024 15:51:17 Addendum Dictated By: Evans Tipton MD Addendum Signed By: <Electronically signed by Evans Tipton MD in OV> 11/16/241551 Addendum Cosigned By: DD/ /01/1535 TD/TT: 11/16/2405/01/1551 CLINICAL HISTORY: N20.0 - Calculus of kidney US retroperitoneum with color Doppler Comparison: US/SR - US ABDOMEN LIMITED - 06/13/23 09:44 EST US/KS/SR - US BLADDER - 10/05/22 14:42 EDT US/KS/SR - US RENAL BI - 09/28/22 12:46 EDT Findings: Right kidney normal size and echotexture, 12.3 cm length. No hydronephrosis. Normal color flow. No nephrolithiasis. No renal masses. Left kidney normal size and echotexture, 14.1 cm in length. Moderate hydronephrosis. Normal color flow. A total of 3 calculi in the left renal pelvis measuring 9 x 6 x 10 mm, 12 x 7 x 10 mm and 15 x 11 x 11 mm largest near the left UPJ. Urinary bladder is unremarkable. Prevoid volume 171.3 mL. Postvoid volume 8.7 mL. Ureteral jets are visualized bilaterally Impression: 1. Moderate hydronephrosis on the left with 3 calculi in the left renal pelvis largest near the left UPJ. There has been progression of disease when compared to 09/28/2022 ultrasound 2. 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, Image - 11/16/2024 [place] [address] Ultrasound Report Signed with Addenda Patient: Grace WilloughbyMR#: [id number] : 1970Acct:[id number] Age/Sex: 54 / FADM Date: 11/15/24 Loc: HO.US Attending Dr: Maureen Watson MD Ordering Physician: Maureen Watson MD Date of Service: 11/15/24 Procedure(s): US retroperitoneal comp Accession Number(s): [id number] cc: Maureen Watson MD; Beverly Valerio ADDENDUM This document has been electronically signed by: Evans Tipton MD on 11/16/2024 15:35:51 ADDENDUM: Receipt of this report by the clinical staff was confirmed with Leslye Waters RDMS on Nov 16, 2024 15:51:00 EDT. This document has been electronically signed by: Darlene Reddy on 11/16/2024 15:51:17 Addendum Dictated By: Evans Tipton MD Addendum Signed By: <Electronically signed by Evans Tipton MD in OV> 11/16/241551 Addendum Cosigned By: DD/ /01/1535 TD/TT: 11/16/2405/01/1551 CLINICAL HISTORY: N20.0 - Calculus of kidney US retroperitoneum with color Doppler Comparison: US/SR - US ABDOMEN LIMITED - 06/13/23 09:44 EST US/KS/SR - US BLADDER - 10/05/22 14:42 EDT US/KS/SR - US RENAL BI - 09/28/22 12:46 EDT Findings: Right kidney normal size and echotexture, 12.3 cm length. No hydronephrosis. Normal color flow. No nephrolithiasis. No renal masses. Left kidney normal size and echotexture, 14.1 cm in length. Moderate hydronephrosis. Normal color flow. A total of 3 calculi in the left renal pelvis measuring 9 x 6 x 10 mm, 12 x 7 x 10 mm and 15 x 11 x 11 mm largest near the left UPJ. Urinary bladder is unremarkable. Prevoid volume 171.3 mL. Postvoid volume 8.7 mL. Ureteral jets are visualized bilaterally Impression: 1. Moderate hydronephrosis on the left with 3 calculi in the left renal pelvis largest near the left UPJ. There has been progression of disease when compared to 09/28/2022 ultrasound 2. 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: us [facility] External Provider IMG US PROCEDURES Edited Result - Final * (ABNORMAL) Lipid Panel, Standard (05/24/2023 9:49 AM EST) Triglycerides 190(H) <150 mg/dL [facility] Comment:Desirable Triglyceri de: less than 150 mg/dLBorderline High Triglyceride 150-199 mg/dLHigh Triglyceride: 200-499 mg/dLVery High Triglyceride: greater than or equal to 5OO mg/dL Cholesterol 147 <200 mg/dL [facility] Comment:Desirable Cholestero l: less than 200 mg/dLBorderline High Cholesterol: 200-239 mg/dLHigh Cholesterol: greater than 239 mg/dL LDL Cholesterol Calculated 81 <100 mg/dL [facility] Comment:Desirable LDL: less than 100 mg/dLNear Optimal/Above Optimal LDL: 110- 129 mg/dLBorderline High LDL: 130-159 mg/dLHigh LDL: 160-189 mg/dLVery High LDL: greater than or equal to 190 mg/dL HDL Cholesterol 28(L) >40 mg/dL [facility] Comment:Desirable HDL: great er than 40 mg/dL Note: This HDL assay may give artificially low results in patients with liver disease. Blood Venous blood specimen / Unknown 05/24/2023 9:49 AM EST 05/24/2023 11:20 AM EST Beverly Valerio DROP SHIPMENT CLERK LAB BLOOD ORDERABLES Final Res ult [facility] [address] [place] [phone] * Mammography Report 1 (06/24/2021 1:15 PM EST) Anatomical Region Laterality Modality Breast Bilateral Mammography 06/24/2021 1:15 PM EST Narrative 06/25/2021 2:11 PM EST Refer to the Notes tab for result details [facility] Procedure: Mammography Report 1 Procedure Note Provider, MD Zhen - 07/31/2022 Refer to the Notes tab for result details [facility] Procedure: Mammography Report 1 Kim Downey DROP SHIPMENT CLERK IMG BI PROCEDURES Final Result * HEPATITIS C AB W/REFL TO HCV RNA, QN, PCR (03/31/2021 10:03 AM EST) HEPATITIS C ANTIBODY NON-REACT DAT NON-REACT DAT [facility] INDEX 0.01 <1.00 [facility] Comment: HCV antibody was non-reactive. There is no laboratory evidence of HCV infection. In most cases, no further action is required. However, if recent HCV exposure is suspected, a test for HCV RNA (test code 72496) is suggested. For additional information please refer to http://GetFresh.IDverge/faq/QDU72h2 (This link is being provided for informational/ educational purposes only.) 03/31/2021 10:0 3 AM EST Kim Downey [facility] HISTORICAL/NON ORDERABLE LABS Final Result [facility] [address] * HIV 1/2 ANTIGEN/ANTIBODY,FOURTH GENERATION W/RFL (03/31/2021 10:03 AM EST) Pathologist [facility] HIV-1/2 ANTIGEN AND ANTIBODIES, 4TH GENERATION W/ REFLEX NON-REACT DAT NON-REACT DAT [facility] Comment: HIV-1 antigen and HIV-1/HIV-2 antibodies were not detected. There is no laboratory evidence of HIV infection. PLEASE NOTE: This information has been disclosed to you from records whose confidentiality may be protected by state law. If your state requires such protection, then the state law prohibits you from making any further disclosure of the information without the specific written consent of the person to whom it pertains, or as otherwise permitted by law. A general authorization for the release of medical or other information is NOT sufficient for this purpose. For additional information please refer to http://GetFresh.IDverge/faq/UKJ952 (This link is being provided for informational/ educational purposes only.) The performance of this assay has not been clinically validated in patients less than 2 years old. 03/31/2021 10:0 3 AM EST Kim Downey DROP SHIPMENT CLERK LAB BLOOD ORDERABLES Final Res ult [facility] [address] [place] [address], from Last 3 Months or Most Recently Relevant to Health Maintenance Insurance [facility] C3 Care Teams Baggage And Mail Agent Relationship Specialty Start Date End Date Beverly Valerio FNP [address] [place] [phone] PCP - General Family Medicine 12/31/21
--- OUTSIDE RECORDS SUMMARY | 2025-01-31 13:52 | XMS_ITS | Encounter Summary ---
Author Organization [employer] Address [address] [place] [address] [address] [place] [address] Care Team Providers Care Road Production General Manager Name Role Phone Beverly Valerio Primary Care Provider [phone] Reason for Visit * Reason Onset Date Comments Med Refill 12/18/2023 Encounter Details Date Type Department Care Team ([facility] st Contact Info) Description 12/18/2023 Refill [facility] [address] [place] [address] Beverly Valerio FNP [address] [place] [address] Social History Tobacco Use Types Packs/Day Years [...] documented as of this encounter Care Teams Road Production General Manager Relationship Specialty Start Date End Date Beverly Valerio FNP [address] [place] [phone] PCP - General Family Medicine 12/31/21 documented as of this encounter
== END 2025-01-31 09:15 | disposition home or self-care (01) ==
LOC: HO.LAB 09:14
PROVIDERS: PCP Registered Nurse; Visit Provider Urology
DX: N20.0 Calculus of kidney (principal); N13.30 Unspecified hydronephrosis; Z96.0 Presence of urogenital implants
CPT/HCPCS: 81003; 87086; 99212

== ENCOUNTER 2025-02-03 12:07 | Outpatient (REF) | payer MEDICAID, SELFPAY ==
--- NOTE | ~2025-02-03 | XR_ITS ---
EXAMINATION: XR ABDOMEN KUB CLINICAL INDICATION: N20.0 - Calculus of kidney , -Left ureteral stent present, status post left ESWL on 01/08/2025 COMPARISON: 01/08/2025 TECHNIQUE: AP view of the abdomen. FINDINGS: Double-J stent is again seen extending from the region of the left renal pelvis to the bladder. It is positioned similar to the prior. A small amount of gas is present in small bowel. There is stool and gas in the Right colon and rectum. XR/XR KUB IMPRESSION: Stable positioning of the double-J left ureteral stent Electronically signed by: Alfredo Ho MD 02/03/2025 12:56 PM EDT
--- OUTSIDE RECORDS SUMMARY | 2025-02-03 13:28 | XMS_ITS | Clinical Summary ---
Author Organization [employer] Address [address] [place] [address] [address] [place] [address] Care Team Providers Care Costumer Name Role Phone Beverly Valerio DEIDRA Primary Care Provider [phone] Allergies No known active allergies Medications acetaminophen (Tylenol 8 Hour) 650 MG ER tablet PLEASE SEE ATTACHED FOR DETAILED DIRECTIONS 12/07/19 Active ProAir HFA 108 (90 Base) MCG/ACT [...] complication, without long-term current use of insulin (HCC) Use to test blood sugar 1-2 times daily 100 each 10/08/19 25 Active FreeStyle lancetsIndica tions:Type 2 diabetes mellitus without complication, without long-term current use of insulin (HCC) 1 each by Other route 2 times daily. Use to test blood sugar 1-2 times daily 100 each 10/08/19 25 Active FREESTYLE LITE test stripIndicati ons:Type 2 diabetes mellitus without complication, without long-term current use of insulin (HCC) Use to test blood sugar 2 times daily 100 each 10/08/19 25 2025 Active Blood Glucose Monitoring Suppl (FreeStyle [place] Lite) w/Device kitIndication s:Type 2 diabetes mellitus without complication, without long-term current use of insulin (HCC) Use to test blood sugar 2 times daily 1 kit 1 10/08/19 25 Active metFORMIN (Glucophage) 1000 MG tablet TAKE 1 TABLET BY MOUTH TWICE A DAY WITH BREAKFAST AND DINNER 180 tablet 3 10/29/19 25 Active Trulicity 1.5 MG/0.5ML solution auto-injector Indications:T ype 2 diabetes mellitus without complication, without long-term current use of insulin ([facility]) INJECT 1 PEN SUBCUTANEOUSLY ONCE A WEEK 2 mL 2 01/16/20 25 Active Dulaglutide (Trulicity) 1.5 MG/0.5ML solution auto-injector Indications:T ype 2 diabetes mellitus without complication, without long-term current use of insulin ([facility]) Inject 1.5 mg under the skin 1 (one) time per week. 2 mL 2 10/08/19 25 2024 Discontinued Active Problems Problem Noted Date Diagnosed Date Osteoarthritis of both hips 10/08/2024 Overview (10/08/2024): - March 2024: X-rays demonstrate bilateral mild hip osteoarthritis -Evaluated by [facility] April 2024. Plan for eval of hip OA versus low back pain Assessment & Plan (10/08/2024 5:20 PM EDT): - Encouraged to contact office regarding reestablishing with PT and possible transportation assistance. May request PT 1 through our office. Dental calculus 07/18/2023 Periodontal disease 07/18/2023 Bleeding gums 07/18/2023 Localized gingival recession, minimal 07/18/2023 NAFLD (nonalcoholic fatty liver disease) 024 Overview (10/07/2024): Abd US completed Jun 2023 c/w fatty [...] hx endometrial CA Malignant neoplasm of endometrium (CMS/HCC) 08/2022 Overview (08/09/2022): Low Risk Stage 1A, grade 1 or 2 endometriod treated with hysterectomy Jun 2018 established with [facility] import export clerk/onc 2019 Recommendation for screening was q 6 months for 1st year, then yearly, can be montored by transplant immunologist or import export clerk onc beginning at 24 months pap test not indicated insufficient data to support Ca125, radiographic imaging CT or PET +/- Ca125 if recurrence expected Assessment & Plan (08/12/2022 6:32 PM EDT): Ms. Willoughby to call [facility] CASEWORK MANAGER/Onc to see appt date for next follow up Routine health maintenance 08/09/2022 Overview (03/07/2024): Colonoscopy: referred to GI 08/09/22, repeat referral 02/28/24 Mammogram: 06/29 BIRADS-2 repeat yearly Pap: not indicated, monitored by oncologist at [facility] for endometrial cancer surveillance Dental: [facility] Dental S/P laparotomy 06/18/2018 History of [...] & D quantitative PCR test. Recommendation for [id number] liver ultrasound screening for HCC. Labs from [facility] 10/21/21: Hep B core ab (+), [...] Overview (08/09/2022): May 2016 Pt wojciech at [facility] Clinician Kelly Sheridan [phone] Last Assessment & Plan: Followed by provider. Overview: May 2016 Pt maryluwed at [facility] Clinician Kelly Sheridan [phone] Last Assessment & Plan: Followed by provider. [...] consideration of bariatric procedure once healed from [facility]. 04/17/2018: Class 3 obesity patient's [...] GI -Per previous records: 04/16/2018: Seen in CASEWORK MANAGER office for new diagnosis of FIGO G1 endometrial CA. Patient with severe anemia, last Hct 29 on 01/23/18. Has two appointments for iron infusions at [facility] for 05/15/18 and 05/25/18. + [facility] referred to GI 07/2015 Assessment & Plan [...] above goal -Monofilament wnl: 12/06/21 -Referred to [facility] Eye care 08/09/22 for TY Assessment [...] Diagnosed Date Resolved Date Adenocarcinoma of endometrium (CMS/HCC) 02/06/2018 08/09/2022 Overview (08/09/2022): 08/01/2018: Cuff check great. Moving to [place] tomorrow, will do some research and contact patient with my recommendation for a CASEWORK MANAGER ONC. Reviewed Dr. Hadley's recs with [...] findings post-op. Patient planning to move to [place], [place] in the spring and counseled if needs adjuvant therapy prior to her move will need to go to [place] for that and see a CASEWORK MANAGER oncologist--if no need for adjuvant therapy I can continue to monitor her here and she can take her records with her to [place]. Initiated discussion on bariatric surgery post-op to [...] LN biopsy/cysto--plan for OR on 06/18/17 with CASEWORK MANAGER ONC Christen Hadley from [facility] at . Patient counseled on natural history [...] first time meeting patient, but will strongly branch credit counselor patient at next visit about her [...] done and repeat US ordered. To see BABY FORMULA WORKER in 1 month for f/u and discuss [...] w/ Dr. Hyde prior to moving to [place] where she will transfer care Overview: [ [...] findings post-op. Patient planning to move to [place], [place] in the spring and counseled if needs adjuvant therapy prior to her move will need to go to [place] for that and see a CASEWORK MANAGER oncologist--if no need for adjuvant therapy I can continue to monitor her here and she can take her records with her to [place]. Initiated discussion on bariatric surgery post-op to [...] LN biopsy/cysto--plan for OR on 06/18/17 with CASEWORK MANAGER ONC Christen Hadley from [facility] at . Patient counseled on natural history [...] first time meeting patient, but will strongly branch credit counselor patient at next visit about her [...] done and repeat US ordered. To see BABY FORMULA WORKER in 1 month for f/u and discuss [...] Encounters Date Type Department Care Team Description 02/03/2025 Orders Only [facility] External Provider, [facility] 01/31/2025 Orders Only GENERIC EXTERNAL DATA DEPARTMENT Provider, Generic External Data 01/14/2025 Refill [facility] [address] [place] [address] Beverly Valerio FNP Type 2 diabetes mellitus without complication, without long-term current use of insulin ([facility]) 01/08/2025 Orders Only GENERIC EXTERNAL DATA DEPARTMENT Provider, Generic External Data 01/07/2025 Orders Only GENERIC EXTERNAL DATA DEPARTMENT Provider, Generic External Data 12/18/2024 Telephone [facility] [address] [place] [address] Beverly Valerio FNP recall 12/18/2024 Telephone [facility] [address] [place] [address] Beverly Valerio FNP 12/11/2024 Orders Only GENERIC EXTERNAL DATA DEPARTMENT Provider, Generic External Data 12/11/2024 Results Follow-Up [facility] [address] [place] [address] Beverly Valerio FNP Hemoglobin A1c 12/04/2024 Orders Only GENERIC EXTERNAL DATA DEPARTMENT Provider, Generic External Data 11/15/2024 Orders Only [facility] External Provider, [facility] from Last 3 Months Immunizations Immunization Administration [...] Prophylaxis 01/19/2024 07/18/2023 Lipid Panel 05/24/2024 05/24/2023, 12/06, 03/31/2021 Dental X-Ray: [facility] 06/06/2024 06/05/2023 Depression Screening 06/07/2024 06/07/2023, 06/07/19 24 Eye Exam 01/03/2025 01/03/2023, 12/07, 01/03/2023, Additional history exists COVID-19 Vaccine ( [...] Name Priority Date/Time Associated Diagnosis Comments XR KUB AND UPRIGHT 2 VIEWS Routine 02/03/2025 12:47 PM EDT CULTURE, URINE, ROUTINE Routine 02/01/20 9:14 AM EDT GLUCOSE, WHOLE BLOOD Routine 01/08/2025 9:09 AM [...] complication, without long-term current use of insulin ([facility]) US RETROPERITONEAL COMPLETE Routine 11/16/2024 3:35 PM [...] Relevant to Health Maintenance Results * XR KUB and Upright 2 Views (02/03/2025 12:47 PM EDT) Only the most recent of2 resultswithin the time period is included. Anatomical Region Laterality Modality Radiographic Brittaney ging 02/03/2025 12:4 7 PM EDT Narrative 02/03/2025 12:59 PM EDT [place] [address] XRay Report Signed Patient: Grace Willoughby MR#: [id number] : 1970 Acct:[id number] Age/Sex: 54 / F ADM Date: 02/03/25 Loc: E[facility] Attending Dr: Maureen Watson MD Ordering Physician: Maureen Watson MD Date of Service: 02/03/25 Procedure(s): XR KUB Accession Number(s): [id number] cc: Maureen Watson MD; Beverly Valerio Reason for Exam: N20.0 - Calculus of kidney EXAMINATION: XR ABDOMEN KUB CLINICAL INDICATION: N20.0 - Calculus of kidney , -Left ureteral stent present, status post left ESWL on 01/08/2025 COMPARISON: 01/08/2025 TECHNIQUE: AP view of the abdomen. FINDINGS: Double-J stent is again seen extending from the region of the left renal pelvis to the bladder. It is positioned similar to the prior. A small amount of gas is present in small bowel. There is stool and gas in the Right colon and rectum. XR/XR KUB IMPRESSION: Stable positioning of the double-J left ureteral stent Electronically signed by: Alfredo Ho MD 02/03/2025 12:56 PM EDT RP Dictated By: Alfredo Ho MD Signed By: <Electronically signed by Alfredo Ho MD in OV> 02/03/25 1256 DD/ 1247 TD/TT: 02/03/25 1250 Finisher Operator: Procedure Note Donotuseinterpreter, Image - 02/03/[address] [address] XRay Report Signed Patient: Preet Willoughby#: [id number] : 1970Acct:[id number] Age/Sex: 54 / FADM Date: 02/03/25 Loc: ELOINA Attending Dr: Maureen Watson MD Ordering Physician: Maureen Watson MD Date of Service: 02/03/25 Procedure(s): XR KUB Accession Number(s): [id number] cc: Maureen Watson MD; Beverly Valerio Reason for Exam: N20.0 - Calculus of kidney EXAMINATION: XR ABDOMEN KUB CLINICAL INDICATION: N20.0 - Calculus of kidney , -Left ureteral stent present, status post left ESWL on 01/08/2025 COMPARISON: 01/08/2025 TECHNIQUE: AP view of the abdomen. FINDINGS: Double-J stent is again seen extending from the region of the left renal pelvis to the bladder. It is positioned similar to the prior. A small amount of gas is present in small bowel. There is stool and gas in the Right colon and rectum. XR/XR KUB IMPRESSION: Stable positioning of the double-J left ureteral stent Electronically signed by: Alfredo Ho MD 02/03/2025 12:56 PM EDT RP Dictated By: Alfredo Ho MD Signed By: <Electronically signed by Alfredo Ho MD in OV> 02/03/25 1256 DD/ 1247 TD/TT: 02/03/25 1250 Finisher Operator: [facility] External Provider IMG XR PROCEDURES Final Result * Culture, Urine, Routine (01/31/2025 9:14 AM EDT) Only the most recent of2 resultswithin the time period is included. Urine Urine specimen obtained by clean catch procedure / Unknown 01/31/2025 9:14 AM EDT 01/31/2025 4:55 PM EDT Comment:UACC Narrative [facility] - 02/02/2025 9:12 AM EDT Urine Culture Report Result Urine Culture < 10,000 cfu/ml Specimen Source: Urine clean catch Generic External Data Provider LAB MICROBIOLOGY - GENERAL ORDERABLES Final Result Performing Organization Address [facility] Co de Phone Number [facility] [address] [place] [phone] * (ABNORMAL) Glucose, Whole Blood (01/08/2025 9:09 AM EDT) Only the most recent of2 resultswithin the time period is included. Glucose, Whole Blood 162(H) 60 - 115 mg/dL [facility] Comment:METER #: [id number] 01/08/2025 9:09 AM EDT 01/08/2025 9:12 AM EDT Generic External Data Provider LAB BLOOD ORDERAB LES Final Result Performing Organization Address [facility] Co de Phone Number [facility] [address] [place] [phone] * FL Guidance in OR (01/07/2025 10:50 AM EDT) Anatomical Region Laterality Modality X-Ray Angiograph y 01/07/2025 10:5 0 AM EDT Narrative 01/08/2025 8:20 AM EDT [place] [address] Fluoroscopy Report Signed Patient: Grace Willoughby MR#: [id number] : 1970 Acct:[id number] Age/Sex: 54 / F ADM Date: 01/07/25 Loc: HO.SSS Attending Dr: Maureen Watson MD Ordering Physician: Maureen Watson MD Date of Service: 01/07/25 Procedure(s): FL guidance in OR Accession Number(s): [id number] cc: Maureen Watson MD; Beverly Valerio Reason [...] Matti Bradford MD 01/08/2025 08:17 AM EDT Dictated By: Matti Bradford MD Signed By: <Electronically signed by Matti Bradford MD in OV> 01/08/25 0817 DD/ 1050 TD/TT: 01/07/25 1205 Finisher Operator: Procedure Note Donotuseinterpreter, Image - 01/08/[address] [address] Fluoroscopy Report Signed Patient: Grace WilloughbyMR#: [id number] : 1970Acct:[id number] Age/Sex: 54 / FADM Date: 01/07/25 Loc: HO.SSS Attending Dr: Maureen Watson MD Ordering Physician: Maureen Watson MD Date of Service: 01/07/25 Procedure(s): FL guidance in OR Accession Number(s): [id number] cc: Maureen Watson MD; Beverly Valerio Reason [...] 01/08/25 0817 DD/ 1050 TD/TT: 01/07/25 1205 Finisher Operator: [facility] External Provider IMG IR PROCEDURES Final Result * (ABNORMAL) Albumin, Random Urine W/Creatinine (12/11/2024 4:10 PM EDT) Creatinine, Urine 128.91 mg/dL [facility] Microalbumin Urine 229.0 mg/L [facility] Microalbum Creatinine Ratio Ur 177.6(H) <30 ug/mg cr [facility] Comment:Albumin/Creatinine R atio Reference Ranges: Normal: < 30 ug/mg creatinine Microalbuminuria: 30 - 300 ug/mg creatinineClinical Albuminuria: > 300 ug/mg creatinine 12/11/2024 4:10 PM EDT 12/11/2024 5:22 PM EDT Generic External Data Provider LAB URINE ORDERAB LES Final Result [facility] [address] [place] [phone] * (ABNORMAL) Urine Protein, Total, Random without Creatinine (12/11/2024 4:10 PM EDT) Protein, Total, Random Urine 39(H) <12 mg/dL [facility] 12/11/2024 4:10 PM EDT 12/11/2024 5:22 PM EDT us Generic External Data Provider LAB URINE ORDERAB LES Final Result Performing Organization Address [facility] Co de Phone Number [facility] [address] [place] [phone] * (ABNORMAL) Urinalysis Complete (12/11/2024 4:10 PM EDT) Color Urine Yellow [facility] Appearance Urine Clear [facility] PH 5.5 5.0 - 9.0 [facility] Glucose Urine UA Negative Negative mg/dL [facility] Urine Blood Moderate (2+)(A) Negative [facility] Specific [place] - Urine 1.020 1.005 - 1.025 [facility] Urine Protein 30 (1+)(A) Neg-Trace mg/dL [facility] Urine Ketones Negative Negative mg/dL [facility] Nitrite Urine Negative Negative [facility] Leukocyte Esterase Urine Trace(A) Negative [facility] RBC Urine 6-10(A) 0 - 2 /HPF [facility] Urine WBC 6-10(A) 0 - 5 /HPF [facility] Urine Squamous Epithelial Cell 3-5 0 - 2 /HPF [facility] Other Crystals Urine Present [facility] Urine Bacteria Trace None Seen [facility] Hyaline Casts, Urine 3-5 0 - 2 /LPF [facility] 12/11/2024 4:10 PM EDT 12/11/2024 5:22 PM EDT us Generic External Data Provider LAB URINE ORDERAB LES Final Result Performing Organization Address City/[facility]/ZIP Co de Phone Number [facility] [address] [place] [phone] * (ABNORMAL) VITAMIN D 25-OH (D2 AND D3) (12/11/2024 3:16 PM EDT) Vitamin D, 25-OH, D2 <4 ng/mL [facility] Comment:This test was develo ped and its analytical performancecharacteristics have been determined by [employer] [place], [place]. It hasnot been cleared or approved by the U.S. Food and DrugAdministration. This assay has been validated pursuantto the CLIA regulations and is used for clinicalpurposes.THIS TEST WAS PERFORMED AT:[employer] [id number] [place] [id number] SOLIS MD,PHD Vitamin D, 25-OH, D3 21 ng/mL [facility] Comment:This test was develo ped and its analytical performancecharacteristics have been determined by [employer] [place]. It hasnot been cleared or approved by the U.S. Food and DrugAdministration. This assay has been validated pursuantto the CLIA regulations and is used for clinicalpurposes. Vitamin D, 25-OH, Total 21(A) 30 - 100 ng/mL [facility] Comment:Vitamin D, 25-Hydrox y reports concentrations [...] = 30 ng/mL.For additional information, please refer tohttp://education.[employer]/faq/UYQ676(This link is being provided for informational/educational purposes only.) 12/11/2024 3:16 PM EDT 12/11/2024 4:15 PM EDT us Generic External Data Provider LAB BLOOD ORDERAB LES Final Result Performing Organization Address [facility]/ZIP Co de Phone Number [facility] [address] [place] [phone] * (ABNORMAL) Uric acid (12/11/2024 3:16 PM EDT) Uric Acid 6.6(H) 2.4 - 5.7 mg/dL [facility] 12/11/2024 3:16 PM EDT 12/11/2024 4:15 PM EDT us Generic External Data Provider LAB BLOOD ORDERAB LES Final Result Performing Organization Address [facility] Co de Phone Number [facility] [address] [place] [phone] * Phosphate (As Phosphorus) (12/11/2024 3:16 PM EDT) Phosphorus 3.2 2.7 - 4.5 mg/dL [facility] 12/11/2024 3:16 PM EDT 12/11/2024 4:15 PM EDT us Generic External Data Provider LAB BLOOD ORDERAB LES Final Result Performing Organization Address [facility] Co de Phone Number [facility] [address] [place] [phone] * PTH, Intact Without Calcium (12/11/2024 3:16 PM EDT) Parathyroid Hormone, Intact 59.1 8.7 - 77.1 pg/mL [facility] 12/11/2024 3:16 PM EDT 12/11/2024 4:15 PM EDT us Generic External Data Provider LAB BLOOD ORDERAB LES Final Result Performing Organization Address City/[facility]/ZIP Co de Phone Number [facility] [address] [place] [phone] * (ABNORMAL) Basic Metabolic Panel (12/11/2024 3:16 PM EDT) Only the most recent of2 resultswithin the time period is included. Sodium 144 135 - 145 mmol/L [facility] Potassium 3.9 3.3 - 5.1 mmol/L [facility] Chloride 107 96 - 108 mmol/L [facility] Carbon Dioxide 26 22 - 29 mmol/L [facility] Anion Gap 15 12 - 20 [facility] Urea Nitrogen (BUN) 22(H) 9 - 16 mg/dL [facility] Creatinine, Serum 0.79 0.5 - 1.4 mg/dL [facility] Estimated Glomerular Filt Rate >60 [facility] Comment:Chronic Kidney Disea se: Estimated GFR < 60 mL/min/1.29h8Cqhvna Kidney Disease: Estimated GFR < 15 mL/min/1.73m2 Glucose 119(H) 60 - 115 mg/dL [facility] Calcium 9.8 8.4 - 10.2 mg/dL [facility] 12/11/2024 3:16 PM EDT 12/11/2024 4:15 PM EDT us Generic External Data Provider LAB BLOOD ORDERAB LES Final Result [facility] [address] [place] [phone] * Tissue Transglutaminase Antibody, IgA (12/04/2024 4:49 PM EDT) Transglutaminase IgA <1.0 U/mL [facility] Comment:Value Interpretation ----- <15.0 Antibody not detected> or = 15.0 Antibody detectedTHIS TEST WAS PERFORMED AT:[employer] [place] [id number] THOMPSON MD 12/04/2024 4:49 PM EDT 12/04/2024 4:49 PM EDT us Generic External Data Provider LAB BLOOD ORDERAB LES Final Result Performing Organization Address [facility] Co de Phone Number [facility] [address] [place] [phone] * (ABNORMAL) C-reactive Protein (12/04/2024 4:49 PM EDT) C Reactive Protein 0.81(H) < or = 0.50 mg/dL [facility] 12/04/2024 4:49 PM EDT 12/04/2024 4:49 PM EDT us Generic External Data Provider LAB BLOOD ORDERAB LES Final Result Performing Organization Address [facility] de Phone Number [facility] [address] [place] [phone] * Hepatic Function Panel (12/04/2024 4:49 PM EDT) Bilirubin, Total 0.3 0.0 - 1.0 mg/dL [facility] Bilirubin, Direct 0.1 0.0 - 0.5 mg/dL [facility] Aspartate Amino Transferase 19 5 - 31 U/L [facility] Alanine Aminotransferase 24 0 - 31 U/L [facility] Total Protein 7.9 6.5 - 8.0 g/dL [facility] Albumin Level 4.9 3.5 - 5.0 g/dL [facility] Alkaline Phosphatase 91 39 - 117 U/L [facility] 12/04/2024 4:49 PM EDT 12/04/2024 4:49 PM EDT us Generic External Data Provider LAB BLOOD ORDERAB LES Final Result Performing Organization Address [facility] Co de Phone Number [facility] [address] [place] [phone] * (ABNORMAL) CBC (12/04/2024 2:32 PM EDT) White Blood Count 8.6 4.8 - 10.8 X10*3/uL [facility] Red Blood Count 4.13(L) 4.20 - 5.50 X10*6/uL [facility] Hemoglobin 13.2 12.0 - 16.0 g/dl [facility] Hematocrit 39.8 37.0 - 47.0 % [facility] Mean Corpuscular Volume 96.4 80.0 - 98.0 fL [facility] Mean Corpuscular Hemoglobin 32.0 27.0 - 33.0 pg [facility] Mean Corpuscular HGB Conc 33.2 31.0 - 35.0 g/dl [facility] [facility] Red Cell Distribution Width 12.9 11.0 - 16.0 % [facility] Platelet Count 238 160 - 400 X10*3/uL [facility] Mean Platelet Volume 10.7 9.4 - 12.3 fL [facility] NRBC Pct Auto 0.0 0.0 - 0.2 /100WBC [facility] NRBC Abs Auto 0.000 0.0 - 0.012 X10*3/uL [facility] 12/04/2024 2:32 PM EDT 12/04/2024 2:32 PM EDT us Generic External Data Provider LAB BLOOD ORDERAB LES Final Result [facility] [address] [place] [address] [phone] * (ABNORMAL) Hemoglobin A1c (12/04/2024 2:32 PM EDT) Hemoglobin A1c 6.5(H) <6.0 % [facility] Comment:Hemoglobin A1C Refer ence Range Adults: 4.8 - 6.0 % Non diabetic: < 6.0 % Goal: < 7.0 %Additional Action Suggested: > 8.0 %Note: Hemoglobin A1c results are invalid for patients with abnormal amounts of HbF. Blood transfusions may impact the HbA1c concentration in the patient sample. Estimated Average Glucose 140 mg/dL [facility] Comment:eAG = Estimated ave rage glucose which is %A1C expressed asaverage glucose, using the formula of the Q2O-NoczjnvMbnbrkt Glucose study (ADAG), Diabetes Care, Vol.31,#8,Dec. 2007 Blood Venous blood specimen / Unknown 12/04/2024 2:32 PM EDT 12/04/2024 2:32 PM EDT us Beverly GAY LAB BLOOD ORDERABLES Final Res ult Performing Organization Address City/State/RUST Co de Phone Number [facility] [address] [place] [phone] * US Retroperitoneal Complete (11/16/2024 3:35 PM EDT) Anatomical Region Laterality Modality Ultrasound 11/16/2024 3:35 PM EDT Narrative 11/16/2024 3:37 PM EDT [address] [address] Ultrasound Report Signed with Addenda Patient: Grace Willoughby MR#: [id number] : 1970 Acct:[id number] Age/Sex: 54 / F ADM Date: 11/15/24 Loc: HO.US Attending Dr: Maureen Watson MD Ordering Physician: Maureen Watson MD Date of Service: 11/15/24 Procedure(s): US retroperitoneal comp Accession Number(s): [id number] cc: Maureen Watson MD; Beverly Valerio ADDENDUM [...] US ABDOMEN LIMITED - 06/13/23 09:44 EST US/LA/SR - US BLADDER - 10/05/22 14:42 EDT US/LA/SR - US RENAL BI - 09/28/22 12:46 [...] in OV> 11/16/241536 DD/ 34 TD/TT: 11/16/241534 Finisher Operator: Procedure Note Donotuseinterpreter, Image - 11/16/[address] [place] [address] Ultrasound Report Signed with Amy Patient: Grace WilloughbyMR#: [id number] : 1970Acct:[id number] Age/Sex: 54 / FADM Date: 11/15/24 Loc: HO.US Attending Dr: Maureen Watson MD Ordering Physician: Maureen Watson MD Date of Service: 11/15/24 Procedure(s): US retroperitoneal comp Accession Number(s): [id number] cc: Maureen Watson MD; Beverly Valerio ADDENDUM [...] US ABDOMEN LIMITED - 06/13/23 09:44 EST US/LA/SR - US BLADDER - 10/05/22 14:42 EDT US/LA/SR - US RENAL BI - 09/28/22 12:46 [...] OV> 11/16/24 1537 DD/ 1535 TD/TT: 11/16/24 153 Finisher Operator: us [facility] External Provider IMG US PROCEDURES Edited Result - Final * (ABNORMAL) Lipid Panel, Standard (05/24/2023 9:49 AM EST) Triglycerides 190(H) <150 mg/dL [facility] Comment:Desirable Triglyceri de: less than 150 mg/dLBorderline High Triglyceride 150-199 mg/dLHigh Triglyceride: 200-499 mg/dLVery High Triglyceride: greater than or equal to 5OO mg/dL Cholesterol 147 <200 mg/dL [facility] Comment:Desirable Cholestero l: less than 200 mg/dLBorderline High Cholesterol: 200-239 mg/dLHigh Cholesterol: greater than 239 mg/dL LDL Cholesterol Calculated 81 <100 mg/dL [facility] Comment:Desirable LDL: less than 100 mg/dLNear Optimal/Above Optimal LDL: 110- 129 mg/dLBorderline High LDL: 130-159 mg/dLHigh LDL: 160-189 mg/dLVery High LDL: greater than or equal to 190 mg/dL HDL Cholesterol 28(L) >40 mg/dL [facility] Comment:Desirable HDL: great er than 40 mg/dL Note: This HDL assay may give artificially low results in patients with liver disease. Blood Venous blood specimen / Unknown 05/24/2023 9:49 AM EST 05/24/2023 11:20 AM EST Beverly Valerio COMPONENTS ENGINEER LAB BLOOD ORDERABLES Final Res ult [facility] [address] [place] [address] [phone] * Mammography Report 1 (06/24/2021 1:15 PM EST) Anatomical Region Laterality Modality Breast Bilateral Mammography 06/24/2021 1:15 PM EST Narrative 06/25/2021 2:11 PM EST Refer to the Notes tab for result details [facility] Procedure: Mammography Report 1 Procedure Note Provider, Zhen, - 07/31/2022 Refer to the Notes tab for result details [facility] Procedure: Mammography Report 1 Kim MANCERAP IMG BI PROCEDURES Final Result * HEPATITIS C AB W/REFL TO HCV RNA, QN, PCR (03/31/2021 10:03 AM EST) HEPATITIS C ANTIBODY NON-REACT DAT NON-REACT DAT [facility] INDEX 0.01 <1.00 [facility] Comment: HCV antibody was non-reactive. There is no laboratory evidence of HCV infection. In most cases, no further action is required. However, if recent HCV exposure is suspected, a test for HCV RNA (test code 68166) is suggested. For additional information please refer to http://education.MyAGENT.HealthMicro/faq/SAN00e5 (This link is being provided for informational/ educational purposes only.) 03/31/2021 10:0 3 AM EST Kim GAY HISTORICAL/NON ORDERABLE LABS Final Result Performing Organization Address City/[facility]/ZIP Co de Phone Number [facility] [address] * HIV 1/2 ANTIGEN/ANTIBODY,FOURTH GENERATION W/RFL (03/31/2021 10:03 AM EST) HIV-1/2 ANTIGEN AND ANTIBODIES, 4TH GENERATION W/ REFLEX NON-REACT DAT NON-REACT DAT [facility] Comment: HIV-1 antigen and HIV-1/HIV-2 [...] purpose. For additional information please refer to http://education.PacerPro/faq/STY231 (This link is being provided for informational/ educational purposes only.) The performance of this assay has not been clinically validated in patients less than 2 years old. 03/31/2021 10:0 3 AM EST us Kim Downey [facility] LAB BLOOD ORDERABLES Final Res ult [facility] [address] from Last 3 Months or Most Recently Relevant to Health Maintenance Insurance [facility] C3 DENTAL-[facility] MEDICAID STAND ADULT * Guarantor: Grace Willoughby Account Type Relation to Patient Date of Phone Billing Address Personal/Family Self [address] [phone] Care Teams Costumer Relationship Specialty Start Date End Date Beverly Valerio FNP [address] [place] [address] PCP - General Family Medicine 12/31/21
--- OUTSIDE RECORDS SUMMARY | 2025-02-03 13:28 | XMS_ITS | Clinical Summary ---
Author Organization [facility] Address [address] [place] [address] Care Team Providers Care Filling Separator Name Role Phone Unavailable Primary Care Provider [...] complication, without long-term current use of insulin ([facility]) Use to clean skin BID PRN DXE11.9 100 Each 11 1 Active sertraline (ZOLOFT) 100 mg tablet Take 150 mg by mouth once daily 1 Active lancets (FREESTYLE LANCETS) 28 gaugeIndications:T ype 2 diabetes mellitus without complication, without long-term current use of insulin ([facility]) Use to check BG BID PRN DX E11.9 Freestyle Lite 100 Each 11 1 Active blood sugar diagnostic stripsIndications: Type 2 diabetes mellitus without complication, without long-term current use of insulin ([facility]) Use to check BG BID [...] complication, without long-term current use of insulin ([facility]) Take 1 Tablet by mouth once daily dxe11.9 90 Tablet 1 Active metFORMIN (GLUCOPHAGE) 1,000 mg tabletIndications: Type 2 diabetes mellitus without complication, without long-term current use of insulin ([facility]) TAKE 1 TABLET BY MOUTH TWICE A DAY WITH FOOD 180 Tablet 2 Active Active Problems Problem Noted Date Diagnosed Date Vitamin D deficiency 07/12/2020 H/O total hysterectomy 10/29/2018 Adenocarcinoma of endometrium ([facility]) Overview (08/01/2018): 08/01/2018: Cuff check great. Moving to [place] tomorrow, will do some research and contact patient with my recommendation for a [facility]. Reviewed Dr. Hadley's recs with patient [...] findings post-op. Patient planning to move to [place], [place] in the spring and counseled if needs adjuvant therapy prior to her move will need to go to [place] for that and see a [facility] oncologist--if no need for adjuvant therapy I can continue to monitor her here and she can take her records with her to [place]. Initiated discussion on bariatric surgery post-op to [...] LN biopsy/cysto--plan for OR on 06/18/17 with [facility] Christen Had[facility] . Patient counseled on natural history [...] first time meeting patient, but will strongly christian counselor patient at next visit about her [...] done and repeat US ordered. To see CHIEF COMMUNICATIONS OFFICER in 1 month for f/u and discuss options including ablation and hysterectomy. Pt declined a Mirena IUD today, though may be open to it next time. Assessment & Plan (07/23/2018 7:34 PM EDT): S/p hysterecomty 06/18/18 Healing well feeling great states some tenderness to mons pubis area however other than that feeling well Energy and mood much improved. [facility] has one f/u janett w/ Dr. Hyde prior to moving to [place] where she will transfer care Assessment & [...] Overview (05/13/2016): May 2016 Pt wojciech at [facility] Clinician Kelly Sheridan [phone] Assessment & Plan (05/06/2018 8:28 PM EST): [...] consideration of bariatric procedure once healed from [facility]. 04/17/2018: Class 3 obesity patient's [...] there is a complication. 04/16/2018: Seen in [facility] office for new diagnosis of FIGO G1 endometrial CA. Patient with severe anemia, last Hct 29 on 01/23/18. Has two appointments for iron infusions at [facility] for 05/15/18 and 05/25/18. Prefers in [...] complication, without long-term current use of insulin ([facility]) 08/13/2013 Overview (07/03/2018): 07/03/2018: Taking metformin bid, unsure about dose as her most recent Rx states once/day--counseled that most recent telephone note from PCP states bid dosing and metformin is usually dosed bid--states will contact PCP via [employer] today to confirm. 06/07/2018: Saw PCP for [...] EDT): Labs pending ... Bipolar II disorder ([facility]) 04/29/2013 Overview (04/11/2018): Overview: Bipolar [...] episode of recurren t major depressive disorder ([facility]) 02/23/2007 Assessment & Plan (05/06/2018 8:27 [...] Administration Dates Next Due Hep B, Adult/Adol (BMIPSRT-G-QNWQN/RECOMBIVAX-ADULT) 01/23/2018,09/29/2017,03/01/2017 INFLUENZA, SEASONAL, INJECTABLE 03/01/2017,02/03 PNEUMOCOCCAL POLYSACCHARIDE [...] 05/08/2024 07/10/19, 12/14/2018, 05/30/2018, Additional history exists [id number]-[id number] () 01/06/2025 Imm-Influenza (#1) 2025 03/01/2017, 02/03/2014 [...] complication, without long-term current use of insulin ([facility]) Encounter for general adult medical examination without abnormal findings HEPATITIS C ANTIBODY Routine 07/10/2020 9:45 AM EST Screening for viral disease LIPID PANEL Routine 07/10/2020 9:45 AM EST Controlled type 2 diabetes mellitus without complication, without long-term current use of insulin ([facility]) Class 3 severe obesity due to excess calories without serious comorbidity with body mass index (BMI) of 45.0 to 49.9 in adult ([facility]) Encounter for general adult medical examination without abnormal findings HEMOGLOBIN GLYCOSYLATED A1C Routine 07/10/2020 9:45 AM EST Controlled type 2 diabetes mellitus without complication, without long-term current use of insulin ([facility]) Class 3 severe obesity due to excess calories without serious comorbidity with body mass index (BMI) of 45.0 to 49.9 in adult ([facility]) Encounter for general adult medical [...] C ANTIBODY (07/10/2020 9:45 AM EST) Pathologist [facility] HEPATITIS C VIRUS SCREEN NEGATIVE NEGATIVE [facility] Blood Blood / Unknown 07/10/2020 9 :45 AM EST 07/10/2020 10:03 AM EST [facility]ative [facility] - 07/10/2020 12:55 PM EST [employer] [address] Pre Press Proofer - Esperanza Stauffer MD PT ID [id number] ORD# [id number] Dona MANCERAP LAB - BLOOD DRAW Final Result [address] [address], * (ABNORMAL) HEMOGLOBIN, GLYCOSYLATED (A1C) (07/10/2020 9:45 AM EST) GLYCATED HEMOGLOBIN A1C 6.6(H) <6.5 % [facility] ESTIMATED AVERAGE GLUCOSE 143 mg/dL [facility] Blood Blood / Unknown 07/10/2020 9 :45 AM EST 07/10/2020 10:03 AM EST Kalee [facility] - 07/10/2020 2:09 PM EST [employer], a member of [address] [address] Pre Press Proofer - Esperanza Stauffer MD PT ID [id number] ORD# [id number] Dona GAY LAB - BLOOD DRAW Final Result Performing Organization Address City/[facility]/ZIP Co de Phone Number [address] [address], [place] [phone] * (ABNORMAL) LIPID PANEL (07/10/2020 9:45 AM EST) CHOLESTEROL 193 0 - 200 mg/dL [facility] TRIGLYCERIDES 322(H) 0 - 150 mg/dL [facility] HDL CHOLESTEROL 34(L) >40 mg/dL [facility] LDL CALCULATED 95 0 - 100 mg/dL [facility] TC-HDLC RATIO 5.7(H) 0 - 4.4 mg/dL [facility] Blood Blood / Unknown 07/10/2020 9 :45 AM EST 07/10/2020 10:03 AM EST Narrative [facility] - 07/10/2020 12:07 PM EST [employer], a member of [address] [address] Pre Press Proofer - Esperanza Stauffer MD PT ID [id number] ORD# [id number] Dona GAY LAB - BLOOD DRAW Edited Result - Final [address] [address], [place] [phone] * (ABNORMAL) COMPRE METAB PANEL (07/10/2020 9:45 AM EST) GLUCOSE 145(H) 70 - 100 mg/dL [facility] Comment:Reference range appl icable to fasting specimens only BUN 15 5 - 25 mg/dL [facility] CREAT 0.72 0.5 - 1.1 mg/dL [facility] GLOMERULAR FILTRATION RATE > 60 [facility] Comment: If patient is -[place], multiply result by 1.21 Chronic Kidney Disease: < 60 ml/min/1.73 square meters Kidney Failure: < 15 ml/min/1.73 square meters SODIUM 137 135 - 145 mEq/L [facility] POTASSIUM 4.2 3.5 - 5.5 mmol/L [facility] CHLORIDE 106 96 - 110 mmol/L [facility] CO2 25 21 - 32 mmol/L [facility] ANION GAP 6 3 - 11 [facility] CALCIUM 9.5 8.5 - 10.5 mg/dL [facility] TOTAL PROTEIN 7.9 6.0 - 8.0 G/dL [facility] ALBUMIN 4.1 3.2 - 5.0 G/dL [facility] BILI, TOTAL 0.3 0.0 - 1.4 mg/dL [facility] SGOT 10 10 - 42 U/L [facility] SGPT 26 10 - 60 U/L [facility] ALK PHOS 119 42 - 121 U/L [facility] Blood Blood / Unknown 07/10/2020 9 :45 AM EST 07/10/2020 10:03 AM EST Narrative [facility] - 07/10/2020 12:07 PM EST [employer] [address] Pre Press Proofer - Esperanza Stauffer MD PT ID [id number] ORD# [id number] Dona MANCERAP LAB - BLOOD DRAW Final Result [facility] [address] [address], * Mammogram Screening (05/23/2018 11:33 AM EST) Impressions Evelia Lowe - 05/23/2018 11:33 AM EST Mammogram Screening (Bilateral)05/17/2018 [facility] Result Impression No mammographic evidence of [...] SUMMARY Risk Assessment results are provided by [employer]. Your patient completed a breast cancer risk [...] SUMMARY Risk Assessment results are provided by [employer]. Your patient completed a breast cancer risk [...] Calculations: May 16 2018 12:51PM Rah Jorgensen [facility] MAMMO Final Result * (ABNORMAL) FECAL GLOBIN BY IMMUNOCHEMISTRY (FIT) (06/29/2015 2:09 PM EST) FECAL HGB IMM 1 DATE - [facility] Comment: COLLECTION DATE NOT GIVEN. TEST RESULTS SHOULD BE INTERPRETED WITH CAUTION. LABELLED DAY 1 FECAL HGB IMM 1 RSLT POS(A) NEG [facility] FECAL HGB IMM 2 [facility] Comment: COLLECTION DATE NOT GIVEN. TEST RESULTS SHOULD BE INTERPRETED WITH CAUTION. LABELLED DAY 2 FECAL HGB IMM 2 RSLT NEG NEG [facility] FECAL HGB IMM 3 DATE [facility] Comment: COLLECTION DATE NOT GIVEN. TEST RESULTS SHOULD BE INTERPRETED WITH CAUTION. LABELLED DAY 3 FECAL HBG IMM 3 RSLT NEG NEG [facility] Stool specimen (specimen) Stool specimen / Unknown 06/29/2015 2:09 PM EST us Serenity Monaco MD LAB BODY FLUIDS AND STOOLS AMB ULATORY Final Result [facility] [address] [place] [address], from Last 3 Months or Most Recently Relevant to Health Maintenance Insurance [place] MEDICA[place] DENTAL [facility] SAFETY NET DENTAL [facility] DENTAL [address] ACO
--- OUTSIDE RECORDS SUMMARY | 2025-02-03 13:28 | XMS_ITS | Encounter Summary ---
Author Organization [employer] Address [address] [place] [address] 7 [place] [address] Care Team Providers Care Doctor Of Dental Medicine Name Role Phone Beverly Valerio Primary Care Provider [phone] Reason for Visit * Reason Onset Date Comments Med Refill 12/18/2023 Encounter Details Date Type Department Care Team ([facility] st Contact Info) Description 12/18/2023 Refill [facility] [address] [place] [address] Beverly Valerio FNP [address] [place] [address] Social History Tobacco Use Types Packs/Day Years [...] documented as of this encounter Care Teams Doctor Of Dental Medicine Relationship Specialty Start Date End Date Beverly Valerio FNP [address] [place] [address] PCP - General Family Medicine 12/31/21 documented as of this encounter
--- OUTSIDE RECORDS SUMMARY | 2025-02-03 13:28 | XMS_ITS | Encounter Summary ---
Author Organization [employer] Address [address] [facility] [address] [place] [address] Care Team Providers Care Tax Expert Name Role Phone Beverly Valerio DEIDRA Primary Care Provider [phone] Encounter Details Date Type Department Care Team ( Contact Info) Description 01/31/2025 Orders Only GENERIC EXTERNAL DATA DEPARTMENT Provider, Generic External Data Social History Tobacco Use Types Packs/Day Years [...] your housing situation today? I have brenda pam 02/28/[address] you li [...] Procedure Name Priority Date/Time Associated Diagnosis Comments CULTURE, URINE, ROUTINE Routine 01/31/2025 9:14 AM EDT documented in this encounter Results * Culture, Urine, Routine (01/31/2025 9:14 AM EDT) Urine Urine specimen obtained by clean catch procedure / Unknown 01/31/2025 9:14 AM EDT 01/31/2025 4:55 PM EDT Comment:[facility] - 02/02/2025 9:12 AM EDT Urine Culture Report Result Urine Culture < 10,000 cfu/ml Specimen Source: Urine clean catch us Generic External Data Provider LAB MICROBIOLOGY - GENERAL ORDERABLES Final Result [facility] [address] [place] [phone] documented in this encounter Visit Diagnoses Not on filedocumented in this encounter Additional Health Concerns Assessment Noted Time PHQ-9 Depression Total Score: 3 06/07/19 24 6:20 PM EST documented as of this encounter Care Teams Tax Expert Relationship Specialty Start Date End Date Beverly Valerio FNP [address] [place] [address] PCP - General Family Medicine 12/31/21 documented as of this encounter
--- OUTSIDE RECORDS SUMMARY | 2025-02-03 13:28 | XMS_ITS | Encounter Summary ---
Author Organization [employer] Address [address] [facility] [address]t [place] [address] Care Team Providers Care Senior Java Ui Developer Name Role Phone Beverly Valerio Primary Care Provider [phone] Encounter Details Date Type Department Care Team ([facility] Contact Info) Description 12/11/2024 Results Follow-Up [facility] [address] [place], [place] [phone] Beverly Valerio FNP [address] [place] [address] Hemoglobin A1c Social History Tobacco Use Types [...] as of this encounter Care Teams Senior Java Ui Developer Relationship Specialty Start Date End Date Beverly Valerio FNP [address] [place] [address] PCP - General Family Medicine 12/31/21 documented as of this encounter
--- OUTSIDE RECORDS SUMMARY | 2025-02-03 13:28 | XMS_ITS | Encounter Summary ---
Author Organization [employer] Address [address] [place] [address] [address] [place] [address] Care Team Providers Care Ground Surveillance Systems Operator Name Role Phone Beverly Valerio Primary Care Provider [phone] Reason for Visit * Reason Onset Date Comments Med Refill 10/30/2023 Encounter Details Date Type Department Care Team ([facility] Contact Info) Description 10/30/2023 Telephone [facility] [address] [place] [address] Beverly Valerio FNP [address] [place] [address] Med Refill Social History Tobacco Use Types [...] 1000 MG tablet To be sent to: [facility]/pharmacy #[id number] documented in this encounter Plan of Treatment Not on file documented as of this encounter Visit Diagnoses Not on filedocumented in this encounter Additional Health Concerns Assessment Noted Time PHQ-9 Depression Total Score: 3 06/07/19 24 6:20 PM EST documented as of this encounter Care Teams Ground Surveillance Systems Operator Relationship Specialty Start Date End Date Beverly Valerio FNP [address] [place] [address] PCP - General Family Medicine 12/31/21 documented as of this encounter
--- OUTSIDE RECORDS SUMMARY | 2025-02-03 13:28 | XMS_ITS | Encounter Summary ---
Author Organization [employer] Address [address] [facility] [address] [place] [address] Care Team Providers Care Nuclear Plant Equipment Operator Name Role Phone Beverly Valerio DEIDRA Primary Care Provider [phone] Encounter Details Date Type Department Care Team ( st Contact Info) Description 02/03/2025 Orders Only [facility] External Provider, [facility] Social History Tobacco Use Types Packs/Day [...] 2 VIEWS Routine 02/03/2025 12:47 PM EDT documented in this encounter Results * XR KUB and Upright 2 Views (02/03/2025 12:47 PM EDT) Anatomical Region Laterality Modality Radiographic Brittaney ging 02/03/2025 12:4 7 PM EDT Narrative 02/03/2025 12:59 PM EDT [place] [address] XRay Report Signed Patient: Grace Willoughby MR#: [id number] : 1970 Acct:[id number] Age/Sex: 54 / F ADM Date: 02/03/25 Loc: [facility] Attending Dr: Maureen Watson MD Ordering Physician: Maureen Watson MD Date of Service: 02/03/25 Procedure(s): XR KUB Accession Number(s): [id number] cc: Maureen Watson MD; Beverly Valerio Reason [...] Alfredo Ho MD 02/03/2025 12:56 PM EDT Dictated By: Alfredo Ho MD Signed By: <Electronically signed by Alfredo Ho MD in OV> 02/03/25 1256 DD/ 1247 TD/TT: 02/03/25 1250 Gas Controller: Procedure Note Donotuseinterpreter, Image - 02/03/2025 [place] [address] XRay Report Signed Patient: Preet Willoughby#: [id number] : 1970Acct:[id number] Age/Sex: 54 / FADM Date: 02/03/25 Loc: [facility] Attending Dr: Maureen Watson MD Ordering Physician: Maureen Watson MD Date of Service: 02/03/25 Procedure(s): XR KUB Accession Number(s): [id number] cc: Maureen Watson MD; Beverly Valerio Reason [...] 02/03/25 1256 DD/ 1247 TD/TT: 02/03/25 1250 Gas Controller: [facility] External Provider IMG XR PROCEDURES Final Result documented in this encounter Visit Diagnoses Not on filedocumented in this encounter Additional Health Concerns Assessment Noted Time PHQ-9 Depression Total Score: 3 06/07/19 24 6:20 PM EST documented as of this encounter Care Teams Nuclear Plant Equipment Operator Relationship Specialty Start Date End Date Beverly Valerio FNP [address] [place] [address] PCP - General Family Medicine 12/31/21 documented as of this encounter
== END 2025-02-03 12:08 | disposition home or self-care (01) ==
LOC: HO.XRAY 12:07
PROVIDERS: PCP Registered Nurse; Visit Provider Urology
DX: N20.0 Calculus of kidney (principal); Z96.0 Presence of urogenital implants
CPT/HCPCS: 74018

== ENCOUNTER → 2025-02-03 12:12 | Outpatient (BNV) | payer MEDICAID, SELFPAY | PROVIDERS: PCP Registered Nurse; Visit Provider Radiology Diagnostic Radiology | DX: N20.0 Calculus of kidney (principal); Z96.0 Presence of urogenital implants | CPT/HCPCS: 74018 ==

== ENCOUNTER 2025-02-05 15:14 | Outpatient (AMB) | payer MEDICAID, SELFPAY ==
--- NOTE | 2025-02-05 15:32 | A.OFFVIS_ITS ---
Intake Visit Reasons: Cysto/KUB Intake Note: Patient presents today for a cystoscopy/stent removal/KUB follow up Urology medications: none Blood thinners: none Lot #: [id number] Exp:10/15/27 Mold Injector Required: No Accompanied by: Self / Same As Patient Allergies No Known Allergies Allergy (Verified 02/05/25 15:32) HPI Comments Details: 02/06/25--Grace presents for cysto, ureteral stent removal. KUB reviewed. no stone fragments noted along stent. Stent removed without difficulty. FU in 6 weeks, renal US. 01/31/2025--Grace is status post left ureteroscopy left ureteral stent placement on 01/07/2025 with follow-up left ESWL on 01/08/2025. The patient is here for follow-up. She states she has been doing well she denies any significant burning with urination. I have discussed that we need to get a KUB prior to stent removal and I will send her urine for surveillance urine culture. Follow- up for cysto stent removal next week pending KUB results. [facility] Medical History Epigastric pain Diarrhea Colon cancer screening CPAP (continuous positive airway pressure) dependence Liver function abnormality Endometrial cancer UTI (urinary tract infection) Diabetes Surgical History Hx of lithotripsy Tubal ligation status H/O: hysterectomy Social History Patient Tobacco Use Status: Current everyday Tobacco user Tobacco use type: Cigarette Cigarettes Per Day: 20 Years Smoked: 18 Office Procedures Cystoscopy Consent Discussed risk and benefit or proposed procedure with the patient. Information consent for procedure given to the patient. Discussed technical aspects, risks, benefits and alternatives in full. Addressed all of the patient's questions and concerns regarding the procedure. The patient demonstrated knowledge and understanding. They wish to proceed with this procedure. Preparation The patient was prepped in the usual manner. A conference concierge was present and in the room. Genitalia was prepped with betadine solution in a sterile manner. L idocaine Jelly 2% was placed into the urethra and 16Fr flexible Olympus cystoscope was inserted into the meatus after adequate lubrication. Procedure Time out per protocol performed. Speculum used as indicated for adequate visualization of urethra, the flexible cystoscope is passed transurethrally: Cystoscopy findings: mild edema ureteral orifice which is expected, distal end of ureteral stent visualized. The grasping forceps were used and the stent was removed without difficulty. 82495-[id number] with stent removal DISPOSABLE SCOPE URO-G FLEXIBLE SCOPE Procedure code (CPT) selection complete Office Meds lidocaine HCl 2 % mucosal jelly in applicator Performing Provider: Maureen Watson MD [place] [facility] [place] [facility] Administered by: Kendra Schaffer RN on 02/05/25 15:53 Dose Route Admin Location Dispensed Lot Number Expiration Date [employer] 10 mL intra-urethral 20 mL ciprofloxacin HCl 500 mg tablet Performing Provider: Maureen Watson MD [place] [facility] [place] [facility] Administered by: Kendra Schaffer RN on 02/05/25 15:53 Dose Route Admin Location Dispensed Lot Number Expiration Date [employer] 500 mg PO 1 tab phenazopyridine 200 mg tablet Performing Provider: Maureen Watson MD Performing [place] [facility] [place] [facility] Administered by: Kendra Schaffer RN on 02/05/25 15:53 Dose Route Admin Location Dispensed Lot Number Expiration Date [employer] 200 mg PO 1 tab Comments: Patient refused Naproxen Results AMB Urinalysis, Automated UA Leukoctes 70 Shilpa/uL Last Edit by Shayy Lares on 02/05/25 17:12 UA Nitrite Negative Last Edit by Shayy Lares on 02/05/25 17:12 UA Urobilinogen 0.2 mg/dL Last Edit by Shayy Lares on 02/05/25 17:12 UA Protein 30 mg/dL Last Edit by Shayy Lares on 02/05/25 17:12 UA pH 6.0 Last Edit by Shayy Lares on 02/05/25 17:12 UA Blood 200 Ramon/uL Last Edit by Shayy Lares on 02/05/25 17:12 UA Specific [place] 1.030 Last Edit by Shayy Lares on 02/05/25 17:12 UA Ketone Negative Last Edit by Shayy Lares on 02/05/25 17:12 UA Bilirubin 0 mg/dL Last Edit by Shayy Lares on 02/05/25 17:12 UA Glucose 0 mg/dL Last Edit by Shayy Lares on 02/05/25 17:12 Results Reviewed Results Reviewed: Laboratory Last Values Urine pH (Auto) 6.0 02/05/25 16:37 [place] (Auto) 1.030 02/05/25 16:37 Urine Protein (Auto) 30 mg/dL 02/05/25 16:37 Glucose (UA)(Auto) 0 mg/dL 02/05/25 16:37 Urine Ketones (Auto) Negative 02/05/25 16:37 Urine Blood (Auto) 200 Ramon/uL 02/05/25 16:37 Urine Nitrite (Auto) Negative 02/05/25 16:37 Urine Bilirubin (Auto) 0 mg/dL 02/05/25 16:37 Urine Urobilinogen (Auto) 0.2 mg/dL 02/05/25 16:37 Leukocyte Esterase (Auto) 70 Shilpa/uL 02/05/25 16:37 D/TT: 11/16/2405/01/1551 CLINICAL HISTORY: N20.0 - Calculus of kidney US retroperitoneum with color Doppler Comparison: US/SR - US ABDOMEN LIMITED - 06/13/23 09:44 EST US/HI/SR - US BLADDER - 10/05/22 14:42 EDT US/HI/SR - US RENAL BI - 09/28/22 12:46 EDT Findings: Right kidney normal size and echotexture, 12.3 cm length. No hydronephrosis. Normal color flow. No nephrolithiasis. No renal masses. Left kidney normal size and echotexture, 14.1 cm in length. Moderate hydronephrosis. Normal color flow. A total of 3 calculi in the left renal pelvis measuring 9 x 6 x 10 mm, 12 x 7 x 10 mm and 15 x 11 x 11 mm largest near the left UPJ. Urinary bladder is unremarkable. Prevoid volume 171.3 mL. Postvoid volume 8.7 mL. Ureteral jets are visualized bilaterally Impression: 1. Moderate hydronephrosis on the left with 3 calculi in the left renal pelvis largest near the left UPJ. There has been progression of disease when compared to 09/28/2022 ultrasound 2. Bilateral ureteral jets were visualized in the urinary bladder which excludes complete obstructive uropathy Date of Service: 03/15/22 EXAMINATION: CT ABDOMEN AND PELVIS WITHOUT CONTRAST? CLINICAL INFORMATION: Calculus of kidney.? COMPARISON: Ultrasound abdomen 02/01/2022 TECHNIQUE: Multidetector volumetric imaging was performed from the superior aspect of the liver through the pubic symphysis. Sagittal and coronal reformatted images were obtained on the technologist's workstation.? This CT examination was performed using dose optimization techniques as appropriate, variously including the following: *Automated exposure control *Adjustment of mA and/or kV according to patient size (this includes techniques or standardized protocols for targeted exams where dose is matched to indication/reason for exam; i.e. extremities or head) *Use of iterative reconstruction technique DLP: 1224 mGy-cm FINDINGS: LUNG BASES: The lung bases are clear. Heart size is normal.? LIVER, GALLBLADDER, AND BILIARY TREE: The liver is normal in size, shape, and attenuation. No focal hepatic lesion or biliary ductal dilatation is present. The gallbladder is unremarkable with no evidence of radiopaque gallstones, gallbladder wall thickening, or obvious pericholecystic inflammatory changes.? PANCREAS: Unremarkable.? SPLEEN: Unremarkable.? ADRENAL GLANDS: Unremarkable.? KIDNEYS AND URETERS: The kidneys are normal in size, shape, and attenuation. No perinephric stranding. There is a 1.4 cm obstructive left pelvic/UPJ calculus with mild hydronephrosis. No additional radiopaque calculi are seen. There is no right-sided hydronephrosis. BLADDER: Unremarkable.? GASTROINTESTINAL TRACT: There is scattered stool and gas seen throughout the colon without distention. There is nonspecific fat deposition in a short segment of the hepatic flexure on axial image 37/3, nonspecific. The appendix, ileocecal junction and small bowel loops are normal caliber.? ABDOMINAL WALL: There is a small umbilical hernia containing intraperitoneal fat.? LYMPH NODES: Normal. VASCULAR: Unremarkable. PELVIC VISCERA: Unremarkable. OSSEOUS STRUCTURES: There are degenerative disc changes with vacuum disc phenomenon at the L5-S1 disc level with ventral and posterior spondylosis.? IMPRESSION: 1.4 cm partially obstructive stone at the left UPJ. A 1.1 cm calculus was seen in the midpole left kidney on recent ultrasound 02/03/2022. These calculi in the left kidney has increased in size since previous CT exam 12/11/2020. ? Degenerative disc changes at the L5-S1 disc level with ventral spondylosis. ? Assessment & Plan Assessment & Plan (1) Kidney stone on left side: Code(s): N20.0 - Calculus of kidney Category: Medical (2) Ureteral stent present: Code(s): Z96.0 - Presence of urogenital implants Category: Medical Plan Grace presents for cysto, ureteral stent removal. KUB reviewed. no stone fragments noted along stent. Stent removed without difficulty. FU in 6 weeks, renal US. Orders: Orders AMB Cystoscopy 02/05/25 Z96.0 - Presence of urogenital implants AMB Urinalysis Automated 02/05/25 Z13.9 - Encounter for screening, unspecified Patient Instructions: The patient had an opportunity to ask questions regarding treatment plan. The patient expressed understanding and agreement with the above treatment plan. The patient is aware they should contact our office by phone for worsening of their current condition or the appearance of new symptoms. Compliance is encouraged with any medications and followup testing that is ordered. It is a privilege to be allowed the opportunity to participate in the urologic care of your patient. If you have any questions or concerns regarding treatment for the above conditions please do not hesitate to contact me. The office telephone contact is [phone]. This note is constructed in part using voice recognition software. While every effort has been made to ensure accuracy rainbow trout farm manager errors may have been included. Yours sincerely, Maureen Watson MD Coding Level of Care Code Procedure Only Diagnoses Kidney stone on left side N20.0 Ureteral stent present Z96.0 CPT Codes Cystoscopy - CPT: 86527-[id number] with stent removal ([id number])
--- OUTSIDE RECORDS SUMMARY | 2025-02-05 16:15 | XMS_ITS | Encounter Summary ---
Author Organization [employer] Address [address] [facility] [address] [place] [address] Care Team Providers Care Alfalfa Dehydrator Operator Name Role Phone Beverly Valerio DEIDRA Primary Care Provider [phone] Encounter Details Date Type Department Care Team ( st Contact Info) Description 02/03/2025 Orders Only [facility] External Provider, [facility] Social History Tobacco Use Types Packs/Day Years [...] PM EDT Narrative 02/03/2025 12:59 PM EDT [place] [address] XRay Report Signed Patient: Grace Willoughby MR#: [id number] : 1970 Acct:[id number] Age/Sex: 54 / F ADM Date: 02/03/25 Loc: [facility] Attending Dr: Maureen Watson MD Ordering Physician: Maureen Watson MD Date of Service: 02/03/25 Procedure(s): XR KUB Accession Number(s): [id number] cc: Maureen Watson MD; Beverly Valerio Reason [...] 02/03/25 1256 DD/ 1247 TD/TT: 02/03/25 1250 Tow Bar Driver: Procedure Note Donotuseinterpreter, Image - 02/03/2025 [place] [address] XRay Report Signed Patient: Preet Willoughby#: [id number] : 1970Acct:[id number] Age/Sex: 54 / FADM Date: 02/03/25 Loc: [facility] Attending Dr: Maureen Watson MD Ordering Physician: Maureen Watson MD Date of Service: 02/03/25 Procedure(s): XR KUB Accession Number(s): [id number] cc: Maureen Watson MD; Beverly Valerio Reason [...] 02/03/25 1256 DD/ 1247 TD/TT: 02/03/25 1250 Tow Bar Driver: [facility] External Provider IMG XR PROCEDURES Final Result documented in this encounter Visit Diagnoses Not on filedocumented in this encounter Additional Health Concerns Assessment Noted Time PHQ-9 Depression Total Score: 3 06/07/19 24 6:20 PM EST documented as of this encounter Care Teams Alfalfa Dehydrator Operator Relationship Specialty Start Date End Date Beverly Valerio FNP [address] [place] [address] PCP - General Family Medicine 12/31/21 documented as of this encounter
--- OUTSIDE RECORDS SUMMARY | 2025-02-05 16:15 | XMS_ITS | Encounter Summary ---
Author Organization [employer] Address [address] [facility] [address] [place] [address] Care Team Providers Care School Treasurer Name Role Phone Beverly Valerio Primary Care Provider [phone] Encounter Details Date Type Department Care Team ([facility] Contact Info) Description 12/11/2024 Results Follow-Up [facility] [address] [place], [place] [id number] Beverly Valerio FNP [address] [place] [address] Hemoglobin A1c Social History Tobacco Use Types [...] documented as of this encounter Care Teams School Treasurer Relationship Specialty Start Date End Date Beverly Valerio FNP [address] [place] [address] PCP - General Family Medicine 12/31/21 documented as of this encounter
--- OUTSIDE RECORDS SUMMARY | 2025-02-05 16:15 | XMS_ITS | Clinical Summary ---
Author Organization [facility] Address [address] [place] [address] Care Team Providers Care Tissue Specialist Name Role Phone Unavailable Primary Care Provider [...] complication, without long-term current use of insulin Use to clean skin BID PRN DXE11.9 100 Each 11 1 Active sertraline (ZOLOFT) 100 mg tablet Take 150 mg by mouth once daily 1 Active lancets (FREESTYLE LANCETS) 28 gaugeIndications:T ype 2 diabetes mellitus without complication, without long-term current use of insulin Use to check BG BID PRN DX E11.9 Freestyle Lite 100 Each 11 1 Active blood sugar diagnostic stripsIndications: Type 2 diabetes mellitus without complication, without long-term current use of insulin Use to check BG BID PRN DX [...] complication, without long-term current use of insulin Take 1 Tablet by mouth once daily dxe11.9 90 Tablet 1 Active metFORMIN (GLUCOPHAGE) 1,000 mg tabletIndications: Type 2 diabetes mellitus without complication, without long-term current use of insulin TAKE 1 TABLET BY MOUTH TWICE A DAY WITH FOOD 180 Tablet 2 Active Active Problems Problem Noted Date Diagnosed Date Vitamin D deficiency 07/12/2020 H/O total hysterectomy 10/29/2018 Adenocarcinoma of endometrium 02/06/2018 Overview (08/01/2018): 08/01/2018: Cuff check great. Moving to [place] tomorrow, will do some research and contact patient with my recommendation for a [facility]. Reviewed Dr. Hadley's recs with patient [...] findings post-op. Patient planning to move to [place], [place] in the spring and counseled if needs adjuvant therapy prior to her move will need to go to [place] for that and see a [facility] oncologist--if no need for adjuvant therapy I can continue to monitor her here and she can take her records with her to [place]. Initiated discussion on bariatric surgery post-op to [...] biopsy/cysto--plan for OR on 06/18/17 with [facility] Christen Had[place] [facility] [place] Patient counseled on natural history [...] first time meeting patient, but will strongly director of group counseling program patient at next visit about her biggest [...] done and repeat US ordered. To see [facility] in 1 month for f/u and discuss options including ablation and hysterectomy. Pt declined a Mirena IUD today, though may be open to it next time. Assessment & Plan (07/23/2018 7:34 PM EDT): S/p hysterecomty 06/18/18 Healing well feeling great states some tenderness to mons pubis area however other than that feeling well Energy and mood much improved. [facility] has one f/u janett w/ Dr. Hyde prior to moving to [place] where she will transfer care Assessment & [...] Overview (05/13/2016): May 2016 Pt wojciech at [facility] Clinician Kelly Sheridan [phone] Assessment & Plan (05/06/2018 8:28 PM EST): [...] consideration of bariatric procedure once healed from [facility]. 04/17/2018: Class 3 obesity patient's strongest risk [...] is a complication. 04/16/2018: Seen in [facility] office for new diagnosis of FIGO G1 [...] long-term current use of insulin 08/13/2013 Overview (07/03/2018): 07/03/2018: Taking metformin bid, unsure about dose as her most recent Rx states once/day--counseled that most recent telephone note from PCP states bid dosing and metformin is usually dosed bid--states will contact PCP via [employer] today to confirm. 06/07/2018: Saw PCP for [...] [facility] is afraid of [facility]. Plans to [...] EDT): Labs pending ... Bipolar II disorder 04/29/2013 Overview (04/11/2018): Overview: Bipolar II disorder [...] RTC in 1 month Moderate episode of recurrent major depressive d laceyrder 02/23/2007 Assessment & Plan (05/06/2018 8:27 PM [...] Administration Dates Next Due Hep B, Adult/Adol ([id number]/RECOMBIVAX-ADULT) 01/23/2018,09/29/2017,03/01/2017 INFLUENZA, SEASONAL, INJECTABLE 03/01/2017,02/03 PNEUMOCOCCAL POLYSACCHARIDE [...] 05/23/2020 05/23/2018, 05/16/2018 Hemoglobin A1c 10/10/2020 07/10/2020, 12/06/2019, 02/15/2019, Additional history exists Annual Wellness (Adult): [...] 05/08/2024 07/10/19, 12/14/2018, 05/30/2018, Additional history exists [id number] ( season) 2025 Imm-Influenza (#1) 2025 03/01/2017, 02/03/2014 HIV Screening [...] without long-term current use of insulin ([facility]) Encounter for general adult medical examination without abnormal findings HEPATITIS C ANTIBODY Routine 07/10/2020 9:45 AM EST Screening for viral disease LIPID PANEL Routine 07/10/2020 9:45 AM EST Controlled type 2 diabetes mellitus without complication, without long-term current use of insulin ([facility]) Class 3 severe obesity due to excess calories without serious comorbidity with body mass index (BMI) of 45.0 to 49.9 in adult ([facility]) Encounter for general adult medical examination without abnormal findings HEMOGLOBIN GLYCOSYLATED A1C Routine 07/10/2020 9:45 AM EST Controlled type 2 diabetes mellitus without complication, without long-term current use of insulin ([facility]) Class 3 severe obesity due to excess calories without serious comorbidity with body mass index (BMI) of 45.0 to 49.9 in adult ([facility]) Encounter for general adult medical [...] HEPATITIS C ANTIBODY (07/10/2020 9:45 AM EST) HEPATITIS C VIRUS SCREEN NEGATIVE NEGATIVE [facility] Blood Blood / Unknown 07/10/2020 9 :45 AM EST 07/10/2020 10:03 AM EST [facility] - 07/10/2020 12:55 PM EST Adeze, [place] [address] Bevel Operator - Esperanza Stauffer MD PT ID [id number] ORD# [id number] Dona [facility] - [place] [address], * (ABNORMAL) HEMOGLOBIN, GLYCOSYLATED (A1C) (07/10/2020 9:45 AM EST) GLYCATED HEMOGLOBIN A1C 6.6(H) <6.5 % [facility] ESTIMATED AVERAGE GLUCOSE 143 mg/dL [facility] Blood Blood / Unknown 07/10/2020 9 :45 AM EST 07/10/2020 10:03 AM EST [facility] - 07/10/2020 2:09 PM EST Ade[employer], [place] [address] Bevel Operator - Esperanza Stauffer MD PT ID [id number] ORD# [id number] Dona [facility] - BLOOD DRAW Final Result Performing Organization Address City/[facility]/[place] [address], [place] [phone] * (ABNORMAL) LIPID PANEL (07/10/2020 9:45 AM EST) CHOLESTEROL 193 0 - 200 mg/dL [facility] TRIGLYCERIDES 322(H) 0 - 150 mg/dL [facility] HDL CHOLESTEROL 34(L) >40 mg/dL [facility] LDL CALCULATED 95 0 - 100 mg/dL [facility] TC-HDLC RATIO 5.7(H) 0 - 4.4 mg/dL [facility] Blood Blood / Unknown 07/10/2020 9 :45 AM EST 07/10/2020 10:03 AM EST [facility]ale[facility] - 07/10/2020 12:07 PM EST [employer], [place] [address] Bevel Operator - Esperanza Stauffer MD PT ID [id number] ORD# [id number] Don[facility] - BLOOD DRAW Edited Result - Final [address] [address], [place] [phone] * (ABNORMAL) COMPRE METAB PANEL (07/10/2020 9:45 AM EST) GLUCOSE 145(H) 70 - 100 mg/dL [facility] Comment:Reference range appl icable to fasting specimens only BUN 15 5 - 25 mg/dL [facility] CREAT 0.72 0.5 - 1.1 mg/dL [facility] GLOMERULAR FILTRATION RATE > 60 [facility] Comment: If patient is -E[place]ian, multiply result by 1.21 Chronic Kidney Disease: < 60 ml/min/1.73 square meters Kidney Failure: < 15 ml/min/1.73 square meters SODIUM 137 135 - 145 mEq/L [facility] POTASSIUM 4.2 3.5 - 5.5 mmol/L [facility] CHLORIDE 106 96 - 110 mmol/L [facility] CO2 25 21 - 32 mmol/L [facility] ANION GAP 6 3 - 11 [facility] CALCIUM 9.5 8.5 - 10.5 mg/dL [facility] TOTAL PROTEIN 7.9 6.0 - 8.0 G/dL [facility] ALBUMIN 4.1 3.2 - 5.0 G/dL [facility] BILI, TOTAL 0.3 0.0 - 1.4 mg/dL [facility] SGOT 10 10 - 42 U/L [facility] SGPT 26 10 - 60 U/L [facility] ALK PHOS 119 42 - 121 U/L [facility] Blood Blood / Unknown 07/10/2020 9 :45 AM EST 07/10/2020 10:03 AM EST Kalee [facility] - 07/10/2020 12:[address] [facility] apprupt, [place] [address] Bevel Operator - Esperanza Stauffer MD PT ID [id number] ORD# [id number] Dona [facility] - B[place] [address], * Mammogram Screening (05/23/2018 11:33 AM EST) Impressions Evelia Lowe - 05/23/2018 11:33 AM EST Mammogram Screening (Bilateral)05/17/2018 [facility] Result Impression No mammographic evidence of [...] SUMMARY Risk Assessment results are provided by [employer]. Your patient completed a breast cancer risk [...] SUMMARY Risk Assessment results are provided by [employer]. Your patient completed a breast cancer risk [...] Calculations: May 16 2018 12:51PM Rah Jorgensen [facility] IM MAMMO Final Result * (ABNORMAL) FECAL GLOBIN BY IMMUNOCHEMISTRY (FIT) (06/29/2015 2:09 PM EST) FECAL HGB IMM 1 [facility] Comment: COLLECTION DATE NOT GIVEN. TEST RESULTS SHOULD BE INTERPRETED WITH CAUTION. LABELLED DAY 1 FECAL HGB IMM 1 [facility] POS(A) NEG [facility] FECAL HGB IMM 2 [facility] Comment: COLLECTION DATE NOT GIVEN. TEST RESULTS SHOULD BE INTERPRETED WITH CAUTION. LABELLED DAY 2 FECAL HGB IMM 2 RSLT NEG NEG [facility] FECAL HGB IMM 3 [facility] Comment: COLLECTION DATE NOT GIVEN. TEST RESULTS SHOULD BE INTERPRETED WITH CAUTION. LABELLED DAY 3 FECAL HBG IMM 3 RSLT NEG NEG [facility] Stool specimen (specimen) Stool specimen / Unknown 06/29/2015 2:09 PM EST Serenity Monaco MD LAB BODY FLUIDS AND STOOLS AMB ULATORY Final Result [facility] [address] [place] [address], [place] [phone] from Last 3 Months or Most Recently Relevant to Health Maintenance Insurance [place] MEDICA[place] DENTAL [facility] SAFETY NET DENTAL [facility] [place] [address] [facility] Medicaid Address: [address] [place] [address]
--- OUTSIDE RECORDS SUMMARY | 2025-02-05 16:15 | XMS_ITS | Encounter Summary ---
Author Organization [employer] Address [address] [facility] [address] [place] [address] Care Team Providers Care Levers Lace Machine Operator Name Role Phone Beverly Valerio DEIDRA Primary Care Provider [phone] Encounter Details Date Type Department Care Team [...] 9:14 AM EDT 01/31/2025 4:55 PM EDT Comment:[facility]S - 02/02/2025 9:12 AM EDT Urine Culture Report Result Urine Culture < 10,000 cfu/ml Specimen Source: Urine clean catch us Generic External Data Provider LAB MICROBIOLOGY - GENERAL ORDERABLES Final Result [facility] [address] [place] [phone] documented in this encounter Visit Diagnoses Not on filedocumented in this encounter Additional Health Concerns Assessment Noted Time PHQ-9 Depression Total Score: 3 06/07/19 24 6:20 PM EST documented as of this encounter Care Teams Levers Lace Machine Operator Relationship Specialty Start Date End Date Beverly Valerio FNP [address] [place] [address] PCP - General Family Medicine 12/31/21 documented as of this encounter
--- OUTSIDE RECORDS SUMMARY | 2025-02-05 16:15 | XMS_ITS | Encounter Summary ---
Author Organization [employer] Address [address] [place] [address] 7 [place] [address] Care Team Providers Care Condenser Winder Name Role Phone Beverly Valerio Primary Care Provider [phone] Reason for Visit * Reason Onset Date Comments Med Refill 10/30/2023 Encounter Details Date Type Department Care Team ([facility] Contact Info) Description 10/30/2023 Telephone [facility] MED [facility] PEDS [address] [place] [address] Beverly Valerio FNP [address] [place] [address] Med Refill Social History Tobacco Use Types [...] 1000 MG tablet To be sent to: [facility]/pharmacy #[id number] documented in this encounter Plan of Treatment Not on file documented as of this encounter Visit Diagnoses Not on filedocumented in this encounter Additional Health Concerns Assessment Noted Time PHQ-9 Depression Total Score: 3 06/07/19 24 6:20 PM EST documented as of this encounter Care Teams Condenser Winder Relationship Specialty Start Date End Date Beverly Valerio FNP [address] [place] [address] PCP - General Family Medicine 12/31/21 documented as of this encounter
--- OUTSIDE RECORDS SUMMARY | 2025-02-05 16:15 | XMS_ITS | Encounter Summary ---
Author Organization [employer] Address [address] [place] [address] [address] [place] [address] Care Team Providers Care Shellfish Manager Name Role Phone Beverly Valerio Primary Care Provider [phone] Reason for Visit * Reason Onset Date Comments Med Refill 12/18/2023 Encounter Details Date Type Department Care Team ([facility] st Contact Info) Description 12/18/2023 Refill [facility] CHC MED & PEDS [address] [place] [address] Beverly Valerio FNP [address] [place] [address] Social History Tobacco Use Types Packs/Day Years [...] documented as of this encounter Care Teams Shellfish Manager Relationship Specialty Start Date End Date Beverly Valerio FNP [address] [place] [address] PCP - General Family Medicine 12/31/21 documented as of this encounter
--- OUTSIDE RECORDS SUMMARY | 2025-02-05 16:15 | XMS_ITS | Clinical Summary ---
Author Organization [employer] Address [address] [place] [address] [address] [place] [address] Care Team Providers Care Parts Sales Associate Name Role Phone Beverly Valerio DEIDRA Primary Care Provider [phone] Allergies No known active allergies Medications acetaminophen [...] 2025 Active Blood Glucose Monitoring Suppl (FreeStyle [place] Lite) w/Device kitIndication s:Type 2 diabetes mellitus [...] complication, without long-term current use of insulin ([facility]) INJECT 1 PEN SUBCUTANEOUSLY ONCE A WEEK 2 mL 2 01/16/20 25 Active Dulaglutide (Trulicity) 1.5 MG/0.5ML solution auto-injector Indications:T ype 2 diabetes mellitus without complication, without long-term current use of insulin ([facility]) Inject 1.5 mg under the skin 1 (one) time per week. 2 mL 2 10/08/19 25 2024 Discontinued Active Problems Problem Noted Date Diagnosed Date Osteoarthritis of both hips 10/08/2024 Overview (10/08/2024): - March 2024: X-rays demonstrate bilateral mild hip osteoarthritis -Evaluated by [facility] April 2024. Plan for eval of [...] treated with hysterectomy Jun 2018 established with [facility] applications system analyst/onc 2019 Recommendation for screening was q 6 months for 1st year, then yearly, can be montored by wrist liner or applications system analyst onc beginning at 24 months pap test not indicated insufficient data to support Ca125, radiographic imaging CT or PET +/- Ca125 if recurrence expected Assessment & Plan (08/12/2022 6:32 PM EDT): Ms. Willoughby to call [facility] OPTOELECTRONIC TECHNICIAN/Onc to see appt date for next follow up Routine health maintenance 08/09/2022 Overview (03/07/2024): Colonoscopy: referred to GI 08/09/22, repeat referral 02/28/24 Mammogram: 06/29 BIRADS-2 repeat yearly Pap: not indicated, monitored by oncologist at [facility] for endometrial cancer surveillance Dental: [facility] Dental S/P laparotomy 06/18/2018 History of [...] & D quantitative PCR test. Recommendation for G7ihhmg liver ultrasound screening for HCC. Labs from [facility] 10/21/21: Hep B core ab (+), [...] Overview (08/09/2022): May 2016 Pt wojciech at [facility] Clinician Kelly Sheridan [phone] Last Assessment & Plan: Followed by provider. Overview: May 2016 Pt maryluwed at [facility] Clinician Kelly Sheridan [phone] Last Assessment & Plan: Followed by provider. [...] consideration of bariatric procedure once healed from [facility]. 04/17/2018: Class 3 obesity patient's [...] GI -Per previous records: 04/16/2018: Seen in OPTOELECTRONIC TECHNICIAN office for new diagnosis of FIGO G1 endometrial CA. Patient with severe anemia, last Hct 29 on 01/23/18. Has two appointments for iron infusions at [facility] for 05/15/18 and 05/25/18. + [facility] referred to GI 07/2015 Assessment & [...] above goal -Monofilament wnl: 12/06/21 -Referred to [facility] Eye care 08/09/22 for TY Assessment [...] (08/09/2022): 08/01/2018: Cuff check great. Moving to [place] tomorrow, will do some research and contact patient with my recommendation for a OPTOELECTRONIC TECHNICIAN ONC. Reviewed Dr. Hadley's recs with patient [...] findings post-op. Patient planning to move to [place], [place] in the spring and counseled if needs adjuvant therapy prior to her move will need to go to [place] for that and see a OPTOELECTRONIC TECHNICIAN oncologist--if no need for adjuvant therapy I can continue to monitor her here and she can take her records with her to [place]. Initiated discussion on bariatric surgery post-op to [...] LN biopsy/cysto--plan for OR on 06/18/17 with OPTOELECTRONIC TECHNICIAN ONC Christen Hadley from [facility] at . Patient counseled [...] first time meeting patient, but will strongly estate planning counselor patient at next visit about her [...] done and repeat US ordered. To see ACETYLENE OPERATOR in 1 month for f/u and [...] w/ Dr. Hyde prior to moving to [place] where she will transfer care Overview: [ [...] findings post-op. Patient planning to move to [place], [place] in the spring and counseled if needs adjuvant therapy prior to her move will need to go to [place] for that and see a OPTOELECTRONIC TECHNICIAN oncologist--if no need for adjuvant therapy I can continue to monitor her here and she can take her records with her to [place]. Initiated discussion on bariatric surgery post-op to [...] LN biopsy/cysto--plan for OR on 06/18/17 with OPTOELECTRONIC TECHNICIAN ONC Christen Hadley from [facility] at . Patient counseled [...] first time meeting patient, but will strongly estate planning counselor patient at next visit about her [...] done and repeat US ordered. To see ACETYLENE OPERATOR in 1 month for f/u and [...] Department Care Team Description 02/03/2025 Orders Only [facility] External Provider, [facility] 01/31/2025 Orders Only GENERIC EXTERNAL DATA DEPARTMENT Provider, Generic External Data 01/14/2025 Refill [facility] [address] [place] [address] Beverly Valerio FNP Type 2 diabetes mellitus without complication, without long-term current use of insulin ([facility]) 01/08/2025 Orders Only GENERIC EXTERNAL DATA DEPARTMENT Provider, Generic External Data 01/07/2025 Orders Only GENERIC EXTERNAL DATA DEPARTMENT Provider, Generic External Data 12/18/2024 Telephone [facility] [address] [place] [address] Beverly Valerio FNP recall 12/18/2024 Telephone [facility] [address] [place] [address] Beverly Valerio FNP 12/11/2024 Orders Only GENERIC EXTERNAL DATA DEPARTMENT Provider, Generic External Data 12/11/2024 Results Follow-Up [facility] [address] [place] [address] Beverly Valerio FNP Hemoglobin A1c 12/04/2024 Orders Only GENERIC EXTERNAL DATA DEPARTMENT Provider, Generic External Data 11/15/2024 Orders Only [facility] External Provider, [facility] from Last 3 Months Immunizations Immunization [...] without long-term current use of insulin ([facility]) US RETROPERITONEAL COMPLETE Routine 11/16/2024 3:35 PM [...] PM EDT Narrative 02/03/2025 12:59 PM EDT [place] [address] XRay Report Signed Patient: Grace Willoughby MR#: [id number] : 1970 Acct:[id number] Age/Sex: 54 / F ADM Date: 02/03/25 Loc: ELOINA Attending Dr: Maureen Watson MD Ordering Physician: Maureen Watson MD Date of Service: 02/03/25 Procedure(s): XR KUB Accession Number(s): [id number] cc: Maureen Watson MD; Beverly Valerio Reason [...] 02/03/25 1256 DD/ 1247 TD/TT: 02/03/25 1250 Screen Vent Binder: Procedure Note Donotuseinterpreter, Image - 02/03/[address] [address] XRay Report Signed Patient: Preet Willoughby#: [id number] : 1970Acct:[id number] Age/Sex: 54 / FADM Date: 02/03/25 Loc: ELOINA Attending Dr: Maureen Watson MD Ordering Physician: Maureen Watson MD Date of Service: 02/03/25 Procedure(s): XR KUB Accession Number(s): [id number] cc: Maureen Watson MD; Beverly Valerio Reason [...] 02/03/25 1256 DD/ 1247 TD/TT: 02/03/25 1250 Screen Vent Binder: [facility] External Provider IMG XR PROCEDURES Final Result * Culture, Urine, Routine (01/31/2025 9:14 AM EDT) Only the most recent of2 resultswithin the time period is included. Urine Urine specimen obtained by clean catch procedure / Unknown 01/31/2025 9:14 AM EDT 01/31/2025 4:55 PM EDT Comment:UACC Narrative [facility] - 02/02/2025 9:12 AM EDT Urine Culture Report Result Urine Culture < 10,000 cfu/ml Specimen Source: Urine clean catch Generic External Data Provider LAB MICROBIOLOGY - GENERAL ORDERABLES Final Result Performing Organization Address [facility] Co de Phone Number [facility] [address] [place] [phone] * (ABNORMAL) Glucose, Whole Blood (01/08/2025 9:09 AM EDT) Only the most recent of2 resultswithin the time period is included. Glucose, Whole Blood 162(H) 60 - 115 mg/dL [facility] Comment:METER #: [id number] 01/08/2025 9:09 AM EDT 01/08/2025 9:12 AM EDT Generic External Data Provider LAB BLOOD ORDERAB LES Final Result Performing Organization Address [facility] Co de Phone Number [facility] [address] [place] [phone] * FL Guidance in OR (01/07/2025 10:50 AM EDT) Anatomical Region Laterality Modality X-Ray Angiograph y 01/07/2025 10:5 0 AM EDT Narrative 01/08/2025 8:20 AM EDT [place] [address] Fluoroscopy Report Signed Patient: Grace Willoughby MR#: [id number] : 1970 Acct:[id number] Age/Sex: 54 / F ADM Date: 01/07/25 Loc: HO.SSS Attending Dr: Maureen Watson MD Ordering Physician: Maureen Watson MD Date of Service: 01/07/25 Procedure(s): FL guidance in OR Accession Number(s): [id number] cc: Maureen Watosn MD; Beverly Valerio Reason for Exam: cystoscopy, [...] 01/08/25 0817 DD/ 1050 TD/TT: 01/07/25 1205 Screen Vent Binder: Procedure Note Donotuseinterpreter, Image - 01/08/[address] [address] Fluoroscopy Report Signed Patient: Grace WilloughbyMR#: [id number] : 1970Acct:[id number] Age/Sex: 54 / FADM Date: 01/07/25 Loc: HO.SSS Attending Dr: Maureen Watson MD Ordering Physician: Maureen Watson MD Date of Service: 01/07/25 Procedure(s): FL guidance in OR Accession Number(s): [id number] cc: Maureen Watson MD; Beverly Valerio Reason [...] 01/08/25 0817 DD/ 1050 TD/TT: 01/07/25 1205 Screen Vent Binder: [facility] External Provider IMG IR PROCEDURES Final Result * (ABNORMAL) Albumin, Random Urine W/Creatinine (12/11/2024 4:10 PM EDT) Creatinine, Urine 128.91 mg/dL [facility] Microalbumin Urine 229.0 mg/L [facility] Microalbum Creatinine Ratio Ur 177.6(H) <30 ug/mg cr [facility] Comment:Albumin/Creatinine R atio Reference Ranges: Normal: < 30 ug/mg creatinine Microalbuminuria: 30 - 300 ug/mg creatinineClinical Albuminuria: > 300 ug/mg creatinine 12/11/2024 4:10 PM EDT 12/11/2024 5:22 PM EDT Generic External Data Provider LAB URINE ORDERAB LES Final Result [facility] [address] [place] [phone] * (ABNORMAL) Urine Protein, Total, Random without Creatinine (12/11/2024 4:10 PM EDT) Protein, Total, Random Urine 39(H) <12 mg/dL [facility] 12/11/2024 4:10 PM EDT 12/11/2024 5:22 PM EDT us Generic External Data Provider LAB URINE ORDERAB LES Final Result Performing Organization Address [facility] Co de Phone Number [facility] [address] [place] [phone] * (ABNORMAL) Urinalysis Complete (12/11/2024 4:10 PM EDT) Color Urine Yellow [facility] Appearance Urine Clear [facility] PH 5.5 5.0 - 9.0 [facility] Glucose Urine UA Negative Negative mg/dL [facility] Urine Blood Moderate (2+)(A) Negative [facility] Specific [place] - Urine 1.020 1.005 - 1.025 [facility] Urine Protein 30 (1+)(A) Neg-Trace mg/dL [facility] Urine Ketones Negative Negative mg/dL [facility] Nitrite Urine Negative Negative [facility] Leukocyte Esterase Urine Trace(A) Negative [facility] RBC Urine 6-10(A) 0 - 2 /HPF [facility] Urine WBC 6-10(A) 0 - 5 /HPF [facility] Urine Squamous Epithelial Cell 3-5 0 - 2 /HPF [facility] Other Crystals Urine Present [facility] Urine Bacteria Trace None Seen [facility] Hyaline Casts, Urine 3-5 0 - 2 /LPF [facility] 12/11/2024 4:10 PM EDT 12/11/2024 5:22 PM EDT us Generic External Data Provider LAB URINE ORDERAB LES Final Result Performing Organization Address City/[facility]/ZIP Co de Phone Number [facility] [address] [place] [phone] * (ABNORMAL) VITAMIN D 25-OH (D2 AND D3) (12/11/2024 3:16 PM EDT) Vitamin D, 25-OH, D2 <4 ng/mL [facility] Comment:This test was develo ped and its analytical performancecharacteristics have been determined by [employer] [place], [place]. It hasnot been cleared or approved by the U.S. Food and DrugAdministration. This assay has been validated pursuantto the CLIA regulations and is used for clinicalpurposes.THIS TEST WAS PERFORMED AT:[employer] [address] [place] [address]YRPKRLPSTEVE SOLIS MD,PHD Vitamin D, 25-OH, D3 21 ng/mL [facility] Comment:This test was develo ped and its analytical performancecharacteristics have been determined by [employer], [place]. It hasnot been cleared or approved by the U.S. Food and DrugAdministration. This assay has been validated pursuantto the CLIA regulations and is used for clinicalpurposes. Vitamin D, 25-OH, Total 21(A) 30 - 100 ng/mL [facility] Comment:Vitamin D, 25-Hydrox y reports [...] = 30 ng/mL.For additional information, please refer tohttp://education.[employer]/faq/CJB451(This link is being provided for informational/educational purposes only.) 12/11/2024 3:16 PM EDT 12/11/2024 4:15 PM EDT us Generic External Data Provider LAB BLOOD ORDERAB LES Final Result Performing Organization Address [facility]/ZIP Co de Phone Number [facility] [address] [place] [phone] * (ABNORMAL) Uric acid (12/11/2024 3:16 PM EDT) Uric Acid 6.6(H) 2.4 - 5.7 mg/dL [facility] 12/11/2024 3:16 PM EDT 12/11/2024 4:15 PM EDT us Generic External Data Provider LAB BLOOD ORDERAB LES Final Result Performing Organization Address [facility] Co de Phone Number [facility] [address] [place] [phone] * Phosphate (As Phosphorus) (12/11/2024 3:16 PM EDT) Phosphorus 3.2 2.7 - 4.5 mg/dL [facility] 12/11/2024 3:16 PM EDT 12/11/2024 4:15 PM EDT us Generic External Data Provider LAB BLOOD ORDERAB LES Final Result Performing Organization Address [facility] Co de Phone Number [facility] [address] [place] [phone] * PTH, Intact Without Calcium (12/11/2024 3:16 PM EDT) Parathyroid Hormone, Intact 59.1 8.7 - 77.1 pg/mL [facility] 12/11/2024 3:16 PM EDT 12/11/2024 4:15 PM EDT us Generic External Data Provider LAB BLOOD ORDERAB LES Final Result Performing Organization Address City/[facility]/ZIP Co de Phone Number [facility] [address] [place] [phone] * (ABNORMAL) Basic Metabolic Panel (12/11/2024 3:16 PM EDT) Only the most recent of2 resultswithin the time period is included. Sodium 144 135 - 145 mmol/L [facility] Potassium 3.9 3.3 - 5.1 mmol/L [facility] Chloride 107 96 - 108 mmol/L [facility] Carbon Dioxide 26 22 - 29 mmol/L [facility] Anion Gap 15 12 - 20 [facility] Urea Nitrogen (BUN) 22(H) 9 - 16 mg/dL [facility] Creatinine, Serum 0.79 0.5 - 1.4 mg/dL [facility] Estimated Glomerular Filt Rate >60 [facility] Comment:Chronic Kidney Disea se: Estimated GFR < 60 mL/min/1.65p4Jxpyhs Kidney Disease: Estimated GFR < 15 mL/min/1.73m2 Glucose 119(H) 60 - 115 mg/dL [facility] Calcium 9.8 8.4 - 10.2 mg/dL [facility] 12/11/2024 3:16 PM EDT 12/11/2024 4:15 PM EDT us Generic External Data Provider LAB BLOOD ORDERAB LES Final Result [facility] [address] [place] [phone] * Tissue Transglutaminase Antibody, IgA (12/04/2024 4:49 PM EDT) Transglutaminase IgA <1.0 U/mL [facility] Comment:Value Interpretation ----- <15.0 Antibody not detected> or = 15.0 Antibody detectedTHIS TEST WAS PERFORMED AT:[employer] [place] [id number] THOMPSON MD 12/04/2024 4:49 PM EDT 12/04/2024 4:49 PM EDT us Generic External Data Provider LAB BLOOD ORDERAB LES Final Result Performing Organization Address [facility] Co de Phone Number [facility] [address] [place] [phone] * (ABNORMAL) C-reactive Protein (12/04/2024 4:49 PM EDT) C Reactive Protein 0.81(H) < or = 0.50 mg/dL [facility] 12/04/2024 4:49 PM EDT 12/04/2024 4:49 PM EDT us Generic External Data Provider LAB BLOOD ORDERAB LES Final Result Performing Organization Address [facility] de Phone Number [facility] [address] [place] [phone] * Hepatic Function Panel (12/04/2024 4:49 PM EDT) Bilirubin, Total 0.3 0.0 - 1.0 mg/dL [facility] Bilirubin, Direct 0.1 0.0 - 0.5 mg/dL [facility] Aspartate Amino Transferase 19 5 - 31 U/L [facility] Alanine Aminotransferase 24 0 - 31 U/L [facility] Total Protein 7.9 6.5 - 8.0 g/dL [facility] Albumin Level 4.9 3.5 - 5.0 g/dL [facility] Alkaline Phosphatase 91 39 - 117 U/L [facility] 12/04/2024 4:49 PM EDT 12/04/2024 4:49 PM EDT us Generic External Data Provider LAB BLOOD ORDERAB LES Final Result Performing Organization Address [facility] Co de Phone Number [facility] [address] [place] [phone] * (ABNORMAL) CBC (12/04/2024 2:32 PM EDT) White Blood Count 8.6 4.8 - 10.8 X10*3/uL [facility] Red Blood Count 4.13(L) 4.20 - 5.50 X10*6/uL [facility] Hemoglobin 13.2 12.0 - 16.0 g/dl [facility] Hematocrit 39.8 37.0 - 47.0 % [facility] Mean Corpuscular Volume 96.4 80.0 - 98.0 fL [facility] Mean Corpuscular Hemoglobin 32.0 27.0 - 33.0 pg [facility] Mean Corpuscular HGB Conc 33.2 31.0 - 35.0 g/dl [facility] Red Cell Distribution Width 12.9 11.0 - 16.0 % [facility] Platelet Count 238 160 - 400 X10*3/uL [facility] Mean Platelet Volume 10.7 9.4 - 12.3 fL [facility] NRBC Pct Auto 0.0 0.0 - 0.2 /100WBC [facility] NRBC Abs Auto 0.000 0.0 - 0.012 X10*3/uL [facility] 12/04/2024 2:32 PM EDT 12/04/2024 2:32 PM EDT us Generic External Data Provider LAB BLOOD ORDERAB LES Final Result [facility] [address] [place] [phone] * (ABNORMAL) Hemoglobin A1c (12/04/2024 2:32 PM EDT) Hemoglobin A1c 6.5(H) <6.0 % [facility] Comment:Hemoglobin A1C Refer ence Range Adults: 4.8 - 6.0 % Non diabetic: < 6.0 % Goal: < 7.0 %Additional Action Suggested: > 8.0 %Note: Hemoglobin A1c results are invalid for patients with abnormal amounts of HbF. Blood transfusions may impact the HbA1c concentration in the patient sample. Estimated Average Glucose 140 mg/dL [facility] Comment:eAG = Estimated ave rage glucose which is %A1C expressed asaverage glucose, using the formula of the [id number]-MxuugddRslvpkb Glucose study (ADAG), Diabetes Care, Vol.31,#8,Dec. 2007 Blood Venous blood specimen / Unknown 12/04/2024 2:32 PM EDT 12/04/2024 2:32 PM EDT us Beverly GAY LAB BLOOD ORDERABLES Final Res ult Performing Organization Address City/State/[facility] Co de Phone Number [facility] [address] [place] [phone] * US Retroperitoneal Complete (11/16/2024 3:35 PM EDT) Anatomical Region Laterality Modality Ultrasound 11/16/2024 3:35 PM EDT Narrative 11/16/2024 3:37 PM EDT [address] [address] Ultrasound Report Signed with Addenda Patient: Grace Willoughby MR#: [id number] : 1970 Acct:[id number] Age/Sex: 54 / F ADM Date: 11/15/24 Loc: HO.US Attending Dr: Maureen Watson MD Ordering Physician: Maureen Watson MD Date of Service: 11/15/24 Procedure(s): US retroperitoneal comp Accession Number(s): [id number] cc: Maureen Watson MD; Beverly Valerio ADDENDUM [...] US ABDOMEN LIMITED - 06/13/23 09:44 EST US/CA/SR - US BLADDER - 10/05/22 14:42 EDT US/CA/SR - US RENAL BI - 09/28/22 12:46 [...] in OV> 11/16/241536 DD/ 34 TD/TT: 11/16/241534 Screen Vent Binder: Procedure Note Donotuseinterpreter, Image - 11/16/[address] [place] [address] Ultrasound Report Signed with Amy Patient: Grace WilloughbyMR#: [id number] : 1970Acct:[id number] Age/Sex: 54 / FADM Date: 11/15/24 Loc: HO.US Attending Dr: Maureen Watson MD Ordering Physician: Maureen Watson MD Date of Service: 11/15/24 Procedure(s): US retroperitoneal comp Accession Number(s): [id number] cc: Maureen Watson MD; Beverly Valerio ADDENDUM [...] US ABDOMEN LIMITED - 06/13/23 09:44 EST US/CA/SR - US BLADDER - 10/05/22 14:42 EDT US/CA/SR - US RENAL BI - 09/28/22 12:46 [...] 11/16/24 1537 DD/ 1535 TD/TT: 11/16/24 153 Screen Vent Binder: us [facility] External Provider IMG US PROCEDURES Edited Result - Final * (ABNORMAL) Lipid Panel, Standard (05/24/2023 9:49 AM EST) Triglycerides 190(H) <150 mg/dL [facility] Comment:Desirable Triglyceri de: less than 150 mg/dLBorderline High Triglyceride 150-199 mg/dLHigh Triglyceride: 200-499 mg/dLVery High Triglyceride: greater than or equal to 5OO mg/dL Cholesterol 147 <200 mg/dL [facility] Comment:Desirable Cholestero l: less than 200 mg/dLBorderline High Cholesterol: 200-239 mg/dLHigh Cholesterol: greater than 239 mg/dL LDL Cholesterol Calculated 81 <100 mg/dL [facility] Comment:Desirable LDL: less than 100 mg/dLNear Optimal/Above Optimal LDL: 110- 129 mg/dLBorderline High LDL: 130-159 mg/dLHigh LDL: 160-189 mg/dLVery High LDL: greater than or equal to 190 mg/dL HDL Cholesterol 28(L) >40 mg/dL [facility] Comment:Desirable HDL: great er than 40 mg/dL Note: This HDL assay may give artificially low results in patients with liver disease. Blood Venous blood specimen / Unknown 05/24/2023 9:49 AM EST 05/24/2023 11:20 AM EST Beverly Valerio [employer]OOF LOAD MECHANIC LAB BLOOD ORDERABLES Final Res ult [facility] [address] [place] [phone] * Mammography Report 1 (06/24/2021 1:15 [...] [facility] INDEX 0.01 <1.00 [facility] Comment: HCV antibody was non-reactive. There is no laboratory evidence of HCV infection. In most cases, no further action is required. However, if recent HCV exposure is suspected, a test for HCV RNA (test code 50300) is suggested. For additional information please refer to http://education.[employer]/faq/XNI77k4 (This link is being provided for informational/ educational purposes only.) 03/31/2021 10:0 3 AM EST Kim GAY HISTORICAL/NON ORDERABLE LABS Final Result Performing Organization Address City/[facility]/ZIP Co de Phone Number [facility] [address] * HIV 1/2 ANTIGEN/ANTIBODY,FOURTH GENERATION W/RFL (03/31/2021 10:03 AM EST) HIV-1/2 ANTIGEN AND ANTIBODIES, 4TH GENERATION W/ REFLEX NON-REACT DAT NON-REACT DAT [facility] Comment: HIV-1 antigen and HIV-1/HIV-2 [...] purpose. For additional information please refer to http://education.Seeq/faq/NWV616 (This link is being provided for informational/ educational purposes only.) The performance of this assay has not been clinically validated in patients less than 2 years old. 03/31/2021 10:0 3 AM EST us Kim Downey [facility] BLOOD ORDERABLES Final Res ult [facility] [address] from Last 3 Months or Most Recently Relevant to Health Maintenance Insurance [facility] C3 [facility] MEDICAID STAND ADULT * Guarantor: Grace Willoughby Account Type Relation to Patient Date of Phone Billing Address Personal/Family Self [address] [phone] [employer] Relationship Specialty Start Date End Date Beverly Valerio FNP [address] [place] [address] PCP - General Family Medicine 12/31/21
== END 2025-02-05 16:27 | disposition home or self-care (01) ==
LOC: HO.HUSH 15:14
PROVIDERS: PCP Registered Nurse; Visit Provider Urology
DX: Z96.0 Presence of urogenital implants (principal); Z13.9 Encounter for screening, unspecified
CPT/HCPCS: 52310

== ENCOUNTER → 2025-02-05 15:14 | Outpatient (BNVA) | payer MEDICAID, SELFPAY | PROVIDERS: PCP Registered Nurse; Visit Provider Urology | DX: N20.0 Calculus of kidney (principal); Z96.0 Presence of urogenital implants | CPT/HCPCS: 52310; 81003 ==

== ENCOUNTER 2025-02-27 11:25 | Outpatient (REF) | payer MEDICAID, SELFPAY ==
--- NOTE | ~2025-02-27 | US_ITS ---
EXAMINATION: US ABDOMEN COMPLETE CLINICAL INFORMATION: Epigastric pain. COMPARISON: Previous renal ultrasound November 2024 Limited abdominal ultrasound June [address] of the abdomen and pelvis March 2022 TECHNIQUE: Real-time imaging of the abdominal viscera. FINDINGS: PANCREAS: Visualized portions are unremarkable. ABDOMINAL AORTA: The proximal, mid, and distal segments are normal in caliber. INFERIOR VENA CAVA: Visualized portions are normal. LIVER: The liver is normal in size. The liver contour is normal. Parenchymal echogenicity is slightly increased. No focal hepatic lesion. There is no intrahepatic biliary duct dilatation seen. GALLBLADDER: The gallbladder is physiologically distended without evidence of stones, sludge, polyps, wall thickening or pericholecystic fluid. COMMON BILE DUCT: Normal in caliber measuring 0.4 cm in diameter. RIGHT KIDNEY: Mild fullness of the right renal pelvis. No calyceal dilatation.. No renal calculi or focal parenchymal lesions. The kidney measures 12.4 cm in maximum dimension. LEFT KIDNEY: Moderate hydronephrosis. Large central stone in the renal pelvis measuring 3 x 1.1 x 2 cm. Smaller stones measuring 7 x 6 x 14 mm in the lower pole and 4 mm in the midpole. The kidney measures 12.7 cm in maximum dimension. SPLEEN: The spleen measures 10.9 cm in maximum dimension. FREE FLUID: None. US/US abdomen complete IMPRESSION: Slightly echogenic liver suggestive of hepatocellular disease. This most commonly represents fatty infiltration. Normal appearing bile ducts, gallbladder and pancreas. Moderate left hydronephrosis and multiple renal stones, largest measuring 2 x 3 cm in the renal pelvis. This does not appear appreciably changed from prior renal ultrasound November 2024. Urology consultation and follow-up abdominal and pelvic CT recommended. Mild fullness of the right renal pelvis. No calyceal dilatation or right renal stone seen. Electronically signed by: Danika Shaikh MD 02/27/2025 12:38 PM EDT
== END 2025-02-27 11:26 | disposition home or self-care (01) ==
LOC: HO.US 11:25
PROVIDERS: PCP Registered Nurse; Visit Provider Nurse Practitioner Family
DX: R10.13 Epigastric pain (principal)
CPT/HCPCS: 76700

== ENCOUNTER → 2025-02-27 11:28 | Outpatient (BNV) | payer MEDICAID, SELFPAY | PROVIDERS: PCP Registered Nurse; Visit Provider Radiology Diagnostic Radiology | DX: N13.2 Hydronephrosis with renal and ureteral calculous obstruction (principal); K76.0 Fatty (change of) liver, not elsewhere classified | CPT/HCPCS: 76700 ==